=== PATIENT | male | born 1965 | race Caucasian/White ===

== ENCOUNTER 2017-09-11 10:15 | Outpatient (RCR) | payer OTHER, SELFPAY ==
--- NOTE | 2017-09-11 15:11 | PT.OTN ---
Addendum entered and electronically signed by Grisel Milian, PT 09/11/17 15:28: Transition note: On September 11, 2017 our therapy services consisting of Speech, Occupational, and Physical Therapy transitioned from the [employer] electronic documentation system to a new [employer] electronic documentation system.?? All documentation prior to September 11 can be found under [employer] saved data. From September 11 forward all medical record documentation will be in [email or web address]. Original Note: Physical Therapy Treatment Note PT-OP-C Subjective Start: 09/11/17 14:32 Freq: Status: Active Protocol: Activity Type Activity Date Activity User E-Sign Co-Sign Detail Recorded Client Recorded Date Recorded By Document 09/11/17 11:15 EA [id number] 09/11/17 15:06 EA 09/11/17 11:15 OP-PT Subjective [Patient Comments] -Patient Comments Patient reports neck pain is not bothering as much as before but still veered to right side; however able to correct with increased awareness. Overall patient reports that he is improving but still requires a lot of energy as his energ level is low at times per patient. Patient reports that he cancelled the remaining scheduled and okay to have last treatment next session and would like to cont. HEP. -Patient Reported Progress Improving PT-OP-Q Treatments Start: 09/11/17 14:32 Freq: Status: Active Protocol: Activity Type Activity Date Activity User E-Sign Co-Sign Detail Recorded Client Recorded Date Recorded By Document 09/11/17 11:15 EA [id number] 09/11/17 15:06 EA 09/11/17 11:15 Cardio Equipment [Recumbent Stepper (Sci-Fit)] -Duration (Minutes) 7 -Resistance 2 Therapeutic Exercises [Prone Exercises] 5 -Prone Exercise Name Thoracic extnsion x 12 reps x 2 w/ cervical retraction -Side bilateral -Reps/Minutes 5 SH x 5 reps x 2 sets 4 -Prone Exercise Name Opposite Unilat UE/LE's lift -Side bilateral -Reps/Minutes 15 reps x 2 sets 3 -Prone Exercise Name Unilat-bilat UE 's Lift -Side bilateral -Reps/Minutes 15 reps x 2 2 -Prone Exercise Name Unilat-bilat LE 's lift -Side bilateral -Reps/Minutes 15 reps x 2 1 -Prone Exercise Name Table prone scap retraction / T-raises -Side bilateral -Resistance 2-3 lbs DB -Reps/Minutes 12 x 2 sets [Standing Exercises] 1 -Standing Exercise Name Wall posture steady 05/17 squat: DB shld F, side raises, Press, elbow curl -Side bilateral -Resistance 2-3 for shoulder; 4-7 lbs for elbow -Equipment Used DB -Reps/Minutes 12 x 2 sets -Comments Patient maintain upright posture Manual Therapy Treatment [Soft Tissue Mobilization] 2 -Body Location Sub occipitals -Mobilization Type Myofascial Release -Intensity/Depth Moderate -Body Position Prone 1 -Body Location Bilateral Paralumbars/ parthoracis -Mobilization Type Sustained Pressure -Intensity/Depth Superficial -Body Position Prone PT-OP-R Modalities Start: 09/11/17 14:32 Freq: Status: Active Protocol: Activity Type Activity Date Activity User E-Sign Co-Sign Detail Recorded Client Recorded Date Recorded By Document 09/11/17 11:15 EA [id number] 09/11/17 15:06 EA 09/11/17 11:15 Electric Stimulation [Electric Stimulation] Interferential Current (IFC) -Body Location bilat parathoracis/ paralumbars -Duration (Minutes) 15 -Contraction Type Normal -Target/Sweep Sweep -Combined With Heat/Cold Hot Pack Hot Pack/Cold Pack [Treatment] Hot Pack -Patient Position Prone -Patient Tolerance Good PT-OP-T Assessment and Plan Start: 09/11/17 14:32 Freq: Status: Active Protocol: Activity Type Activity Date Activity User E-Sign Co-Sign Detail Recorded Client Recorded Date Recorded By Document 09/11/17 11:15 EA [id number] 09/11/17 15:06 EA 09/11/17 11:15 Physical Therapy Assessment [Assessment Summary] -Assessment Patient tolerated treatment well w/ no signs of acute ditress during treatment; patient have improved postural awareness but still requires costant reinforment. Ovearall patient is safe to discharge to fitness and HEP next visit. Physical Therapy Plan [Next Visit Focus/Plan] -Next Visit Plan Education, HEP/ Fitness program . To discharge patient next visit Current Diagnoses Cervicalgia (09/11/17)
--- NOTE | 2017-10-09 14:07 | PT.OTN ---
Physical Therapy Treatment Note PT-OP-A Visit Information Start: 10/09/17 07:27 Freq: Status: Active Protocol: Document 10/04/17 12:23 EA (Rec: 10/09/17 13:56 EA [id number]) Out-Patient Physical Therapy Visit Information Visit Information Visit Type Treatment Note Visit Note Late documentation: 10/02/17 Total Visit Minutes 30 PT-OP-C Subjective Start: 10/09/17 07:27 Freq: Status: Active Protocol: Document 10/04/17 12:23 EA (Rec: 10/09/17 13:56 EA [id number]) OP-PT Subjective Patient Comments Patient Comments Patient reports wants to be discharge at this time and would like to cont. HEP. Patient Reported Progress Patient Questionnaires Neck Disability Index Neck Disability Index Impairment 1 to 19% Impaired (Score 1-9) Oswestry Low Back Index Oswestry Impairment 1 to 19% Impaired (Score 1-19) PT-OP-Q Treatments Start: 10/09/17 07:27 Freq: Status: Active Protocol: Document 10/04/17 14:03 EA (Rec: 10/09/17 14:07 EA [id number]) Self-Care/Home Management Treatment Education Patient Education Body Mechanics Fall Risk Home Exercise Program Joint Protection Pain Management Posture Safety PT-OP-T Assessment and Plan Start: 10/09/17 07:27 Freq: Status: Active Protocol: Document 10/04/17 14:03 EA (Rec: 10/09/17 14:07 EA [id number]) Physical Therapy Assessment Assessment Summary Assessment Patient is discharged today per patient's request. Home exercises program were given and educated with safety and body mechanics. Patient exhibited good understanding during education and motivated to comply. Physical Therapy Plan Discharge Physical Therapy Discharge Reasons Patient Request Please Sign and Return: I have reviewed this Plan of Care and certify that the skilled therapy services above are required to meet the patient???s needs. Physician Signature Date Printed Name and Credentials Clinical Instructor Signature Printed Name and Credentials
--- NOTE | 2017-10-09 14:16 | PT.OPDS ---
Provider Visit Care Team Role Provider Type Tiffanie Shelley DO Attending Provider Physician Family Provider Primary Care Provider Specialty: Family Practice Address: [address] [place] [address], [id number] Email: [email or web address] Discharge Summary PT-OP-C Subjective Start: 10/09/17 07:27 Freq: Status: Active Protocol: Document 10/04/17 12:23 EA (Rec: 10/09/17 13:56 EA [id number]) OP-PT Subjective Patient Comments Patient Comments Patient reports wants to be discharge at this time and would like to perf Patient Reported Progress Improving Patient Questionnaires Neck Disability Index Neck Disability Index Impairment 1 to 19% Impaired (Score 1-9) Oswestry Low Back Index Oswestry Impairment 1 to 19% Impaired (Score 1-19) PT-OP-T Assessment and Plan Start: 10/09/17 07:27 Freq: Status: Active Protocol: Document 10/04/17 14:03 EA (Rec: 10/09/17 14:07 EA [id number]) Physical Therapy Assessment Assessment Summary Assessment Patient is discharged today per patient's request. Home exercises program were given and educated with safety and body mechanics. Patient exhibited good understanding during education and motivated to comply. Physical Therapy Plan Discharge Physical Therapy Discharge Reasons Patient Request Please Sign and Return: I have reviewed this Plan of Care and certify that the skilled therapy services above are required to meet the patient???s needs. Physician Signature Date Printed Name and Credentials Clinical Instructor Signature Printed Name and Credentials
== END 2017-11-01 11:05 ==
LOC: PHYS 10:15
PROVIDERS: Family Provider Family Medicine; PCP Family Medicine; Visit Provider Family Medicine
DX: M54.2 Cervicalgia (principal)
CPT/HCPCS: 97010; 97014; 97110; 97535; G0283

== ENCOUNTER → 2017-10-09 08:32 | Outpatient (CLI) | payer OTHER, SELFPAY ==
[2017-10-09 09:58] LABS: Add Manual Diff / Slide Review NO; Basophils Percent Auto 0.3 % (0-2); Eosinophils Percent Auto 0.6 % (2-4); Hematocrit 41.7 % (41-53); Hemoglobin 14.4 g/dL (13.5-17.5); Lymphocytes Percent Auto 8.1 % (25-40); Mean Corpuscular HGB Conc 34.6 % (30-36); Mean Corpuscular Hemoglobin 32.5 PG (26-34); Mean Corpuscular Volume 93.8 fL (80-100); Monocytes Percent Auto 4.6 % (3-14); Neutrophils Absolute Auto 13900 /uL (3000-5900); Neutrophils Percent Auto 86.4 % (50-75); Platelet Count 300 X10^3/uL (150-400); Red Blood Cell Count 4.45 X10^6/uL (4.5-5.9); Red Cell Distribution Width 13.2 % (11.6-14.8); White Blood Cell Count 16.1 X10^3/uL (4.5-11.0)
== END ==
PROVIDERS: Family Provider Family Medicine; PCP Family Medicine; Visit Provider Nurse Practitioner Psychiatric/Mental Health
DX: F20.9 Schizophrenia, unspecified (principal)
CPT/HCPCS: 36415; 85025

== ENCOUNTER → 2017-10-22 07:29 | Outpatient (CLI) | payer OTHER, SELFPAY ==
[2017-10-22 09:06] LABS: Add Manual Diff / Slide Review NO; Eosinophils Percent Auto 2.9 % (2-4); Hemoglobin 14.6 g/dL (13.5-17.5); Lymphocytes Percent Auto 27.2 % (25-40); Mean Corpuscular Hemoglobin 32.2 PG (26-34); Mean Corpuscular Volume 94.7 fL (80-100); Monocytes Percent Auto 6.2 % (3-14); Neutrophils Absolute Auto 5800 /uL (3000-5900); Neutrophils Percent Auto 62.7 % (50-75); Platelet Count 351 X10^3/uL (150-400); Red Blood Cell Count 4.54 X10^6/uL (4.5-5.9); Red Cell Distribution Width 13.1 % (11.6-14.8); White Blood Cell Count 9.3 X10^3/uL (4.5-11.0)
== END ==
PROVIDERS: Family Provider Family Medicine; PCP Family Medicine; Visit Provider Nurse Practitioner Psychiatric/Mental Health
DX: F20.9 Schizophrenia, unspecified (principal)
CPT/HCPCS: 36415; 85025

== ENCOUNTER → 2017-10-29 07:45 | Outpatient (CLI) | payer OTHER, SELFPAY ==
[2017-10-29 09:30] LABS: Add Manual Diff / Slide Review NO; Basophils Percent Auto 0.5 % (0-2); Eosinophils Percent Auto 1.2 % (2-4); Hematocrit 42.5 % (41-53); Hemoglobin 14.5 g/dL (13.5-17.5); Lymphocytes Percent Auto 12.7 % (25-40); Mean Corpuscular HGB Conc 34.2 % (30-36); Mean Corpuscular Hemoglobin 32.3 PG (26-34); Mean Corpuscular Volume 94.6 fL (80-100); Monocytes Percent Auto 5.8 % (3-14); Neutrophils Absolute Auto 10200 /uL (3000-5900); Neutrophils Percent Auto 79.8 % (50-75); Platelet Count 346 X10^3/uL (150-400); Red Blood Cell Count 4.49 X10^6/uL (4.5-5.9); Red Cell Distribution Width 13.4 % (11.6-14.8); White Blood Cell Count 12.7 X10^3/uL (4.5-11.0)
== END ==
PROVIDERS: Family Provider Family Medicine; PCP Family Medicine; Visit Provider Nurse Practitioner Psychiatric/Mental Health
DX: F20.9 Schizophrenia, unspecified (principal)
CPT/HCPCS: 36415; 85025

== ENCOUNTER 2017-10-29 23:53 | Emergency (ER) | payer OTHER, SELFPAY ==
[2017-10-30 00:04] VITALS: BP 130/92; PULSE 91; RESP 18; TEMP 36.4; O2SAT 97; BMI 17.9
--- NOTE | 2017-10-30 00:07 | DI.CT.S_ITS ---
PROCEDURE: CT ABDOMEN PELVIS WO/W CON INDICATIONS: Abdominal pain with hematuria TECHNIQUE: 5 mm thick sections acquired from the diaphragms to the iliac crests. After the administration of intravenous contrast, 5 mm thick sections acquired from the diaphragms to the symphysis. 5 mm thick coronal and sagittal reformats were acquired. For radiation dose reduction, the following was used: automated exposure control, adjustment of mA and/or kV according to patient size. COMPARISON: [facility], CR, THORACIC SPINE 3 VIEWS, 06/22/2017, 11:12. [facility], CT, PE STUDY (CTA CHEST), 02/02/2017, 5:40. [facility], CT, THORAX WITHOUT CONTRAST, 04/26/2016, 11:16. [facility], CR, L-SPINE 2-3 VIEWS, 06/22/2017, 11:12. FINDINGS: Image quality: Excellent. ABDOMEN: Lung bases: Lung bases are clear. Heart size is normal. Solid organs: Liver is normal in size and enhancement but appears mildly fatty infiltrated with focal sparing from otherwise diffuse fatty infiltration along the right lateral gallbladder fossa margin. Gallbladder appears free of calcified gallstones. Biliary system is slightly prominent within the central portion of the liver but the common duct measures only 7 mm in diameter. Pancreas enhances normally. Spleen is normal in size and enhancement. No adrenal nodules. Both kidneys are normal in size. No hydronephrosis or left-sided nephrolithiasis, and there is a nonobstructive 1 mm calculus at the lower third anterior collecting system of the right kidney. Bowel and peritoneum: Stomach, small and large bowel loops are normal in caliber and wall thickness. No free fluid or air. Colonic obstipation is prominent within the abdomen and pelvis, bilaterally Nodes and vessels: No retroperitoneal or mesenteric adenopathy by size criteria. Aorta and inferior vena are normal in caliber. Miscellaneous: No ventral hernias. Note is made on the sagittal reformatt imaging of what appears to be multiple chronic compression fractures mild in overall severity and 1 quite severe compression fracture at T12. The chronic compression fractures involve the upper endplate of of T11 with a small Schmorl's node, and the upper endplate of L4 including a moderate size Schmorl's node. The lower endplate of L5 also appears mildly bowed cephalad. The moderately severe compression fracture likely occurred on or near 06/22/17 by plain film reference. It is better seen and appears to mildly progressed from plain film imaging at that time. It currently documents a 60% maximal height reduction when compared to the level immediately below at the junction of the [id number] thirds of the vertebral body and there is posterior bowing of the posterior aspect of the T12 vertebral body by 11 mm into the spinal canal producing significant spinal stenosis. PELVIS: Genitourinary: Bladder wall thickness is normal. Miscellaneous: No inguinal hernias or adenopathy. Bones: No suspicious bony lesions within the pelvis. Please refer to the discussion related to compression fractures along the thoracic and lumbosacral spine most pronounced at T12.. No vertebral body compression fractures. IMPRESSION: 1. A definite source of hematuria is not found. There is a 1-1.5 mm nonobstructive calculus at the lower third collecting system of the right kidney. A renal cortical or urothelial mass is not identified. Cystoscopy may be warranted. 2. Quite severe T12 compression fracture with 60% maximal height reduction and a burst fracture morphology with secondary mild kyphosis centered at this segment and also retropulsion of the posterior T12 vertebral body into the spinal canal producing significant spinal stenosis due to approximately a 11 mm displacement of the vertebral body posteriorly. This trauma likely occurred on or shortly before 06/22/17 by plain film imaging and history. Given the severity of injury orthopedic consultation likely is warranted. MR scanning for more accurate assessment may be warranted. Additional less prominent compression fractures elsewhere as discussed above likely are osteoporotic in origin. 3. Fatty infiltration throughout the liver, focal sparing from this fatty infiltration is present along the right lateral gallbladder fossa border of the liver parenchyma. Incidental mode is made of mild prominence of the intrahepatic bile ducts, without identified underlying etiology. Also, generalized colonic obstipation is quite prominent in this patient. Dictated by: Sathya Garcia M.D. on 10/30/2017 at 8:32 Approved by: Sathya Garcia M.D. on 10/30/2017 at 8:49
[2017-10-30] MEDS: SODIUM CHLORIDE 0.9% 1,000 ML 150 ML IV (00:40)
[2017-10-30 00:43] LABS: Add Manual Diff / Slide Review NO; Basophils Percent Auto 0.6 % (0-2); Eosinophils Percent Auto 1.5 % (2-4); Hematocrit 42.8 % (41-53); Hemoglobin 14.6 g/dL (13.5-17.5); Lymphocytes Percent Auto 15.1 % (25-40); Mean Corpuscular Hemoglobin 32.3 PG (26-34); Mean Corpuscular Volume 94.8 fL (80-100); Neutrophils Absolute Auto 10300 /uL (3000-5900); Neutrophils Percent Auto 76.8 % (50-75); Platelet Count 333 X10^3/uL (150-400); Red Blood Cell Count 4.52 X10^6/uL (4.5-5.9); Red Cell Distribution Width 13.1 % (11.6-14.8); White Blood Cell Count 13.4 X10^3/uL (4.5-11.0)
[2017-10-30 00:54] LABS: Alanine Aminotransferase 28 IU/L (21-72); Albumin Globulin Ratio 1.4 (1.0-2.8); Alkaline Phosphatase 81 U/L (38-126); Aspartate Aminotransferase 22 IU/L (17-59); BUN Creatinine Ratio 26.3 (6-22); Bilirubin Total 0.6 mg/dL (0.2-1.3); Blood Urea Nitrogen 21 mg/dL (9-20); Calcium 9.1 mg/dL (8.4-10.2); Carbon Dioxide 26 mmol/L (22-32); Chloride 104 mmol/L (98-107); Estimated Glomerular Filt Rate > 60.0 mL/min (>60); Globulin 2.8 g/dL (1.7-4.1); Glucose 87 mg/dL (70-100); HEMOLYSIS 27 (0-50); Lipase 47 U/L (23-300); Potassium 3.9 mmol/L (3.4-5.1); Sodium 142 mmol/L (137-145); Total Protein 6.8 g/dL (6.3-8.2)
--- NOTE | 2017-10-30 01:08 | PC.NURSE ---
Pt states dark red urine today. Unable to urinate at time of arrival.
[2017-10-30 03:54] LABS: Bacteria Urine None Seen; WBC Urine None Seen (0-5/HPF)
[2017-10-30 03:55] LABS: Appearance Urine UA CLEAR; Bilirubin Urine UA NEGATIVE (NEGATIVE); Color Urine UA YELLOW; Glucose Urine UA NEGATIVE (Normal); Ketones Urine UA NEGATIVE (NEGATIVE); Leukocyte Esterase Urine UA NEGATIVE (NEGATIVE); Nitrite Urine UA Negative (Negative); Occult Blood Urine UA 1+ (Negative); Protein Urine UA NEGATIVE (Negative); Specific Gravity Urine UA <=1.005 (1.000-1.035); Urobilinogen Urine UA 0.2 E.U./dL (0.2)
[2017-10-30 04:03] LABS: RBC Urine 1-5/HPF (0-5/HPF)
[2017-10-30 04:04] LABS: Culture Indicated Urine Cult Not Indicated
--- NOTE | 2017-10-30 04:13 | ED_ITS ---
HPI - Abdominal Pain General Chief Complaint: Abdominal Pain Stated Complaint: Abd Pain History of Present Illness HPI narrative: HPI 52-year-old male with schizoaffective disorder and a prior T12 compression fracture presents for evaluation of intermittent red/orange tinged urine over the last month, notes poorly characterized mild abdominal discomfort. Denies fevers, chills, dysuria, urinary frequency, penile discharge. Continues pass flatus and stool at baseline - Q2-4 day stooling. Denies new back pain. Notes normal sensation lays, normal strength, normal perineal sensation, no difficulty urinating. chart dated 08/10/17 reviewed, notable for imaging with T12 compression fracture , previously identified, has not worsen. No retropulsion of bone fragments into the spinal canal is seen. Focal kyphosis is present as a result of that compression fracture, the severity of which is not changed. No new compression fracture found. M/S/F/SocHx notable for: schizoaffective, chronic back pain, PTSD; remainder reviewed with patient and in chart. ROS: Negative constitutional, eye, cardiovascular, pulmonary, GI, , MSK, skin , neurologic, psychiatric, endocrine unless noted in the HPI. Exam Gen: [Pleasant, non-toxic appearing, resting comfortably.] HEENT: [NC, AT, PEERL, EOMI.] Resp: [Clear to auscultation bilaterally, normal work of breathing, no accessory muscle usage.] Card: [Regular rate and rhythm with no murmurs, rubs, or gallops, extremities warm and well perfused.] GI: [Non-tender to palpation throughout all quadrants, no focal tenderness at McBurney's point, negative Hussein's sign, non-distended, no rebound or guarding. ] : [No suprapubic tenderness to palpation.] MSK: [No visible deformities, strength and tone without visually appreciable deficit.] Thoracic and lumbar spine without palpable tenderness. Skin: [Normal color with no visible lesions.] Neuro: [AO x 3, no facial asymmetry, vision and hearing WNL.] Psych: and affect Labs / Imaging: WBC 13.4, HB 14.6, sodium 142, potassium 3.9 UA - 1+ occult blood, negative nitrate, negative leukocyte esterase, no WBCs, no bacteria. CT abdomen/pelvis: fracture of the T12 vertebral body with approximately 7 mm of bony retropulsion causing effacement of the thecal sac. Distended colon filled with stool. There is also distended loops of small bowel filled with fluid. Hypomotility secondary to medication, electrolyte imbalance, or other neurologic etiology should be considered. 3 mm near right renal stone. No hydronephrosis. MDM Previous chart, nursing note, labs, imaging, and vitals reviewed. A: 52-year-old male with schizoaffective disorder and a prior T12 compression fracture presents for evaluation of intermittent red/orange tinged urine over the last month, notes poorly characterized mild abdominal discomfort. DDx & Evaluation: UA without evidence of UTI, trace hematuria, imaging without evidence of ureterolithiasis or radial apparent malignancy. Note was made of the T12 vertebral body with retropulsion as well as imaging findings regarding distended loops of small bowel filled with fluid. The patient's history and exam are without evidence of obstruction, patient can is to stool normally, has no identifiable neuro deficits, no back pain. Patient is appropriate for outpatient follow-up. Patient instructed to follow up with their PCP regarding the trace hematuria and for further care/referral with respect to his T12 imaging abnormalities. Return to care precautions provided. Impression: trace hematuria (please reference below for remainder of encounter information) Related Data Home Medications Medication Instructions Recorded Confirmed aspirin 81 mg PO QDAY #30 tab 01/05/16 escitalopram oxalate 20 mg PO QDAY #30 tab 03/10/16 quetiapine [Seroquel] 300 mg PO BID #0 03/10/16 temazepam 15 mg PO HS #0 03/10/16 lorazepam [Ativan] 1 mg PO TIDP PRN #0 09/18/16 benztropine 0.5 mg PO BID #0 09/22/16 albuterol sulfate [Ventolin HFA] 1 puff INH #0 01/30/17 quetiapine [Seroquel] 100 mg PO HS #0 01/30/17 Previous Rx's Medication Instructions Recorded metoclopramide HCl 10 mg PO TIDAC #90 tab 12/14/16 Spacer: Inhaler Spacer Device ea #1 02/14/17 lactulose 20 gm PO BIDP PRN #1800 ml 06/30/17 lidocaine 1 amilcar TOPICAL Q6HP PRN #1 tube 07/06/17 calcitonin (salmon) 1 puff NS QDAY #3.7 ml 08/17/17 oxycodone-acetaminophen 10 mg PO BID #60 tab 08/17/17 ranitidine HCl 150 mg PO BIDCC #180 tab 08/20/17 methocarbamol [Robaxin-750] 750 mg PO QIDP PRN #40 tab 09/03/17 atorvastatin [Lipitor] 20 mg PO HS #90 tab 09/12/17 pantoprazole 40 mg PO QDAY #90 tab 09/12/17 oxycodone-acetaminophen 5 mg-325 2 tab PO BID #60 tab 10/15/17 mg tablet Allergies Allergy/AdvReac Type Severity Reaction Status Date / Time iloperidone Allergy Intermediate SEIZURES Unverified 08/22/17 12:16 atomoxetine Allergy Mild RASH Unverified 08/22/17 12:16 bupropion Allergy Mild SOB Unverified 08/22/17 12:16 cyclobenzaprine Allergy Mild RASH Unverified 08/22/17 12:16 lamotrigine Allergy Mild RASH Unverified 08/22/17 12:16 sertraline Allergy Mild RASH Unverified 08/22/17 12:16 haloperidol AdvReac Severe TARDIVE Unverified 08/22/17 12:16 DYSKENSIA PFSH Medical History Bipolar disorder (Chronic) PTSD (post-traumatic stress disorder) (Chronic) Schizoaffective disorder (Chronic) Testicular mass (Resolved) Surgical History Status post laparotomy (Resolved 01/2017) Family History Father Tobacco use Alcoholism Mother Age: 77 Vertigo Exam Initial Vital Signs Initial Vital Signs: Vital Signs Temperature 97.6 F 10/30/17 00:04 Pulse Rate 91 H 10/30/17 00:04 Respiratory Rate 18 10/30/17 00:04 Blood Pressure 130/92 H 10/30/17 00:04 Pulse Oximetry 97 10/30/17 00:04 Course Orders Ordered: ED Orders 10/30/17 00:07 CT abdomen pelvis wo/w con Stat 10/30/17 00:35 Complete Blood Count AUTO DIFF Stat Comprehensive Metabolic Panel Stat Lipase Stat 10/30/17 03:45 Urinalysis and Microscopic Stat Urine Chlamydia Gonorrhea PCR Stat Sodium Chloride (Normal Saline 0.9%) 1,000 mls @ 150 mls/hr IV CONT DANIEL Vital Signs - 8 hr 10/30/17 00:04 Temperature 97.6 F Pulse Rate 91 H Respiratory Rate 18 Blood Pressure 130/92 H Pulse Oximetry 97 MDM - Abdominal Pain Lab Data Result diagrams: 10/30/17 00:35 10/30/17 00:35 Lab Results 10/30/17 10/30/17 10/30/17 Range/Units 00:35 00:35 03:45 WBC 13.4 H (4.5-11.0) X10^3/uL RBC 4.52 (4.5-5.9) X10^6/uL Hgb 14.6 (13.5-17.5) g/dL Hct 42.8 (41-53) % MCV 94.8 (80-100) fL MCH 32.3 (26-34) PG MCHC 34.0 (30-36) % RDW 13.1 (11.6-14.8) % Plt Count 333 (150-400) X10^3/uL Neut % (Auto) 76.8 H (50-75) % Lymph % (Auto) 15.1 L (25-40) % [facility] % (Auto) 6.0 (3-14) % Eos % (Auto) 1.5 L (2-4) % Baso % (Auto) 0.6 (0-2) % Neut # (Auto) 13851 H (1562-9166) /uL Sodium 142 (137-145) mmol/L Potassium 3.9 (3.4-5.1) mmol/L Chloride 104 (98-107) mmol/L Carbon Dioxide 26 (22-32) mmol/L BUN 21 H (9-20) mg/dL Creatinine 0.80 (0.66-1.25) mg/dL Estimated GFR > 60.0 (>60) mL/min BUN/Creatinine Ratio 26.3 H (6-22) Glucose 87 (70-100) mg/dL Calcium 9.1 (8.4-10.2) mg/dL Total Bilirubin 0.6 (0.2-1.3) mg/dL AST 22 (17-59) IU/L ALT 28 (21-72) IU/L Alkaline Phosphatase 81 (38-126) U/L Total Protein 6.8 (6.3-8.2) g/dL Albumin 4.0 (3.5-5.0) g/dL Globulin 2.8 (1.7-4.1) g/dL Albumin/Globulin Ratio 1.4 (1.0-2.8) Lipase 47 (23-300) U/L Urine Color Yellow Urine Appearance Clear Urine pH 7.0 (4.5-8.0) Ur Specific [place] <=1.005 (1.000-1.035) Urine Protein Negative (Negative) Urine Glucose (UA) Negative (Normal) g/dL Urine Ketones Negative (NEGATIVE) Urine Occult Blood 1+ H (Negative) Urine Nitrate Negative (Negative) Urine Bilirubin Negative (NEGATIVE) Urine Urobilinogen 0.2 (0.2) E.U./dL Ur Leukocyte Esterase Negative (NEGATIVE) Urine RBC 1-5/hpf (0-5/HPF) Urine WBC None seen (0-5/HPF) Urine Bacteria None seen (None) Ur Culture Indicated? Cult not indicated Micro UA Comment Not Reportable Discharge Plan Departure Prescriptions: No Action aspirin 81 MG tablet,delayed release (DR/EC) 81 mg PO QDAY Qty: 30 RF: 0 quetiapine [Seroquel] 300 MG tablet 300 mg PO BID Qty: 0 RF: 0 escitalopram oxalate 20 MG tablet 20 mg PO QDAY Qty: 30 RF: 0 temazepam 15 MG capsule 15 mg PO HS Qty: 0 RF: 0 lorazepam [Ativan] 0.5 MG tablet 1 mg PO TIDP PRNQty: 0 RF: 0 benztropine 0.5 MG tablet 0.5 mg PO BID Qty: 0 RF: 0 metoclopramide HCl 10 MG tablet 10 mg PO TIDAC Qty: 90 RF: 5 quetiapine [Seroquel] 100 MG tablet 100 mg PO HS Qty: 0 RF: 0 albuterol sulfate [Ventolin HFA] 90 MCG/PUFF HFA aerosol inhaler 1 puff INH Qty: 0 RF: 0 Spacer: Inhaler Spacer Device Qty: 1 RF: 0 lactulose 10 GM/15 ML solution 20 gm PO BIDP PRNQty: 1800 RF: 0 lidocaine LIDOCAINE 5% ointment 1 amilcar Topical Q6HP PRNQty: 1 RF: 1 oxycodone-acetaminophen 5 MG/325 MG tablet 10 mg PO BID Qty: 60 RF: 0 calcitonin (salmon) 200 IU/PUFF spray,non-aerosol 1 puff NS QDAY Qty: 3.7 RF: 0 ranitidine HCl 150 MG tablet 150 mg PO BIDCC Qty: 180 RF: 0 methocarbamol [Robaxin-750] 750 MG tablet 750 mg PO QIDP PRNQty: 40 RF: 0 atorvastatin [Lipitor] 20 mg tablet 20 mg PO HS Qty: 90 RF: 0 pantoprazole 40 mg tablet,delayed release (DR/EC) 40 mg PO QDAY Qty: 90 RF: 1 oxycodone-acetaminophen 5-325 mg tablet 2 tab PO BID Qty: 60 RF: 0
[2017-10-30 05:09] VITALS: BP 128/80; PULSE 88; RESP 16; O2SAT 98
[2017-10-30 05:42] LABS: Urine Chlamydia NOT DETECTED; Urine N gonorrhoeae NOT DETECTED
[2017-10-30 06:21] VITALS: BP 132/82; PULSE 88; RESP 16; O2SAT 99
== END 2017-10-30 06:22 | disposition home or self-care (01) ==
PROVIDERS: Emergency Provider Emergency Medicine; Family Provider Family Medicine; PCP Family Medicine
DX: R31.9 Hematuria, unspecified (principal)
CPT/HCPCS: 36591; 74178; 80053; 81001; 83690; 85025; 87491; 87591; 96360; 96361; 99283; 99284; Q9967

== ENCOUNTER → 2017-11-05 08:13 | Outpatient (CLI) | payer OTHER, SELFPAY ==
[2017-11-05 09:00] LABS: Add Manual Diff / Slide Review NO; Basophils Percent Auto 0.9 % (0-2); Eosinophils Percent Auto 2.3 % (2-4); Hematocrit 43.7 % (41-53); Lymphocytes Percent Auto 21.1 % (25-40); Mean Corpuscular HGB Conc 34.3 % (30-36); Mean Corpuscular Hemoglobin 32.6 PG (26-34); Mean Corpuscular Volume 95.3 fL (80-100); Monocytes Percent Auto 7.2 % (3-14); Neutrophils Absolute Auto 6800 /uL (3000-5900); Neutrophils Percent Auto 68.5 % (50-75); Platelet Count 337 X10^3/uL (150-400); Red Blood Cell Count 4.59 X10^6/uL (4.5-5.9); Red Cell Distribution Width 13.1 % (11.6-14.8); White Blood Cell Count 9.9 X10^3/uL (4.5-11.0)
== END ==
PROVIDERS: Family Provider Family Medicine; PCP Family Medicine; Visit Provider Nurse Practitioner Psychiatric/Mental Health
DX: F20.9 Schizophrenia, unspecified (principal)
CPT/HCPCS: 36415; 85025

== ENCOUNTER → 2017-11-19 07:18 | Outpatient (CLI) | payer SELFPAY | PROVIDERS: Family Provider Family Medicine; PCP Family Medicine; Visit Provider Nurse Practitioner Psychiatric/Mental Health | DX: F20.9 Schizophrenia, unspecified (principal) ==

== ENCOUNTER → 2017-11-20 07:36 | Outpatient (CLI) | payer OTHER, SELFPAY ==
[2017-11-20 09:35] LABS: Add Manual Diff / Slide Review NO; Basophils Percent Auto 0.5 % (0-2); Hemoglobin 14.1 g/dL (13.5-17.5); Lymphocytes Percent Auto 7.3 % (25-40); Mean Corpuscular HGB Conc 33.6 % (30-36); Mean Corpuscular Hemoglobin 32.1 PG (26-34); Mean Corpuscular Volume 95.6 fL (80-100); Monocytes Percent Auto 3.9 % (3-14); Neutrophils Absolute Auto 12400 /uL (3000-5900); Neutrophils Percent Auto 87.3 % (50-75); Platelet Count 301 X10^3/uL (150-400); Red Cell Distribution Width 13.3 % (11.6-14.8); White Blood Cell Count 14.2 X10^3/uL (4.5-11.0)
== END ==
PROVIDERS: Family Provider Family Medicine; PCP Family Medicine; Visit Provider Nurse Practitioner Psychiatric/Mental Health
DX: F20.9 Schizophrenia, unspecified (principal)
CPT/HCPCS: 36415; 85025

== ENCOUNTER 2017-11-26 14:05 | Emergency (ER) | payer OTHER, SELFPAY ==
[2017-11-26 14:07] VITALS: TEMP 36.8
[2017-11-26 14:11] VITALS: BP 129/86; PULSE 118; RESP 22; O2SAT 98
--- NOTE | 2017-11-26 14:33 | ED.HA ---
HPI - Headache <Cristin Seguar PA-C - Last Filed: 11/26/17 17:26> General Chief Complaint: Headache Stated Complaint: states scary experience in my mind Time Seen by Provider: 11/26/17 14:33 Source: patient Mode of arrival: ambulatory Limitations: no limitations History of Present Illness HPI Narrative: This 52-year-old male comes in due to what he describes as electrical shock sensation and headache on the left side of his head that lasted he thinks all day yesterday and last night. He states that he was in bed when it started. He describes the sensation as his head being ?lit up with electricity?. He states that he does have a history of migraines, but this is not typical at all of what he has experienced in the past which was accompanied by light and sound sensitivity and bilateral headache. He states that headache is better now, he feels like it could come back. States he has not had any difficulty with speech or swallowing or coordination, though he stated bed yesterday. He has not had any vision change, nausea, vomiting or any other new symptoms with this. He states that he is paranoid schizophrenic and his medications were adjusted last week (increased Seroquel and benztropine). Denies any new changes aside from that or drug use. He denies feeling suicidal, but states he does feel like the headache has had after affects on his memory, that does not seem normal to him. He states he has some ongoing cough/bronchitis and sinus congestion but denies any new recent symptoms, fever, or other new symptoms on systems review Related Data Home Medications Medication Instructions Recorded Confirmed aspirin 81 mg PO QDAY #30 tab 01/05/16 11/26/17 escitalopram oxalate 20 mg PO QDAY #30 tab 03/10/16 11/26/17 quetiapine [Seroquel] 300 mg PO BID #0 03/10/16 11/26/17 temazepam 15 mg PO HS #0 03/10/16 11/26/17 benztropine 1.5 mg PO BEDTIME #0 09/22/16 11/26/17 albuterol sulfate [Ventolin HFA] 1 puff INH PRN PRN #0 01/30/17 11/26/17 quetiapine [Seroquel] 100 mg PO BID #0 01/30/17 11/26/17 Spacer: Inhaler Spacer Device 1 ea MISCELLANEOUS DIRECTED 11/26/17 11/26/17 calcium carbonate 650 mg PO DAILY 11/26/17 11/26/17 clozapine 200 mg PO BID 11/26/17 11/26/17 lorazepam 2 mg PO BEDTIME 11/26/17 11/26/17 zgxkocqq-czw-swyef-vit K-lycop 1 tab PO DAILY 11/26/17 11/26/17 [Men's 50 Plus Daily Formula] aa-ul-gboo-FA-herbal cmplx#190 1 cap PO DAILY 11/26/17 11/26/17 [Vitamin D3 Complete] naproxen sodium [Aleve] 2 tab PO BID PRN 11/26/17 11/26/17 saw palmetto 1 tab PO DAILY 11/26/17 11/26/17 tiotropium bromide [Spiriva with 1 cap INHALATION DAILY 11/26/17 11/26/17 HandiHaler] Previous Rx's Medication Instructions Recorded atorvastatin [Lipitor] 20 mg PO HS #90 tab 09/12/17 pantoprazole 40 mg PO QDAY #90 tab 09/12/17 ranitidine 150 mg tablet 150 mg PO BIDCC #180 tab 11/26/17 Allergies Allergy/AdvReac Type Severity Reaction Status Date / Time iloperidone Allergy Intermediate SEIZURES Unverified 08/22/17 12:16 atomoxetine Allergy Mild RASH Unverified 08/22/17 12:16 bupropion Allergy Mild SOB Unverified 08/22/17 12:16 cyclobenzaprine Allergy Mild RASH Unverified 08/22/17 12:16 lamotrigine Allergy Mild RASH Unverified 08/22/17 12:16 sertraline Allergy Mild RASH Unverified 08/22/17 12:16 haloperidol AdvReac Severe TARDIVE Unverified 08/22/17 12:16 DYSKENSIA Review of Systems <Cristin Segura PA-C - Last Filed: 11/26/17 17:26> Review of Systems All systems reviewed & are unremarkable except as noted in HPI and below Exam <Cristin Segura PA-C - Last Filed: 11/26/17 17:26> Narrative Exam Narrative: GENERAL APPEARANCE: Patient sitting comfortably, in no distress. HEENT: PERRL, EOMI, normal TMs and oropharynx, no sinus TTP NECK: Supple LUNGS: Clear to auscultation bilaterally, no cough on exam. HEART: Rate and rhythm regular without murmur, normal S1 and S2, no S3 or S4. ABDOMEN: Soft, NT, ND, + BS x 4 quadrants NEUROLOGIC: Alert, tangential historian but speech is intelligible. Coordination is normal. Gait is normal. MUSCULOSKELETAL: Full Csp AROM without tenderness over the cervical or paraspinal musculature. Normal range of motion of the extremities Initial Vital Signs Initial Vital Signs: Vital Signs Temperature 98.2 F 11/26/17 14:07 <Faizan Connolly DO - Last Filed: 11/26/17 17:44> Initial Vital Signs Initial Vital Signs: Vital Signs Temperature 98.2 F 11/26/17 14:07 Course <Cristin Segura PA-C - Last Filed: 11/26/17 17:26> Orders Ordered: ED Orders 11/26/17 15:12 CT head/brain wo con Stat 11/26/17 15:33 Complete Blood Count AUTO DIFF Stat Comprehensive Metabolic Panel Stat Vital Signs - 8 hr 11/26/17 14:07 11/26/17 14:11 11/26/17 16:52 Temperature 98.2 F Pulse Rate 118 H 93 H Respiratory Rate 22 16 Blood Pressure 132/91 H Blood Pressure [Left Arm] 129/86 H Pulse Oximetry 98 99 <DO Lilia Murcia Last Filed: 11/26/17 17:44> Orders Ordered: ED Orders 11/26/17 15:12 CT head/brain wo con Stat 11/26/17 15:33 Complete Blood Count AUTO DIFF Stat Comprehensive Metabolic Panel Stat Vital Signs - 8 hr 11/26/17 14:07 11/26/17 14:11 11/26/17 16:52 Temperature 98.2 F Pulse Rate 118 H 93 H Respiratory Rate 22 16 Blood Pressure 132/91 H Blood Pressure [Left Arm] 129/86 H Pulse Oximetry 98 99 MDM - Headache <EMILY Jackson Last Filed: 11/26/17 17:26> Lab Data Attestation: I reviewed the patient's lab results. Result diagrams: 11/26/17 15:33 11/26/17 15:33 Lab Results 11/26/17 11/26/17 Range/Units 15:33 15:33 WBC 9.3 (4.5-11.0) X10^3/uL RBC 4.44 L (4.5-5.9) X10^6/uL Hgb 14.5 (13.5-17.5) g/dL Hct 41.9 (41-53) % MCV 94.3 (80-100) fL MCH 32.6 (26-34) PG MCHC 34.6 (30-36) % RDW 13.4 (11.6-14.8) % Plt Count 313 (150-400) X10^3/uL Neut % (Auto) 72.1 (50-75) % Lymph % (Auto) 18.6 L (25-40) % [place] % (Auto) 6.4 (3-14) % Eos % (Auto) 2.0 (2-4) % Baso % (Auto) 0.9 (0-2) % Neut # (Auto) 6700 H (1903-1803) /uL Sodium 140 (137-145) mmol/L Potassium 4.4 (3.4-5.1) mmol/L Chloride 102 (98-107) mmol/L Carbon Dioxide 26 (22-32) mmol/L BUN 24 H (9-20) mg/dL Creatinine 0.80 (0.66-1.25) mg/dL Estimated GFR > 60.0 (>60) mL/min BUN/Creatinine Ratio 30.0 H (6-22) Glucose 88 (70-100) mg/dL Calcium 9.3 (8.4-10.2) mg/dL Total Bilirubin 0.4 (0.2-1.3) mg/dL AST 23 (17-59) IU/L ALT 23 (21-72) IU/L Alkaline Phosphatase 73 (38-126) U/L Total Protein 6.8 (6.3-8.2) g/dL Albumin 4.2 (3.5-5.0) g/dL Globulin 2.6 (1.7-4.1) g/dL Albumin/Globulin Ratio 1.6 (1.0-2.8) Imaging Data CT scan - head: Radiologist's impression: [address] [address] [address] Scan Report Signed Patient: Chris Rey MR#: [id number] : 1965 Acct:[id number] Age/Sex: 52 / M Date of Service: 11/26/17 Loc: ED Accession Number: [id number] Procedure: CT head/brain wo con Ordering Provider: Cristin Segura P.A-C PROCEDURE: CT HEAD/BRAIN WO CON INDICATIONS: worst headache ever yesterday, memory loss TECHNIQUE: Noncontrast 4.5 mm thick angled axial sections acquired from the foramen magnum to the vertex, with coronal and sagittal reformats. For radiation dose reduction, the following was used: automated exposure control, adjustment of mA and/or kV according to patient size. COMPARISON: [facility], CT, CT BRAIN WO CON, 08/27/2015, 16:32. FINDINGS: Image quality: Excellent. CSF spaces: Basal cisterns are patent. No extra-axial fluid collections. Ventricles are normal in size and shape. Brain: No midline shift. No intracranial masses or hemorrhage. Mcdonald-white matter interface is normal. Skull and face: Calvarium and visualized facial bones are intact, without suspicious lesions. Sinuses: Visualized sinuses and mastoids are clear. IMPRESSION: Stable head CT. No acute intracranial hemorrhage. Dictated by: Abhijeet John M.D. on 11/26/2017 at 14:49 Approved by: Abhijeet John M.D. on 11/26/2017 at 14:50 <Faizan Connolly DO - Last Filed: 11/26/17 17:44> Lab Data Lab Results 11/26/17 11/26/17 Range/Units 15:33 15:33 WBC 9.3 (4.5-11.0) X10^3/uL RBC 4.44 L (4.5-5.9) X10^6/uL Hgb 14.5 (13.5-17.5) g/dL Hct 41.9 (41-53) % MCV 94.3 (80-100) fL MCH 32.6 (26-34) PG MCHC 34.6 (30-36) % RDW 13.4 (11.6-14.8) % Plt Count 313 (150-400) X10^3/uL Neut % (Auto) 72.1 (50-75) % Lymph % (Auto) 18.6 L (25-40) % [place] % (Auto) 6.4 (3-14) % Eos % (Auto) 2.0 (2-4) % Baso % (Auto) 0.9 (0-2) % Neut # (Auto) 6700 H (9615-3135) /uL Sodium 140 (137-145) mmol/L Potassium 4.4 (3.4-5.1) mmol/L Chloride 102 (98-107) mmol/L Carbon Dioxide 26 (22-32) mmol/L BUN 24 H (9-20) mg/dL Creatinine 0.80 (0.66-1.25) mg/dL Estimated GFR > 60.0 (>60) mL/min BUN/Creatinine Ratio 30.0 H (6-22) Glucose 88 (70-100) mg/dL Calcium 9.3 (8.4-10.2) mg/dL Total Bilirubin 0.4 (0.2-1.3) mg/dL AST 23 (17-59) IU/L ALT 23 (21-72) IU/L Alkaline Phosphatase 73 (38-126) U/L Total Protein 6.8 (6.3-8.2) g/dL Albumin 4.2 (3.5-5.0) g/dL Globulin 2.6 (1.7-4.1) g/dL Albumin/Globulin Ratio 1.6 (1.0-2.8) Discharge Plan Departure Patient Disposition: Home, Self-Care Clinical Impression: Headache Discharge Date/Time: 11/26/17 16:53 Interventions: ED Discharge Assessment Last Done: 11/26/17 16:52 Instructions: DI for Headache Activity Restrictions/Additional Instructions: Your CT scan and lab work today does not show any acute findings such as bleeding in your head. From what you described I suspect that your headache may have been caused from nerve irritation. Since you are feeling better now, it is reasonable to monitor this, continue your usual medications and follow up with your PCP as you have already planned. Prescriptions: No Action aspirin 81 MG tablet,delayed release (DR/EC) 81 mg PO QDAY Qty: 30 RF: 0 quetiapine [Seroquel] 300 MG tablet 300 mg PO BID Qty: 0 RF: 0 escitalopram oxalate 20 MG tablet 20 mg PO QDAY Qty: 30 RF: 0 temazepam 15 MG capsule 15 mg PO HS Qty: 0 RF: 0 benztropine 0.5 MG tablet 1.5 mg PO BEDTIME Qty: 0 RF: 0 quetiapine [Seroquel] 100 MG tablet 100 mg PO BID Qty: 0 RF: 0 albuterol sulfate [Ventolin HFA] 90 MCG/PUFF HFA aerosol inhaler 1 puff INH PRN PRN (Reason: Shortness Of Breath) Qty: 0 RF: 0 atorvastatin [Lipitor] 20 mg tablet 20 mg PO HS Qty: 90 RF: 0 pantoprazole 40 mg tablet,delayed release (DR/EC) 40 mg PO QDAY Qty: 90 RF: 1 ranitidine HCl 150 mg tablet 150 mg PO BIDCC Qty: 180 RF: 0 calcium carbonate 650 mg calcium (1,625 mg) Tablet 650 mg PO DAILY RF: 0 lorazepam 2 mg Tablet 2 mg PO BEDTIME RF: 0 naproxen sodium [Aleve] 220 mg Tablet 2 tab PO BID PRN (Reason: Pain, Moderate) RF: 0 tiotropium bromide [Spiriva with HandiHaler] 18 mcg Capsule, W/Inhalation Device 1 cap Inhalation DAILY RF: 0 clozapine 200 mg Tablet 200 mg PO BID RF: 0 dt-cb-vhjq-FA-herbal cmplx#190 [Vitamin D3 Complete] 18 mg iron-800 mcg-150 mg Tablet 1 cap PO DAILY RF: 0 scamkrvt-dws-zfnlg-vit K-lycop [Men's 50 Plus Daily Formula] 400-20-370 mcg Tablet 1 tab PO DAILY RF: 0 saw palmetto 250 mg tablet 1 tab PO DAILY RF: 0 Spacer: Inhaler Spacer Device 1 ea miscellaneous DIRECTED RF: 0 Referrals: Tiffanie Shelley DO [Primary Care Provider] - <Faizan Connolly DO - Last Filed: 11/26/17 17:44> Cosign ED Attending Cosignature Attestation: I was available for consultation during this patient's emergency department encounter
--- NOTE | 2017-11-26 15:12 | DI.CT.S_ITS ---
PROCEDURE: CT HEAD/BRAIN WO CON INDICATIONS: worst headache ever yesterday, memory loss TECHNIQUE: Noncontrast 4.5 mm thick angled axial sections acquired from the foramen magnum to the vertex, with coronal and sagittal reformats. For radiation dose reduction, the following was used: automated exposure control, adjustment of mA and/or kV according to patient size. COMPARISON: [facility], CT, CT BRAIN WO CON, 08/27/2015, 16:32. FINDINGS: Image quality: Excellent. CSF spaces: Basal cisterns are patent. No extra-axial fluid collections. Ventricles are normal in size and shape. Brain: No midline shift. No intracranial masses or hemorrhage. Mcdonald-white matter interface is normal. Skull and face: Calvarium and visualized facial bones are intact, without suspicious lesions. Sinuses: Visualized sinuses and mastoids are clear. IMPRESSION: Stable head CT. No acute intracranial hemorrhage. Dictated by: Abhijeet John M.D. on 11/26/2017 at 14:49 Approved by: Abhijeet John M.D. on 11/26/2017 at 14:50
--- NOTE | 2017-11-26 15:30 | ED_ITS ---
HPI - Headache <Cristin Segura PA-C - Last Filed: 11/26/17 17:26> General Chief Complaint: Headache Stated Complaint: states scary experience in my mind Time Seen by Provider: 11/26/17 14:33 Source: patient Mode of arrival: ambulatory Limitations: no limitations History of Present Illness HPI Narrative: This 52-year-old male comes in due to what he describes as electrical shock sensation and headache on the left side of his head that lasted he thinks all day yesterday and last night. He states that he was in bed when it started. He describes the sensation as his head being ?lit up with electricity?. He states that he does have a history of migraines, but this is not typical at all of what he has experienced in the past which was accompanied by light and sound sensitivity and bilateral headache. He states that headache is better now, he feels like it could come back. States he has not had any difficulty with speech or swallowing or coordination, though he stated bed yesterday. He has not had any vision change, nausea, vomiting or any other new symptoms with this. He states that he is paranoid schizophrenic and his medications were adjusted last week (increased Seroquel and benztropine). Denies any new changes aside from that or drug use. He denies feeling suicidal , but states he does feel like the headache has had after affects on his memory , that does not seem normal to him. He states he has some ongoing cough/ bronchitis and sinus congestion but denies any new recent symptoms, fever, or other new symptoms on systems review Related Data Home Medications Medication Instructions Recorded Confirmed aspirin 81 mg PO QDAY #30 tab 01/05/16 11/26/17 escitalopram oxalate 20 mg PO QDAY #30 tab 03/10/16 11/26/17 quetiapine [Seroquel] 300 mg PO BID #0 03/10/16 11/26/17 temazepam 15 mg PO HS #0 03/10/16 11/26/17 benztropine 1.5 mg PO BEDTIME #0 09/22/16 11/26/17 albuterol sulfate [Ventolin HFA] 1 puff INH PRN PRN #0 01/30/17 11/26/17 quetiapine [Seroquel] 100 mg PO BID #0 01/30/17 11/26/17 Spacer: Inhaler Spacer Device 1 ea MISCELLANEOUS DIRECTED 11/26/17 11/26/17 calcium carbonate 650 mg PO DAILY 11/26/17 11/26/17 clozapine 200 mg PO BID 11/26/17 11/26/17 lorazepam 2 mg PO BEDTIME 11/26/17 11/26/17 dmhwltwv-bwr-mvell-vit K-lycop 1 tab PO DAILY 11/26/17 11/26/17 [Men's 50 Plus Daily Formula] kh-nd-isck-FA-herbal cmplx#190 1 cap PO DAILY 11/26/17 11/26/17 [Vitamin D3 Complete] naproxen sodium [Aleve] 2 tab PO BID PRN 11/26/17 11/26/17 saw palmetto 1 tab PO DAILY 11/26/17 11/26/17 tiotropium bromide [Spiriva with 1 cap INHALATION DAILY 11/26/17 11/26/17 HandiHaler] Previous Rx's Medication Instructions Recorded atorvastatin [Lipitor] 20 mg PO HS #90 tab 09/12/17 pantoprazole 40 mg PO QDAY #90 tab 09/12/17 ranitidine 150 mg tablet 150 mg PO BIDCC #180 tab 11/26/17 Allergies Allergy/AdvReac Type Severity Reaction Status Date / Time iloperidone Allergy Intermediate SEIZURES Unverified 08/22/17 12:16 atomoxetine Allergy Mild RASH Unverified 08/22/17 12:16 bupropion Allergy Mild SOB Unverified 08/22/17 12:16 cyclobenzaprine Allergy Mild RASH Unverified 08/22/17 12:16 lamotrigine Allergy Mild RASH Unverified 08/22/17 12:16 sertraline Allergy Mild RASH Unverified 08/22/17 12:16 haloperidol AdvReac Severe TARDIVE Unverified 08/22/17 12:16 DYSKENSIA Review of Systems <Cristin Segura PA-C - Last Filed: 11/26/17 17:26> Review of Systems All systems reviewed & are unremarkable except as noted in HPI and below Exam <Cristin Segura PA-C - Last Filed: 11/26/17 17:26> Narrative Exam Narrative: GENERAL APPEARANCE: Patient sitting comfortably, in no distress. HEENT: PERRL, EOMI, normal TMs and oropharynx, no sinus TTP NECK: Supple LUNGS: Clear to auscultation bilaterally, no cough on exam. HEART: Rate and rhythm regular without murmur, normal S1 and S2, no S3 or S4. ABDOMEN: Soft, NT, ND, + BS x 4 quadrants NEUROLOGIC: Alert, tangential historian but speech is intelligible. Coordination is normal. Gait is normal. MUSCULOSKELETAL: Full Csp AROM without tenderness over the cervical or paraspinal musculature. Normal range of motion of the extremities Initial Vital Signs Initial Vital Signs: Vital Signs Temperature 98.2 F 11/26/17 14:07 <Faizan Connolly DO - Last Filed: 11/26/17 17:44> Initial Vital Signs Initial Vital Signs: Vital Signs Temperature 98.2 F 11/26/17 14:07 Course <Cristin Segura PA-C - Last Filed: 11/26/17 17:26> Orders Ordered: ED Orders 11/26/17 15:12 CT head/brain wo con Stat 11/26/17 15:33 Complete Blood Count AUTO DIFF Stat Comprehensive Metabolic Panel Stat Vital Signs - 8 hr 11/26/17 14:07 11/26/17 14:11 11/26/17 16:52 Temperature 98.2 F Pulse Rate 118 H 93 H Respiratory Rate 22 16 Blood Pressure 132/91 H Blood Pressure [Left Arm] 129/86 H Pulse Oximetry 98 99 <DO Lilia Murcia Last Filed: 11/26/17 17:44> Orders Ordered: ED Orders 11/26/17 15:12 CT head/brain wo con Stat 11/26/17 15:33 Complete Blood Count AUTO DIFF Stat Comprehensive Metabolic Panel Stat Vital Signs - 8 hr 11/26/17 14:07 11/26/17 14:11 11/26/17 16:52 Temperature 98.2 F Pulse Rate 118 H 93 H Respiratory Rate 22 16 Blood Pressure 132/91 H Blood Pressure [Left Arm] 129/86 H Pulse Oximetry 98 99 MDM - Headache <EMILY Jackson Last Filed: 11/26/17 17:26> Lab Data Attestation: I reviewed the patient's lab results. Result diagrams: 11/26/17 15:33 11/26/17 15:33 Lab Results 11/26/17 11/26/17 Range/Units 15:33 15:33 WBC 9.3 (4.5-11.0) X10^3/uL RBC 4.44 L (4.5-5.9) X10^6/uL Hgb 14.5 (13.5-17.5) g/dL Hct 41.9 (41-53) % MCV 94.3 (80-100) fL MCH 32.6 (26-34) PG MCHC 34.6 (30-36) % RDW 13.4 (11.6-14.8) % Plt Count 313 (150-400) X10^3/uL Neut % (Auto) 72.1 (50-75) % Lymph % (Auto) 18.6 L (25-40) % [place] % (Auto) 6.4 (3-14) % Eos % (Auto) 2.0 (2-4) % Baso % (Auto) 0.9 (0-2) % Neut # (Auto) 6700 H (2771-1148) /uL Sodium 140 (137-145) mmol/L Potassium 4.4 (3.4-5.1) mmol/L Chloride 102 (98-107) mmol/L Carbon Dioxide 26 (22-32) mmol/L BUN 24 H (9-20) mg/dL Creatinine 0.80 (0.66-1.25) mg/dL Estimated GFR > 60.0 (>60) mL/min BUN/Creatinine Ratio 30.0 H (6-22) Glucose 88 (70-100) mg/dL Calcium 9.3 (8.4-10.2) mg/dL Total Bilirubin 0.4 (0.2-1.3) mg/dL AST 23 (17-59) IU/L ALT 23 (21-72) IU/L Alkaline Phosphatase 73 (38-126) U/L Total Protein 6.8 (6.3-8.2) g/dL Albumin 4.2 (3.5-5.0) g/dL Globulin 2.6 (1.7-4.1) g/dL Albumin/Globulin Ratio 1.6 (1.0-2.8) Imaging Data CT scan - head: Radiologist's impression: [address] [address] [address] Scan Report Signed Patient: Chris Rey MR#: [id number] : 1965 Acct:[id number] Age/Sex: 52 / M Date of Service: 11/26/17 Loc: ED Accession Number: [id number] Procedure: CT head/brain wo con Ordering Provider: Cristin Segura P.A-C PROCEDURE: CT HEAD/BRAIN WO CON INDICATIONS: worst headache ever yesterday, memory loss TECHNIQUE: Noncontrast 4.5 mm thick angled axial sections acquired from the foramen magnum to the vertex, with coronal and sagittal reformats. For radiation dose reduction, the following was used: automated exposure control, adjustment of mA and/or kV according to patient size. COMPARISON: [facility], CT, CT BRAIN WO CON, 08/27/2015, 16:32. FINDINGS: Image quality: Excellent. CSF spaces: Basal cisterns are patent. No extra-axial fluid collections. Ventricles are normal in size and shape. Brain: No midline shift. No intracranial masses or hemorrhage. Mcdonald-white matter interface is normal. Skull and face: Calvarium and visualized facial bones are intact, without suspicious lesions. Sinuses: Visualized sinuses and mastoids are clear. IMPRESSION: Stable head CT. No acute intracranial hemorrhage. Dictated by: Abhijeet John M.D. on 11/26/2017 at 14:49 Approved by: Abhijeet John M.D. on 11/26/2017 at 14:50 <Faizan Connolly DO - Last Filed: 11/26/17 17:44> Lab Data Lab Results 11/26/17 11/26/17 Range/Units 15:33 15:33 WBC 9.3 (4.5-11.0) X10^3/uL RBC 4.44 L (4.5-5.9) X10^6/uL Hgb 14.5 (13.5-17.5) g/dL Hct 41.9 (41-53) % MCV 94.3 (80-100) fL MCH 32.6 (26-34) PG MCHC 34.6 (30-36) % RDW 13.4 (11.6-14.8) % Plt Count 313 (150-400) X10^3/uL Neut % (Auto) 72.1 (50-75) % Lymph % (Auto) 18.6 L (25-40) % [place] % (Auto) 6.4 (3-14) % Eos % (Auto) 2.0 (2-4) % Baso % (Auto) 0.9 (0-2) % Neut # (Auto) 6700 H (0627-4407) /uL Sodium 140 (137-145) mmol/L Potassium 4.4 (3.4-5.1) mmol/L Chloride 102 (98-107) mmol/L Carbon Dioxide 26 (22-32) mmol/L BUN 24 H (9-20) mg/dL Creatinine 0.80 (0.66-1.25) mg/dL Estimated GFR > 60.0 (>60) mL/min BUN/Creatinine Ratio 30.0 H (6-22) Glucose 88 (70-100) mg/dL Calcium 9.3 (8.4-10.2) mg/dL Total Bilirubin 0.4 (0.2-1.3) mg/dL AST 23 (17-59) IU/L ALT 23 (21-72) IU/L Alkaline Phosphatase 73 (38-126) U/L Total Protein 6.8 (6.3-8.2) g/dL Albumin 4.2 (3.5-5.0) g/dL Globulin 2.6 (1.7-4.1) g/dL Albumin/Globulin Ratio 1.6 (1.0-2.8) Discharge Plan Departure Patient Disposition: Home, Self-Care Clinical Impression: Headache Discharge Date/Time: 11/26/17 16:53 Interventions: ED Discharge Assessment Last Done: 11/26/17 16:52 Instructions: DI for Headache Activity Restrictions/Additional Instructions: Your CT scan and lab work today does not show any acute findings such as bleeding in your head. From what you described I suspect that your headache may have been caused from nerve irritation. Since you are feeling better now, it is reasonable to monitor this, continue your usual medications and follow up with your PCP as you have already planned. Prescriptions: No Action aspirin 81 MG tablet,delayed release (DR/EC) 81 mg PO QDAY Qty: 30 RF: 0 quetiapine [Seroquel] 300 MG tablet 300 mg PO BID Qty: 0 RF: 0 escitalopram oxalate 20 MG tablet 20 mg PO QDAY Qty: 30 RF: 0 temazepam 15 MG capsule 15 mg PO HS Qty: 0 RF: 0 benztropine 0.5 MG tablet 1.5 mg PO BEDTIME Qty: 0 RF: 0 quetiapine [Seroquel] 100 MG tablet 100 mg PO BID Qty: 0 RF: 0 albuterol sulfate [Ventolin HFA] 90 MCG/PUFF HFA aerosol inhaler 1 puff INH PRN PRN (Reason: Shortness Of Breath) Qty: 0 RF: 0 atorvastatin [Lipitor] 20 mg tablet 20 mg PO HS Qty: 90 RF: 0 pantoprazole 40 mg tablet,delayed release (DR/EC) 40 mg PO QDAY Qty: 90 RF: 1 ranitidine HCl 150 mg tablet 150 mg PO BIDCC Qty: 180 RF: 0 calcium carbonate 650 mg calcium (1,625 mg) Tablet 650 mg PO DAILY RF: 0 lorazepam 2 mg Tablet 2 mg PO BEDTIME RF: 0 naproxen sodium [Aleve] 220 mg Tablet 2 tab PO BID PRN (Reason: Pain, Moderate) RF: 0 tiotropium bromide [Spiriva with HandiHaler] 18 mcg Capsule, W/Inhalation Device 1 cap Inhalation DAILY RF: 0 clozapine 200 mg Tablet 200 mg PO BID RF: 0 rj-eo-ehbu-FA-herbal cmplx#190 [Vitamin D3 Complete] 18 mg iron-800 mcg-150 mg Tablet 1 cap PO DAILY RF: 0 wbpregoh-qjo-mtikd-vit K-lycop [Men's 50 Plus Daily Formula] 400-20-370 mcg Tablet 1 tab PO DAILY RF: 0 saw palmetto 250 mg tablet 1 tab PO DAILY RF: 0 Spacer: Inhaler Spacer Device 1 ea miscellaneous DIRECTED RF: 0 Referrals: Tiffanie Shelley DO [Primary Care Provider] - <Faizan Connolly DO - Last Filed: 11/26/17 17:44> Cosign ED Attending Cosignature Attestation: I was available for consultation during this patient's emergency department encounter
[2017-11-26 15:44] LABS: Add Manual Diff / Slide Review NO; Basophils Percent Auto 0.9 % (0-2); Hematocrit 41.9 % (41-53); Hemoglobin 14.5 g/dL (13.5-17.5); Lymphocytes Percent Auto 18.6 % (25-40); Mean Corpuscular HGB Conc 34.6 % (30-36); Mean Corpuscular Hemoglobin 32.6 PG (26-34); Mean Corpuscular Volume 94.3 fL (80-100); Monocytes Percent Auto 6.4 % (3-14); Neutrophils Absolute Auto 6700 /uL (3000-5900); Neutrophils Percent Auto 72.1 % (50-75); Platelet Count 313 X10^3/uL (150-400); Red Blood Cell Count 4.44 X10^6/uL (4.5-5.9); Red Cell Distribution Width 13.4 % (11.6-14.8); White Blood Cell Count 9.3 X10^3/uL (4.5-11.0)
[2017-11-26 15:53] LABS: Alanine Aminotransferase 23 IU/L (21-72); Albumin 4.2 g/dL (3.5-5.0); Albumin Globulin Ratio 1.6 (1.0-2.8); Alkaline Phosphatase 73 U/L (38-126); Aspartate Aminotransferase 23 IU/L (17-59); Bilirubin Total 0.4 mg/dL (0.2-1.3); Blood Urea Nitrogen 24 mg/dL (9-20); Calcium 9.3 mg/dL (8.4-10.2); Carbon Dioxide 26 mmol/L (22-32); Chloride 102 mmol/L (98-107); Estimated Glomerular Filt Rate > 60.0 mL/min (>60); Globulin 2.6 g/dL (1.7-4.1); Glucose 88 mg/dL (70-100); HEMOLYSIS 34 (0-50); Potassium 4.4 mmol/L (3.4-5.1); Sodium 140 mmol/L (137-145); Total Protein 6.8 g/dL (6.3-8.2)
[2017-11-26 16:52] VITALS: BP 132/91; PULSE 93; RESP 16; O2SAT 99
== END 2017-11-26 16:53 | disposition home or self-care (01) ==
PROVIDERS: Emergency Provider Internal Medicine; Family Provider Family Medicine; PCP Family Medicine
DX: R51 Headache (principal)
CPT/HCPCS: 36415; 70450; 80053; 85025; 99282; 99284

== ENCOUNTER → 2017-12-03 06:41 | Outpatient (CLI) | payer OTHER, SELFPAY | PROVIDERS: PCP Family Medicine; Visit Provider Nurse Practitioner Psychiatric/Mental Health | DX: F20.9 Schizophrenia, unspecified (principal) ==

== ENCOUNTER → 2017-12-05 07:18 | Outpatient (CLI) | payer OTHER, SELFPAY ==
[2017-12-05 09:21] LABS: Add Manual Diff / Slide Review NO; Basophils Percent Auto 1.1 % (0-2); Eosinophils Percent Auto 2.1 % (2-4); Hematocrit 41.6 % (41-53); Hemoglobin 14.2 g/dL (13.5-17.5); Lymphocytes Percent Auto 15.6 % (25-40); Mean Corpuscular HGB Conc 34.2 % (30-36); Mean Corpuscular Hemoglobin 32.3 PG (26-34); Mean Corpuscular Volume 94.4 fL (80-100); Monocytes Percent Auto 5.4 % (3-14); Neutrophils Absolute Auto 11300 /uL (3000-5900); Neutrophils Percent Auto 75.8 % (50-75); Platelet Count 345 X10^3/uL (150-400); Red Cell Distribution Width 13.3 % (11.6-14.8); White Blood Cell Count 14.8 X10^3/uL (4.5-11.0)
== END ==
PROVIDERS: PCP Family Medicine; Visit Provider Nurse Practitioner Psychiatric/Mental Health
DX: F20.9 Schizophrenia, unspecified (principal)
CPT/HCPCS: 85025

== ENCOUNTER → 2017-12-17 07:43 | Outpatient (CLI) | payer OTHER, SELFPAY ==
[2017-12-17 08:27] LABS: Add Manual Diff / Slide Review NO; Basophils Percent Auto 0.8 % (0-2); Eosinophils Percent Auto 2.8 % (2-4); Hematocrit 41.8 % (41-53); Hemoglobin 14.4 g/dL (13.5-17.5); Lymphocytes Percent Auto 15.3 % (25-40); Mean Corpuscular HGB Conc 34.3 % (30-36); Mean Corpuscular Hemoglobin 32.9 PG (26-34); Mean Corpuscular Volume 95.9 fL (80-100); Monocytes Percent Auto 7.9 % (3-14); Neutrophils Absolute Auto 7000 /uL (3000-5900); Neutrophils Percent Auto 73.2 % (50-75); Platelet Count 291 X10^3/uL (150-400); Red Blood Cell Count 4.36 X10^6/uL (4.5-5.9); Red Cell Distribution Width 13.6 % (11.6-14.8); White Blood Cell Count 9.5 X10^3/uL (4.5-11.0)
== END ==
PROVIDERS: Family Provider Family Medicine; PCP Family Medicine; Visit Provider Nurse Practitioner Psychiatric/Mental Health
DX: F20.9 Schizophrenia, unspecified (principal)
CPT/HCPCS: 36415; 85025

== ENCOUNTER → 2017-12-31 07:48 | Outpatient (CLI) | payer OTHER, SELFPAY ==
[2017-12-31 09:58] LABS: Add Manual Diff / Slide Review NO; Basophils Percent Auto 0.9 % (0-2); Eosinophils Percent Auto 2.5 % (2-4); Hematocrit 41.9 % (41-53); Hemoglobin 14.4 g/dL (13.5-17.5); Lymphocytes Percent Auto 17.7 % (25-40); Mean Corpuscular HGB Conc 34.2 % (30-36); Mean Corpuscular Hemoglobin 32.7 PG (26-34); Mean Corpuscular Volume 95.6 fL (80-100); Neutrophils Absolute Auto 7500 /uL (3000-5900); Neutrophils Percent Auto 72.9 % (50-75); Platelet Count 301 X10^3/uL (150-400); Red Blood Cell Count 4.38 X10^6/uL (4.5-5.9); Red Cell Distribution Width 13.3 % (11.6-14.8); White Blood Cell Count 10.3 X10^3/uL (4.5-11.0)
== END ==
PROVIDERS: Family Provider Family Medicine; PCP Family Medicine; Visit Provider Nurse Practitioner Psychiatric/Mental Health
DX: F20.9 Schizophrenia, unspecified (principal)
CPT/HCPCS: 36415; 85025

== ENCOUNTER → 2018-01-15 12:31 | Outpatient (CLI) | payer OTHER, SELFPAY ==
[2018-01-15 14:04] LABS: Add Manual Diff / Slide Review NO; Basophils Percent Auto 1.2 % (0-2); Eosinophils Percent Auto 1.6 % (2-4); Hematocrit 44.4 % (41-53); Hemoglobin 15.4 g/dL (13.5-17.5); Mean Corpuscular HGB Conc 34.7 % (30-36); Mean Corpuscular Hemoglobin 33.1 PG (26-34); Mean Corpuscular Volume 95.4 fL (80-100); Monocytes Percent Auto 6.3 % (3-14); Neutrophils Absolute Auto 7200 /uL (3000-5900); Neutrophils Percent Auto 71.9 % (50-75); Platelet Count 310 X10^3/uL (150-400); Red Blood Cell Count 4.66 X10^6/uL (4.5-5.9); Red Cell Distribution Width 13.5 % (11.6-14.8)
== END ==
PROVIDERS: Family Provider Family Medicine; PCP Family Medicine; Visit Provider Nurse Practitioner Psychiatric/Mental Health
DX: F20.9 Schizophrenia, unspecified (principal)
CPT/HCPCS: 36415; 85025

== ENCOUNTER 2018-01-24 09:12 | Emergency (ER) | payer OTHER, SELFPAY ==
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
[2018-01-24 10:17] VITALS: BP 135/90; PULSE 82; RESP 17; O2SAT 100
== END 2018-01-24 10:28 | disposition home or self-care (01) ==
PROVIDERS: Emergency Provider Emergency Medicine; Family Provider Family Medicine; PCP Family Medicine
DX: L02.214 Cutaneous abscess of groin (principal)
CPT/HCPCS: 10060; 87070; 87077; 87147; 87186; 87205; 99282

== ENCOUNTER → 2018-01-28 13:42 | Outpatient (CLI) | payer OTHER, SELFPAY ==
[2018-01-28 14:28] LABS: Add Manual Diff / Slide Review NO; Basophils Percent Auto 0.9 % (0-2); Eosinophils Percent Auto 1.3 % (2-4); Hematocrit 42.8 % (41-53); Lymphocytes Percent Auto 15.3 % (25-40); Mean Corpuscular HGB Conc 34.9 % (30-36); Mean Corpuscular Hemoglobin 33.2 PG (26-34); Monocytes Percent Auto 6.6 % (3-14); Neutrophils Absolute Auto 7000 /uL (3000-5900); Neutrophils Percent Auto 75.9 % (50-75); Platelet Count 290 X10^3/uL (150-400); Red Blood Cell Count 4.51 X10^6/uL (4.5-5.9); Red Cell Distribution Width 13.6 % (11.6-14.8); White Blood Cell Count 9.2 X10^3/uL (4.5-11.0)
== END ==
PROVIDERS: PCP Family Medicine; Visit Provider Nurse Practitioner Psychiatric/Mental Health
DX: F20.9 Schizophrenia, unspecified (principal)
CPT/HCPCS: 36415; 85025

== ENCOUNTER → 2018-02-11 07:56 | Outpatient (CLI) | payer OTHER, MEDICAID, SELFPAY ==
[2018-02-11 08:39] LABS: Add Manual Diff / Slide Review NO; Basophils Percent Auto 0.9 % (0-2); Eosinophils Percent Auto 2.2 % (2-4); Hemoglobin 14.8 g/dL (13.5-17.5); Lymphocytes Percent Auto 20.7 % (25-40); Mean Corpuscular HGB Conc 35.3 % (30-36); Mean Corpuscular Volume 93.4 fL (80-100); Monocytes Percent Auto 9.1 % (3-14); Neutrophils Absolute Auto 5900 /uL (3000-5900); Neutrophils Percent Auto 67.1 % (50-75); Platelet Count 287 X10^3/uL (150-400); Red Cell Distribution Width 13.3 % (11.6-14.8); White Blood Cell Count 8.8 X10^3/uL (4.5-11.0)
== END ==
PROVIDERS: Family Provider Family Medicine; PCP Family Medicine; Visit Provider Nurse Practitioner Psychiatric/Mental Health
DX: F20.9 Schizophrenia, unspecified (principal)
CPT/HCPCS: 36415; 85025

== ENCOUNTER → 2018-03-04 10:42 | Outpatient (CLI) | payer OTHER, MEDICAID, SELFPAY ==
[2018-03-04 12:42] LABS: Add Manual Diff / Slide Review NO; Basophils Percent Auto 0.9 % (0-2); Hematocrit 44.5 % (41-53); Hemoglobin 15.3 g/dL (13.5-17.5); Lymphocytes Percent Auto 19.5 % (25-40); Mean Corpuscular HGB Conc 34.5 % (30-36); Mean Corpuscular Hemoglobin 32.5 PG (26-34); Mean Corpuscular Volume 94.3 fL (80-100); Monocytes Percent Auto 5.8 % (3-14); Neutrophils Absolute Auto 5800 /uL (3000-5900); Neutrophils Percent Auto 71.8 % (50-75); Platelet Count 319 X10^3/uL (150-400); Red Blood Cell Count 4.71 X10^6/uL (4.5-5.9); Red Cell Distribution Width 13.3 % (11.6-14.8)
== END ==
PROVIDERS: Family Provider Family Medicine; PCP Family Medicine; Visit Provider Nurse Practitioner Psychiatric/Mental Health
DX: F20.9 Schizophrenia, unspecified (principal)
CPT/HCPCS: 36415; 85025

== ENCOUNTER → 2018-03-18 08:15 | Outpatient (CLI) | payer OTHER, MEDICAID, SELFPAY ==
[2018-03-18 09:11] LABS: Add Manual Diff / Slide Review NO; Basophils Percent Auto 0.6 % (0-2); Eosinophils Percent Auto 2.1 % (2-4); Hematocrit 41.3 % (41-53); Hemoglobin 14.3 g/dL (13.5-17.5); Mean Corpuscular HGB Conc 34.8 % (30-36); Mean Corpuscular Hemoglobin 33.3 PG (26-34); Mean Corpuscular Volume 95.9 fL (80-100); Monocytes Percent Auto 6.2 % (3-14); Neutrophils Absolute Auto 6800 /uL (3000-5900); Neutrophils Percent Auto 73.1 % (50-75); Platelet Count 263 X10^3/uL (150-400); Red Cell Distribution Width 13.3 % (11.6-14.8); White Blood Cell Count 9.2 X10^3/uL (4.5-11.0)
== END ==
PROVIDERS: Family Provider Family Medicine; PCP Family Medicine; Visit Provider Nurse Practitioner Psychiatric/Mental Health
DX: F20.9 Schizophrenia, unspecified (principal)
CPT/HCPCS: 36415; 85025

== ENCOUNTER → 2018-04-01 14:21 | Outpatient (CLI) | payer OTHER, MEDICAID, SELFPAY ==
[2018-04-01 14:35] LABS: Add Manual Diff / Slide Review NO; Basophils Percent Auto 0.8 % (0-2); Eosinophils Percent Auto 1.7 % (2-4); Hematocrit 44.1 % (41-53); Lymphocytes Percent Auto 26.2 % (25-40); Mean Corpuscular Hemoglobin 32.4 PG (26-34); Mean Corpuscular Volume 95.5 fL (80-100); Monocytes Percent Auto 6.2 % (3-14); Neutrophils Absolute Auto 5800 /uL (3000-5900); Neutrophils Percent Auto 65.1 % (50-75); Platelet Count 281 X10^3/uL (150-400); Red Blood Cell Count 4.62 X10^6/uL (4.5-5.9); Red Cell Distribution Width 12.7 % (11.6-14.8); White Blood Cell Count 8.9 X10^3/uL (4.5-11.0)
== END ==
PROVIDERS: PCP Family Medicine; Visit Provider Nurse Practitioner Psychiatric/Mental Health
DX: F20.9 Schizophrenia, unspecified (principal)
CPT/HCPCS: 36415; 85025

== ENCOUNTER → 2018-04-15 10:19 | Outpatient (CLI) | payer OTHER, MEDICAID, SELFPAY ==
[2018-04-15 11:28] LABS: Add Manual Diff / Slide Review NO; Basophils Percent Auto 0.9 % (0-2); Eosinophils Percent Auto 1.8 % (2-4); Hematocrit 47.1 % (41-53); Hemoglobin 16.1 g/dL (13.5-17.5); Lymphocytes Percent Auto 20.4 % (25-40); Mean Corpuscular HGB Conc 34.1 % (30-36); Mean Corpuscular Hemoglobin 32.6 PG (26-34); Mean Corpuscular Volume 95.4 fL (80-100); Monocytes Percent Auto 6.3 % (3-14); Neutrophils Absolute Auto 5800 /uL (3000-5900); Neutrophils Percent Auto 70.6 % (50-75); Platelet Count 319 X10^3/uL (150-400); Red Blood Cell Count 4.93 X10^6/uL (4.5-5.9); Red Cell Distribution Width 12.8 % (11.6-14.8); White Blood Cell Count 8.2 X10^3/uL (4.5-11.0)
== END ==
PROVIDERS: Family Provider Family Medicine; PCP Family Medicine; Visit Provider Nurse Practitioner Psychiatric/Mental Health
DX: F20.9 Schizophrenia, unspecified (principal)
CPT/HCPCS: 36415; 85025

== ENCOUNTER → 2018-04-29 07:19 | Outpatient (CLI) | payer OTHER, MEDICAID, SELFPAY ==
[2018-04-29 08:01] LABS: Add Manual Diff / Slide Review NO; Basophils Percent Auto 0.8 % (0-2); Eosinophils Percent Auto 2.7 % (2-4); Hematocrit 44.8 % (41-53); Hemoglobin 15.7 g/dL (13.5-17.5); Lymphocytes Percent Auto 23.7 % (25-40); Mean Corpuscular HGB Conc 35.1 % (30-36); Monocytes Percent Auto 7.7 % (3-14); Neutrophils Absolute Auto 4900 /uL (1500-7000); Neutrophils Percent Auto 65.1 % (50-75); Platelet Count 290 X10^3/uL (150-400); Red Blood Cell Count 4.77 X10^6/uL (4.5-5.9); White Blood Cell Count 7.6 X10^3/uL (4.5-11.0)
== END ==
PROVIDERS: Family Provider Family Medicine; PCP Family Medicine; Visit Provider Nurse Practitioner Psychiatric/Mental Health
DX: F20.9 Schizophrenia, unspecified (principal)
CPT/HCPCS: 36415; 85025

== ENCOUNTER → 2018-05-13 07:46 | Outpatient (CLI) | payer OTHER, MEDICAID, SELFPAY ==
[2018-05-13 08:48] LABS: Add Manual Diff / Slide Review NO; Basophils Percent Auto 0.7 % (0-2); Eosinophils Percent Auto 1.5 % (2-4); Hematocrit 45.5 % (41-53); Hemoglobin 15.6 g/dL (13.5-17.5); Lymphocytes Percent Auto 21.9 % (25-40); Mean Corpuscular HGB Conc 34.2 % (30-36); Mean Corpuscular Hemoglobin 32.7 PG (26-34); Mean Corpuscular Volume 95.7 fL (80-100); Monocytes Percent Auto 6.9 % (3-14); Neutrophils Absolute Auto 5800 /uL (1500-7000); Platelet Count 297 X10^3/uL (150-400); Red Blood Cell Count 4.75 X10^6/uL (4.5-5.9); Red Cell Distribution Width 13.1 % (11.6-14.8); White Blood Cell Count 8.4 X10^3/uL (4.5-11.0)
== END ==
PROVIDERS: Family Provider Family Medicine; PCP Family Medicine; Visit Provider Nurse Practitioner Psychiatric/Mental Health
DX: F20.9 Schizophrenia, unspecified (principal)
CPT/HCPCS: 36415; 85025

== ENCOUNTER → 2018-05-16 16:30 | Outpatient (CLI) | payer OTHER, SELFPAY ==
[2018-05-16 19:02] LABS: Appearance Urine UA CLEAR; Bilirubin Urine UA NEGATIVE (NEGATIVE); Color Urine UA YELLOW; Glucose Urine UA NEGATIVE (Negative); Ketones Urine UA NEGATIVE (NEGATIVE); Leukocyte Esterase Urine UA NEGATIVE (NEGATIVE); Nitrite Urine UA NEGATIVE (Negative); Occult Blood Urine UA TRACE-LYSED (Negative); Protein Urine UA NEGATIVE (Negative); Specific Gravity Urine UA 1.025 (1.000-1.035); Urobilinogen Urine UA 0.2 E.U./dL (0.2); pH Urine UA 6.5 (4.5-8.0)
[2018-05-16 19:05] LABS: Amorphous Sediment Urine 1+; Bacteria Urine Occasional (0-1); Mucus Urine 1+ (Negative); RBC Urine 0-1/HPF (0-5/HPF); Squamous Epithelial Cell Urine 0-1 /HPF; WBC Urine 0-1/HPF (0-5/HPF)
[2018-05-16 19:06] LABS: Culture Indicated Urine Cult Not Indicated
[2018-05-16 20:25] LABS: Urine N gonorrhoeae NOT DETECTED
[2018-05-16 20:30] LABS: Urine Chlamydia NOT DETECTED
[2018-05-20 17:48] LABS: RPR Screen Nonreactive (Nonreactive)
== END ==
PROVIDERS: Family Provider Family Medicine; PCP Family Medicine; Visit Provider Family Medicine
DX: Z20.2 Contact with and (suspected) exposure to infections with a predominantly sexual mode of transmission (principal)
CPT/HCPCS: 36415; 81001; 86592; 86702; 86703; 86803; 87491; 87591

== ENCOUNTER → 2018-05-27 10:20 | Outpatient (CLI) | payer OTHER, MEDICAID, SELFPAY ==
[2018-05-27 11:20] LABS: Add Manual Diff / Slide Review NO; Basophils Absolute Auto 100 /uL (0-100); Basophils Percent Auto 1.1 % (0-2); Eosinophils Absolute Auto 100 /uL (0-450); Eosinophils Percent Auto 1.5 % (2-4); Hematocrit 45.1 % (41-53); Hemoglobin 15.3 g/dL (13.5-17.5); Lymphocytes Absolute Auto 1500 /uL (1100-4500); Lymphocytes Percent Auto 21.1 % (25-40); Mean Corpuscular HGB Conc 33.9 % (30-36); Mean Corpuscular Hemoglobin 32.6 PG (26-34); Mean Corpuscular Volume 96.1 fL (80-100); Monocytes Absolute Auto 500 /uL (0-900); Monocytes Percent Auto 7.1 % (3-14); Neutrophils Absolute Auto 5000 /uL (1500-7000); Neutrophils Percent Auto 69.2 % (50-75); Platelet Count 266 X10^3/uL (150-400); White Blood Cell Count 7.3 X10^3/uL (4.5-11.0)
== END ==
PROVIDERS: Family Provider Family Medicine; PCP Family Medicine; Visit Provider Nurse Practitioner Psychiatric/Mental Health
DX: F20.9 Schizophrenia, unspecified (principal)
CPT/HCPCS: 36415; 85025

== ENCOUNTER → 2018-06-10 07:56 | Outpatient (CLI) | payer OTHER, MEDICAID, SELFPAY ==
[2018-06-10 09:29] LABS: Add Manual Diff / Slide Review NO; Basophils Absolute Auto 100 /uL (0-100); Basophils Percent Auto 0.8 % (0-2); Eosinophils Absolute Auto 200 /uL (0-450); Eosinophils Percent Auto 1.8 % (2-4); Lymphocytes Absolute Auto 1300 /uL (1100-4500); Lymphocytes Percent Auto 14.8 % (25-40); Mean Corpuscular Hemoglobin 32.8 PG (26-34); Mean Corpuscular Volume 96.4 fL (80-100); Monocytes Absolute Auto 400 /uL (0-900); Monocytes Percent Auto 4.3 % (3-14); Neutrophils Absolute Auto 6700 /uL (1500-7000); Neutrophils Percent Auto 78.3 % (50-75); Platelet Count 284 X10^3/uL (150-400); Red Blood Cell Count 4.56 X10^6/uL (4.5-5.9); Red Cell Distribution Width 13.2 % (11.6-14.8); White Blood Cell Count 8.6 X10^3/uL (4.5-11.0)
== END ==
PROVIDERS: Family Provider Family Medicine; PCP Family Medicine; Visit Provider Nurse Practitioner Psychiatric/Mental Health
DX: F20.9 Schizophrenia, unspecified (principal)
CPT/HCPCS: 36415; 85025

== ENCOUNTER 2018-06-17 08:15 | Outpatient (RCR) | payer OTHER, MEDICAID, SELFPAY ==
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
--- NOTE | 2018-03-19 16:52 | PT.OPPOC ---
Current Diagnoses Other cervical disc degeneration, unspecified cervical region (03/19/18) Abnormal posture (03/19/18) Strain of muscle, fascia and tendon at neck level, initial encounter (03/19/18) Provider Visit Care Team Role Provider Type Tiffanie Shelley DO Family Provider Physician Primary Care Provider Specialty: Family Practice Address: [address] [place] [address], [id number] Email: [email or web address] Reed MD Attending Provider Physician Specialty: Orthopedics Address: [address] [place] [address], [id number] Email: [email or web address] PT-OP-T Assessment and Plan Start: 03/18/18 14:48 Freq: Status: Active Protocol: Document 03/19/18 08:15 LRN (Rec: 03/19/18 16:39 LRN [id number]) Physical Therapy Assessment Rehab Potential Rehabilitation Potential Good Evaluation Complexity Number of Personal Factors/Comorbidities 3 or More Number of Body Systems Impaired 4 or More Clinical Presentation at Evaluation Evolving Impairments Impairments Activity Tolerance Pain Posture ROM Sensation Soft Tissue Mobility Other Concerns Fall Risk Yes due to symptoms of orthostatic hypotension Age Related Concerns Impact of disability on self and home. Barriers to Rehabilitation PMH: Psychological Disorders ( Depression, Obsessive Compulsive Disorder, Bipolar I ), pt report of schizophrenia, hx of seizure, TBI, Cervical disc degeneration, tobacco use , old R clavicle fracture, financial limitations. Goals Four Impairment Pain limiting recreational activities. Rental Car Deliverer Goal (LTG) Pt will be able to resume quilting activities. LTG Duration 05/06/18 Three Impairment Pain limiting neck mobility and sometimes function. Snf Goal (LTG) Improve neck mobility such that the pt is not limited in functional activities. LTG Duration 05/06/18 Two Impairment Pt lacks appropriate HEP for weight lifting ex's at home Rental Car Deliverer Goal (LTG) Pt educated in proper neck/ shoulder strengthening ex's on a HEP to manage his pain. LTG Duration 04/19/18 One Impairment Lacks appropriate HEP Short Term Goal (STG) Pt will be independent on a HEP to address current restrictions of movement and educated in proper self care. STG Duration 04/05/18 Rental Car Deliverer Goal (LTG) Pt will be able to manage his pain and prevent recurrence. LTG Duration 04/19/18 Assessment Summary Assessment Pt presents with mechanical and soft tissue dysfunction of the head, neck, shoulders and upper back. He has significant physical barriers to his rehabilitation and also psychological and financial barriers as well. With the pt 's financial concerns he is considering changing his therapy to 1-2 times per week in order to extend his therapy up to 8 weeks and lessen the impact on his monthly financial resources. Further discussion is needed to determine the course of action the pt would like to take regarding his rehabilitation. The pt will benefit from skilled physical therapy to improve posture, mobility, stability and to improve pt knowledge for appropriate self care. Physical Therapy Plan Frequency and Duration Frequency of Treatment 2x/Week Duration of Treatment 8 weeks. Plan of Care Start Date 03/19/18 Plan of Care End Date 05/06/18 Therapeutic Interventions Therapeutic Interventions Home Exercise Program Joint Mobilizations Manual Therapy Neuromuscular Re-education Patient/Caregiver Education Self-Care/Home Management Soft Tissue Mobilization Taping Therapeutic Exercises Modalities Cold Pack/Ice Massage Electric Stimulation Hot Packs Next Visit Focus/Plan Next Note Type Treatment Note Next Visit Plan Review issued HEP, initiate STM, JMT of C/S, progress HEP of neck/shoulder stretches, postural training, discuss timeframe for achieving goals of therapy and plan of care for attendance to therapy. End with cryotherapy and/or E- stim. Progress towards HEP. Plan of Care Dates Plan of Care Start Date 03/19/18 Plan of Care End Date 05/06/18 Please Sign and Return: I have reviewed this Plan of Care and certify that the skilled therapy services above are required to meet the patient?s needs. Physician Signature Date Printed Name and Credentials Clinical Instructor Signature Printed Name and Credentials
--- NOTE | 2018-03-22 09:45 | PT.OTN ---
Current Diagnoses Other cervical disc degeneration, unspecified cervical region (03/22/18) Strain of muscle, fascia and tendon at neck level, initial encounter (03/22/18) Physical Therapy Treatment Note PT-OP-A Visit Information Start: 03/18/18 14:48 Freq: Status: Active Protocol: Document 03/22/18 09:45 RCC (Rec: 03/22/18 09:59 RCC [email or web address]) Out-Patient Physical Therapy Visit Information Visit Information Visit Type Treatment Note Visit Start Time 09:00 Visit Stop Time 09:55 Total Visit Minutes 55 Visit Number 2/15 Number of BALLISTIC TECHNICIAN Visits 0 Evaluation Information Evaluation Date 03/19/18 PT-OP-B Current Condition Start: 03/18/18 14:48 Freq: Status: Active Protocol: Document 03/19/18 08:15 LRN (Rec: 03/19/18 16:39 LRN [id number]) Current Condition History of Current Condition Onset Date 5 yrs ago with exacerbation 2 yrs ago. Current Complaints Achy, sometimes sharp pain & stiffness in the posterior neck History of Current Condition Pt reports insidious onset of increasing neck pain/stiffness . His neck pain is achy and sometimes sharp. He complains of pins & needles feeling in his hands and sometimes numbness, often occurring after sleeping. He denies use of pain medications since the first of 2017. He states his pain is normally rated 3-5 /10, and at worst 9-10/10. Prior Treatments and Tests X-rays at [facility], per chart review indicates loss of disc height and osteophytes at C5-C6, good lordosis on extension, slight curvature to the left side, and cervical arthritis. States he has mild degeneration at S1, L5, L4 and at C3 -C5. He reports an old T12 compression fracture. Future Testing and Treatments Planned None Treatment Goals Patient/Caregiver Goals Pt goal is to get guidance with weight lifting exercise & to get a program to help relax his neck muscles. He is not sure if he can financially afford therapy 2x/ week for 4 weeks and might perfer 1x/week for 8 weeks. Prior Functional Status Baseline Function- ADL's Modified Independent Baseline Function- Mobility Independent Baseline Function- Gait Independent Baseline Function- Work/School Disabled Baseline Function- Recreation/Hobbies Independent Quilting Baseline Function- Other Modified Independent: Required Home Health assist daily for safety with bathing and self care. Pt is Independent with mobility but becomes dizzy with changes in positioning with an increased risk of falling due to dizziness. Current Functional Impairments (Reported) Functional Limitations- ADL's Limited in changing head positions and sleeping due to pain. Sometimes limited in ability to move due to pain. Functional Limitations- Recreation/ Limited in ability to exercise Hobbies and finish a quilt. Personal Factors Other Personal Factors That May Effect Chronic neck/back pain. Therapy/Recovery Requires Home Health assist daily. C5-C6 degeneration and cervical arthritis. Limited mobility due to dizziness/falls. Hx of psychological disorders and seizures. TBI Hx of T12 Compression fracture . PT-OP-C Subjective Start: 03/18/18 14:48 Freq: Status: Active Protocol: Document 03/22/18 09:45 RCC (Rec: 03/22/18 09:59 RCC [email or web address]) OP-PT Subjective Patient Comments Patient Comments Pt reports compliance with HEP . He denies having a mirror in the home. PT-OP-E Functional Tests Start: 03/18/18 14:48 Freq: Status: Active Protocol: Document 03/19/18 08:15 LRN (Rec: 03/19/18 16:39 LRN [id number]) Functional Tests Apley's Scratch Test Action 1: The subject is instructed to touch the opposite shoulder with his/her hand. This motion checks Glenohumeral adduction, internal rotation , horizontal adduction and scapular protraction Action 2: The subject is instructed to place his/her arm overhead and reach behind the neck to touch his/her upper back. This motion checks Glenohumeral abduction, external rotation and scapular upward rotation and elevation. Action 3: The subject puts his/her hand on the lower back and reaches upward as far as possible. This motion checks glenohumeral adduction, internal rotation and scapular retraction with downward rotation Action 2- Left T5 Action 2- Right T5 Action 3- Left T2 Action 3- Right T2 PT-OP-F Manual Assessment Start: 03/18/18 14:48 Freq: Status: Active Protocol: Document 03/19/18 08:15 LRN (Rec: 03/19/18 16:39 LRN [id number]) Manual Assessments Soft Tissue Assessment Soft Tissue Mobility Assessment Decreased L Occiput & Levator Scapula, Decreased R Cervical Paraspinals. Joint Mobility Assessment Joint Mobility Assessment Decreased Cervical R rotation and Other Manual Assessments Other Manual Assessments Increased tension in R Upper Trapezius. PT-OP-H Neuro Start: 03/18/18 14:48 Freq: Status: Active Protocol: Document 03/19/18 08:15 LRN (Rec: 03/19/18 16:39 LRN [id number]) Sensation Evaluation Gross Sensation Gross Sensation WNL Comments Summary Comments Pt reported numbness in R hand digits 2 & 3 and variable reported decreased sensation of L thumb (initially reported numb, later reported normal but feeling different). Deep Tendon Reflex & Clonus Assessment Deep Tendon Reflex Right Tricep Deep Tendon Reflex 1+ Diminished Left Tricep Deep Tendon Reflex 0 Absent Bilateral Brachioradialis Deep Tendon Reflex 1+ Diminished Bilateral Bicep Deep Tendon Reflex 1+ Diminished PT-OP-J Posture/Palpation/Skin Start: 03/18/18 14:48 Freq: Status: Active Protocol: Document 03/19/18 08:15 LRN (Rec: 03/19/18 16:39 LRN [id number]) Posture Evaluation Position Standing Evaluation View All positions Head/C-Spine Posture Side Bent Right Forward Head T-Spine Posture Increased Kyphosis Thorax Posture (R) Elevated L-Spine Posture Decreased Lordosis Shoulder Posture (L) Rounded (R) Rounded (R) Elevated Scapula Posture (L) Rotated Down (L) Winged (R) Winged Pelvis Posture Neutral Weight Distribution Weight Shifted Left Knee Posture (R) Excess Flexion Comments Posture Comments R Clavicle deformation due to old fracture Palpation Assessment Location Two Palpation Location Cervical spine Palpation Findings Soft Tissue Tightness Tenderness Palpation Details Tender at Transverse Processes of the Cervical spine on the left. Neck is in R rotation, Occiput is in L rotation. Tightness at left Occiput and Levator Scapula Tightness at R cervical paraspinals. One Palpation Location Upper Trapezius Palpation Findings Muscle Guarding Palpation Details Right PT-OP-K Range of Motion Start: 03/18/18 14:48 Freq: Status: Active Protocol: Document 03/19/18 08:15 LRN (Rec: 03/19/18 16:39 LRN [id number]) Cervical Spine Range of Motion Cervical Spine Active Degrees Testing Position Sitting Flexion 70 Extension 40 Rotation Left 70 Rotation Right 52 Lateral Flexion Left 25 Lateral Flexion Right 30 ROM Limitations Pain Comments Pain with rotation right and sidebend left. Shoulder Goniometric Range of Motion Shoulder Measured in Degrees Right Active Shoulder ROM WFL Yes Left Active Shoulder ROM WFL Yes PT-OP-M Strength Start: 03/18/18 14:48 Freq: Status: Active Protocol: Document 03/19/18 08:15 LRN (Rec: 03/19/18 16:39 LRN [id number]) Cervical Spine Strength Cervical Spine Manual Muscle Testing Reason Not Measured WFL Shoulder Strength Shoulder Manual Muscle Testing Right Reason Not Measured WFL Left Reason Not Measured WFL PT-OP-Q Treatments Start: 03/18/18 14:48 Freq: Status: Active Protocol: Document 03/22/18 09:45 RCC (Rec: 03/22/18 09:59 RCC [id number]) Therapeutic Exercises Sitting Exercises Cervical sidebend Sitting Exercise Name Stretch Side left Cervical rotation Sitting Exercise Name Stretch Side right Standing Exercises 1 Standing Exercise Name mirror achieving neutral head on neck posture Equipment Used mirror for visual feedback Comments visual and tactile cuing Manual Therapy Treatment Soft Tissue Mobilization scalenes Body Location bilateral scalenes Mobilization Type Rolling Strumming Intensity/Depth Moderate Body Position Hooklying SCM Body Location R SCM Mobilization Type Rolling Strumming Intensity/Depth Moderate Body Position Hooklying upper trap Body Location R upper trapezius Mobilization Type Rolling Sustained Pressure Intensity/Depth Moderate Body Position Hooklying levator Body Location R levator Mobilization Type Rolling Strumming Intensity/Depth Moderate Body Position Hooklying Joint Mobilizations 1 Joint C3-5 Direction sideglide R Grade III Body Position Hooklying Reps/Duration 4 min. PT-OP-R Modalities Start: 03/18/18 14:48 Freq: Status: Active Protocol: Document 03/22/18 09:45 RCC (Rec: 03/22/18 09:59 RCC [email or web address]) Electric Stimulation Electric Stimulation Interferential Current (IFC) Body Location cervical spine Duration (Minutes) 15 Intensity 18 Combined With Heat/Cold Hot Pack Comments hooklying PT-OP-T Assessment and Plan Start: 03/18/18 14:48 Freq: Status: Active Protocol: Document 03/22/18 09:45 RCC (Rec: 03/22/18 09:59 RCC [email or web address]) Physical Therapy Assessment Assessment Summary Assessment Pt able to achieve neutral head on neck positioning temporarily in standing with visual feedback from mirror and tactile cuing. Tactile cuing required to inhibit R shoulder elevation/activation of upper trap. Pt tolerated e- stim and manual therapy well, and reviewed and reinforced the importance of HEP. Physical Therapy Plan Frequency and Duration Frequency of Treatment 2x/Week Duration of Treatment 8 weeks. Plan of Care Start Date 03/19/18 Plan of Care End Date 05/06/18 Next Visit Focus/Plan Next Note Type Treatment Note Next Visit Plan assess pt's tolerance to prev. treatment. Progress his postural training, UT inhibition with UE movements.
--- NOTE | 2018-03-25 12:45 | PT.OTN ---
Current Diagnoses Other cervical disc degeneration, unspecified cervical region (03/25/18) Strain of muscle, fascia and tendon at neck level, initial encounter (03/25/18) Physical Therapy Treatment Note PT-OP-A Visit Information Start: 03/18/18 14:48 Freq: Status: Active Protocol: Document 03/25/18 12:00 DCW (Rec: 03/25/18 12:45 DCW [id number]) Out-Patient Physical Therapy Visit Information Visit Information Visit Type Treatment Note Visit Start Time 12:00 Visit Stop Time 12:45 Total Visit Minutes 55 Visit Number 3/15 Number of [employer] HAND Visits 0 Evaluation Information Evaluation Date 03/19/18 PT-OP-B Current Condition Start: 03/18/18 14:48 Freq: Status: Active Protocol: Document 03/19/18 08:15 LRN (Rec: 03/19/18 16:39 LRN [id number]) Current Condition History of Current Condition Onset Date 5 yrs ago with exacerbation 2 yrs ago. Current Complaints Achy, sometimes sharp pain & stiffness in the posterior neck History of Current Condition Pt reports insidious onset of increasing neck pain/stiffness . His neck pain is achy and sometimes sharp. He complains of pins & needles feeling in his hands and sometimes numbness, often occurring after sleeping. He denies use of pain medications since the first of 2017. He states his pain is normally rated 3-5 /10, and at worst 9-10/10. Prior Treatments and Tests X-rays at [facility], per chart review indicates loss of disc height and osteophytes at C5-C6, good lordosis on extension, slight curvature to the left side, and cervical arthritis. States he has mild degeneration at S1, L5, L4 and at C3 -C5. He reports an old T12 compression fracture. Future Testing and Treatments Planned None Treatment Goals Patient/Caregiver Goals Pt goal is to get guidance with weight lifting exercise & to get a program to help relax his neck muscles. He is not sure if he can financially afford therapy 2x/ week for 4 weeks and might perfer 1x/week for 8 weeks. Prior Functional Status Baseline Function- ADL's Modified Independent Baseline Function- Mobility Independent Baseline Function- Gait Independent Baseline Function- Work/School Disabled Baseline Function- Recreation/Hobbies Independent Quilting Baseline Function- Other Modified Independent: Required Home Health assist daily for safety with bathing and self care. Pt is Independent with mobility but becomes dizzy with changes in positioning with an increased risk of falling due to dizziness. Current Functional Impairments (Reported) Functional Limitations- ADL's Limited in changing head positions and sleeping due to pain. Sometimes limited in ability to move due to pain. Functional Limitations- Recreation/ Limited in ability to exercise Hobbies and finish a quilt. Personal Factors Other Personal Factors That May Effect Chronic neck/back pain. Therapy/Recovery Requires Home Health assist daily. C5-C6 degeneration and cervical arthritis. Limited mobility due to dizziness/falls. Hx of psychological disorders and seizures. TBI Hx of T12 Compression fracture . PT-OP-C Subjective Start: 03/18/18 14:48 Freq: Status: Active Protocol: Document 03/25/18 12:00 DCW (Rec: 03/25/18 12:45 DCW [id number]) OP-PT Subjective Patient Comments Patient Comments Pt noting pain with left side- bending, and mild pain with extension, but feels the other directions are improving. PT-OP-E Functional Tests Start: 03/18/18 14:48 Freq: Status: Active Protocol: Document 03/19/18 08:15 LRN (Rec: 03/19/18 16:39 LRN [id number]) Functional Tests Apley's Scratch Test Action 1: The subject is instructed to touch the opposite shoulder with his/her hand. This motion checks Glenohumeral adduction, internal rotation , horizontal adduction and scapular protraction Action 2: The subject is instructed to place his/her arm overhead and reach behind the neck to touch his/her upper back. This motion checks Glenohumeral abduction, external rotation and scapular upward rotation and elevation. Action 3: The subject puts his/her hand on the lower back and reaches upward as far as possible. This motion checks glenohumeral adduction, internal rotation and scapular retraction with downward rotation Action 2- Left T5 Action 2- Right T5 Action 3- Left T2 Action 3- Right T2 PT-OP-F Manual Assessment Start: 03/18/18 14:48 Freq: Status: Active Protocol: Document 03/19/18 08:15 LRN (Rec: 03/19/18 16:39 LRN [id number]) Manual Assessments Soft Tissue Assessment Soft Tissue Mobility Assessment Decreased L Occiput & Levator Scapula, Decreased R Cervical Paraspinals. Joint Mobility Assessment Joint Mobility Assessment Decreased Cervical R rotation and Other Manual Assessments Other Manual Assessments Increased tension in R Upper Trapezius. PT-OP-H Neuro Start: 03/18/18 14:48 Freq: Status: Active Protocol: Document 03/19/18 08:15 LRN (Rec: 03/19/18 16:39 LRN [id number]) Sensation Evaluation Gross Sensation Gross Sensation WNL Comments Summary Comments Pt reported numbness in R hand digits 2 & 3 and variable reported decreased sensation of L thumb (initially reported numb, later reported normal but feeling different). Deep Tendon Reflex & Clonus Assessment Deep Tendon Reflex Right Tricep Deep Tendon Reflex 1+ Diminished Left Tricep Deep Tendon Reflex 0 Absent Bilateral Brachioradialis Deep Tendon Reflex 1+ Diminished Bilateral Bicep Deep Tendon Reflex 1+ Diminished PT-OP-J Posture/Palpation/Skin Start: 03/18/18 14:48 Freq: Status: Active Protocol: Document 03/19/18 08:15 LRN (Rec: 03/19/18 16:39 LRN [id number]) Posture Evaluation Position Standing Evaluation View All positions Head/C-Spine Posture Side Bent Right Forward Head T-Spine Posture Increased Kyphosis Thorax Posture (R) Elevated L-Spine Posture Decreased Lordosis Shoulder Posture (L) Rounded (R) Rounded (R) Elevated Scapula Posture (L) Rotated Down (L) Winged (R) Winged Pelvis Posture Neutral Weight Distribution Weight Shifted Left Knee Posture (R) Excess Flexion Comments Posture Comments R Clavicle deformation due to old fracture Palpation Assessment Location Two Palpation Location Cervical spine Palpation Findings Soft Tissue Tightness Tenderness Palpation Details Tender at Transverse Processes of the Cervical spine on the left. Neck is in R rotation, Occiput is in L rotation. Tightness at left Occiput and Levator Scapula Tightness at R cervical paraspinals. One Palpation Location Upper Trapezius Palpation Findings Muscle Guarding Palpation Details Right PT-OP-K Range of Motion Start: 03/18/18 14:48 Freq: Status: Active Protocol: Document 03/19/18 08:15 LRN (Rec: 03/19/18 16:39 LRN [id number]) Cervical Spine Range of Motion Cervical Spine Active Degrees Testing Position Sitting Flexion 70 Extension 40 Rotation Left 70 Rotation Right 52 Lateral Flexion Left 25 Lateral Flexion Right 30 ROM Limitations Pain Comments Pain with rotation right and sidebend left. Shoulder Goniometric Range of Motion Shoulder Measured in Degrees Right Active Shoulder ROM WFL Yes Left Active Shoulder ROM WFL Yes PT-OP-M Strength Start: 03/18/18 14:48 Freq: Status: Active Protocol: Document 03/19/18 08:15 LRN (Rec: 03/19/18 16:39 LRN [id number]) Cervical Spine Strength Cervical Spine Manual Muscle Testing Reason Not Measured WFL Shoulder Strength Shoulder Manual Muscle Testing Right Reason Not Measured WFL Left Reason Not Measured WFL PT-OP-Q Treatments Start: 03/18/18 14:48 Freq: Status: Active Protocol: Document 03/25/18 12:00 DCW (Rec: 03/25/18 12:45 DCW [id number]) Therapeutic Exercises Supine Exercises Chin tuck/head lift Supine Exercise Name Chin tuck/head lift Reps/Minutes hold 5 seconds Sitting Exercises Active ROM Sitting Exercise Name Active cervical ROM Comments pain-free Cervical sidebend Sitting Exercise Name Stretch Side left Cervical rotation Sitting Exercise Name Stretch Side right Manual Therapy Treatment Soft Tissue Mobilization scalenes Body Location bilateral scalenes Mobilization Type Rolling Strumming Intensity/Depth Moderate Body Position Hooklying SCM Body Location R SCM Mobilization Type Rolling Strumming Intensity/Depth Moderate Body Position Hooklying upper trap Body Location R upper trapezius Mobilization Type Rolling Sustained Pressure Intensity/Depth Moderate Body Position Hooklying levator Body Location R levator Mobilization Type Rolling Strumming Intensity/Depth Moderate Body Position Hooklying Joint Mobilizations 1 Joint C3-5 Direction sideglide R Grade III Body Position Hooklying Reps/Duration 4 min. Manual Traction Cervical Body Position Hooklying PT-OP-R Modalities Start: 03/18/18 14:48 Freq: Status: Active Protocol: Document 03/25/18 12:00 DCW (Rec: 03/25/18 12:45 DCW [id number]) Electric Stimulation Electric Stimulation Interferential Current (IFC) Body Location cervical spine Duration (Minutes) 15 Intensity 21 Combined With Heat/Cold Hot Pack Comments hooklying PT-OP-T Assessment and Plan Start: 03/18/18 14:48 Freq: Status: Active Protocol: Document 03/25/18 12:00 DCW (Rec: 03/25/18 12:45 DCW [id number]) Physical Therapy Assessment Impairments Impairments Activity Tolerance Pain Posture ROM Sensation Soft Tissue Mobility Goals Four Impairment Pain limiting recreational activities. Long-Term Goal (LTG) Pt will be able to resume quilting activities. LTG Duration 05/06/18 Three Impairment Pain limiting neck mobility and sometimes function. Long-Term Goal (LTG) Improve neck mobility such that the pt is not limited in functional activities. LTG Duration 05/06/18 Two Impairment Pt lacks appropriate HEP for weight lifting ex's at home Long-Term Goal (LTG) Pt educated in proper neck/ shoulder strengthening ex's on a HEP to manage his pain. LTG Duration 04/19/18 One Impairment Lacks appropriate HEP Short Term Goal (STG) Pt will be independent on a HEP to address current restrictions of movement and educated in proper self care. STG Duration 04/05/18 Long-Term Goal (LTG) Pt will be able to manage his pain and prevent recurrence. LTG Duration 04/19/18 Assessment Summary Assessment Following soft tissue work, pt was much closer to neutral cervical alignment in supine. Pt noted feeling much less stiff. Physical Therapy Plan Frequency and Duration Frequency of Treatment 2x/Week Duration of Treatment 8 weeks. Plan of Care Start Date 03/19/18 Plan of Care End Date 05/06/18 Next Visit Focus/Plan Next Note Type Treatment Note Next Visit Plan Progress his postural training , UT inhibition with UE movements.
--- NOTE | 2018-03-29 10:09 | PT.OTN ---
Current Diagnoses Other cervical disc degeneration, unspecified cervical region (03/29/18) Strain of muscle, fascia and tendon at neck level, initial encounter (03/29/18) Physical Therapy Treatment Note PT-OP-A Visit Information Start: 03/18/18 14:48 Freq: Status: Active Protocol: Document 03/29/18 09:03 LRN (Rec: 03/29/18 10:07 LRN [id number]) Out-Patient Physical Therapy Visit Information Visit Information Visit Type Treatment Note Visit Start Time 09:03 Visit Stop Time 09:55 Total Visit Minutes 52 Visit Number 4/15 Number of [employer] Visits 0 Evaluation Information Evaluation Date 03/19/18 PT-OP-B Current Condition Start: 03/18/18 14:48 Freq: Status: Active Protocol: Document 03/19/18 08:15 LRN (Rec: 03/19/18 16:39 LRN [id number]) Current Condition History of Current Condition Onset Date 5 yrs ago with exacerbation 2 yrs ago. Current Complaints Achy, sometimes sharp pain & stiffness in the posterior neck History of Current Condition Pt reports insidious onset of increasing neck pain/stiffness . His neck pain is achy and sometimes sharp. He complains of pins & needles feeling in his hands and sometimes numbness, often occurring after sleeping. He denies use of pain medications since the first of 2017. He states his pain is normally rated 3-5 /10, and at worst 9-10/10. Prior Treatments and Tests X-rays at [facility], per chart review indicates loss of disc height and osteophytes at C5-C6, good lordosis on extension, slight curvature to the left side, and cervical arthritis. States he has mild degeneration at S1, L5, L4 and at C3 -C5. He reports an old T12 compression fracture. Future Testing and Treatments Planned None Treatment Goals Patient/Caregiver Goals Pt goal is to get guidance with weight lifting exercise & to get a program to help relax his neck muscles. He is not sure if he can financially afford therapy 2x/ week for 4 weeks and might perfer 1x/week for 8 weeks. Prior Functional Status Baseline Function- ADL's Modified Independent Baseline Function- Mobility Independent Baseline Function- Gait Independent Baseline Function- Work/School Disabled Baseline Function- Recreation/Hobbies Independent Quilting Baseline Function- Other Modified Independent: Required Home Health assist daily for safety with bathing and self care. Pt is Independent with mobility but becomes dizzy with changes in positioning with an increased risk of falling due to dizziness. Current Functional Impairments (Reported) Functional Limitations- ADL's Limited in changing head positions and sleeping due to pain. Sometimes limited in ability to move due to pain. Functional Limitations- Recreation/ Limited in ability to exercise Hobbies and finish a quilt. Personal Factors Other Personal Factors That May Effect Chronic neck/back pain. Therapy/Recovery Requires Home Health assist daily. C5-C6 degeneration and cervical arthritis. Limited mobility due to dizziness/falls. Hx of psychological disorders and seizures. TBI Hx of T12 Compression fracture . PT-OP-C Subjective Start: 03/18/18 14:48 Freq: Status: Active Protocol: Document 03/29/18 09:03 LRN (Rec: 03/29/18 10:07 LRN [id number]) OP-PT Subjective Patient Comments Patient Comments Pt states he has stretched his anterior neck muscles and is doing his home ex's. He has been working more on correcting his head/neck positioning. C/O pain with extension. PT-OP-E Functional Tests Start: 03/18/18 14:48 Freq: Status: Active Protocol: Document 03/19/18 08:15 LRN (Rec: 03/19/18 16:39 LRN [id number]) Functional Tests Apley's Scratch Test Action 1: The subject is instructed to touch the opposite shoulder with his/her hand. This motion checks Glenohumeral adduction, internal rotation , horizontal adduction and scapular protraction Action 2: The subject is instructed to place his/her arm overhead and reach behind the neck to touch his/her upper back. This motion checks Glenohumeral abduction, external rotation and scapular upward rotation and elevation. Action 3: The subject puts his/her hand on the lower back and reaches upward as far as possible. This motion checks glenohumeral adduction, internal rotation and scapular retraction with downward rotation Action 2- Left T5 Action 2- Right T5 Action 3- Left T2 Action 3- Right T2 PT-OP-F Manual Assessment Start: 03/18/18 14:48 Freq: Status: Active Protocol: Document 03/19/18 08:15 LRN (Rec: 03/19/18 16:39 LRN [id number]) Manual Assessments Soft Tissue Assessment Soft Tissue Mobility Assessment Decreased L Occiput & Levator Scapula, Decreased R Cervical Paraspinals. Joint Mobility Assessment Joint Mobility Assessment Decreased Cervical R rotation and Other Manual Assessments Other Manual Assessments Increased tension in R Upper Trapezius. PT-OP-H Neuro Start: 03/18/18 14:48 Freq: Status: Active Protocol: Document 03/19/18 08:15 LRN (Rec: 03/19/18 16:39 LRN [id number]) Sensation Evaluation Gross Sensation Gross Sensation WNL Comments Summary Comments Pt reported numbness in R hand digits 2 & 3 and variable reported decreased sensation of L thumb (initially reported numb, later reported normal but feeling different). Deep Tendon Reflex & Clonus Assessment Deep Tendon Reflex Right Tricep Deep Tendon Reflex 1+ Diminished Left Tricep Deep Tendon Reflex 0 Absent Bilateral Brachioradialis Deep Tendon Reflex 1+ Diminished Bilateral Bicep Deep Tendon Reflex 1+ Diminished PT-OP-J Posture/Palpation/Skin Start: 03/18/18 14:48 Freq: Status: Active Protocol: Document 03/19/18 08:15 LRN (Rec: 03/19/18 16:39 LRN [id number]) Posture Evaluation Position Standing Evaluation View All positions Head/C-Spine Posture Side Bent Right Forward Head T-Spine Posture Increased Kyphosis Thorax Posture (R) Elevated L-Spine Posture Decreased Lordosis Shoulder Posture (L) Rounded (R) Rounded (R) Elevated Scapula Posture (L) Rotated Down (L) Winged (R) Winged Pelvis Posture Neutral Weight Distribution Weight Shifted Left Knee Posture (R) Excess Flexion Comments Posture Comments R Clavicle deformation due to old fracture Palpation Assessment Location Two Palpation Location Cervical spine Palpation Findings Soft Tissue Tightness Tenderness Palpation Details Tender at Transverse Processes of the Cervical spine on the left. Neck is in R rotation, Occiput is in L rotation. Tightness at left Occiput and Levator Scapula Tightness at R cervical paraspinals. One Palpation Location Upper Trapezius Palpation Findings Muscle Guarding Palpation Details Right PT-OP-K Range of Motion Start: 03/18/18 14:48 Freq: Status: Active Protocol: Document 03/19/18 08:15 LRN (Rec: 03/19/18 16:39 LRN [id number]) Cervical Spine Range of Motion Cervical Spine Active Degrees Testing Position Sitting Flexion 70 Extension 40 Rotation Left 70 Rotation Right 52 Lateral Flexion Left 25 Lateral Flexion Right 30 ROM Limitations Pain Comments Pain with rotation right and sidebend left. Shoulder Goniometric Range of Motion Shoulder Measured in Degrees Right Active Shoulder ROM WFL Yes Left Active Shoulder ROM WFL Yes PT-OP-M Strength Start: 03/18/18 14:48 Freq: Status: Active Protocol: Document 03/19/18 08:15 LRN (Rec: 03/19/18 16:39 LRN [id number]) Cervical Spine Strength Cervical Spine Manual Muscle Testing Reason Not Measured WFL Shoulder Strength Shoulder Manual Muscle Testing Right Reason Not Measured WFL Left Reason Not Measured WFL PT-OP-Q Treatments Start: 03/18/18 14:48 Freq: Status: Active Protocol: Document 03/29/18 09:03 LRN (Rec: 03/29/18 10:07 LR [id number]) Therapeutic Exercises Supine Exercises Chin tuck/head lift Supine Exercise Name Chin tuck/head lift Reps/Minutes hold 5 seconds Sitting Exercises Cervical sidebend Sitting Exercise Name Stretch Side left Cervical rotation Sitting Exercise Name Stretch Side right Manual Therapy Treatment Soft Tissue Mobilization Paraspinals Body Location Cervical Mobilization Type Strumming Sustained Pressure Intensity/Depth Moderate Body Position Prone upper trap Body Location R upper trapezius Mobilization Type Myofascial Release Intensity/Depth Moderate Body Position Hooklying levator Body Location R levator Mobilization Type Rolling Strumming Intensity/Depth Moderate Body Position Hooklying Joint Mobilizations 1 Joint C3-5 Direction sideglide R, and gapping of R facets Grade III Body Position Hooklying Reps/Duration 8 min. Manual Traction Cervical Body Position Hooklying PT-OP-R Modalities Start: 03/18/18 14:48 Freq: Status: Active Protocol: Document 03/29/18 09:03 LRN (Rec: 03/29/18 10:07 LRN [id number]) Electric Stimulation Electric Stimulation Pre-Modulated Body Location Daryl UT>LB Duration (Minutes) 15 Intensity L 19, R 18 Patient Position Hooklying Combined With Heat/Cold Hot Pack Comments Neck & Back Hot pack Hot Pack/Cold Pack Treatment Hot Pack Location Neck/Back Patient Position Hooklying Treatment Duration (minutes) 15 Comments In combination with Pre-Mod PT-OP-T Assessment and Plan Start: 03/18/18 14:48 Freq: Status: Active Protocol: Document 03/29/18 09:03 JEVON (Rec: 03/29/18 10:07 LRN [id number]) Physical Therapy Assessment Progress Towards Goals Progress Towards Goals Progressing Toward Goals Progress Comments Cervical ROM improving. Assessment Summary Assessment Much improved postural awareness by the pt. His clavicle fx on the left might hinder his ability to im. Iprove neck/shoulder posture. He show improved cervical mobility/flexibility post therapy. Pt is not sure how therapy will effect him financially, but he plans on checking his therapy appointments and removing visits he won't attend. Physical Therapy Plan Frequency and Duration Frequency of Treatment 2x/Week Duration of Treatment 8 weeks. Plan of Care Start Date 03/19/18 Plan of Care End Date 05/06/18 Next Visit Focus/Plan Next Note Type Treatment Note Next Visit Plan Progress his postural training , UT inhibition with UE movements, C/S JMT, add scapular stab ex (lat dorsi) to HEP.
--- NOTE | 2018-04-01 12:40 | PT.OTN ---
Current Diagnoses Other cervical disc degeneration, unspecified cervical region (04/01/18) Strain of muscle, fascia and tendon at neck level, initial encounter (04/01/18) Physical Therapy Treatment Note PT-OP-A Visit Information Start: 03/18/18 14:48 Freq: Status: Active Protocol: Document 04/01/18 12:00 DCW (Rec: 04/01/18 12:40 DCW [id number]) Out-Patient Physical Therapy Visit Information Visit Information Visit Type Treatment Note Visit Start Time 12:00 Visit Stop Time 12:40 Total Visit Minutes 40 Visit Number 5/15 Number of PHYSICAL SCIENCE AIDE Visits 0 Evaluation Information Evaluation Date 03/19/18 PT-OP-B Current Condition Start: 03/18/18 14:48 Freq: Status: Active Protocol: Document 03/19/18 08:15 LRN (Rec: 03/19/18 16:39 LRN [id number]) Current Condition History of Current Condition Onset Date 5 yrs ago with exacerbation 2 yrs ago. Current Complaints Achy, sometimes sharp pain & stiffness in the posterior neck History of Current Condition Pt reports insidious onset of increasing neck pain/stiffness . His neck pain is achy and sometimes sharp. He complains of pins & needles feeling in his hands and sometimes numbness, often occurring after sleeping. He denies use of pain medications since the first of 2017. He states his pain is normally rated 3-5 /10, and at worst 9-10/10. Prior Treatments and Tests X-rays at [facility], per chart review indicates loss of disc height and osteophytes at C5-C6, good lordosis on extension, slight curvature to the left side, and cervical arthritis. States he has mild degeneration at S1, L5, L4 and at C3 -C5. He reports an old T12 compression fracture. Future Testing and Treatments Planned None Treatment Goals Patient/Caregiver Goals Pt goal is to get guidance with weight lifting exercise & to get a program to help relax his neck muscles. He is not sure if he can financially afford therapy 2x/ week for 4 weeks and might perfer 1x/week for 8 weeks. Prior Functional Status Baseline Function- ADL's Modified Independent Baseline Function- Mobility Independent Baseline Function- Gait Independent Baseline Function- Work/School Disabled Baseline Function- Recreation/Hobbies Independent Quilting Baseline Function- Other Modified Independent: Required Home Health assist daily for safety with bathing and self care. Pt is Independent with mobility but becomes dizzy with changes in positioning with an increased risk of falling due to dizziness. Current Functional Impairments (Reported) Functional Limitations- ADL's Limited in changing head positions and sleeping due to pain. Sometimes limited in ability to move due to pain. Functional Limitations- Recreation/ Limited in ability to exercise Hobbies and finish a quilt. Personal Factors Other Personal Factors That May Effect Chronic neck/back pain. Therapy/Recovery Requires Home Health assist daily. C5-C6 degeneration and cervical arthritis. Limited mobility due to dizziness/falls. Hx of psychological disorders and seizures. TBI Hx of T12 Compression fracture . PT-OP-C Subjective Start: 03/18/18 14:48 Freq: Status: Active Protocol: Document 04/01/18 12:00 DCW (Rec: 04/01/18 12:40 DCW [id number]) OP-PT Subjective Patient Comments Patient Comments Pt notes neck soreness, thinks he might have slept on it wrong. Pt does report improvement with his cervical rotation. PT-OP-E Functional Tests Start: 03/18/18 14:48 Freq: Status: Active Protocol: Document 03/19/18 08:15 LRN (Rec: 03/19/18 16:39 LRN [id number]) Functional Tests Apley's Scratch Test Action 1: The subject is instructed to touch the opposite shoulder with his/her hand. This motion checks Glenohumeral adduction, internal rotation , horizontal adduction and scapular protraction Action 2: The subject is instructed to place his/her arm overhead and reach behind the neck to touch his/her upper back. This motion checks Glenohumeral abduction, external rotation and scapular upward rotation and elevation. Action 3: The subject puts his/her hand on the lower back and reaches upward as far as possible. This motion checks glenohumeral adduction, internal rotation and scapular retraction with downward rotation Action 2- Left T5 Action 2- Right T5 Action 3- Left T2 Action 3- Right T2 PT-OP-F Manual Assessment Start: 03/18/18 14:48 Freq: Status: Active Protocol: Document 03/19/18 08:15 LRN (Rec: 03/19/18 16:39 LRN [id number]) Manual Assessments Soft Tissue Assessment Soft Tissue Mobility Assessment Decreased L Occiput & Levator Scapula, Decreased R Cervical Paraspinals. Joint Mobility Assessment Joint Mobility Assessment Decreased Cervical R rotation and Other Manual Assessments Other Manual Assessments Increased tension in R Upper Trapezius. PT-OP-H Neuro Start: 03/18/18 14:48 Freq: Status: Active Protocol: Document 03/19/18 08:15 LRN (Rec: 03/19/18 16:39 LRN [id number]) Sensation Evaluation Gross Sensation Gross Sensation WNL Comments Summary Comments Pt reported numbness in R hand digits 2 & 3 and variable reported decreased sensation of L thumb (initially reported numb, later reported normal but feeling different). Deep Tendon Reflex & Clonus Assessment Deep Tendon Reflex Right Tricep Deep Tendon Reflex 1+ Diminished Left Tricep Deep Tendon Reflex 0 Absent Bilateral Brachioradialis Deep Tendon Reflex 1+ Diminished Bilateral Bicep Deep Tendon Reflex 1+ Diminished PT-OP-J Posture/Palpation/Skin Start: 03/18/18 14:48 Freq: Status: Active Protocol: Document 03/19/18 08:15 LRN (Rec: 03/19/18 16:39 LRN [id number]) Posture Evaluation Position Standing Evaluation View All positions Head/C-Spine Posture Side Bent Right Forward Head T-Spine Posture Increased Kyphosis Thorax Posture (R) Elevated L-Spine Posture Decreased Lordosis Shoulder Posture (L) Rounded (R) Rounded (R) Elevated Scapula Posture (L) Rotated Down (L) Winged (R) Winged Pelvis Posture Neutral Weight Distribution Weight Shifted Left Knee Posture (R) Excess Flexion Comments Posture Comments R Clavicle deformation due to old fracture Palpation Assessment Location Two Palpation Location Cervical spine Palpation Findings Soft Tissue Tightness Tenderness Palpation Details Tender at Transverse Processes of the Cervical spine on the left. Neck is in R rotation, Occiput is in L rotation. Tightness at left Occiput and Levator Scapula Tightness at R cervical paraspinals. One Palpation Location Upper Trapezius Palpation Findings Muscle Guarding Palpation Details Right PT-OP-K Range of Motion Start: 03/18/18 14:48 Freq: Status: Active Protocol: Document 03/19/18 08:15 LRN (Rec: 03/19/18 16:39 LRN [id number]) Cervical Spine Range of Motion Cervical Spine Active Degrees Testing Position Sitting Flexion 70 Extension 40 Rotation Left 70 Rotation Right 52 Lateral Flexion Left 25 Lateral Flexion Right 30 ROM Limitations Pain Comments Pain with rotation right and sidebend left. Shoulder Goniometric Range of Motion Shoulder Measured in Degrees Right Active Shoulder ROM WFL Yes Left Active Shoulder ROM WFL Yes PT-OP-M Strength Start: 03/18/18 14:48 Freq: Status: Active Protocol: Document 03/19/18 08:15 LRN (Rec: 03/19/18 16:39 LRN [id number]) Cervical Spine Strength Cervical Spine Manual Muscle Testing Reason Not Measured WFL Shoulder Strength Shoulder Manual Muscle Testing Right Reason Not Measured WFL Left Reason Not Measured WFL PT-OP-Q Treatments Start: 03/18/18 14:48 Freq: Status: Active Protocol: Document 04/01/18 12:00 DCW (Rec: 04/01/18 12:40 DCW [id number]) Manual Therapy Treatment Soft Tissue Mobilization Paraspinals Body Location Cervical Mobilization Type Strumming Sustained Pressure Intensity/Depth Moderate Body Position Prone scalenes Body Location bilateral scalenes Mobilization Type Rolling Strumming Intensity/Depth Moderate Body Position Hooklying SCM Body Location R SCM Mobilization Type Rolling Strumming Intensity/Depth Moderate Body Position Hooklying upper trap Body Location R upper trapezius Mobilization Type Rolling Sustained Pressure Intensity/Depth Moderate Body Position Hooklying levator Body Location R levator Mobilization Type Rolling Strumming Intensity/Depth Moderate Body Position Hooklying Joint Mobilizations 1 Joint C3-5 Direction sideglide R, and gapping of R facets Grade III Body Position Hooklying Reps/Duration 5 min. Manual Traction Cervical Body Position Hooklying PT-OP-T Assessment and Plan Start: 03/18/18 14:48 Freq: Status: Active Protocol: Document 04/01/18 12:00 DCW (Rec: 04/01/18 12:40 DCW [id number]) Physical Therapy Assessment Impairments Impairments Activity Tolerance Pain Posture ROM Sensation Soft Tissue Mobility Goals Four Impairment Pain limiting recreational activities. Prison Goal (LTG) Pt will be able to resume quilting activities. LTG Duration 05/06/18 Three Impairment Pain limiting neck mobility and sometimes function. Prison Goal (LTG) Improve neck mobility such that the pt is not limited in functional activities. LTG Duration 05/06/18 Two Impairment Pt lacks appropriate HEP for weight lifting ex's at home Prison Goal (LTG) Pt educated in proper neck/ shoulder strengthening ex's on a HEP to manage his pain. LTG Duration 04/19/18 One Impairment Lacks appropriate HEP Short Term Goal (STG) Pt will be independent on a HEP to address current restrictions of movement and educated in proper self care. STG Duration 04/05/18 Prison Goal (LTG) Pt will be able to manage his pain and prevent recurrence. LTG Duration 04/19/18 Assessment Summary Assessment Focused mainly on manual therapy today, pt had obvious improvement in cervical posture and ROM following treatment session today. Physical Therapy Plan Frequency and Duration Frequency of Treatment 2x/Week Duration of Treatment 8 weeks. Plan of Care Start Date 03/19/18 Plan of Care End Date 05/06/18 Next Visit Focus/Plan Next Note Type Treatment Note Next Visit Plan Progress his postural training , UT inhibition with UE movements, C/S JMT, add scapular stab ex (lat dorsi) to HEP.
--- NOTE | 2018-04-09 14:33 | PT.OTN ---
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 Current Complaints Achy, sometimes sharp pain & stiffness in the posterior neck History of Current Condition Pt reports insidious onset of increasing neck pain/stiffness . His neck pain is achy and sometimes sharp. He complains of pins & needles feeling in his hands and sometimes numbness, often occurring after sleeping. He denies use of pain medications since the first of 2017. He states his pain is normally rated 3-5 /10, and at worst 9-10/10. Prior Treatments and Tests X-rays at [facility], per chart review indicates loss of disc height and osteophytes at C5-C6, good lordosis on extension, slight curvature to the left side, and cervical arthritis. States he has mild degeneration at S1, L5, L4 and at C3 -C5. He reports an old T12 compression fracture. Future Testing and Treatments Planned None Treatment Goals Patient/Caregiver Goals Pt goal is to get guidance with weight lifting exercise & to get a program to help relax his neck muscles. He is not sure if he can financially afford therapy 2x/ week for 4 weeks and might perfer 1x/week for 8 weeks. Prior Functional Status Baseline Function- ADL's Modified Independent Baseline Function- Mobility Independent Baseline Function- Gait Independent Baseline Function- Work/School Disabled Baseline Function- Recreation/Hobbies Independent Quilting Baseline Function- Other Modified Independent: Required Home Health assist daily for safety with bathing and self care. Pt is Independent with mobility but becomes dizzy with changes in positioning with an increased risk of falling due to dizziness. Current Functional Impairments (Reported) Functional Limitations- ADL's Limited in changing head positions and sleeping due to pain. Sometimes limited in ability to move due to pain. Functional Limitations- Recreation/ Limited in ability to exercise Hobbies and finish a quilt. Personal Factors Other Personal Factors That May Effect Chronic neck/back pain. Therapy/Recovery Requires Home Health assist daily. C5-C6 degeneration and cervical arthritis. Limited mobility due to dizziness/falls. Hx of psychological disorders and seizures. TBI Hx of T12 Compression fracture . PT-OP-C Subjective Start: 03/18/18 14:48 Freq: Status: Active Protocol: Document 04/09/18 08:16 LRN (Rec: 04/09/18 09:03 LRN [id number]) OP-PT Subjective Patient Comments Patient Comments Pain has eased with L SB & can now rotate to both sides. Has trouble focusing and has been sleeping 14 hours per day . Is trying to exercise, but not as much as he'd like to be able to. Feels 65-70% better . Tightness is reduced to almost nothing. PT-OP-E Functional Tests Start: 03/18/18 14:48 Freq: Status: Active Protocol: Document 03/19/18 08:15 LRN (Rec: 03/19/18 16:39 LRN [id number]) Functional Tests Apley's Scratch Test Action 1: The subject is instructed to touch the opposite shoulder with his/her hand. This motion checks Glenohumeral adduction, internal rotation , horizontal adduction and scapular protraction Action 2: The subject is instructed to place his/her arm overhead and reach behind the neck to touch his/her upper back. This motion checks Glenohumeral abduction, external rotation and scapular upward rotation and elevation. Action 3: The subject puts his/her hand on the lower back and reaches upward as far as possible. This motion checks glenohumeral adduction, internal rotation and scapular retraction with downward rotation Action 2- Left T5 Action 2- Right T5 Action 3- Left T2 Action 3- Right T2 PT-OP-F Manual Assessment Start: 03/18/18 14:48 Freq: Status: Active Protocol: Document 03/19/18 08:15 LRN (Rec: 03/19/18 16:39 LRN [id number]) Manual Assessments Soft Tissue Assessment Soft Tissue Mobility Assessment Decreased L Occiput & Levator Scapula, Decreased R Cervical Paraspinals. Joint Mobility Assessment Joint Mobility Assessment Decreased Cervical R rotation and Other Manual Assessments Other Manual Assessments Increased tension in R Upper Trapezius. PT-OP-H Neuro Start: 03/18/18 14:48 Freq: Status: Active Protocol: Document 03/19/18 08:15 LRN (Rec: 03/19/18 16:39 LRN [id number]) Sensation Evaluation Gross Sensation Gross Sensation WNL Comments Summary Comments Pt reported numbness in R hand digits 2 & 3 and variable reported decreased sensation of L thumb (initially reported numb, later reported normal but feeling different). Deep Tendon Reflex & Clonus Assessment Deep Tendon Reflex Right Tricep Deep Tendon Reflex 1+ Diminished Left Tricep Deep Tendon Reflex 0 Absent Bilateral Brachioradialis Deep Tendon Reflex 1+ Diminished Bilateral Bicep Deep Tendon Reflex 1+ Diminished PT-OP-J Posture/Palpation/Skin Start: 03/18/18 14:48 Freq: Status: Active Protocol: Document 03/19/18 08:15 LRN (Rec: 03/19/18 16:39 LRN [id number]) Posture Evaluation Position Standing Evaluation View All positions Head/C-Spine Posture Side Bent Right Forward Head T-Spine Posture Increased Kyphosis Thorax Posture (R) Elevated L-Spine Posture Decreased Lordosis Shoulder Posture (L) Rounded (R) Rounded (R) Elevated Scapula Posture (L) Rotated Down (L) Winged (R) Winged Pelvis Posture Neutral Weight Distribution Weight Shifted Left Knee Posture (R) Excess Flexion Comments Posture Comments R Clavicle deformation due to old fracture Palpation Assessment Location Two Palpation Location Cervical spine Palpation Findings Soft Tissue Tightness Tenderness Palpation Details Tender at Transverse Processes of the Cervical spine on the left. Neck is in R rotation, Occiput is in L rotation. Tightness at left Occiput and Levator Scapula Tightness at R cervical paraspinals. One Palpation Location Upper Trapezius Palpation Findings Muscle Guarding Palpation Details Right PT-OP-K Range of Motion Start: 03/18/18 14:48 Freq: Status: Active Protocol: Document 04/09/18 08:16 LRN (Rec: 04/09/18 14:33 LRN [id number]) Cervical Spine Range of Motion Cervical Spine Active Degrees Testing Position Sitting Extension 58 Rotation Left 60 Rotation Right 53 Lateral Flexion Left 30 Lateral Flexion Right 30 ROM Limitations Soft Tissue Tightness PT-OP-M Strength Start: 03/18/18 14:48 Freq: Status: Active Protocol: Document 03/19/18 08:15 LRN (Rec: 03/19/18 16:39 LRN [id number]) Cervical Spine Strength Cervical Spine Manual Muscle Testing Reason Not Measured WFL Shoulder Strength Shoulder Manual Muscle Testing Right Reason Not Measured WFL Left Reason Not Measured WFL PT-OP-Q Treatments Start: 03/18/18 14:48 Freq: Status: Active Protocol: Document 04/09/18 08:16 LRN (Rec: 04/09/18 09:03 LRN [id number]) Therapeutic Exercises Sitting Exercises Active ROM Sitting Exercise Name Active cervical ROM Comments ROM measurements taken Cervical sidebend Sitting Exercise Name Stretch Side left Cervical rotation Sitting Exercise Name Stretch Side right Manual Therapy Treatment Soft Tissue Mobilization Paraspinals Body Location Cervical Mobilization Type Strumming Sustained Pressure Intensity/Depth Moderate Body Position Prone scalenes Body Location bilateral scalenes Mobilization Type Rolling Strumming Intensity/Depth Moderate Body Position Hooklying SCM Body Location R SCM Mobilization Type Rolling Strumming Intensity/Depth Moderate Body Position Hooklying upper trap Body Location R upper trapezius Mobilization Type Rolling Sustained Pressure Intensity/Depth Moderate Body Position Hooklying levator Body Location R levator Mobilization Type Rolling Strumming Intensity/Depth Moderate Body Position Hooklying Joint Mobilizations 1 Joint C3-7 Direction sideglide R, and gapping of R facets Grade III Body Position Hooklying Reps/Duration 10' PT-OP-R Modalities Start: 03/18/18 14:48 Freq: Status: Active Protocol: Document 03/29/18 09:03 LRN (Rec: 03/29/18 10:07 LRN [id number]) Electric Stimulation Electric Stimulation Pre-Modulated Body Location Daryl UT>LB Duration (Minutes) 15 Intensity L 19, R 18 Patient Position Hooklying Combined With Heat/Cold Hot Pack Comments Neck & Back Hot pack Hot Pack/Cold Pack Treatment Hot Pack Location Neck/Back Patient Position Hooklying Treatment Duration (minutes) 15 Comments In combination with Pre-Mod PT-OP-T Assessment and Plan Start: 03/18/18 14:48 Freq: Status: Active Protocol: Document 04/09/18 08:16 LRN (Rec: 04/09/18 09:03 LRN [id number]) Physical Therapy Assessment Goals Three Impairment Pain limiting neck mobility and sometimes function. 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 : Improved neck mobility. Goal Partially Met. LTG Duration 05/06/18 Assessment Summary Assessment Focused on manual therapy & JMT, pt had obvious improvement in cervical posture and ROM following treatment session with symmetrical SB and 7deg's dec with R SB compared to L SB. Tightness with rotation is at lower C/S and upper T/S. Physical Therapy Plan Frequency and Duration Frequency of Treatment 1x/Week Plan of Care Start Date 03/19/18 Plan of Care End Date 05/06/18 Next Visit Focus/Plan Next Note Type Treatment Note Next Visit Plan Start education of weight lifting home program, & progress scapular stab, address lack of rotation at C7 , T1-T3, educate UT inhibition with UE movements, scapular stab ex (lat dorsi) to HEP. Possible DC onto a home strengthening program 2-3 weeks.
--- NOTE | 2018-04-16 12:10 | PT.OTN ---
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 Current Complaints Achy, sometimes sharp pain & stiffness in the posterior neck History of Current Condition Pt reports insidious onset of increasing neck pain/stiffness . His neck pain is achy and sometimes sharp. He complains of pins & needles feeling in his hands and sometimes numbness, often occurring after sleeping. He denies use of pain medications since the first of 2017. He states his pain is normally rated 3-5 /10, and at worst 9-10/10. Prior Treatments and Tests X-rays at [facility], per chart review indicates loss of disc height and osteophytes at C5-C6, good lordosis on extension, slight curvature to the left side, and cervical arthritis. States he has mild degeneration at S1, L5, L4 and at C3 -C5. He reports an old T12 compression fracture. Future Testing and Treatments Planned None Treatment Goals Patient/Caregiver Goals Pt goal is to get guidance with weight lifting exercise & to get a program to help relax his neck muscles. He is not sure if he can financially afford therapy 2x/ week for 4 weeks and might perfer 1x/week for 8 weeks. Prior Functional Status Baseline Function- ADL's Modified Independent Baseline Function- Mobility Independent Baseline Function- Gait Independent Baseline Function- Work/School Disabled Baseline Function- Recreation/Hobbies Independent Quilting Baseline Function- Other Modified Independent: Required Home Health assist daily for safety with bathing and self care. Pt is Independent with mobility but becomes dizzy with changes in positioning with an increased risk of falling due to dizziness. Current Functional Impairments (Reported) Functional Limitations- ADL's Limited in changing head positions and sleeping due to pain. Sometimes limited in ability to move due to pain. Functional Limitations- Recreation/ Limited in ability to exercise Hobbies and finish a quilt. Personal Factors Other Personal Factors That May Effect Chronic neck/back pain. Therapy/Recovery Requires Home Health assist daily. C5-C6 degeneration and cervical arthritis. Limited mobility due to dizziness/falls. Hx of psychological disorders and seizures. TBI Hx of T12 Compression fracture . PT-OP-C Subjective Start: 03/18/18 14:48 Freq: Status: Active Protocol: Document 04/16/18 09:15 LRN (Rec: 04/16/18 12:08 LRN [id number]) OP-PT Subjective Patient Comments Patient Comments States he has been extra painful the past couple days of weekend. Thinks improved cervical rotation, sidebend is difficult. Patient Reported Progress Improving PT-OP-E Functional Tests Start: 03/18/18 14:48 Freq: Status: Active Protocol: Document 03/19/18 08:15 LRN (Rec: 03/19/18 16:39 LRN [id number]) Functional Tests Apley's Scratch Test Action 1: The subject is instructed to touch the opposite shoulder with his/her hand. This motion checks Glenohumeral adduction, internal rotation , horizontal adduction and scapular protraction Action 2: The subject is instructed to place his/her arm overhead and reach behind the neck to touch his/her upper back. This motion checks Glenohumeral abduction, external rotation and scapular upward rotation and elevation. Action 3: The subject puts his/her hand on the lower back and reaches upward as far as possible. This motion checks glenohumeral adduction, internal rotation and scapular retraction with downward rotation Action 2- Left T5 Action 2- Right T5 Action 3- Left T2 Action 3- Right T2 PT-OP-F Manual Assessment Start: 03/18/18 14:48 Freq: Status: Active Protocol: Document 03/19/18 08:15 LRN (Rec: 03/19/18 16:39 LRN [id number]) Manual Assessments Soft Tissue Assessment Soft Tissue Mobility Assessment Decreased L Occiput & Levator Scapula, Decreased R Cervical Paraspinals. Joint Mobility Assessment Joint Mobility Assessment Decreased Cervical R rotation and Other Manual Assessments Other Manual Assessments Increased tension in R Upper Trapezius. PT-OP-H Neuro Start: 03/18/18 14:48 Freq: Status: Active Protocol: Document 03/19/18 08:15 LRN (Rec: 03/19/18 16:39 LRN [id number]) Sensation Evaluation Gross Sensation Gross Sensation WNL Comments Summary Comments Pt reported numbness in R hand digits 2 & 3 and variable reported decreased sensation of L thumb (initially reported numb, later reported normal but feeling different). Deep Tendon Reflex & Clonus Assessment Deep Tendon Reflex Right Tricep Deep Tendon Reflex 1+ Diminished Left Tricep Deep Tendon Reflex 0 Absent Bilateral Brachioradialis Deep Tendon Reflex 1+ Diminished Bilateral Bicep Deep Tendon Reflex 1+ Diminished PT-OP-J Posture/Palpation/Skin Start: 03/18/18 14:48 Freq: Status: Active Protocol: Document 03/19/18 08:15 LRN (Rec: 03/19/18 16:39 LRN [id number]) Posture Evaluation Position Standing Evaluation View All positions Head/C-Spine Posture Side Bent Right Forward Head T-Spine Posture Increased Kyphosis Thorax Posture (R) Elevated L-Spine Posture Decreased Lordosis Shoulder Posture (L) Rounded (R) Rounded (R) Elevated Scapula Posture (L) Rotated Down (L) Winged (R) Winged Pelvis Posture Neutral Weight Distribution Weight Shifted Left Knee Posture (R) Excess Flexion Comments Posture Comments R Clavicle deformation due to old fracture Palpation Assessment Location Two Palpation Location Cervical spine Palpation Findings Soft Tissue Tightness Tenderness Palpation Details Tender at Transverse Processes of the Cervical spine on the left. Neck is in R rotation, Occiput is in L rotation. Tightness at left Occiput and Levator Scapula Tightness at R cervical paraspinals. One Palpation Location Upper Trapezius Palpation Findings Muscle Guarding Palpation Details Right PT-OP-K Range of Motion Start: 03/18/18 14:48 Freq: Status: Active Protocol: Document 04/09/18 08:16 LRN (Rec: 04/09/18 14:33 LRN [id number]) Cervical Spine Range of Motion Cervical Spine Active Degrees Testing Position Sitting Extension 58 Rotation Left 60 Rotation Right 53 Lateral Flexion Left 30 Lateral Flexion Right 30 ROM Limitations Soft Tissue Tightness PT-OP-M Strength Start: 03/18/18 14:48 Freq: Status: Active Protocol: Document 03/19/18 08:15 LRN (Rec: 03/19/18 16:39 LRN [id number]) Cervical Spine Strength Cervical Spine Manual Muscle Testing Reason Not Measured WFL Shoulder Strength Shoulder Manual Muscle Testing Right Reason Not Measured WFL Left Reason Not Measured WFL PT-OP-Q Treatments Start: 03/18/18 14:48 Freq: Status: Active Protocol: Document 04/16/18 09:15 LRN (Rec: 04/16/18 12:08 LRN [id number]) Therapeutic Exercises Sitting Exercises L Scalene stretch Sitting Exercise Name Towel stretch Side left Equipment Used towel Reps/Minutes 5' Comments Extra time taken for training. Cervical sidebend Sitting Exercise Name Stretch Side left Cervical rotation Sitting Exercise Name Stretch Side right Manual Therapy Treatment Soft Tissue Mobilization Paraspinals Body Location Cervical Mobilization Type Strumming Sustained Pressure Intensity/Depth Moderate Body Position Prone scalenes Body Location Left scalenes Mobilization Type Sustained Pressure Intensity/Depth Moderate Body Position Hooklying upper trap Body Location R upper trapezius Mobilization Type Rolling Sustained Pressure Intensity/Depth Moderate Body Position Hooklying levator Body Location R levator Mobilization Type Rolling Strumming Intensity/Depth Moderate Body Position Hooklying Joint Mobilizations C7-T2 Joint C7-T1, T1-T2 Direction R rotation C7 & T1 Body Position Prone Reps/Duration 8' C7-T1, T1-T2 Joint Facets Direction Gapping of L side Grade II Body Position Sitting Reps/Duration 10 1 Joint C3-C7 Direction Gapping of R facets Grade III Body Position Hooklying Reps/Duration 10' Manual Techniques MWM Type Rotation of C7, and T1 with C/ S Rotation Body Location Cervical spine Body Position Sitting Reps/Duration 5' Self-Care/Home Management Treatment Education Patient Education Home Exercise Program Activities Self-Care/Home Management Activities I/S pt in Scalene stretch with towel. PT-OP-R Modalities Start: 03/18/18 14:48 Freq: Status: Active Protocol: Document 04/16/18 09:15 LRN (Rec: 04/16/18 11:48 LRN [id number]) Electric Stimulation Electric Stimulation Interferential Current (IFC) Body Location Cervical spine>Low back Duration (Minutes) 15 Intensity 13>17 Target/Sweep Sweep Combined With Heat/Cold Hot Pack Comments hooklying, Hot pack to neck and back. Hot Pack/Cold Pack Treatment Hot Pack Location Neck/Back Patient Position Hooklying Treatment Duration (minutes) 15 Comments In combination with E-Stim PT-OP-T Assessment and Plan Start: 03/18/18 14:48 Freq: Status: Active Protocol: Document 04/16/18 09:15 LRN (Rec: 04/16/18 12:08 LRN [id number]) Physical Therapy Assessment Assessment Summary Assessment Focused again on manual therapy & cervical ROM. Pt appears much improved with ease of movement of the head/ neck. Stiffness of R scalenes due to clavicle fracture may be what is limiting the pt's rotation ability. Physical Therapy Plan Frequency and Duration Frequency of Treatment 1x/Week Plan of Care Start Date 03/19/18 Plan of Care End Date 05/06/18 Next Visit Focus/Plan Next Note Type Treatment Note Next Visit Plan Start education of weight lifting home program, & progress scapular stab, address lack of rotation at C7 , T1-T3, educate UT inhibition with UE movements, scapular stab ex (lat dorsi) to HEP. Possible DC onto a home strengthening program 1-2 weeks; therefore teach HEP strengthening.
--- NOTE | 2018-04-23 09:46 | PT.OTN ---
Current Diagnoses Other cervical disc degeneration, unspecified cervical region (04/23/18) Strain of muscle, fascia and tendon at neck level, initial encounter (04/23/18) Physical Therapy Treatment Note PT-OP-A Visit Information Start: 03/18/18 14:48 Freq: Status: Active Protocol: Document 04/23/18 08:38 LRN (Rec: 04/23/18 09:34 LRN [id number]) Out-Patient Physical Therapy Visit Information Visit Information Visit Type Treatment Note Visit Start Time 08:39 Visit Stop Time 09:38 Total Visit Minutes 60 Visit Number 12/26 Number of CAR TRACER Visits 0 Evaluation Information Evaluation Date 03/19/18 PT-OP-B Current Condition Start: 03/18/18 14:48 Freq: Status: Active Protocol: Document 03/19/18 08:15 LRN (Rec: 03/19/18 16:39 LRN [id number]) Current Condition History of Current Condition Onset Date 5 yrs ago with exacerbation 2 yrs ago. Current Complaints Achy, sometimes sharp pain & stiffness in the posterior neck History of Current Condition Pt reports insidious onset of increasing neck pain/stiffness . His neck pain is achy and sometimes sharp. He complains of pins & needles feeling in his hands and sometimes numbness, often occurring after sleeping. He denies use of pain medications since the first of 2017. He states his pain is normally rated 3-5 /10, and at worst 9-10/10. Prior Treatments and Tests X-rays at [facility], per chart review indicates loss of disc height and osteophytes at C5-C6, good lordosis on extension, slight curvature to the left side, and cervical arthritis. States he has mild degeneration at S1, L5, L4 and at C3 -C5. He reports an old T12 compression fracture. Future Testing and Treatments Planned None Treatment Goals Patient/Caregiver Goals Pt goal is to get guidance with weight lifting exercise & to get a program to help relax his neck muscles. He is not sure if he can financially afford therapy 2x/ week for 4 weeks and might perfer 1x/week for 8 weeks. Prior Functional Status Baseline Function- ADL's Modified Independent Baseline Function- Mobility Independent Baseline Function- Gait Independent Baseline Function- Work/School Disabled Baseline Function- Recreation/Hobbies Independent Quilting Baseline Function- Other Modified Independent: Required Home Health assist daily for safety with bathing and self care. Pt is Independent with mobility but becomes dizzy with changes in positioning with an increased risk of falling due to dizziness. Current Functional Impairments (Reported) Functional Limitations- ADL's Limited in changing head positions and sleeping due to pain. Sometimes limited in ability to move due to pain. Functional Limitations- Recreation/ Limited in ability to exercise Hobbies and finish a quilt. Personal Factors Other Personal Factors That May Effect Chronic neck/back pain. Therapy/Recovery Requires Home Health assist daily. C5-C6 degeneration and cervical arthritis. Limited mobility due to dizziness/falls. Hx of psychological disorders and seizures. TBI Hx of T12 Compression fracture . PT-OP-C Subjective Start: 03/18/18 14:48 Freq: Status: Active Protocol: Document 04/23/18 08:38 LRN (Rec: 04/23/18 09:34 LRN [id number]) OP-PT Subjective Patient Comments Patient Comments Having pain in R lower neck. Pain on waking, can onlysleep on L side or back. PT-OP-E Functional Tests Start: 03/18/18 14:48 Freq: Status: Active Protocol: Document 03/19/18 08:15 LRN (Rec: 03/19/18 16:39 LRN [id number]) Functional Tests Apley's Scratch Test Action 1: The subject is instructed to touch the opposite shoulder with his/her hand. This motion checks Glenohumeral adduction, internal rotation , horizontal adduction and scapular protraction Action 2: The subject is instructed to place his/her arm overhead and reach behind the neck to touch his/her upper back. This motion checks Glenohumeral abduction, external rotation and scapular upward rotation and elevation. Action 3: The subject puts his/her hand on the lower back and reaches upward as far as possible. This motion checks glenohumeral adduction, internal rotation and scapular retraction with downward rotation Action 2- Left T5 Action 2- Right T5 Action 3- Left T2 Action 3- Right T2 PT-OP-F Manual Assessment Start: 03/18/18 14:48 Freq: Status: Active Protocol: Document 03/19/18 08:15 LRN (Rec: 03/19/18 16:39 LRN [id number]) Manual Assessments Soft Tissue Assessment Soft Tissue Mobility Assessment Decreased L Occiput & Levator Scapula, Decreased R Cervical Paraspinals. Joint Mobility Assessment Joint Mobility Assessment Decreased Cervical R rotation and Other Manual Assessments Other Manual Assessments Increased tension in R Upper Trapezius. PT-OP-H Neuro Start: 03/18/18 14:48 Freq: Status: Active Protocol: Document 03/19/18 08:15 LRN (Rec: 03/19/18 16:39 LRN [id number]) Sensation Evaluation Gross Sensation Gross Sensation WNL Comments Summary Comments Pt reported numbness in R hand digits 2 & 3 and variable reported decreased sensation of L thumb (initially reported numb, later reported normal but feeling different). Deep Tendon Reflex & Clonus Assessment Deep Tendon Reflex Right Tricep Deep Tendon Reflex 1+ Diminished Left Tricep Deep Tendon Reflex 0 Absent Bilateral Brachioradialis Deep Tendon Reflex 1+ Diminished Bilateral Bicep Deep Tendon Reflex 1+ Diminished PT-OP-J Posture/Palpation/Skin Start: 03/18/18 14:48 Freq: Status: Active Protocol: Document 03/19/18 08:15 LRN (Rec: 03/19/18 16:39 LRN [id number]) Posture Evaluation Position Standing Evaluation View All positions Head/C-Spine Posture Side Bent Right Forward Head T-Spine Posture Increased Kyphosis Thorax Posture (R) Elevated L-Spine Posture Decreased Lordosis Shoulder Posture (L) Rounded (R) Rounded (R) Elevated Scapula Posture (L) Rotated Down (L) Winged (R) Winged Pelvis Posture Neutral Weight Distribution Weight Shifted Left Knee Posture (R) Excess Flexion Comments Posture Comments R Clavicle deformation due to old fracture Palpation Assessment Location Two Palpation Location Cervical spine Palpation Findings Soft Tissue Tightness Tenderness Palpation Details Tender at Transverse Processes of the Cervical spine on the left. Neck is in R rotation, Occiput is in L rotation. Tightness at left Occiput and Levator Scapula Tightness at R cervical paraspinals. One Palpation Location Upper Trapezius Palpation Findings Muscle Guarding Palpation Details Right PT-OP-K Range of Motion Start: 03/18/18 14:48 Freq: Status: Active Protocol: Document 04/09/18 08:16 LRN (Rec: 04/09/18 14:33 LRN [id number]) Cervical Spine Range of Motion Cervical Spine Active Degrees Testing Position Sitting Extension 58 Rotation Left 60 Rotation Right 53 Lateral Flexion Left 30 Lateral Flexion Right 30 ROM Limitations Soft Tissue Tightness PT-OP-M Strength Start: 03/18/18 14:48 Freq: Status: Active Protocol: Document 03/19/18 08:15 LRN (Rec: 03/19/18 16:39 LRN [id number]) Cervical Spine Strength Cervical Spine Manual Muscle Testing Reason Not Measured WFL Shoulder Strength Shoulder Manual Muscle Testing Right Reason Not Measured WFL Left Reason Not Measured WFL PT-OP-Q Treatments Start: 03/18/18 14:48 Freq: Status: Active Protocol: Document 04/23/18 08:38 LRN (Rec: 04/23/18 09:34 LRN [id number]) Therapeutic Exercises Supine Exercises Lat Pull down Side bilateral Resistance Lev 2 T-Band Reps/Minutes 10x Arms Horiz AB/AD Side bilateral Equipment Used 2# Reps/Minutes 10x Alternate arm lifts Side bilateral Equipment Used 2# Reps/Minutes 8 rep, 10 x 2 rep Sitting Exercises L Scalene stretch Sitting Exercise Name Towel stretch Side left Equipment Used towel Reps/Minutes 5' Comments Extra time taken for training. Cervical rotation Sitting Exercise Name Stretch Side right Standing Exercises Shoulder press up Side bilateral Resistance 4#. 2# Reps/Minutes 6 reps Comments Extra time taken for: Education and training on appropriate weights Manual Therapy Treatment Soft Tissue Mobilization Paraspinals Body Location Cervical Mobilization Type Strumming Sustained Pressure Intensity/Depth Moderate Body Position Prone scalenes Body Location Left scalenes Mobilization Type Sustained Pressure Intensity/Depth Moderate Body Position Hooklying upper trap Body Location R upper trapezius Mobilization Type Rolling Sustained Pressure Intensity/Depth Moderate Body Position Hooklying Joint Mobilizations C7-T2 Joint C7-T1, T1-T2 Direction R rotation C7 & T1 Body Position Prone Reps/Duration 8' C7-T1, T1-T2 Joint Facets Direction Gapping of L side Grade II Body Position Sitting Reps/Duration 10 1 Joint C3-C7 Direction Gapping of R facets Grade III Body Position Hooklying Reps/Duration 10' Manual Techniques MWM Type Facet gapping C5-6, C4-5 Body Location Cervical spine Body Position Sitting Reps/Duration 10x Self-Care/Home Management Treatment Education Patient Education Home Exercise Program Activities Self-Care/Home Management Activities Issued and reviewed HEP for Scalene stretch (R side - lateral neck, L side - anterior neck). PT-OP-R Modalities Start: 03/18/18 14:48 Freq: Status: Active Protocol: Document 04/23/18 08:38 LRN (Rec: 04/23/18 09:34 LRN [id number]) Hot Pack/Cold Pack Treatment Cold Pack Location Upper back and R neck Patient Position Hooklying Treatment Duration (minutes) 10 Patient Tolerance Poor Comments Extra towel layer needed for comfort with use of ice. PT-OP-T Assessment and Plan Start: 03/18/18 14:48 Freq: Status: Active Protocol: Document 04/23/18 08:38 LRN (Rec: 04/23/18 09:34 LRN [id number]) Physical Therapy Assessment Goals Four Impairment Pain limiting recreational activities. Radiation Officer Goal (LTG) Pt will be able to resume quilting activities. LTG Duration 05/06/18 Three Impairment Pain limiting neck mobility and sometimes function. [facility] Goal (LTG) Improve neck mobility such that the pt is not limited in functional activities. : Improved neck mobility. Goal Partially Met. LTG Duration 05/06/18 Two Impairment Pt lacks appropriate HEP for weight lifting ex's at home [facility] Goal (LTG) Pt educated in proper neck/ shoulder strengthening ex's on a HEP to manage his pain. LTG Duration 04/19/18 One Impairment Lacks appropriate HEP Short Term Goal (STG) Pt will be independent on a HEP to address current restrictions of movement and educated in proper self care. STG Duration 04/05/18 Radiation Officer Goal (LTG) Pt will be able to manage his pain and prevent recurrence. LTG Duration 04/19/18 Assessment Summary Assessment Good tolerance to exercise. Focus on progressing the pt onto a home strengthening program. Cont manual therapy & cervical ROM to improve neck mobility. Improved ease of movement of the head/neck after manual therapy. Stiffness of R scalenes due to clavicle fracture may be what is limiting the pt's rotation ability. Physical Therapy Plan Frequency and Duration Frequency of Treatment 1x/Week Plan of Care Start Date 03/19/18 Plan of Care End Date 05/06/18 Next Visit Focus/Plan Next Note Type Treatment Note Next Visit Plan Progress weight lifting HEP & scapular stab ex's. Address lack of rotation at C7, T1-T3, educate UT inhibition with UE movements. Progress towards DC onto a home strengthening program, discuss with pt timeframe goal.h HEP
--- NOTE | 2018-04-30 16:13 | PT.OTN ---
Current Diagnoses Other cervical disc degeneration, unspecified cervical region (04/30/18) Strain of muscle, fascia and tendon at neck level, initial encounter (04/30/18) Physical Therapy Treatment Note PT-OP-A Visit Information Start: 03/18/18 14:48 Freq: Status: Active Protocol: Document 04/30/18 09:03 LRN (Rec: 04/30/18 09:51 LRN [id number]) Out-Patient Physical Therapy Visit Information Visit Information Visit Type Treatment Note Visit Start Time 09:03 Visit Stop Time 10:00 Total Visit Minutes 57 Visit Number 01/26 Number of WEBSPHERE CONSULTANT Visits 0 Evaluation Information Evaluation Date 03/19/18 PT-OP-B Current Condition Start: 03/18/18 14:48 Freq: Status: Active Protocol: Document 03/19/18 08:15 LRN (Rec: 03/19/18 16:39 LRN [id number]) Current Condition History of Current Condition Onset Date 5 yrs ago with exacerbation 2 yrs ago. Current Complaints Achy, sometimes sharp pain & stiffness in the posterior neck History of Current Condition Pt reports insidious onset of increasing neck pain/stiffness . His neck pain is achy and sometimes sharp. He complains of pins & needles feeling in his hands and sometimes numbness, often occurring after sleeping. He denies use of pain medications since the first of 2017. He states his pain is normally rated 3-5 /10, and at worst 9-10/10. Prior Treatments and Tests X-rays at [facility], per chart review indicates loss of disc height and osteophytes at C5-C6, good lordosis on extension, slight curvature to the left side, and cervical arthritis. States he has mild degeneration at S1, L5, L4 and at C3 -C5. He reports an old T12 compression fracture. Future Testing and Treatments Planned None Treatment Goals Patient/Caregiver Goals Pt goal is to get guidance with weight lifting exercise & to get a program to help relax his neck muscles. He is not sure if he can financially afford therapy 2x/ week for 4 weeks and might perfer 1x/week for 8 weeks. Prior Functional Status Baseline Function- ADL's Modified Independent Baseline Function- Mobility Independent Baseline Function- Gait Independent Baseline Function- Work/School Disabled Baseline Function- Recreation/Hobbies Independent Quilting Baseline Function- Other Modified Independent: Required Home Health assist daily for safety with bathing and self care. Pt is Independent with mobility but becomes dizzy with changes in positioning with an increased risk of falling due to dizziness. Current Functional Impairments (Reported) Functional Limitations- ADL's Limited in changing head positions and sleeping due to pain. Sometimes limited in ability to move due to pain. Functional Limitations- Recreation/ Limited in ability to exercise Hobbies and finish a quilt. Personal Factors Other Personal Factors That May Effect Chronic neck/back pain. Therapy/Recovery Requires Home Health assist daily. C5-C6 degeneration and cervical arthritis. Limited mobility due to dizziness/falls. Hx of psychological disorders and seizures. TBI Hx of T12 Compression fracture . PT-OP-C Subjective Start: 03/18/18 14:48 Freq: Status: Active Protocol: Document 04/30/18 09:03 LRN (Rec: 04/30/18 09:51 LRN [id number]) OP-PT Subjective Patient Comments Patient Comments Hasn't exercised because fighting the flu and ate something bad so has been sick . Wants to get into a strengthening program. Patient Questionnaires Neck Disability Index NDI Score 14 Neck Disability Index Impairment 20 to 39% Impaired (Score 10- 19) Quick Dash- Upper Extremity Quick Dash UE Score 40.9 Quick Dash UE Impairment 40 to 59% Impaired (Score 40- 59) OP-PT Pain Assessment Location Posterior Neck Pain Location Details Posterior neck, R lateral neck , R medial scapular border Intensity 7 Scale Used Numeric (1 - 10) Description Aching Tightness PT-OP-E Functional Tests Start: 03/18/18 14:48 Freq: Status: Active Protocol: Document 03/19/18 08:15 LRN (Rec: 03/19/18 16:39 LRN [id number]) Functional Tests Waldoey's Scratch Test Action 1: The subject is instructed to touch the opposite shoulder with his/her hand. This motion checks Glenohumeral adduction, internal rotation , horizontal adduction and scapular protraction Action 2: The subject is instructed to place his/her arm overhead and reach behind the neck to touch his/her upper back. This motion checks Glenohumeral abduction, external rotation and scapular upward rotation and elevation. Action 3: The subject puts his/her hand on the lower back and reaches upward as far as possible. This motion checks glenohumeral adduction, internal rotation and scapular retraction with downward rotation Action 2- Left T5 Action 2- Right T5 Action 3- Left T2 Action 3- Right T2 PT-OP-F Manual Assessment Start: 03/18/18 14:48 Freq: Status: Active Protocol: Document 03/19/18 08:15 LRN (Rec: 03/19/18 16:39 LRN [id number]) Manual Assessments Soft Tissue Assessment Soft Tissue Mobility Assessment Decreased L Occiput & Levator Scapula, Decreased R Cervical Paraspinals. Joint Mobility Assessment Joint Mobility Assessment Decreased Cervical R rotation and Other Manual Assessments Other Manual Assessments Increased tension in R Upper Trapezius. PT-OP-H Neuro Start: 03/18/18 14:48 Freq: Status: Active Protocol: Document 03/19/18 08:15 LRN (Rec: 03/19/18 16:39 LRN [id number]) Sensation Evaluation Gross Sensation Gross Sensation WNL Comments Summary Comments Pt reported numbness in R hand digits 2 & 3 and variable reported decreased sensation of L thumb (initially reported numb, later reported normal but feeling different). Deep Tendon Reflex & Clonus Assessment Deep Tendon Reflex Right Tricep Deep Tendon Reflex 1+ Diminished Left Tricep Deep Tendon Reflex 0 Absent Bilateral Brachioradialis Deep Tendon Reflex 1+ Diminished Bilateral Bicep Deep Tendon Reflex 1+ Diminished PT-OP-J Posture/Palpation/Skin Start: 03/18/18 14:48 Freq: Status: Active Protocol: Document 03/19/18 08:15 LRN (Rec: 03/19/18 16:39 LRN [id number]) Posture Evaluation Position Standing Evaluation View All positions Head/C-Spine Posture Side Bent Right Forward Head T-Spine Posture Increased Kyphosis Thorax Posture (R) Elevated L-Spine Posture Decreased Lordosis Shoulder Posture (L) Rounded (R) Rounded (R) Elevated Scapula Posture (L) Rotated Down (L) Winged (R) Winged Pelvis Posture Neutral Weight Distribution Weight Shifted Left Knee Posture (R) Excess Flexion Comments Posture Comments R Clavicle deformation due to old fracture Palpation Assessment Location Two Palpation Location Cervical spine Palpation Findings Soft Tissue Tightness Tenderness Palpation Details Tender at Transverse Processes of the Cervical spine on the left. Neck is in R rotation, Occiput is in L rotation. Tightness at left Occiput and Levator Scapula Tightness at R cervical paraspinals. One Palpation Location Upper Trapezius Palpation Findings Muscle Guarding Palpation Details Right PT-OP-K Range of Motion Start: 03/18/18 14:48 Freq: Status: Active Protocol: Document 04/09/18 08:16 LRN (Rec: 04/09/18 14:33 LRN [id number]) Cervical Spine Range of Motion Cervical Spine Active Degrees Testing Position Sitting Extension 58 Rotation Left 60 Rotation Right 53 Lateral Flexion Left 30 Lateral Flexion Right 30 ROM Limitations Soft Tissue Tightness PT-OP-M Strength Start: 03/18/18 14:48 Freq: Status: Active Protocol: Document 03/19/18 08:15 LRN (Rec: 03/19/18 16:39 LRN [id number]) Cervical Spine Strength Cervical Spine Manual Muscle Testing Reason Not Measured WFL Shoulder Strength Shoulder Manual Muscle Testing Right Reason Not Measured WFL Left Reason Not Measured WFL PT-OP-Q Treatments Start: 03/18/18 14:48 Freq: Status: Active Protocol: Document 04/30/18 09:03 LRN (Rec: 04/30/18 09:51 LRN [id number]) Gym Equipment Cable Column (Body Solid) Biceps Curl Details Sitting Resistance 20# Reps/Time 10 x Leg Curl Details Seat: 1 hole showing Resistance 30# Reps/Time 10 x Leg Extension Details Seat: 1 hole showing Resistance 10# Reps/Time 10 x Therapeutic Exercises Supine Exercises Lat Pull down Side bilateral Resistance Lev 2 T-Band Reps/Minutes 15 x 2 Comments Stretching neck between sets Arms Horiz AB/AD Side bilateral Equipment Used 2# Reps/Minutes 15 x Alternate arm lifts Side bilateral Equipment Used 2# Reps/Minutes 10 x 2 Manual Therapy Treatment Soft Tissue Mobilization scalenes Body Location Left scalenes Mobilization Type Sustained Pressure Intensity/Depth Moderate Body Position Hooklying SCM Body Location R SCM Mobilization Type Rolling Strumming Intensity/Depth Moderate Body Position Hooklying upper trap Body Location R upper trapezius Mobilization Type Rolling Sustained Pressure Intensity/Depth Moderate Body Position Hooklying Joint Mobilizations 1 Joint C3-C7 Direction Gapping of R facets Grade III Body Position Hooklying Reps/Duration 3' PT-OP-R Modalities Start: 03/18/18 14:48 Freq: Status: Active Protocol: Document 04/30/18 09:03 LRN (Rec: 04/30/18 15:34 LRN [id number]) Electric Stimulation Electric Stimulation Pre-Modulated Body Location Daryl UT>LB Duration (Minutes) 15 Intensity L 19, R 18 Patient Position Hooklying Combined With Heat/Cold Hot Pack Comments Neck & Back Hot pack Hot Pack/Cold Pack Treatment Hot Pack Location Neck/Back Patient Position Hooklying Treatment Duration (minutes) 15 Comments In combination with E-Stim PT-OP-T Assessment and Plan Start: 03/18/18 14:48 Freq: Status: Active Protocol: Document 04/30/18 09:03 LRN (Rec: 04/30/18 09:51 LRN [id number]) Physical Therapy Assessment Rehab Potential Rehabilitation Potential Good Impairments Impairments Activity Tolerance Pain Posture ROM Sensation Soft Tissue Mobility Other Concerns Fall Risk Yes due to symptoms of orthostatic hypotension Age Related Concerns Impact of disability on self and home. Barriers to Rehabilitation PMH: Psychological Disorders ( Depression, Obsessive Compulsive Disorder, Bipolar I ), pt report of schizophrenia, hx of seizure, TBI, Cervical disc degeneration, tobacco use , old R clavicle fracture, financial limitations. Goals Four Impairment Pain limiting recreational activities. Mcfp Goal (LTG) Pt will be able to resume quilting activities. LTG Duration 05/06/18 (04/30/18: Pt has not been able to resume lately due to illness) Three Impairment Pain limiting neck mobility and sometimes function. Newspaper Photographer Goal (LTG) Improve neck mobility such that the pt is not limited in functional activities. : Improved neck mobility. Goal Partially Met. LTG Duration 05/06/18 Two Impairment Pt lacks appropriate HEP for weight lifting ex's at home Newspaper Photographer Goal (LTG) Pt educated in proper neck/ shoulder strengthening ex's on a HEP to manage his pain. LTG Duration 04/19/18 (04/30/18: Progressing program) One Impairment Lacks appropriate HEP Short Term Goal (STG) Pt will be independent on a HEP to address current restrictions of movement and educated in proper self care. STG Duration 04/05/18 Newspaper Photographer Goal (LTG) Pt will be able to manage his pain and prevent recurrence. LTG Duration 04/19/18 Assessment Summary Assessment The pt has been making steady progress towards improving cervical mobility, decreasing neck pain, and being independence on a self care weight lifting program, but recently his progress has been hindered by illness. Overall his pain is less with his worst pain rated 7/10. He has not recently complained of pins and needles in his UE's but his pain is focused in his neck, upper shoulders and R intrascapular region. He would benefit from further skilled physical therapy to progress him safely onto a weight strengthening program for his UE's & for scapular stabilization. Today the pt tolerated UE/LE strengthening with weights without complaints of pain. R cervical rotation demonstrated greater ease of movement; therefore mobility is improving. Pt head/neck posturing is improved with increased awareness of proper neck posturing. He could benefit from further physical therapy for lack of rotation at C7, T1-T3. He needs education in [place] inhibition with UE movements. Physical Therapy Plan Frequency and Duration Frequency of Treatment 1x/Week Plan of Care Start Date 04/30/18 Plan of Care End Date 06/17/18 Therapeutic Interventions Therapeutic Interventions Home Exercise Program Joint Mobilizations Manual Therapy Neuromuscular Re-education Patient/Caregiver Education Self-Care/Home Management Soft Tissue Mobilization Taping Therapeutic Exercises Modalities Cold Pack/Ice Massage Electric Stimulation Hot Packs Next Visit Focus/Plan Next Note Type Treatment Note Next Visit Plan Manual cervical and soft tissue mobilization and scapular stabilization strengthening. Progress towards DC onto a home strengthening program, discuss with pt timeframe of 2-4 weeks after the holidays as a goal for DC to HEP.
--- NOTE | 2018-04-30 16:14 | PT.OPPOC ---
Current Diagnoses Other cervical disc degeneration, unspecified cervical region (04/30/18) Strain of muscle, fascia and tendon at neck level, initial encounter (04/30/18) Provider Visit Care Team Role Provider Type Tiffanie Shelley DO Family Provider Physician Primary Care Provider Specialty: Family Practice Address: [address] [place] [address], [id number] Email: [email or web address] Guevara Reed MD Attending Provider Physician Specialty: Orthopedics Address: [address] [place] [address], [id number] Email: [email or web address] Plan Of Care PT-OP-T Assessment and Plan Start: 03/18/18 14:48 Freq: Status: Active Protocol: Document 04/30/18 09:03 LRN (Rec: 04/30/18 09:51 LRN [id number]) Physical Therapy Assessment Rehab Potential Rehabilitation Potential Good Impairments Impairments Activity Tolerance Pain Posture ROM Sensation Soft Tissue Mobility Other Concerns Fall Risk Yes due to symptoms of orthostatic hypotension Age Related Concerns Impact of disability on self and home. Barriers to Rehabilitation PMH: Psychological Disorders ( Depression, Obsessive Compulsive Disorder, Bipolar I ), pt report of schizophrenia, hx of seizure, TBI, Cervical disc degeneration, tobacco use , old R clavicle fracture, financial limitations. Goals Four Impairment Pain limiting recreational activities. Half-Way Goal (LTG) Pt will be able to resume quilting activities. LTG Duration 05/06/18 (04/30/18: Pt has not been able to resume lately due to illness) Three Impairment Pain limiting neck mobility and sometimes function. Sanitation Truck Driver Goal (LTG) Improve neck mobility such that the pt is not limited in functional activities. : Improved neck mobility. Goal Partially Met. LTG Duration 05/06/18 Two Impairment Pt lacks appropriate HEP for weight lifting ex's at home Sanitation Truck Driver Goal (LTG) Pt educated in proper neck/ shoulder strengthening ex's on a HEP to manage his pain. LTG Duration 04/19/18 (04/30/18: Progressing program) One Impairment Lacks appropriate HEP Short Term Goal (STG) Pt will be independent on a HEP to address current restrictions of movement and educated in proper self care. STG Duration 04/05/18 Half-Way Goal (LTG) Pt will be able to manage his pain and prevent recurrence. LTG Duration 04/19/18 Assessment Summary Assessment The pt has been making steady progress towards improving cervical mobility, decreasing neck pain, and being independence on a self care weight lifting program, but recently his progress has been hindered by illness. Overall his pain is less with his worst pain rated 7/10. He has not recently complained of pins and needles in his UE's but his pain is focused in his neck, upper shoulders and R intrascapular region. He would benefit from further skilled physical therapy to progress him safely onto a weight strengthening program for his UE's & for scapular stabilization. Today the pt tolerated UE/LE strengthening with weights without complaints of pain. R cervical rotation demonstrated greater ease of movement; therefore mobility is improving. Pt head/neck posturing is improved with increased awareness of proper neck posturing. He could benefit from further physical therapy for lack of rotation at C7, T1-T3. He needs education in [place] inhibition with UE movements. Physical Therapy Plan Frequency and Duration Frequency of Treatment 1x/Week Plan of Care Start Date 04/30/18 Plan of Care End Date 06/17/18 Therapeutic Interventions Therapeutic Interventions Home Exercise Program Joint Mobilizations Manual Therapy Neuromuscular Re-education Patient/Caregiver Education Self-Care/Home Management Soft Tissue Mobilization Taping Therapeutic Exercises Modalities Cold Pack/Ice Massage Electric Stimulation Hot Packs Next Visit Focus/Plan Next Note Type Treatment Note Next Visit Plan Manual cervical and soft tissue mobilization and scapular stabilization strengthening. Progress towards DC onto a home strengthening program, discuss with pt timeframe of 2-4 weeks after the holidays as a goal for DC to HEP. Plan of Care Dates Plan of Care Start Date 04/30/18 Plan of Care End Date 06/17/18 Please Sign and Return: I have reviewed this Plan of Care and certify that the skilled therapy services above are required to meet the patient?s needs. Physician Signature Date Printed Name and Credentials Clinical Instructor Signature Printed Name and Credentials
--- NOTE | 2018-04-30 16:25 | PT.OTN ---
Current Diagnoses Other cervical disc degeneration, unspecified cervical region (04/30/18) Strain of muscle, fascia and tendon at neck level, initial encounter (04/30/18) Physical Therapy Treatment Note PT-OP-A Visit Information Start: 03/18/18 14:48 Freq: Status: Active Protocol: Document 04/30/18 09:03 LRN (Rec: 04/30/18 09:51 LRN [id number]) Out-Patient Physical Therapy Visit Information Visit Information Visit Type Treatment Note Visit Start Time 09:03 Visit Stop Time 10:00 Total Visit Minutes 57 Visit Number 01/26 Number of MEDICAL SECRETARY TEACHER Visits 0 Evaluation Information Evaluation Date 03/19/18 PT-OP-B Current Condition Start: 03/18/18 14:48 Freq: Status: Active Protocol: Document 03/19/18 08:15 LRN (Rec: 03/19/18 16:39 LRN [id number]) Current Condition History of Current Condition Onset Date 5 yrs ago with exacerbation 2 yrs ago. Current Complaints Achy, sometimes sharp pain & stiffness in the posterior neck History of Current Condition Pt reports insidious onset of increasing neck pain/stiffness . His neck pain is achy and sometimes sharp. He complains of pins & needles feeling in his hands and sometimes numbness, often occurring after sleeping. He denies use of pain medications since the first of 2017. He states his pain is normally rated 3-5 /10, and at worst 9-10/10. Prior Treatments and Tests X-rays at [facility], per chart review indicates loss of disc height and osteophytes at C5-C6, good lordosis on extension, slight curvature to the left side, and cervical arthritis. States he has mild degeneration at S1, L5, L4 and at C3 -C5. He reports an old T12 compression fracture. Future Testing and Treatments Planned None Treatment Goals Patient/Caregiver Goals Pt goal is to get guidance with weight lifting exercise & to get a program to help relax his neck muscles. He is not sure if he can financially afford therapy 2x/ week for 4 weeks and might perfer 1x/week for 8 weeks. Prior Functional Status Baseline Function- ADL's Modified Independent Baseline Function- Mobility Independent Baseline Function- Gait Independent Baseline Function- Work/School Disabled Baseline Function- Recreation/Hobbies Independent Quilting Baseline Function- Other Modified Independent: Required Home Health assist daily for safety with bathing and self care. Pt is Independent with mobility but becomes dizzy with changes in positioning with an increased risk of falling due to dizziness. Current Functional Impairments (Reported) Functional Limitations- ADL's Limited in changing head positions and sleeping due to pain. Sometimes limited in ability to move due to pain. Functional Limitations- Recreation/ Limited in ability to exercise Hobbies and finish a quilt. Personal Factors Other Personal Factors That May Effect Chronic neck/back pain. Therapy/Recovery Requires Home Health assist daily. C5-C6 degeneration and cervical arthritis. Limited mobility due to dizziness/falls. Hx of psychological disorders and seizures. TBI Hx of T12 Compression fracture . PT-OP-C Subjective Start: 03/18/18 14:48 Freq: Status: Active Protocol: Document 04/30/18 09:03 LRN (Rec: 04/30/18 09:51 LRN [id number]) OP-PT Subjective Patient Comments Patient Comments Hasn't exercised because fighting the flu and ate something bad so has been sick . Wants to get into a strengthening program. Patient Questionnaires Neck Disability Index NDI Score 14 Neck Disability Index Impairment 20 to 39% Impaired (Score 10- 19) Quick Dash- Upper Extremity Quick Dash UE Score 40.9 Quick Dash UE Impairment 40 to 59% Impaired (Score 40- 59) OP-PT Pain Assessment Location Posterior Neck Pain Location Details Posterior neck, R lateral neck , R medial scapular border Intensity 7 Scale Used Numeric (1 - 10) Description Aching Tightness PT-OP-E Functional Tests Start: 03/18/18 14:48 Freq: Status: Active Protocol: Document 03/19/18 08:15 LRN (Rec: 03/19/18 16:39 LRN [id number]) Functional Tests Waldoey's Scratch Test Action 1: The subject is instructed to touch the opposite shoulder with his/her hand. This motion checks Glenohumeral adduction, internal rotation , horizontal adduction and scapular protraction Action 2: The subject is instructed to place his/her arm overhead and reach behind the neck to touch his/her upper back. This motion checks Glenohumeral abduction, external rotation and scapular upward rotation and elevation. Action 3: The subject puts his/her hand on the lower back and reaches upward as far as possible. This motion checks glenohumeral adduction, internal rotation and scapular retraction with downward rotation Action 2- Left T5 Action 2- Right T5 Action 3- Left T2 Action 3- Right T2 PT-OP-F Manual Assessment Start: 03/18/18 14:48 Freq: Status: Active Protocol: Document 03/19/18 08:15 LRN (Rec: 03/19/18 16:39 LRN [id number]) Manual Assessments Soft Tissue Assessment Soft Tissue Mobility Assessment Decreased L Occiput & Levator Scapula, Decreased R Cervical Paraspinals. Joint Mobility Assessment Joint Mobility Assessment Decreased Cervical R rotation and Other Manual Assessments Other Manual Assessments Increased tension in R Upper Trapezius. PT-OP-H Neuro Start: 03/18/18 14:48 Freq: Status: Active Protocol: Document 03/19/18 08:15 LRN (Rec: 03/19/18 16:39 LRN [id number]) Sensation Evaluation Gross Sensation Gross Sensation WNL Comments Summary Comments Pt reported numbness in R hand digits 2 & 3 and variable reported decreased sensation of L thumb (initially reported numb, later reported normal but feeling different). Deep Tendon Reflex & Clonus Assessment Deep Tendon Reflex Right Tricep Deep Tendon Reflex 1+ Diminished Left Tricep Deep Tendon Reflex 0 Absent Bilateral Brachioradialis Deep Tendon Reflex 1+ Diminished Bilateral Bicep Deep Tendon Reflex 1+ Diminished PT-OP-J Posture/Palpation/Skin Start: 03/18/18 14:48 Freq: Status: Active Protocol: Document 03/19/18 08:15 LRN (Rec: 03/19/18 16:39 LRN [id number]) Posture Evaluation Position Standing Evaluation View All positions Head/C-Spine Posture Side Bent Right Forward Head T-Spine Posture Increased Kyphosis Thorax Posture (R) Elevated L-Spine Posture Decreased Lordosis Shoulder Posture (L) Rounded (R) Rounded (R) Elevated Scapula Posture (L) Rotated Down (L) Winged (R) Winged Pelvis Posture Neutral Weight Distribution Weight Shifted Left Knee Posture (R) Excess Flexion Comments Posture Comments R Clavicle deformation due to old fracture Palpation Assessment Location Two Palpation Location Cervical spine Palpation Findings Soft Tissue Tightness Tenderness Palpation Details Tender at Transverse Processes of the Cervical spine on the left. Neck is in R rotation, Occiput is in L rotation. Tightness at left Occiput and Levator Scapula Tightness at R cervical paraspinals. One Palpation Location Upper Trapezius Palpation Findings Muscle Guarding Palpation Details Right PT-OP-K Range of Motion Start: 03/18/18 14:48 Freq: Status: Active Protocol: Document 04/09/18 08:16 LRN (Rec: 04/09/18 14:33 LRN [id number]) Cervical Spine Range of Motion Cervical Spine Active Degrees Testing Position Sitting Extension 58 Rotation Left 60 Rotation Right 53 Lateral Flexion Left 30 Lateral Flexion Right 30 ROM Limitations Soft Tissue Tightness PT-OP-M Strength Start: 03/18/18 14:48 Freq: Status: Active Protocol: Document 03/19/18 08:15 LRN (Rec: 03/19/18 16:39 LRN [id number]) Cervical Spine Strength Cervical Spine Manual Muscle Testing Reason Not Measured WFL Shoulder Strength Shoulder Manual Muscle Testing Right Reason Not Measured WFL Left Reason Not Measured WFL PT-OP-Q Treatments Start: 03/18/18 14:48 Freq: Status: Active Protocol: Document 04/30/18 09:03 LRN (Rec: 04/30/18 09:51 LRN [id number]) Gym Equipment Cable Column (Body Solid) Biceps Curl Details Sitting Resistance 20# Reps/Time 10 x Leg Curl Details Seat: 1 hole showing Resistance 30# Reps/Time 10 x Leg Extension Details Seat: 1 hole showing Resistance 10# Reps/Time 10 x Therapeutic Exercises Supine Exercises Lat Pull down Side bilateral Resistance Lev 2 T-Band Reps/Minutes 15 x 2 Comments Stretching neck between sets Arms Horiz AB/AD Side bilateral Equipment Used 2# Reps/Minutes 15 x Alternate arm lifts Side bilateral Equipment Used 2# Reps/Minutes 10 x 2 Manual Therapy Treatment Soft Tissue Mobilization scalenes Body Location Left scalenes Mobilization Type Sustained Pressure Intensity/Depth Moderate Body Position Hooklying SCM Body Location R SCM Mobilization Type Rolling Strumming Intensity/Depth Moderate Body Position Hooklying upper trap Body Location R upper trapezius Mobilization Type Rolling Sustained Pressure Intensity/Depth Moderate Body Position Hooklying Joint Mobilizations 1 Joint C3-C7 Direction Gapping of R facets Grade III Body Position Hooklying Reps/Duration 3' PT-OP-R Modalities Start: 03/18/18 14:48 Freq: Status: Active Protocol: Document 04/30/18 09:03 LRN (Rec: 04/30/18 15:34 LRN [id number]) Electric Stimulation Electric Stimulation Pre-Modulated Body Location Daryl UT>LB Duration (Minutes) 15 Intensity L 19, R 18 Patient Position Hooklying Combined With Heat/Cold Hot Pack Comments Neck & Back Hot pack Hot Pack/Cold Pack Treatment Hot Pack Location Neck/Back Patient Position Hooklying Treatment Duration (minutes) 15 Comments In combination with E-Stim PT-OP-T Assessment and Plan Start: 03/18/18 14:48 Freq: Status: Active Protocol: Document 04/30/18 09:03 LRN (Rec: 04/30/18 09:51 LRN [id number]) Physical Therapy Assessment Rehab Potential Rehabilitation Potential Good Impairments Impairments Activity Tolerance Pain Posture ROM Sensation Soft Tissue Mobility Other Concerns Fall Risk Yes due to symptoms of orthostatic hypotension Age Related Concerns Impact of disability on self and home. Barriers to Rehabilitation PMH: Psychological Disorders ( Depression, Obsessive Compulsive Disorder, Bipolar I ), pt report of schizophrenia, hx of seizure, TBI, Cervical disc degeneration, tobacco use , old R clavicle fracture, financial limitations. Goals Four Impairment Pain limiting recreational activities. Group Home Goal (LTG) Pt will be able to resume quilting activities. LTG Duration 05/06/18 (04/30/18: Pt has not been able to resume lately due to illness) Three Impairment Pain limiting neck mobility and sometimes function. Pediatrician/Medical Doctor Goal (LTG) Improve neck mobility such that the pt is not limited in functional activities. : Improved neck mobility. Goal Partially Met. LTG Duration 05/06/18 Two Impairment Pt lacks appropriate HEP for weight lifting ex's at home Pediatrician/Medical Doctor Goal (LTG) Pt educated in proper neck/ shoulder strengthening ex's on a HEP to manage his pain. LTG Duration 04/19/18 (04/30/18: Progressing program) One Impairment Lacks appropriate HEP Short Term Goal (STG) Pt will be independent on a HEP to address current restrictions of movement and educated in proper self care. STG Duration 04/05/18 Pediatrician/Medical Doctor Goal (LTG) Pt will be able to manage his pain and prevent recurrence. LTG Duration 04/19/18 Assessment Summary Assessment The pt has been making steady progress towards improving cervical mobility, decreasing neck pain, and being independence on a self care weight lifting program, but recently his progress has been hindered by illness. Overall his pain is less with his worst pain rated 7/10. He has not recently complained of pins and needles in his UE's but his pain is focused in his neck, upper shoulders and R intrascapular region. He would benefit from further skilled physical therapy to progress him safely onto a weight strengthening program for his UE's & for scapular stabilization. Today the pt tolerated UE/LE strengthening with weights without complaints of pain. R cervical rotation demonstrated greater ease of movement; therefore mobility is improving. Pt head/neck posturing is improved with increased awareness of proper neck posturing. He could benefit from further physical therapy for lack of rotation at C7, T1-T3. He needs education in [place] inhibition with UE movements. Physical Therapy Plan Frequency and Duration Frequency of Treatment 1x/Week Plan of Care Start Date 04/30/18 Plan of Care End Date 06/17/18 Therapeutic Interventions Therapeutic Interventions Home Exercise Program Joint Mobilizations Manual Therapy Neuromuscular Re-education Patient/Caregiver Education Self-Care/Home Management Soft Tissue Mobilization Taping Therapeutic Exercises Modalities Cold Pack/Ice Massage Electric Stimulation Hot Packs Next Visit Focus/Plan Next Note Type Treatment Note Next Visit Plan Manual cervical and soft tissue mobilization and scapular stabilization strengthening. Progress towards DC onto a home strengthening program, discuss with pt timeframe of 2-4 weeks after the holidays as a goal for DC to HEP.
--- NOTE | 2018-04-30 16:25 | PT.OPPOC ---
Current Diagnoses Other cervical disc degeneration, unspecified cervical region (04/30/18) Strain of muscle, fascia and tendon at neck level, initial encounter (04/30/18) Provider Visit Care Team Role Provider Type Tiffanie Shelley DO Family Provider Physician Primary Care Provider Specialty: Family Practice Address: [address] [place] [address], [id number] Email: [email or web address] Guevara Reed MD Attending Provider Physician Specialty: Orthopedics Address: [address] [place] [address], [id number] Email: [email or web address] Plan Of Care PT-OP-T Assessment and Plan Start: 03/18/18 14:48 Freq: Status: Active Protocol: Document 04/30/18 09:03 LRN (Rec: 04/30/18 09:51 LRN [id number]) Physical Therapy Assessment Rehab Potential Rehabilitation Potential Good Impairments Impairments Activity Tolerance Pain Posture ROM Sensation Soft Tissue Mobility Other Concerns Fall Risk Yes due to symptoms of orthostatic hypotension Age Related Concerns Impact of disability on self and home. Barriers to Rehabilitation PMH: Psychological Disorders ( Depression, Obsessive Compulsive Disorder, Bipolar I ), pt report of schizophrenia, hx of seizure, TBI, Cervical disc degeneration, tobacco use , old R clavicle fracture, financial limitations. Goals Four Impairment Pain limiting recreational activities. [facility] Goal (LTG) Pt will be able to resume quilting activities. LTG Duration 05/06/18 (04/30/18: Pt has not been able to resume lately due to illness) Three Impairment Pain limiting neck mobility and sometimes function. Grey Percher Goal (LTG) Improve neck mobility such that the pt is not limited in functional activities. : Improved neck mobility. Goal Partially Met. LTG Duration 05/06/18 Two Impairment Pt lacks appropriate HEP for weight lifting ex's at home Grey Percher Goal (LTG) Pt educated in proper neck/ shoulder strengthening ex's on a HEP to manage his pain. LTG Duration 04/19/18 (04/30/18: Progressing program) One Impairment Lacks appropriate HEP Short Term Goal (STG) Pt will be independent on a HEP to address current restrictions of movement and educated in proper self care. STG Duration 04/05/18 [facility] Goal (LTG) Pt will be able to manage his pain and prevent recurrence. LTG Duration 04/19/18 Assessment Summary Assessment The pt has been making steady progress towards improving cervical mobility, decreasing neck pain, and being independence on a self care weight lifting program, but recently his progress has been hindered by illness. Overall his pain is less with his worst pain rated 7/10. He has not recently complained of pins and needles in his UE's but his pain is focused in his neck, upper shoulders and R intrascapular region. He would benefit from further skilled physical therapy to progress him safely onto a weight strengthening program for his UE's & for scapular stabilization. Today the pt tolerated UE/LE strengthening with weights without complaints of pain. R cervical rotation demonstrated greater ease of movement; therefore mobility is improving. Pt head/neck posturing is improved with increased awareness of proper neck posturing. He could benefit from further physical therapy for lack of rotation at C7, T1-T3. He needs education in [place] inhibition with UE movements. Physical Therapy Plan Frequency and Duration Frequency of Treatment 1x/Week Plan of Care Start Date 04/30/18 Plan of Care End Date 06/17/18 Therapeutic Interventions Therapeutic Interventions Home Exercise Program Joint Mobilizations Manual Therapy Neuromuscular Re-education Patient/Caregiver Education Self-Care/Home Management Soft Tissue Mobilization Taping Therapeutic Exercises Modalities Cold Pack/Ice Massage Electric Stimulation Hot Packs Next Visit Focus/Plan Next Note Type Treatment Note Next Visit Plan Manual cervical and soft tissue mobilization and scapular stabilization strengthening. Progress towards DC onto a home strengthening program, discuss with pt timeframe of 2-4 weeks after the holidays as a goal for DC to HEP. Plan of Care Dates Plan of Care Start Date 04/30/18 Plan of Care End Date 06/17/18 Please Sign and Return: I have reviewed this Plan of Care and certify that the skilled therapy services above are required to meet the patient?s needs. Physician Signature Date Printed Name and Credentials Clinical Instructor Signature Printed Name and Credentials
--- NOTE | 2018-05-21 15:27 | PT.OTN ---
Current Diagnoses Other cervical disc degeneration, unspecified cervical region (05/21/18) Strain of muscle, fascia and tendon at neck level, initial encounter (05/21/18) Physical Therapy Treatment Note PT-OP-A Visit Information Start: 03/18/18 14:48 Freq: Status: Active Protocol: Document 05/21/18 09:00 LRN (Rec: 05/21/18 09:47 LRN [id number]) Out-Patient Physical Therapy Visit Information Visit Information Visit Type Treatment Note Visit Start Time 09:00 Visit Stop Time 10:00 Total Visit Minutes 60 Visit Number 02/25 Number of GRAIN CLEANER Visits 0 Evaluation Information Evaluation Date 03/19/18 PT-OP-B Current Condition Start: 03/18/18 14:48 Freq: Status: Active Protocol: Document 03/19/18 08:15 LRN (Rec: 03/19/18 16:39 LRN [id number]) Current Condition History of Current Condition Onset Date 5 yrs ago with exacerbation 2 yrs ago. Current Complaints Achy, sometimes sharp pain & stiffness in the posterior neck History of Current Condition Pt reports insidious onset of increasing neck pain/stiffness . His neck pain is achy and sometimes sharp. He complains of pins & needles feeling in his hands and sometimes numbness, often occurring after sleeping. He denies use of pain medications since the first 2017. He states his pain is normally rated 3-5 /10, and at worst 9-10/10. Prior Treatments and Tests X-rays at [facility], per chart review indicates loss of disc height and osteophytes at C5-C6, good lordosis on extension, slight curvature to the left side, and cervical arthritis. States he has mild degeneration at S1, L5, L4 and at C3 -C5. He reports an old T12 compression fracture. Future Testing and Treatments Planned None Treatment Goals Patient/Caregiver Goals Pt goal is to get guidance with weight lifting exercise & to get a program to help relax his neck muscles. He is not sure if he can financially afford therapy 2x/ week for 4 weeks and might perfer 1x/week for 8 weeks. Prior Functional Status Baseline Function- ADL's Modified Independent Baseline Function- Mobility Independent Baseline Function- Gait Independent Baseline Function- Work/School Disabled Baseline Function- Recreation/Hobbies Independent Quilting Baseline Function- Other Modified Independent: Required Home Health assist daily for safety with bathing and self care. Pt is Independent with mobility but becomes dizzy with changes in positioning with an increased risk of falling due to dizziness. Current Functional Impairments (Reported) Functional Limitations- ADL's Limited in changing head positions and sleeping due to pain. Sometimes limited in ability to move due to pain. Functional Limitations- Recreation/ Limited in ability to exercise Hobbies and finish a quilt. Personal Factors Other Personal Factors That May Effect Chronic neck/back pain. Therapy/Recovery Requires Home Health assist daily. C5-C6 degeneration and cervical arthritis. Limited mobility due to dizziness/falls. Hx of psychological disorders and seizures. TBI Hx of T12 Compression fracture . PT-OP-C Subjective Start: 03/18/18 14:48 Freq: Status: Active Protocol: Document 05/21/18 09:00 LRN (Rec: 05/21/18 09:47 LRN [id number]) OP-PT Subjective Patient Comments Patient Comments Needs a stronger T-Band. See can see farther rotating head to R, almost the same. Using 2# for alternate arm lifts. PT-OP-E Functional Tests Start: 03/18/18 14:48 Freq: Status: Active Protocol: Document 03/19/18 08:15 LRN (Rec: 03/19/18 16:39 LRN [id number]) Functional Tests Apley's Scratch Test Action 1: The subject is instructed to touch the opposite shoulder with his/her hand. This motion checks Glenohumeral adduction, internal rotation , horizontal adduction and scapular protraction Action 2: The subject is instructed to place his/her arm overhead and reach behind the neck to touch his/her upper back. This motion checks Glenohumeral abduction, external rotation and scapular upward rotation and elevation. Action 3: The subject puts his/her hand on the lower back and reaches upward as far as possible. This motion checks glenohumeral adduction, internal rotation and scapular retraction with downward rotation Action 2- Left T5 Action 2- Right T5 Action 3- Left T2 Action 3- Right T2 PT-OP-F Manual Assessment Start: 03/18/18 14:48 Freq: Status: Active Protocol: Document 03/19/18 08:15 LRN (Rec: 03/19/18 16:39 LRN [id number]) Manual Assessments Soft Tissue Assessment Soft Tissue Mobility Assessment Decreased L Occiput & Levator Scapula, Decreased R Cervical Paraspinals. Joint Mobility Assessment Joint Mobility Assessment Decreased Cervical R rotation and Other Manual Assessments Other Manual Assessments Increased tension in R Upper Trapezius. PT-OP-H Neuro Start: 03/18/18 14:48 Freq: Status: Active Protocol: Document 03/19/18 08:15 LRN (Rec: 03/19/18 16:39 LRN [id number]) Sensation Evaluation Gross Sensation Gross Sensation WNL Comments Summary Comments Pt reported numbness in R hand digits 2 & 3 and variable reported decreased sensation of L thumb (initially reported numb, later reported normal but feeling different). Deep Tendon Reflex & Clonus Assessment Deep Tendon Reflex Right Tricep Deep Tendon Reflex 1+ Diminished Left Tricep Deep Tendon Reflex 0 Absent Bilateral Brachioradialis Deep Tendon Reflex 1+ Diminished Bilateral Bicep Deep Tendon Reflex 1+ Diminished PT-OP-J Posture/Palpation/Skin Start: 03/18/18 14:48 Freq: Status: Active Protocol: Document 03/19/18 08:15 LRN (Rec: 03/19/18 16:39 LRN [id number]) Posture Evaluation Position Standing Evaluation View All positions Head/C-Spine Posture Side Bent Right Forward Head T-Spine Posture Increased Kyphosis Thorax Posture (R) Elevated L-Spine Posture Decreased Lordosis Shoulder Posture (L) Rounded (R) Rounded (R) Elevated Scapula Posture (L) Rotated Down (L) Winged (R) Winged Pelvis Posture Neutral Weight Distribution Weight Shifted Left Knee Posture (R) Excess Flexion Comments Posture Comments R Clavicle deformation due to old fracture Palpation Assessment Location Two Palpation Location Cervical spine Palpation Findings Soft Tissue Tightness Tenderness Palpation Details Tender at Transverse Processes of the Cervical spine on the left. Neck is in R rotation, Occiput is in L rotation. Tightness at left Occiput and Levator Scapula Tightness at R cervical paraspinals. One Palpation Location Upper Trapezius Palpation Findings Muscle Guarding Palpation Details Right PT-OP-K Range of Motion Start: 03/18/18 14:48 Freq: Status: Active Protocol: Document 04/09/18 08:16 LRN (Rec: 04/09/18 14:33 LRN [id number]) Cervical Spine Range of Motion Cervical Spine Active Degrees Testing Position Sitting Extension 58 Rotation Left 60 Rotation Right 53 Lateral Flexion Left 30 Lateral Flexion Right 30 ROM Limitations Soft Tissue Tightness PT-OP-M Strength Start: 03/18/18 14:48 Freq: Status: Active Protocol: Document 03/19/18 08:15 LRN (Rec: 03/19/18 16:39 LRN [id number]) Cervical Spine Strength Cervical Spine Manual Muscle Testing Reason Not Measured WFL Shoulder Strength Shoulder Manual Muscle Testing Right Reason Not Measured WFL Left Reason Not Measured WFL PT-OP-Q Treatments Start: 03/18/18 14:48 Freq: Status: Active Protocol: Document 05/21/18 09:00 LRN (Rec: 05/21/18 09:47 LRN [id number]) Gym Equipment Cable Column (Body Solid) Biceps Curl Details Sitting Resistance 20# Reps/Time 10 x 3 Leg Curl Details Seat: 1 hole showing Resistance 30# Reps/Time 10 x 3 Leg Extension Details Seat: 1 hole showing Resistance 20# Reps/Time 10 x 3 Therapeutic Exercises Supine Exercises Neck stretches Supine Exercise Name Cervical L SB & R rotation Reps/Minutes 5' Lat Pull down Side bilateral Resistance Lev 5 T-Band Reps/Minutes 10 x 3 Comments Stretching neck between sets Manual Therapy Treatment Soft Tissue Mobilization Paraspinals Body Location Cervical Mobilization Type Sustained Pressure Intensity/Depth Moderate Body Position Prone upper trap Body Location R upper trapezius Mobilization Type Rolling Sustained Pressure Intensity/Depth Moderate Body Position Hooklying Joint Mobilizations C7-T2 Joint C7-T1, T1-T2 Direction R rotation C7 & T1 Body Position Prone Reps/Duration 8' C7-T1, T1-T2 Joint Facets Direction Gapping of L side Grade II Body Position Sitting Reps/Duration 10 1 Joint C3-C7 Direction Gapping of R facets Grade III Body Position Hooklying Reps/Duration 3' Self-Care/Home Management Treatment Activities Self-Care/Home Management Activities Issued Level 5 T-Band for home lat pull down exercise as requested by patient. PT-OP-R Modalities Start: 03/18/18 14:48 Freq: Status: Active Protocol: Document 05/21/18 09:00 LRN (Rec: 05/21/18 09:47 LRN [id number]) Electric Stimulation Electric Stimulation Pre-Modulated Body Location Daryl UT>LB Duration (Minutes) 15 Intensity L 21, R 18 Patient Position Hooklying Combined With Heat/Cold Hot Pack Comments Neck & Back Hot pack Hot Pack/Cold Pack Treatment Hot Pack Location Neck/Back Patient Position Hooklying Treatment Duration (minutes) 15 Comments In combination with E-Stim PT-OP-T Assessment and Plan Start: 03/18/18 14:48 Freq: Status: Active Protocol: Document 05/21/18 09:00 LRN (Rec: 05/21/18 09:47 LRN [id number]) Physical Therapy Assessment Goals Four Impairment Pain limiting recreational activities. Operational Risk Manager Goal (LTG) Pt will be able to resume quilting activities. LTG Duration 05/06/18 (04/30/18: Pt has not been able to resume lately due to illness) Three Impairment Pain limiting neck mobility and sometimes function. Nursing Home Goal (LTG) Improve neck mobility such that the pt is not limited in functional activities. : Improved neck mobility. Goal Partially Met. LTG Duration 05/06/18 Two Impairment Pt lacks appropriate HEP for weight lifting ex's at home Nursing Home Goal (LTG) Pt educated in proper neck/ shoulder strengthening ex's on a HEP to manage his pain. LTG Duration 04/19/18 (04/30/18: Progressing program) One Impairment Lacks appropriate HEP Short Term Goal (STG) Pt will be independent on a HEP to address current restrictions of movement and educated in proper self care. STG Duration 04/05/18 Operational Risk Manager Goal (LTG) Pt will be able to manage his pain and prevent recurrence. LTG Duration 04/19/18 Assessment Summary Assessment Further physical therapy for lack of rotation at C7, T1-T3. He needs education in UT inhibition with UE movements. Good improvement in exercise tolerance. Cervical right rotation is almost normal, L SB limited. Physical Therapy Plan Frequency and Duration Frequency of Treatment 1x/Week Plan of Care Start Date 04/30/18 Plan of Care End Date 06/17/18 Next Visit Focus/Plan Next Note Type Treatment Note Next Visit Plan Assess pt's ability to resume quilting. Progress towards indep on HEP for weight lifting & scapular stab ex's. Address decreased L SB ( lesser extent R Rot) C7-T3 and educate UT inhibition with UE movements.
--- NOTE | 2018-05-30 16:33 | PT.OTN ---
Current Diagnoses Other cervical disc degeneration, unspecified cervical region (05/30/18) Strain of muscle, fascia and tendon at neck level, initial encounter (05/30/18) Physical Therapy Treatment Note PT-OP-A Visit Information Start: 03/18/18 14:48 Freq: Status: Active Protocol: Document 05/30/18 10:43 LRN (Rec: 05/30/18 11:30 LRN [id number]) Out-Patient Physical Therapy Visit Information Visit Information Visit Type Treatment Note Visit Start Time 10:43 Visit Stop Time 11:30 Total Visit Minutes 47 Visit Number 03/28 Number of PRESS HAND SUPERVISOR Visits 0 Evaluation Information Evaluation Date 03/19/18 PT-OP-B Current Condition Start: 03/18/18 14:48 Freq: Status: Active Protocol: Document 03/19/18 08:15 LRN (Rec: 03/19/18 16:39 LRN [id number]) Current Condition History of Current Condition Onset Date 5 yrs ago with exacerbation 2 yrs ago. Current Complaints Achy, sometimes sharp pain & stiffness in the posterior neck History of Current Condition Pt reports insidious onset of increasing neck pain/stiffness . His neck pain is achy and sometimes sharp. He complains of pins & needles feeling in his hands and sometimes numbness, often occurring after sleeping. He denies use of pain medications since the first 2017. He states his pain is normally rated 3-5 /10, and at worst 9-10/10. Prior Treatments and Tests X-rays at [facility], per chart review indicates loss of disc height and osteophytes at C5-C6, good lordosis on extension, slight curvature to the left side, and cervical arthritis. States he has mild degeneration at S1, L5, L4 and at C3 -C5. He reports an old T12 compression fracture. Future Testing and Treatments Planned None Treatment Goals Patient/Caregiver Goals Pt goal is to get guidance with weight lifting exercise & to get a program to help relax his neck muscles. He is not sure if he can financially afford therapy 2x/ week for 4 weeks and might perfer 1x/week for 8 weeks. Prior Functional Status Baseline Function- ADL's Modified Independent Baseline Function- Mobility Independent Baseline Function- Gait Independent Baseline Function- Work/School Disabled Baseline Function- Recreation/Hobbies Independent Quilting Baseline Function- Other Modified Independent: Required Home Health assist daily for safety with bathing and self care. Pt is Independent with mobility but becomes dizzy with changes in positioning with an increased risk of falling due to dizziness. Current Functional Impairments (Reported) Functional Limitations- ADL's Limited in changing head positions and sleeping due to pain. Sometimes limited in ability to move due to pain. Functional Limitations- Recreation/ Limited in ability to exercise Hobbies and finish a quilt. Personal Factors Other Personal Factors That May Effect Chronic neck/back pain. Therapy/Recovery Requires Home Health assist daily. C5-C6 degeneration and cervical arthritis. Limited mobility due to dizziness/falls. Hx of psychological disorders and seizures. TBI Hx of T12 Compression fracture . PT-OP-C Subjective Start: 03/18/18 14:48 Freq: Status: Active Protocol: Document 05/30/18 10:43 LRN (Rec: 05/30/18 16:17 LRN [id number]) OP-PT Subjective Patient Comments Patient Comments States he has restarted quilting and was able to sew some squares. He has not been consistent with home weight training I'm trying, he reports he has been stretching and his neck has been feeling good, his primary area of discomfort today is his mid back. PT-OP-E Functional Tests Start: 03/18/18 14:48 Freq: Status: Active Protocol: Document 03/19/18 08:15 LRN (Rec: 03/19/18 16:39 LRN [id number]) Functional Tests Apley's Scratch Test Action 1: The subject is instructed to touch the opposite shoulder with his/her hand. This motion checks Glenohumeral adduction, internal rotation , horizontal adduction and scapular protraction Action 2: The subject is instructed to place his/her arm overhead and reach behind the neck to touch his/her upper back. This motion checks Glenohumeral abduction, external rotation and scapular upward rotation and elevation. Action 3: The subject puts his/her hand on the lower back and reaches upward as far as possible. This motion checks glenohumeral adduction, internal rotation and scapular retraction with downward rotation Action 2- Left T5 Action 2- Right T5 Action 3- Left T2 Action 3- Right T2 PT-OP-F Manual Assessment Start: 03/18/18 14:48 Freq: Status: Active Protocol: Document 03/19/18 08:15 LRN (Rec: 03/19/18 16:39 LRN [id number]) Manual Assessments Soft Tissue Assessment Soft Tissue Mobility Assessment Decreased L Occiput & Levator Scapula, Decreased R Cervical Paraspinals. Joint Mobility Assessment Joint Mobility Assessment Decreased Cervical R rotation and Other Manual Assessments Other Manual Assessments Increased tension in R Upper Trapezius. PT-OP-H Neuro Start: 03/18/18 14:48 Freq: Status: Active Protocol: Document 03/19/18 08:15 LRN (Rec: 03/19/18 16:39 LRN [id number]) Sensation Evaluation Gross Sensation Gross Sensation WNL Comments Summary Comments Pt reported numbness in R hand digits 2 & 3 and variable reported decreased sensation of L thumb (initially reported numb, later reported normal but feeling different). Deep Tendon Reflex & Clonus Assessment Deep Tendon Reflex Right Tricep Deep Tendon Reflex 1+ Diminished Left Tricep Deep Tendon Reflex 0 Absent Bilateral Brachioradialis Deep Tendon Reflex 1+ Diminished Bilateral Bicep Deep Tendon Reflex 1+ Diminished PT-OP-J Posture/Palpation/Skin Start: 03/18/18 14:48 Freq: Status: Active Protocol: Document 03/19/18 08:15 LRN (Rec: 03/19/18 16:39 LRN [id number]) Posture Evaluation Position Standing Evaluation View All positions Head/C-Spine Posture Side Bent Right Forward Head T-Spine Posture Increased Kyphosis Thorax Posture (R) Elevated L-Spine Posture Decreased Lordosis Shoulder Posture (L) Rounded (R) Rounded (R) Elevated Scapula Posture (L) Rotated Down (L) Winged (R) Winged Pelvis Posture Neutral Weight Distribution Weight Shifted Left Knee Posture (R) Excess Flexion Comments Posture Comments R Clavicle deformation due to old fracture Palpation Assessment Location Two Palpation Location Cervical spine Palpation Findings Soft Tissue Tightness Tenderness Palpation Details Tender at Transverse Processes of the Cervical spine on the left. Neck is in R rotation, Occiput is in L rotation. Tightness at left Occiput and Levator Scapula Tightness at R cervical paraspinals. One Palpation Location Upper Trapezius Palpation Findings Muscle Guarding Palpation Details Right PT-OP-K Range of Motion Start: 03/18/18 14:48 Freq: Status: Active Protocol: Document 04/09/18 08:16 LRN (Rec: 04/09/18 14:33 LRN [id number]) Cervical Spine Range of Motion Cervical Spine Active Degrees Testing Position Sitting Extension 58 Rotation Left 60 Rotation Right 53 Lateral Flexion Left 30 Lateral Flexion Right 30 ROM Limitations Soft Tissue Tightness PT-OP-M Strength Start: 03/18/18 14:48 Freq: Status: Active Protocol: Document 03/19/18 08:15 LRN (Rec: 03/19/18 16:39 LRN [id number]) Cervical Spine Strength Cervical Spine Manual Muscle Testing Reason Not Measured WFL Shoulder Strength Shoulder Manual Muscle Testing Right Reason Not Measured WFL Left Reason Not Measured WFL PT-OP-Q Treatments Start: 03/18/18 14:48 Freq: Status: Active Protocol: Document 05/30/18 10:43 LRN (Rec: 05/30/18 16:17 LRN [id number]) Gym Equipment Cable Column (Body Solid) Biceps Curl Details Sitting Resistance 20# Reps/Time 10 x 3 Leg Curl Details Seat: 1 hole showing Resistance 20# Reps/Time 10 x 3 Leg Extension Details Seat: 1 hole showing Resistance 20# Reps/Time 10 x 3 Therapeutic Exercises Supine Exercises Neck stretches Supine Exercise Name Cervical L SB & R rotation Reps/Minutes 5' Lat Pull down Side bilateral Resistance Lev 5 T-Band Reps/Minutes 10 x 3 Comments Stretching neck between sets Standing Exercises Row Side bilateral Resistance Lev 4 Equipment Used T-Band Shoulder press up Side bilateral Resistance 0# Reps/Minutes 10 x 2 Comments Pt able to maintain good neutral position of the head without weights. Manual Therapy Treatment Soft Tissue Mobilization Paraspinals Body Location Thoracic Mobilization Type Strumming Sustained Pressure Intensity/Depth Moderate Body Position Prone Comments T3-T6, R side primarily. Joint Mobilizations C7-T1, T1-T2 Joint Facets Direction Gapping of L side Grade II Reps/Duration 6 Comments Supine: C7 Prone: T1-T2 PT-OP-R Modalities Start: 03/18/18 14:48 Freq: Status: Active Protocol: Document 05/30/18 10:43 LRN (Rec: 05/30/18 16:17 LRN [id number]) Electric Stimulation Electric Stimulation Interferential Current (IFC) Body Location UT> high Low back Duration (Minutes) 15 Intensity 28 Target/Sweep Sweep Combined With Heat/Cold Hot Pack Comments hooklying, Hot pack to neck and back. Hot Pack/Cold Pack Treatment Hot Pack Location Neck/Back Patient Position Hooklying Treatment Duration (minutes) 15 Comments In combination with E-Stim PT-OP-T Assessment and Plan Start: 03/18/18 14:48 Freq: Status: Active Protocol: Document 05/30/18 10:43 LRN (Rec: 05/30/18 11:30 LRN [id number]) Physical Therapy Assessment Goals Four Impairment Pain limiting recreational activities. Assisted Goal (LTG) Pt will be able to resume quilting activities. (05/30/18 : Pt started quilting today). LTG Duration 05/06/18 Three Impairment Pain limiting neck mobility and sometimes function. Steward/Stewardess Third Class Goal (LTG) Improve neck mobility such that the pt is not limited in functional activities. : Improved neck mobility. Goal Partially Met. LTG Duration 05/06/18 Two Impairment Pt lacks appropriate HEP for weight lifting ex's at home Assisted Goal (LTG) Pt educated in proper neck/ shoulder strengthening ex's on a HEP to manage his pain. (: Further progression of HEP). LTG Duration 04/19/18 One Impairment Lacks appropriate HEP Short Term Goal (STG) Pt will be independent on a HEP to address current restrictions of movement and educated in proper self care. (05/30/18: Further progression of strengthening HEP). STG Duration 04/05/18 Assisted Goal (LTG) Pt will be able to manage his pain and prevent recurrence. LTG Duration 04/19/18 Progress Towards Goals Progress Towards Goals Progressing Toward Goals Progress Comments Pt has resumed quilting. Cervical ROM improving. Pt is not consistent with HEP. Assessment Summary Assessment Pt is mildly restricted with cervical rotation R. He needed v. cuing for positioning his neck in a more neutral position (neck positioned in R tilt). He needs education in UT inhibition with UE movements. Pt demonstrated good exercise tolerance. Cervical right rotation is almost normal, L SB limited. Physical Therapy Plan Frequency and Duration Frequency of Treatment 1x/Week Plan of Care Start Date 04/30/18 Plan of Care End Date 06/17/18 Next Visit Focus/Plan Next Note Type Treatment Note Next Visit Plan Recheck in 3-4 visits. Progress towards placement on indep HEP for weight lifting & scapular stab ex's. Address decreased L SB (lesser extent R Rot) C7-T3 and educate UT inhibition with UE movements.
--- NOTE | 2018-06-06 15:50 | PT.OTN ---
Current Diagnoses Other cervical disc degeneration, unspecified cervical region (06/06/18) Strain of muscle, fascia and tendon at neck level, initial encounter (06/06/18) Physical Therapy Treatment Note PT-OP-A Visit Information Start: 03/18/18 14:48 Freq: Status: Active Protocol: Document 06/06/18 11:17 LRN (Rec: 06/06/18 12:24 LRN [id number]) Out-Patient Physical Therapy Visit Information Visit Information Visit Type Treatment Note Visit Start Time 11:17 Visit Stop Time 12:09 Total Visit Minutes 52 Visit Number 04/27 Number of PROOFREADER Visits 0 Evaluation Information Evaluation Date 03/19/18 PT-OP-B Current Condition Start: 03/18/18 14:48 Freq: Status: Active Protocol: Document 03/19/18 08:15 LRN (Rec: 03/19/18 16:39 LRN [id number]) Current Condition History of Current Condition Onset Date 5 yrs ago with exacerbation 2 yrs ago. Current Complaints Achy, sometimes sharp pain & stiffness in the posterior neck History of Current Condition Pt reports insidious onset of increasing neck pain/stiffness . His neck pain is achy and sometimes sharp. He complains of pins & needles feeling in his hands and sometimes numbness, often occurring after sleeping. He denies use of pain medications since the first of 2017. He states his pain is normally rated 3-5 /10, and at worst 9-10/10. Prior Treatments and Tests X-rays at [facility], per chart review indicates loss of disc height and osteophytes at C5-C6, good lordosis on extension, slight curvature to the left side, and cervical arthritis. States he has mild degeneration at S1, L5, L4 and at C3 -C5. He reports an old T12 compression fracture. Future Testing and Treatments Planned None Treatment Goals Patient/Caregiver Goals Pt goal is to get guidance with weight lifting exercise & to get a program to help relax his neck muscles. He is not sure if he can financially afford therapy 2x/ week for 4 weeks and might perfer 1x/week for 8 weeks. Prior Functional Status Baseline Function- ADL's Modified Independent Baseline Function- Mobility Independent Baseline Function- Gait Independent Baseline Function- Work/School Disabled Baseline Function- Recreation/Hobbies Independent Quilting Baseline Function- Other Modified Independent: Required Home Health assist daily for safety with bathing and self care. Pt is Independent with mobility but becomes dizzy with changes in positioning with an increased risk of falling due to dizziness. Current Functional Impairments (Reported) Functional Limitations- ADL's Limited in changing head positions and sleeping due to pain. Sometimes limited in ability to move due to pain. Functional Limitations- Recreation/ Limited in ability to exercise Hobbies and finish a quilt. Personal Factors Other Personal Factors That May Effect Chronic neck/back pain. Therapy/Recovery Requires Home Health assist daily. C5-C6 degeneration and cervical arthritis. Limited mobility due to dizziness/falls. Hx of psychological disorders and seizures. TBI Hx of T12 Compression fracture . PT-OP-C Subjective Start: 03/18/18 14:48 Freq: Status: Active Protocol: Document 06/06/18 11:17 LRN (Rec: 06/06/18 15:32 LRN [id number]) OP-PT Subjective Patient Comments Patient Comments States he has been working on a quilt and gets neck soreness . PT-OP-E Functional Tests Start: 03/18/18 14:48 Freq: Status: Active Protocol: Document 03/19/18 08:15 LRN (Rec: 03/19/18 16:39 LRN [id number]) Functional Tests Apley's Scratch Test Action 1: The subject is instructed to touch the opposite shoulder with his/her hand. This motion checks Glenohumeral adduction, internal rotation , horizontal adduction and scapular protraction Action 2: The subject is instructed to place his/her arm overhead and reach behind the neck to touch his/her upper back. This motion checks Glenohumeral abduction, external rotation and scapular upward rotation and elevation. Action 3: The subject puts his/her hand on the lower back and reaches upward as far as possible. This motion checks glenohumeral adduction, internal rotation and scapular retraction with downward rotation Action 2- Left T5 Action 2- Right T5 Action 3- Left T2 Action 3- Right T2 PT-OP-F Manual Assessment Start: 03/18/18 14:48 Freq: Status: Active Protocol: Document 03/19/18 08:15 LRN (Rec: 03/19/18 16:39 LRN [id number]) Manual Assessments Soft Tissue Assessment Soft Tissue Mobility Assessment Decreased L Occiput & Levator Scapula, Decreased R Cervical Paraspinals. Joint Mobility Assessment Joint Mobility Assessment Decreased Cervical R rotation and Other Manual Assessments Other Manual Assessments Increased tension in R Upper Trapezius. PT-OP-H Neuro Start: 03/18/18 14:48 Freq: Status: Active Protocol: Document 03/19/18 08:15 LRN (Rec: 03/19/18 16:39 LRN [id number]) Sensation Evaluation Gross Sensation Gross Sensation WNL Comments Summary Comments Pt reported numbness in R hand digits 2 & 3 and variable reported decreased sensation of L thumb (initially reported numb, later reported normal but feeling different). Deep Tendon Reflex & Clonus Assessment Deep Tendon Reflex Right Tricep Deep Tendon Reflex 1+ Diminished Left Tricep Deep Tendon Reflex 0 Absent Bilateral Brachioradialis Deep Tendon Reflex 1+ Diminished Bilateral Bicep Deep Tendon Reflex 1+ Diminished PT-OP-J Posture/Palpation/Skin Start: 03/18/18 14:48 Freq: Status: Active Protocol: Document 03/19/18 08:15 LRN (Rec: 03/19/18 16:39 LRN [id number]) Posture Evaluation Position Standing Evaluation View All positions Head/C-Spine Posture Side Bent Right Forward Head T-Spine Posture Increased Kyphosis Thorax Posture (R) Elevated L-Spine Posture Decreased Lordosis Shoulder Posture (L) Rounded (R) Rounded (R) Elevated Scapula Posture (L) Rotated Down (L) Winged (R) Winged Pelvis Posture Neutral Weight Distribution Weight Shifted Left Knee Posture (R) Excess Flexion Comments Posture Comments R Clavicle deformation due to old fracture Palpation Assessment Location Two Palpation Location Cervical spine Palpation Findings Soft Tissue Tightness Tenderness Palpation Details Tender at Transverse Processes of the Cervical spine on the left. Neck is in R rotation, Occiput is in L rotation. Tightness at left Occiput and Levator Scapula Tightness at R cervical paraspinals. One Palpation Location Upper Trapezius Palpation Findings Muscle Guarding Palpation Details Right PT-OP-K Range of Motion Start: 03/18/18 14:48 Freq: Status: Active Protocol: Document 04/09/18 08:16 LRN (Rec: 04/09/18 14:33 LRN [id number]) Cervical Spine Range of Motion Cervical Spine Active Degrees Testing Position Sitting Extension 58 Rotation Left 60 Rotation Right 53 Lateral Flexion Left 30 Lateral Flexion Right 30 ROM Limitations Soft Tissue Tightness PT-OP-M Strength Start: 03/18/18 14:48 Freq: Status: Active Protocol: Document 03/19/18 08:15 LRN (Rec: 03/19/18 16:39 LRN [id number]) Cervical Spine Strength Cervical Spine Manual Muscle Testing Reason Not Measured WFL Shoulder Strength Shoulder Manual Muscle Testing Right Reason Not Measured WFL Left Reason Not Measured WFL PT-OP-Q Treatments Start: 03/18/18 14:48 Freq: Status: Active Protocol: Document 06/06/18 11:17 LRN (Rec: 06/06/18 12:24 LRN [id number]) Gym Equipment Cable Column (Body Solid) Biceps Curl Details Sitting Resistance 20# Reps/Time 10 x 3 Leg Curl Details Seat: 1 hole showing Resistance 20# Reps/Time 15 x 2 Leg Extension Details Seat: 1 hole showing Resistance 20# Reps/Time 15 x 3 Therapeutic Exercises Prone Exercises 1 Prone Exercise Name Reverse Fly Resistance 0# Comments Arms at various AB positions Sitting Exercises Shoulder press Side bilateral Resistance 10# Reps/Minutes 10x Comments V. cuing for proper head posturing Tricep ext Sitting Exercise Name Bar behind head with shoulders in max flexion Resistance 10# Reps/Minutes 7x Comments V. cuing for proper head posturing Standing Exercises Row Side bilateral Resistance Lev 4 Equipment Used T-Band Self-Care/Home Management Treatment Activities Self-Care/Home Management Activities Issued longer Lev 4 T-Band for HEP. PT-OP-R Modalities Start: 03/18/18 14:48 Freq: Status: Active Protocol: Document 05/30/18 10:43 LRN (Rec: 05/30/18 16:17 LRN [id number]) Electric Stimulation Electric Stimulation Interferential Current (IFC) Body Location UT> high Low back Duration (Minutes) 15 Intensity 28 Target/Sweep Sweep Combined With Heat/Cold Hot Pack Comments hooklying, Hot pack to neck and back. Hot Pack/Cold Pack Treatment Hot Pack Location Neck/Back Patient Position Hooklying Treatment Duration (minutes) 15 Comments In combination with E-Stim PT-OP-T Assessment and Plan Start: 03/18/18 14:48 Freq: Status: Active Protocol: Document 06/06/18 11:17 LRN (Rec: 06/06/18 12:24 LRN [id number]) Physical Therapy Assessment Goals Four Impairment Pain limiting recreational activities. Associate Research Scientist Goal (LTG) Pt will be able to resume quilting activities. (05/30/18 : Pt started quilting). LTG Duration 05/06/18 (06/06/18: Goal Met, neck sore after activity, but not limiting) Three Impairment Pain limiting neck mobility and sometimes function. Half-Way Goal (LTG) Improve neck mobility such that the pt is not limited in functional activities. : Improved neck mobility. Goal Partially Met. LTG Duration 05/06/18 Two Impairment Pt lacks appropriate HEP for weight lifting ex's at home Associate Research Scientist Goal (LTG) Pt educated in proper neck/ shoulder strengthening ex's on a HEP to manage his pain. (: Further progression of HEP). LTG Duration 04/19/18 One Impairment Lacks appropriate HEP Short Term Goal (STG) Pt will be independent on a HEP to address current restrictions of movement and educated in proper self care. (05/30/18: Further progression of strengthening HEP). STG Duration 04/05/18 Associate Research Scientist Goal (LTG) Pt will be able to manage his pain and prevent recurrence. LTG Duration 04/19/18 Progress Towards Goals Progress Towards Goals Progressing Toward Goals Progress Comments Goal #4 Met. Pt has returned to quilting. Soreness after activity. Goal #3 Partially Met. Mobility looking over R shoulder mildly limited, L SB limited. Goal #1,2 Progressing with HEP. Assessment Summary Assessment Mild restriction with Cervical R rot and L SB. Soreness in the neck afterward quilting ( not pain). Pt L scapular stab strengthening needed. Today there is equal movement of scapula upwards with arm movements; therefore inhibition training deferred at this time. Physical Therapy Plan Frequency and Duration Frequency of Treatment 1x/Week Plan of Care Start Date 04/30/18 Plan of Care End Date 06/17/18 Next Visit Focus/Plan Next Note Type Treatment Note Next Visit Plan Recheck neck mobility for functional use. Progress towards placement on indep HEP for weight lifting & scapular stab ex's in 2 visits[address] decreased L SB (lesser extent R Rot) C7-T3.
--- NOTE | 2018-06-17 10:13 | PT.OTN ---
Current Diagnoses Other cervical disc degeneration, unspecified cervical region (06/17/18) Strain of muscle, fascia and tendon at neck level, initial encounter (06/17/18) Physical Therapy Treatment Note PT-OP-A Visit Information Start: 03/18/18 14:48 Freq: Status: Active Protocol: Document 06/17/18 08:15 LRN (Rec: 06/17/18 09:01 LRN [id number]) Out-Patient Physical Therapy Visit Information Visit Information Visit Type Treatment Note Visit Start Time 08:15 Visit Stop Time 09:10 Total Visit Minutes 55 Visit Number 15 Number of REFRIGERATING TECHNICIAN Visits 0 Evaluation Information Evaluation Date 03/19/18 PT-OP-B Current Condition Start: 03/18/18 14:48 Freq: Status: Active Protocol: Document 03/19/18 08:15 LRN (Rec: 03/19/18 16:39 LRN [id number]) Current Condition History of Current Condition Onset Date 5 yrs ago with exacerbation 2 yrs ago. Current Complaints Achy, sometimes sharp pain & stiffness in the posterior neck History of Current Condition Pt reports insidious onset of increasing neck pain/stiffness . His neck pain is achy and sometimes sharp. He complains of pins & needles feeling in his hands and sometimes numbness, often occurring after sleeping. He denies use of pain medications since the first 2017. He states his pain is normally rated 3-5 /10, and at worst 9-10/10. Prior Treatments and Tests X-rays at [facility], per chart review indicates loss of disc height and osteophytes at C5-C6, good lordosis on extension, slight curvature to the left side, and cervical arthritis. States he has mild degeneration at S1, L5, L4 and at C3 -C5. He reports an old T12 compression fracture. Future Testing and Treatments Planned None Treatment Goals Patient/Caregiver Goals Pt goal is to get guidance with weight lifting exercise & to get a program to help relax his neck muscles. He is not sure if he can financially afford therapy 2x/ week for 4 weeks and might perfer 1x/week for 8 weeks. Prior Functional Status Baseline Function- ADL's Modified Independent Baseline Function- Mobility Independent Baseline Function- Gait Independent Baseline Function- Work/School Disabled Baseline Function- Recreation/Hobbies Independent Quilting Baseline Function- Other Modified Independent: Required Home Health assist daily for safety with bathing and self care. Pt is Independent with mobility but becomes dizzy with changes in positioning with an increased risk of falling due to dizziness. Current Functional Impairments (Reported) Functional Limitations- ADL's Limited in changing head positions and sleeping due to pain. Sometimes limited in ability to move due to pain. Functional Limitations- Recreation/ Limited in ability to exercise Hobbies and finish a quilt. Personal Factors Other Personal Factors That May Effect Chronic neck/back pain. Therapy/Recovery Requires Home Health assist daily. C5-C6 degeneration and cervical arthritis. Limited mobility due to dizziness/falls. Hx of psychological disorders and seizures. TBI Hx of T12 Compression fracture . PT-OP-C Subjective Start: 03/18/18 14:48 Freq: Status: Active Protocol: Document 06/17/18 08:15 LRN (Rec: 06/17/18 09:01 LRN [id number]) OP-PT Subjective Patient Comments Patient Comments Able to quilt, but difficult because of looking down so much. Hasn't exercised much because of his sleeping during the day. 2-3x/week. Feels he is 65% better, no pain complaints. Patient Questionnaires Neck Disability Index NDI Score 8 Neck Disability Index Impairment 1 to 19% Impaired (Score 1-9) Quick Dash- Upper Extremity Quick Dash UE Score 21 Quick Dash UE Impairment 20 to 39% Impaired (Score 20- 39) PT-OP-E Functional Tests Start: 03/18/18 14:48 Freq: Status: Active Protocol: Document 03/19/18 08:15 LRN (Rec: 03/19/18 16:39 LRN [id number]) Functional Tests Apley's Scratch Test Action 1: The subject is instructed to touch the opposite shoulder with his/her hand. This motion checks Glenohumeral adduction, internal rotation , horizontal adduction and scapular protraction Action 2: The subject is instructed to place his/her arm overhead and reach behind the neck to touch his/her upper back. This motion checks Glenohumeral abduction, external rotation and scapular upward rotation and elevation. Action 3: The subject puts his/her hand on the lower back and reaches upward as far as possible. This motion checks glenohumeral adduction, internal rotation and scapular retraction with downward rotation Action 2- Left T5 Action 2- Right T5 Action 3- Left T2 Action 3- Right T2 PT-OP-F Manual Assessment Start: 03/18/18 14:48 Freq: Status: Active Protocol: Document 03/19/18 08:15 LRN (Rec: 03/19/18 16:39 LRN [id number]) Manual Assessments Soft Tissue Assessment Soft Tissue Mobility Assessment Decreased L Occiput & Levator Scapula, Decreased R Cervical Paraspinals. Joint Mobility Assessment Joint Mobility Assessment Decreased Cervical R rotation and Other Manual Assessments Other Manual Assessments Increased tension in R Upper Trapezius. PT-OP-H Neuro Start: 03/18/18 14:48 Freq: Status: Active Protocol: Document 03/19/18 08:15 LRN (Rec: 03/19/18 16:39 LRN [id number]) Sensation Evaluation Gross Sensation Gross Sensation WNL Comments Summary Comments Pt reported numbness in R hand digits 2 & 3 and variable reported decreased sensation of L thumb (initially reported numb, later reported normal but feeling different). Deep Tendon Reflex & Clonus Assessment Deep Tendon Reflex Right Tricep Deep Tendon Reflex 1+ Diminished Left Tricep Deep Tendon Reflex 0 Absent Bilateral Brachioradialis Deep Tendon Reflex 1+ Diminished Bilateral Bicep Deep Tendon Reflex 1+ Diminished PT-OP-J Posture/Palpation/Skin Start: 03/18/18 14:48 Freq: Status: Active Protocol: Document 03/19/18 08:15 LRN (Rec: 03/19/18 16:39 LRN [id number]) Posture Evaluation Position Standing Evaluation View All positions Head/C-Spine Posture Side Bent Right Forward Head T-Spine Posture Increased Kyphosis Thorax Posture (R) Elevated L-Spine Posture Decreased Lordosis Shoulder Posture (L) Rounded (R) Rounded (R) Elevated Scapula Posture (L) Rotated Down (L) Winged (R) Winged Pelvis Posture Neutral Weight Distribution Weight Shifted Left Knee Posture (R) Excess Flexion Comments Posture Comments R Clavicle deformation due to old fracture Palpation Assessment Location Two Palpation Location Cervical spine Palpation Findings Soft Tissue Tightness Tenderness Palpation Details Tender at Transverse Processes of the Cervical spine on the left. Neck is in R rotation, Occiput is in L rotation. Tightness at left Occiput and Levator Scapula Tightness at R cervical paraspinals. One Palpation Location Upper Trapezius Palpation Findings Muscle Guarding Palpation Details Right PT-OP-K Range of Motion Start: 03/18/18 14:48 Freq: Status: Active Protocol: Document 06/17/18 08:15 LRN (Rec: 06/17/18 09:01 LRN [id number]) Cervical Spine Range of Motion Cervical Spine Active Degrees Testing Position Sitting Flexion 65 Extension 50 Rotation Left 65 Rotation Right 55 Lateral Flexion Left 26 Lateral Flexion Right 30 ROM Limitations Soft Tissue Tightness PT-OP-M Strength Start: 03/18/18 14:48 Freq: Status: Active Protocol: Document 03/19/18 08:15 LRN (Rec: 03/19/18 16:39 LRN [id number]) Cervical Spine Strength Cervical Spine Manual Muscle Testing Reason Not Measured WFL Shoulder Strength Shoulder Manual Muscle Testing Right Reason Not Measured WFL Left Reason Not Measured WFL PT-OP-Q Treatments Start: 03/18/18 14:48 Freq: Status: Active Protocol: Document 06/17/18 08:15 LRN (Rec: 06/17/18 09:01 LRN [id number]) Gym Equipment Cable Column (Body Solid) Biceps Curl Details Sitting Resistance 20# Reps/Time 10 x 3 Therapeutic Exercises Supine Exercises Lat Pull down Side bilateral Resistance Lev 5 T-Band Reps/Minutes 15 x 2 Comments Stretching neck between sets Sitting Exercises Shoulder press Side bilateral Resistance 10# Reps/Minutes 10x 2 Comments Good head posturing Tricep ext Sitting Exercise Name Bar behind head with shoulders in max flexion Resistance 10# Reps/Minutes 10 x 2 Comments V. cuing for proper head posturing L Scal[place] stretch Sitting Exercise Name Towel stretch Side left Equipment Used towel Reps/Minutes 5' Comments Extra time taken for training. Cervical sidebend Sitting Exercise Name Stretch Side left Reps/Minutes 2' Cervical rotation Sitting Exercise Name Stretch Side right Reps/Minutes 2' Self-Care/Home Management Treatment Education Patient Education Home Exercise Program Other Education Reviewed HEP PT-OP-R Modalities Start: 03/18/18 14:48 Freq: Status: Active Protocol: Document 05/30/18 10:43 LRN (Rec: 05/30/18 16:17 LRN [id number]) Electric Stimulation Electric Stimulation Interferential Current (IFC) Body Location UT> high Low back Duration (Minutes) 15 Intensity 28 Target/Sweep Sweep Combined With Heat/Cold Hot Pack Comments hooklying, Hot pack to neck and back. Hot Pack/Cold Pack Treatment Hot Pack Location Neck/Back Patient Position Hooklying Treatment Duration (minutes) 15 Comments In combination with E-Stim PT-OP-T Assessment and Plan Start: 03/18/18 14:48 Freq: Status: Active Protocol: Document 06/17/18 08:15 LRN (Rec: 06/17/18 09:01 LRN [id number]) Physical Therapy Assessment Goals Four Impairment Pain limiting recreational activities. Cancer Registry Manager Goal (LTG) Pt will be able to resume quilting activities. (05/30/18 : Pt started quilting). LTG Duration 05/06/18 (06/06/18: Goal Met, neck sore after activity, but not limiting) Three Impairment Pain limiting neck mobility and sometimes function. Cancer Registry Manager Goal (LTG) Improve neck mobility such that the pt is not limited in functional activities. LTG Duration 05/06/18 (06/17/18: Goal Met) Two Impairment Pt lacks appropriate HEP for weight lifting ex's at home Nursing Home Goal (LTG) Pt educated in proper neck/ shoulder strengthening ex's on a HEP to manage his pain. LTG Duration 04/19/18 (06/17/18: Goal Met) One Impairment Lacks appropriate HEP Short Term Goal (STG) Pt will be independent on a HEP to address current restrictions of movement and educated in proper self care. (05/30/18: Further progression of strengthening HEP). STG Duration 04/05/18 (06/17/18: Goal Met) Nursing Home Goal (LTG) Pt will be able to manage his pain and prevent recurrence. LTG Duration 04/19/18 (06/17/18: Goal Met) Progress Towards Goals Progress Towards Goals Goals Met Assessment Summary Assessment Pt had a good response to therapy with improved symmetry of neck mobility and decrease in pain with functional activities. He has an independent HEP and appears to have a good understanding of self care techniques to manage neck pain when present. He shows mild restriction with Cervical R rot and L SB. Soreness in the neck afterward quilting (not pain). Goals met; therefore the pt is ready to be discharged and placed on an independent HEP. Thank you for your referral. Physical Therapy Plan Discharge Physical Therapy Discharge Comments Pt has independent HEP for management of his neck pain.
== END 2018-06-17 09:47 ==
LOC: PHYS 08:15
PROVIDERS: Family Provider Family Medicine; PCP Family Medicine; Visit Provider Orthopaedic Surgery
DX: S16.1XXA Strain of muscle, fascia and tendon at neck level, initial encounter (principal); M50.30 Other cervical disc degeneration, unspecified cervical region
CPT/HCPCS: 97010; 97014; 97032; 97110; 97140; 97162; G0283

== ENCOUNTER → 2018-06-24 09:56 | Outpatient (CLI) | payer OTHER, MEDICAID, SELFPAY ==
[2018-06-24 11:06] LABS: Add Manual Diff / Slide Review NO; Basophils Absolute Auto 300 /uL (0-100); Basophils Percent Auto 3.9 % (0-2); Eosinophils Absolute Auto 100 /uL (0-450); Eosinophils Percent Auto 1.8 % (2-4); Hematocrit 44.6 % (41-53); Hemoglobin 15.9 g/dL (13.5-17.5); Lymphocytes Absolute Auto 1500 /uL (1100-4500); Lymphocytes Percent Auto 19.8 % (25-40); Mean Corpuscular HGB Conc 35.7 % (30-36); Mean Corpuscular Hemoglobin 32.8 PG (26-34); Mean Corpuscular Volume 91.9 fL (80-100); Monocytes Absolute Auto 600 /uL (0-900); Monocytes Percent Auto 7.7 % (3-14); Neutrophils Absolute Auto 5200 /uL (1500-7000); Neutrophils Percent Auto 66.8 % (50-75); Platelet Count 298 X10^3/uL (150-400); Red Blood Cell Count 4.85 X10^6/uL (4.5-5.9); Red Cell Distribution Width 13.3 % (11.6-14.8); White Blood Cell Count 7.8 X10^3/uL (4.5-11.0)
== END ==
PROVIDERS: Family Provider Family Medicine; PCP Family Medicine; Visit Provider Nurse Practitioner Psychiatric/Mental Health
DX: F20.9 Schizophrenia, unspecified (principal)
CPT/HCPCS: 36415; 85025

== ENCOUNTER → 2018-07-08 07:09 | Outpatient (CLI) | payer OTHER, MEDICAID, SELFPAY ==
[2018-07-08 10:09] LABS: Add Manual Diff / Slide Review NO; Basophils Absolute Auto 100 /uL (0-100); Basophils Percent Auto 0.8 % (0-2); Eosinophils Absolute Auto 100 /uL (0-450); Eosinophils Percent Auto 1.8 % (2-4); Hematocrit 45.8 % (41-53); Hemoglobin 15.8 g/dL (13.5-17.5); Lymphocytes Absolute Auto 2100 /uL (1100-4500); Lymphocytes Percent Auto 28.2 % (25-40); Mean Corpuscular HGB Conc 34.5 % (30-36); Mean Corpuscular Volume 95.6 fL (80-100); Monocytes Absolute Auto 500 /uL (0-900); Monocytes Percent Auto 6.7 % (3-14); Neutrophils Absolute Auto 4600 /uL (1500-7000); Neutrophils Percent Auto 62.5 % (50-75); Platelet Count 302 X10^3/uL (150-400); Red Blood Cell Count 4.79 X10^6/uL (4.5-5.9); Red Cell Distribution Width 13.3 % (11.6-14.8); White Blood Cell Count 7.4 X10^3/uL (4.5-11.0)
== END ==
PROVIDERS: Family Provider Family Medicine; PCP Family Medicine; Visit Provider Nurse Practitioner Psychiatric/Mental Health
DX: F20.9 Schizophrenia, unspecified (principal)
CPT/HCPCS: 36415; 85025

== ENCOUNTER → 2018-07-22 07:06 | Outpatient (CLI) | payer OTHER, MEDICAID, SELFPAY ==
[2018-07-22 09:10] LABS: Add Manual Diff / Slide Review NO; Basophils Absolute Auto 100 /uL (0-100); Basophils Percent Auto 0.8 % (0-2); Eosinophils Absolute Auto 200 /uL (0-450); Hematocrit 44.5 % (41-53); Hemoglobin 15.1 g/dL (13.5-17.5); Lymphocytes Absolute Auto 2000 /uL (1100-4500); Lymphocytes Percent Auto 23.1 % (25-40); Mean Corpuscular HGB Conc 33.8 % (30-36); Mean Corpuscular Hemoglobin 32.5 PG (26-34); Mean Corpuscular Volume 96.2 fL (80-100); Monocytes Absolute Auto 600 /uL (0-900); Monocytes Percent Auto 7.2 % (3-14); Neutrophils Absolute Auto 5900 /uL (1500-7000); Neutrophils Percent Auto 66.9 % (50-75); Platelet Count 260 X10^3/uL (150-400); Red Blood Cell Count 4.63 X10^6/uL (4.5-5.9); Red Cell Distribution Width 13.3 % (11.6-14.8); White Blood Cell Count 8.8 X10^3/uL (4.5-11.0)
== END ==
PROVIDERS: Family Provider Family Medicine; PCP Family Medicine; Visit Provider Nurse Practitioner Psychiatric/Mental Health
DX: F20.9 Schizophrenia, unspecified (principal)
CPT/HCPCS: 36415; 85025

== ENCOUNTER → 2018-08-05 08:21 | Outpatient (CLI) | payer OTHER, MEDICAID, SELFPAY ==
[2018-08-05 09:19] LABS: Add Manual Diff / Slide Review NO; Basophils Absolute Auto 100 /uL (0-100); Basophils Percent Auto 0.7 % (0-2); Eosinophils Absolute Auto 200 /uL (0-450); Eosinophils Percent Auto 1.9 % (2-4); Hemoglobin 15.3 g/dL (13.5-17.5); Lymphocytes Absolute Auto 1700 /uL (1100-4500); Lymphocytes Percent Auto 17.5 % (25-40); Mean Corpuscular HGB Conc 33.9 % (30-36); Mean Corpuscular Hemoglobin 32.6 PG (26-34); Mean Corpuscular Volume 96.2 fL (80-100); Monocytes Absolute Auto 600 /uL (0-900); Monocytes Percent Auto 6.5 % (3-14); Neutrophils Absolute Auto 7200 /uL (1500-7000); Neutrophils Percent Auto 73.4 % (50-75); Platelet Count 298 X10^3/uL (150-400); Red Blood Cell Count 4.68 X10^6/uL (4.5-5.9); Red Cell Distribution Width 13.2 % (11.6-14.8); White Blood Cell Count 9.8 X10^3/uL (4.5-11.0)
== END ==
PROVIDERS: Family Provider Family Medicine; PCP Family Medicine; Visit Provider Nurse Practitioner Psychiatric/Mental Health
DX: F20.9 Schizophrenia, unspecified (principal)
CPT/HCPCS: 36415; 85025

== ENCOUNTER → 2018-08-20 07:09 | Outpatient (CLI) | payer OTHER, MEDICAID, SELFPAY ==
[2018-08-20 09:08] LABS: Add Manual Diff / Slide Review NO; Basophils Absolute Auto 100 /uL (0-100); Basophils Percent Auto 0.8 % (0-2); Eosinophils Absolute Auto 300 /uL (0-450); Eosinophils Percent Auto 2.8 % (2-4); Hematocrit 43.5 % (41-53); Lymphocytes Absolute Auto 1700 /uL (1100-4500); Lymphocytes Percent Auto 15.9 % (25-40); Mean Corpuscular HGB Conc 34.4 % (30-36); Mean Corpuscular Hemoglobin 32.8 PG (26-34); Mean Corpuscular Volume 95.2 fL (80-100); Monocytes Absolute Auto 600 /uL (0-900); Monocytes Percent Auto 5.4 % (3-14); Neutrophils Absolute Auto 7800 /uL (1500-7000); Neutrophils Percent Auto 75.1 % (50-75); Platelet Count 322 X10^3/uL (150-400); Red Blood Cell Count 4.57 X10^6/uL (4.5-5.9); Red Cell Distribution Width 13.3 % (11.6-14.8); White Blood Cell Count 10.4 X10^3/uL (4.5-11.0)
== END ==
PROVIDERS: Family Provider Family Medicine; PCP Family Medicine; Visit Provider Nurse Practitioner Psychiatric/Mental Health
DX: F20.9 Schizophrenia, unspecified (principal)
CPT/HCPCS: 36415; 85025

== ENCOUNTER → 2018-09-03 08:10 | Outpatient (CLI) | payer OTHER, MEDICAID, SELFPAY ==
[2018-09-03 09:18] LABS: Add Manual Diff / Slide Review NO; Basophils Absolute Auto 100 /uL (0-100); Basophils Percent Auto 0.5 % (0-2); Eosinophils Absolute Auto 400 /uL (0-450); Eosinophils Percent Auto 3.1 % (2-4); Hematocrit 43.3 % (41-53); Lymphocytes Absolute Auto 1600 /uL (1100-4500); Lymphocytes Percent Auto 12.9 % (25-40); Mean Corpuscular HGB Conc 34.7 % (30-36); Mean Corpuscular Hemoglobin 32.9 PG (26-34); Monocytes Absolute Auto 700 /uL (0-900); Monocytes Percent Auto 5.7 % (3-14); Neutrophils Absolute Auto 9700 /uL (1500-7000); Neutrophils Percent Auto 77.8 % (50-75); Platelet Count 293 X10^3/uL (150-400); Red Blood Cell Count 4.56 X10^6/uL (4.5-5.9); Red Cell Distribution Width 13.1 % (11.6-14.8); White Blood Cell Count 12.5 X10^3/uL (4.5-11.0)
== END ==
PROVIDERS: Family Provider Family Medicine; PCP Family Medicine; Visit Provider Nurse Practitioner Psychiatric/Mental Health
DX: Z51.81 Encounter for therapeutic drug level monitoring (principal)
CPT/HCPCS: 36415; 85025

== ENCOUNTER → 2018-09-05 07:31 | Outpatient (CLI) | payer OTHER, MEDICAID, SELFPAY ==
--- NOTE | 2018-09-05 07:32 | DI.NM.S_ITS ---
PROCEDURE: NM GASTRIC EMPTYING STUDY RADIOPHARMACEUTICAL: 1 mCi Tc-99m sulfur colloid in an egg sandwich. INDICATIONS: Esophagitis TECHNIQUE: A Tc-99m labeled sulfur colloid labeled egg sandwich or oatmeal was served to the patient. Anterior and posterior planar images of the abdomen were obtained at 0 minutes and 30 minutes, then at hourly intervals up to 4 hours. The patient was upright and ambulating during the interval. COMPARISON: None. FINDINGS: The stomach has normal size, morphology, and position. There is normal emptying of solid gastric contents from the stomach by visual inspection. No gastroesophageal reflux is visualized. The percentage of tracer retained at specific time points are as follows: Time point Percent gastric retention Normal range 30 minutes 70% 70% or more 1 hour 34% 30% to 90% 2 hours 18% 60% or less 3 hours 13% 30% or less 4 hours 2% 10% or less IMPRESSION: Normal gastric emptying time. Dictated by: Clovis Shin M.D. on 09/05/2018 at 13:27 Approved by: Clovis Shin M.D. on 09/05/2018 at 13:31
== END ==
PROVIDERS: Family Provider Family Medicine; PCP Family Medicine; Visit Provider Family Medicine
DX: K20.9 Esophagitis, unspecified (principal)
CPT/HCPCS: 78264; A9541

== ENCOUNTER → 2018-09-16 07:47 | Outpatient (CLI) | payer OTHER, MEDICAID, SELFPAY ==
[2018-09-16 08:34] LABS: Add Manual Diff / Slide Review NO; Basophils Absolute Auto 100 /uL (0-100); Basophils Percent Auto 0.8 % (0-2); Eosinophils Absolute Auto 300 /uL (0-450); Eosinophils Percent Auto 4.2 % (2-4); Hematocrit 43.8 % (41-53); Hemoglobin 14.7 g/dL (13.5-17.5); Lymphocytes Absolute Auto 1900 /uL (1100-4500); Lymphocytes Percent Auto 23.9 % (25-40); Mean Corpuscular HGB Conc 33.6 % (30-36); Mean Corpuscular Hemoglobin 32.2 PG (26-34); Mean Corpuscular Volume 95.8 fL (80-100); Monocytes Absolute Auto 600 /uL (0-900); Monocytes Percent Auto 7.9 % (3-14); Neutrophils Absolute Auto 5000 /uL (1500-7000); Neutrophils Percent Auto 63.2 % (50-75); Platelet Count 277 X10^3/uL (150-400); Red Blood Cell Count 4.57 X10^6/uL (4.5-5.9); Red Cell Distribution Width 12.8 % (11.6-14.8)
== END ==
PROVIDERS: Family Provider Family Medicine; PCP Family Medicine; Visit Provider Nurse Practitioner Psychiatric/Mental Health
DX: Z51.81 Encounter for therapeutic drug level monitoring (principal)
CPT/HCPCS: 36415; 85025

== ENCOUNTER → 2018-09-30 09:47 | Outpatient (CLI) | payer OTHER, MEDICAID, SELFPAY ==
[2018-09-30 10:35] LABS: Add Manual Diff / Slide Review NO; Basophils Absolute Auto 100 /uL (0-100); Basophils Percent Auto 0.8 % (0-2); Eosinophils Absolute Auto 200 /uL (0-450); Eosinophils Percent Auto 1.9 % (2-4); Hematocrit 45.3 % (41-53); Hemoglobin 15.4 g/dL (13.5-17.5); Lymphocytes Absolute Auto 1900 /uL (1100-4500); Lymphocytes Percent Auto 20.4 % (25-40); Mean Corpuscular HGB Conc 33.9 % (30-36); Mean Corpuscular Hemoglobin 32.6 PG (26-34); Mean Corpuscular Volume 96.1 fL (80-100); Monocytes Absolute Auto 600 /uL (0-900); Monocytes Percent Auto 6.1 % (3-14); Neutrophils Absolute Auto 6700 /uL (1500-7000); Neutrophils Percent Auto 70.8 % (50-75); Platelet Count 302 X10^3/uL (150-400); Red Blood Cell Count 4.72 X10^6/uL (4.5-5.9); Red Cell Distribution Width 13.3 % (11.6-14.8); White Blood Cell Count 9.4 X10^3/uL (4.5-11.0)
== END ==
PROVIDERS: Family Provider Family Medicine; PCP Family Medicine; Visit Provider Nurse Practitioner Psychiatric/Mental Health
DX: Z51.81 Encounter for therapeutic drug level monitoring (principal)
CPT/HCPCS: 36415; 85025

== ENCOUNTER → 2018-10-25 10:25 | Outpatient (CLI) | payer OTHER, MEDICAID, SELFPAY | PROVIDERS: Family Provider Family Medicine; PCP Family Medicine; Visit Provider Family Medicine ==

== ENCOUNTER → 2018-11-04 07:38 | Outpatient (CLI) | payer OTHER, MEDICAID, SELFPAY ==
[2018-11-04 09:51] LABS: Add Manual Diff / Slide Review NO; Basophils Absolute Auto 100 /uL (0-100); Basophils Percent Auto 0.9 % (0-2); Eosinophils Absolute Auto 100 /uL (0-450); Eosinophils Percent Auto 1.3 % (2-4); Hematocrit 42.9 % (41-53); Lymphocytes Absolute Auto 1600 /uL (1100-4500); Lymphocytes Percent Auto 16.9 % (25-40); Mean Corpuscular HGB Conc 34.9 % (30-36); Mean Corpuscular Volume 94.6 fL (80-100); Monocytes Absolute Auto 600 /uL (0-900); Monocytes Percent Auto 5.8 % (3-14); Neutrophils Absolute Auto 7200 /uL (1500-7000); Neutrophils Percent Auto 75.1 % (50-75); Platelet Count 290 X10^3/uL (150-400); Red Blood Cell Count 4.54 X10^6/uL (4.5-5.9); Red Cell Distribution Width 13.2 % (11.6-14.8); White Blood Cell Count 9.6 X10^3/uL (4.5-11.0)
== END ==
PROVIDERS: Family Provider Family Medicine; PCP Family Medicine; Visit Provider Nurse Practitioner Psychiatric/Mental Health
DX: Z51.81 Encounter for therapeutic drug level monitoring (principal)
CPT/HCPCS: 36415; 85025

== ENCOUNTER → 2018-11-05 09:39 | Outpatient (CLI) | payer OTHER, MEDICAID, SELFPAY | PROVIDERS: Family Provider Family Medicine; PCP Family Medicine; Visit Provider Family Medicine | DX: Z12.11 Encounter for screening for malignant neoplasm of colon (principal) | CPT/HCPCS: 82270 ==

== ENCOUNTER → 2018-11-06 08:11 | Outpatient (CLI) | payer OTHER, MEDICAID, SELFPAY | PROVIDERS: Family Provider Family Medicine; PCP Family Medicine; Visit Provider Family Medicine | DX: B82.0 Intestinal helminthiasis, unspecified (principal) | CPT/HCPCS: 87177 ==

== ENCOUNTER → 2018-11-27 14:47 | Outpatient (CLI) | payer OTHER, MEDICAID, SELFPAY ==
--- NOTE | 2018-11-27 14:49 | DI.RAD.S_ITS ---
PROCEDURE: XR ABDOMEN 1V INDICATIONS: abdominal pain/distension TECHNIQUE: One view of the abdomen acquired. COMPARISON: None. FINDINGS: Surgical changes and devices: None. Bowel: Air distended bowel loops are noted throughout upper to mid abdomen with paucity of bowel gas in distal colon. Finding is concerning for ileus versus distal small bowel obstruction. Soft tissues: No suspicious abdominal calcifications. Visualized solid organ contours appear normal in size. Bones: No suspicious bony lesions. IMPRESSION: Air distended bowel loops throughout abdomen concerning for ileus versus distal small bowel obstruction. No gross free air. Dictated by: Thomas Hoyos M.D. on 11/27/2018 at 15:56 Approved by: Thomas Hoyos M.D. on 11/27/2018 at 15:57
== END ==
PROVIDERS: PCP Family Medicine; Visit Provider Hospitalist
DX: K56.609 Unspecified intestinal obstruction, unspecified as to partial versus complete obstruction (principal); R10.9 Unspecified abdominal pain; R14.0 Abdominal distension (gaseous)
CPT/HCPCS: 74018

== ENCOUNTER → 2018-11-28 10:52 | Outpatient (CLI) | payer OTHER, MEDICAID, SELFPAY ==
[2018-11-28 11:25] LABS: Add Manual Diff / Slide Review NO; Basophils Absolute Auto 100 /uL (0-100); Basophils Percent Auto 0.6 % (0-2); Eosinophils Absolute Auto 100 /uL (0-450); Eosinophils Percent Auto 1.3 % (2-4); Hematocrit 47.8 % (41-53); Hemoglobin 16.1 g/dL (13.5-17.5); Lymphocytes Absolute Auto 1700 /uL (1100-4500); Lymphocytes Percent Auto 14.6 % (25-40); Mean Corpuscular HGB Conc 33.6 % (30-36); Mean Corpuscular Hemoglobin 32.5 PG (26-34); Mean Corpuscular Volume 96.5 fL (80-100); Monocytes Absolute Auto 600 /uL (0-900); Monocytes Percent Auto 4.7 % (3-14); Neutrophils Absolute Auto 9400 /uL (1500-7000); Neutrophils Percent Auto 78.8 % (50-75); Platelet Count 330 X10^3/uL (150-400); Red Blood Cell Count 4.95 X10^6/uL (4.5-5.9); Red Cell Distribution Width 13.4 % (11.6-14.8); White Blood Cell Count 11.9 X10^3/uL (4.5-11.0)
[2018-11-28 12:08] LABS: Alanine Aminotransferase 10 IU/L (21-72); Albumin 4.2 g/dL (3.5-5.0); Albumin Globulin Ratio 1.6 (1.0-2.8); Alkaline Phosphatase 99 U/L (38-126); Aspartate Aminotransferase 20 IU/L (17-59); BUN Creatinine Ratio 17.8 (6-22); Bilirubin Total 0.7 mg/dL (0.2-1.3); Blood Urea Nitrogen 16 mg/dL (9-20); Calcium 9.8 mg/dL (8.4-10.2); Carbon Dioxide 26 mmol/L (22-32); Chloride 103 mmol/L (98-107); Estimated Glomerular Filt Rate > 60.0 mL/min (>60); Globulin 2.6 g/dL (1.7-4.1); Glucose 77 mg/dL (70-100); HEMOLYSIS < 15 (0-50); Sodium 138 mmol/L (137-145); Total Protein 6.8 g/dL (6.3-8.2)
== END ==
PROVIDERS: PCP Family Medicine; Visit Provider Hospitalist
DX: R10.9 Unspecified abdominal pain (principal)
CPT/HCPCS: 36415; 80053; 85025

== ENCOUNTER 2018-11-29 14:09 | Inpatient (IN) | payer OTHER, MEDICAID, SELFPAY ==
[2018-11-29] VITALS (10 sets, daily range): BP systolic 122–154; BP diastolic 79–99; PULSE 73–102; RESP 10–18; TEMP 35.9–36.9; O2SAT 92–99; BMI 20.9
--- NOTE | 2018-11-29 15:40 | DI.CT.S_ITS ---
PROCEDURE: CT ABDOMEN PELVIS W CON INDICATIONS: concern bowel obstruction TECHNIQUE: After the administration of oral and intravenous contrast, 5 mm thick sections acquired from the diaphragms to the symphysis. 5 mm thick coronal and sagittal reformats were performed. For radiation dose reduction, the following was used: automated exposure control, adjustment of mA and/or kV according to patient size. COMPARISON: [facility], CT, CT ABDOMEN PELVIS WO/W CON, 10/30/2017, 1:05. [facility], CT, ABDOMEN/PELVIS WITH CONTRAST, 05/02/2016, 16:48. FINDINGS: Image quality: Diagnostic. ABDOMEN: Lung bases: Minimal scar versus atelectasis within the lung bases is present. Heart size is normal. Solid organs: The density of the liver appears to be decreased when compared to the spleen. Mild intrahepatic biliary dilatation appears to be present. This is similar to previous exams. The common bile duct is borderline prominent in size, but unchanged since the prior study. The gallbladder does not appear to be distended, but is unchanged. The spleen, adrenals, and pancreas appear to be within normal limits. The kidneys are unremarkable. There is no hydronephrosis. There may be small renal cysts but are not adequately characterized. Peritoneum and bowel: The stomach is prominently distended. There are unusual be positioned pockets of air along the rugal folds of the fundal portion of the stomach (image 18, series 2). The small bowel is diffusely dilated. However, on there is a collection of small bowel loops within the right lower quadrant, which are decompressed (image 51, series 2) that is located near the expected location of the ileocecal valve. The bowel loops appear to be somewhat twisted within this region, but are not well characterized. A large amount of stool is identified throughout the colon. There is a large amount of free air seen within the upper abdomen. Mild abdominal ascites is present. There is mild to moderate pelvic ascites. No loculated fluid collections are evident. Nodes and vessels: No retroperitoneal or mesenteric adenopathy. Aorta and inferior vena cava are normal in caliber. Bones: No acute fracture or suspicious osseous lesion is evident. The previously noted burst fracture involving the T12 vertebral body is unchanged and continues to demonstrate dominant retropulsion. No new fractures are evident. The degree of degenerative changes of the spine are unchanged. PELVIS: Genitourinary: There may be mild wall thickening of the urinary bladder. Coarse calcifications of the prostate are present. Miscellaneous: No inguinal hernias or adenopathy. Mild to moderate pelvic ascites is present. There is no abscess or drainable fluid collection evident. Bones: No suspicious bony lesions. No vertebral body compression fractures. IMPRESSION: 1. High-grade small bowel obstruction with a transition point within the right lower quadrant, with findings suspicious for possible focal volvulus. However, adhesions may also result in this appearance. 2. Moderate pneumoperitoneum and mild to moderate ascites is compatible with perforated bowel. The exact site of perforation is unclear. However, this degree of pneumoperitoneum/ascites is most often seen in the setting of gastric perforation. Please correlate clinically. 3. Probable constipation. 4. Mild intrahepatic and extrahepatic biliary dilatation is similar to prior studies and of doubtful significance. There may be hepatic steatosis. Note: Findings were discussed with Dr. Sarkar at 1727 hours (PST) on 11/29/18. Dictated by: Abhijeet John M.D. on 11/29/2018 at 16:44 Approved by: Abhijeet John M.D. on 11/29/2018 at 16:55
[2018-11-29] MEDS: SODIUM CHLORIDE 0.9% 1,000 ML 1000 ML IV (16:10)
[2018-11-29 16:16] LABS: Add Manual Diff / Slide Review NO; Basophils Absolute Auto 100 /uL (0-100); Basophils Percent Auto 0.7 % (0-2); Eosinophils Absolute Auto 100 /uL (0-450); Eosinophils Percent Auto 1.2 % (2-4); Hematocrit 45.3 % (41-53); Hemoglobin 15.5 g/dL (13.5-17.5); Lymphocytes Absolute Auto 1700 /uL (1100-4500); Lymphocytes Percent Auto 13.1 % (25-40); Mean Corpuscular HGB Conc 34.3 % (30-36); Mean Corpuscular Hemoglobin 32.8 PG (26-34); Mean Corpuscular Volume 95.6 fL (80-100); Monocytes Absolute Auto 700 /uL (0-900); Monocytes Percent Auto 5.3 % (3-14); Neutrophils Absolute Auto 10100 /uL (1500-7000); Neutrophils Percent Auto 79.7 % (50-75); Platelet Count 298 X10^3/uL (150-400); Red Blood Cell Count 4.74 X10^6/uL (4.5-5.9); Red Cell Distribution Width 13.1 % (11.6-14.8); White Blood Cell Count 12.6 X10^3/uL (4.5-11.0)
[2018-11-29 16:30] LABS: Alanine Aminotransferase 13 IU/L (21-72); Albumin 4.1 g/dL (3.5-5.0); Albumin Globulin Ratio 1.5 (1.0-2.8); Alkaline Phosphatase 87 U/L (38-126); Aspartate Aminotransferase 20 IU/L (17-59); BUN Creatinine Ratio 17.5 (6-22); Bilirubin Total 0.4 mg/dL (0.2-1.3); Blood Urea Nitrogen 14 mg/dL (9-20); Calcium 9.3 mg/dL (8.4-10.2); Carbon Dioxide 22 mmol/L (22-32); Chloride 107 mmol/L (98-107); Estimated Glomerular Filt Rate > 60.0 mL/min (>60); Globulin 2.7 g/dL (1.7-4.1); Glucose 124 mg/dL (70-100); HEMOLYSIS < 15 (0-50); Lipase 39 U/L (23-300); Potassium 4.2 mmol/L (3.4-5.1); Sodium 140 mmol/L (137-145); Total Protein 6.8 g/dL (6.3-8.2)
[2018-11-29 17:27] LABS: Bacteria Urine None Seen
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
[2018-11-29 17:38] LABS: Culture Indicated Urine Cult Not Indicated; RBC Urine 0-1/HPF (0-5/HPF); WBC Urine 0-1/HPF (0-5/HPF)
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
[2018-11-29] MEDS: HYDROMORPHONE 1 MG INJ IV (17:54)
[2018-11-29] MEDS: PIPERACILLIN-TAZO 4.5 GM/100 ML FROZ.PIGGY IV (18:01)
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
[2018-11-29] MEDS: LACTATED RINGERS 1,000 ML 100 ML IV ×2 (18:49→21:50)
--- NOTE | 2018-11-29 18:50 | PC.NURSE ---
refused ngt , dr. singh and Dr. Carvajal aware. pt spoke with Dr. Carvajal.
--- NOTE | 2018-11-29 18:52 | PC.NURSE ---
pt refused NGT. Dr. Carvajal and Dr. Sarkar aware.
--- NOTE | 2018-11-29 19:33 | PC.NURSE ---
Pt AA&Ox 3. Spouse at bedside. Admitted for SBO and bowel perf. C/O pain 06/23. Urine sample collected. Pt refused NG tube insertion. MD aware. VS stable at this time. Ambulating without difficulty. Will continue to monitor.
--- NOTE | 2018-11-29 19:38 | PC.NURSE ---
Report received from Jazmin ROBLES. Pt AA&Ox3. Awaiting for surgical procedure at around 2100. NPO since 0900. Will continue to monitor.
[2018-11-29] MEDS: HYDROMORPHONE 1 MG INJ 0.5 MG IV (19:49)
--- NOTE | 2018-11-29 20:39 | SUR.OPER ---
Supine on padded OR bed, head on pillow, arms secured on padded arm boards at <90 degrees abduction, legs uncrossed, safety belt at thigh, tape over blanket over lower legs.
[2018-11-29] MEDS: BACITRACIN 50,000 UNIT VIAL 50000 UNIT IRR ×2 (20:49→21:01)
[2018-11-29] MEDS: NEOMYCIN/POLYMYXIN/BACITRA UD OINT 1 EACH TOP (21:10)
[2018-11-29] MEDS: HYDROMORPHONE 2 MG INJ 0.5 MG IV ×8 (21:25→21:55)
--- NOTE | 2018-11-29 21:30 | PM.OP.1 ---
Operative Date/Time/Diagnoses Date of procedure: 11/29/18 Time of procedure: 21:30 Pre-op diagnosis: Perforated viscus with bowel obstruction Post-op diagnosis: other (No sign of bowel obstruction in either small or large bowel no finding of perforation either. Patient has pneumatosis intestinalis and ascites) Procedure & Clinicians Procedure: Exploratory laparotomy culture of ascitic fluid Same procedure as scheduled: Yes Surgeon: Todd Cardenas Yes if Unassisted: Yes Anesthesia Type: General Operative Notes Findings: There are no findings of small or large bowel obstruction. no findings of inflammatory exudate fibrin or any infectious coding on any visceral surfaces. No finding of bowel perforation. Patient has ascites. Closure Type: primary Specimen(s): other (Peritoneal cultures) Estimated Blood Loss (mL): 50 Blood products transfused: none Procedure in detail: The patient was properly identified during surgical pause. He was prepped and draped in sterile fashion exposure of the mid abdomen. he was given general endotracheal anesthesia. midline abdominal incision was made the abdomen explored. There was no foul odor to the peritoneal fluid. He does have copious ascites which again was non purulence it was straw-colored and it was cultured. I eviscerated the small bowel examined it 3 times from the ligament of Treitz to the ileocecal valve. The only abnormality that I encountered was pneumatosis intestinalis a on the side wall of the jejunum. Whether this contributed to the development of free intraperitoneal air I am not certain. I could not find any perforated loop of bowel. I examined the stomach and duodenal sweep. It appears normal. I opened the lesser sac looking at the posterior gastric wall and it was normal. there is no sign of inflammation in the lesser space. no sign of perforated duodenal ulcer. I inspected the entire colon several times. The colon is dilated as was the small bowel. there is no fibrin or any purulence noted on any surface of the colon and there is no sign of perforation. I irrigated the peritoneal cavity with several L of bacitracin saline aspirated dry there was no bleeding and again no sign of perforation anywhere. Nor was there any sign of bowel obstruction. there were really no adhesions in the peritoneal cavity. so the viscera were returned to their anatomic position and the fascia closed with running 1. Monocryl. skin was stapled sterile dressings applied he tolerated the procedure very well. Complications: none Condition: stable Disposition: PACU
--- NOTE | 2018-11-29 22:34 | PC.ADMIT ---
Pt to ICU from OR. Transferred via bed. Very drowsy, awakens to voice/light touch to arm. Intermittently falls asleep during admission. Reports sister, Nahed is emergency contact. Would like watch/wallet placed in safe. IV infusing to left forearm w/o complications. Bed alarm on. [email or web address] Admission Note: The patient,Chris Parker,53 y/o, was given written information regarding hospital policies, unit procedures and contact persons. Patient's smoking status: Current every day smoker. Vital Signs - 8 hr 11/29/18 18:13 11/29/18 19:00 11/29/18 20:19 Temperature 98.5 F Pulse Rate 87 79 74 Respiratory Rate 18 17 16 Blood Pressure 128/79 Blood Pressure [Left Arm] 123/92 H 127/88 Pulse Oximetry 98 99 98 11/29/18 21:25 11/29/18 21:30 11/29/18 21:35 Temperature 97.2 F L 97.2 F L 97.5 F L Pulse Rate 87 85 85 Respiratory Rate 16 16 18 Blood Pressure 144/99 H 150/98 H 152/98 H Blood Pressure [Left Arm] Pulse Oximetry 92 96 96 11/29/18 21:45 11/29/18 21:59 11/29/18 22:10 Temperature 97.5 F L 97.2 F L 96.6 F L Pulse Rate 73 83 89 Respiratory Rate 12 10 L 10 L Blood Pressure 152/97 H 134/97 H 154/94 H Blood Pressure [Left Arm] Pulse Oximetry 95 93 95
[2018-11-30] VITALS (11 sets, daily range): BP systolic 132–146; BP diastolic 74–98; PULSE 68–98; RESP 10–21; TEMP 36.1–37.2; O2SAT 93–96
[2018-11-30] MEDS: HYDROMORPHONE 1 MG INJ 0.5 MG IV ×6 (00:03→10:04)
[2018-11-30] MEDS: LACTATED RINGERS 1,000 ML 100 ML IV (05:49)
--- NOTE | 2018-11-30 06:39 | PC.NURSE ---
Patient drowsy, follows directions and answers questions appropriately. NGT patent to LIS, total 350ml thick bile output for shift. Large midline abdominal drsg CDI, bowel sounds hypo and faint. SR 80s-90s, on 2-3L NC SpO2 >92% Afebrile. Medicated with IV Dilaudid per prn order in [place].
[2018-11-30 07:44] LABS: Add Manual Diff / Slide Review NO; Basophils Absolute Auto 100 /uL (0-100); Basophils Percent Auto 0.3 % (0-2); Eosinophils Absolute Auto 0 /uL (0-450); Eosinophils Percent Auto 0.1 % (2-4); Hematocrit 47.2 % (41-53); Hemoglobin 15.6 g/dL (13.5-17.5); Lymphocytes Absolute Auto 600 /uL (1100-4500); Mean Corpuscular HGB Conc 33.1 % (30-36); Mean Corpuscular Hemoglobin 32.2 PG (26-34); Mean Corpuscular Volume 97.3 fL (80-100); Monocytes Absolute Auto 400 /uL (0-900); Monocytes Percent Auto 2.1 % (3-14); Neutrophils Absolute Auto 19800 /uL (1500-7000); Neutrophils Percent Auto 94.5 % (50-75); Platelet Count 302 X10^3/uL (150-400); Red Blood Cell Count 4.85 X10^6/uL (4.5-5.9); Red Cell Distribution Width 13.3 % (11.6-14.8)
[2018-11-30 08:07] LABS: BUN Creatinine Ratio 21.7 (6-22); Blood Urea Nitrogen 13 mg/dL (9-20); Calcium 8.9 mg/dL (8.4-10.2); Carbon Dioxide 26 mmol/L (22-32); Chloride 104 mmol/L (98-107); Estimated Glomerular Filt Rate > 60.0 mL/min (>60); Glucose 144 mg/dL (70-100); HEMOLYSIS < 15 (0-50); Potassium 4.6 mmol/L (3.4-5.1); Sodium 135 mmol/L (137-145)
[2018-11-30] MEDS: TIOTROPIUM BROMIDE 18 MCG INHALER INH (08:52)
[2018-11-30] MEDS: MINERAL OIL 473 ML OIL 60 ML PO (08:55)
[2018-11-30] MEDS: CLOZAPINE 200 MG 200 EACH PO ×2 (08:57→21:13)
[2018-11-30] MEDS: PANTOPRAZOLE 40 MG TABLET PO (08:57)
[2018-11-30] MEDS: levETIRAcetam 250 MG TABLET 500 MG PO ×2 (08:58→21:13)
[2018-11-30] MEDS: ACETAMINOPHEN 325 MG TABLET 975 MG PO (08:58)
[2018-11-30] MEDS: MULTIVITAMIN 1 TABLET 1 TAB PO (08:58)
--- NOTE | 2018-11-30 08:58 | CM.DANOTE ---
DCP: Case received, EMR reviewed and met with patient. Introduced self and role. Patient was able to provide some baseline information regarding health and living situation. Patient is a 53 year old male who admitted yesterday afternoon to the care of the hospitalist team. PCP: Dr. Shelley. Payer: confirmed; [facility]. Patient came to the hospital via family vehicle secondary to symptoms of abdominal pain. Patient holds diagnosis of small bowel obstruction, and perforation. Patient was noted to have an elevated white blood count. He has a history of tobacco use, as well as bipolar and schitzoaffective disorder. Nurse, Judith, had stated that patient removed his NG tube because he didn't want it. Met briefly with patient in his room. Was resting in bed. Clarified with him that he does live alone, and does not drive because he has no license. He has friends that take him appointments, and is noted that he has some family on [place]. P: DCP to continue to follow closely, and will be available for any resources that patient may need upon discharge. Ange Christian RN/Straightedge Worker
--- NOTE | 2018-11-30 09:57 | P.PN_ITS ---
Subjective Date Patient Seen: 11/30/18 Time Patient Seen: 09:55 Interval history: PATIENT'S 12 HOURS POST EXPLORATORY LAPAROTOMY WITH ESSENTIALLY NEGATIVE FINDINGS. PATIENT HAD NO EVIDENCE OF A BOWEL PERFORATION AND NO OBSTRUCTION. SUBJECTIVELY INCISIONAL PAIN BUT ACTUALLY FEELS BETTER THAN PREOP. Exam Vital Signs (past 8 hours): - 11/30/18 02:11 11/30/18 03:00 11/30/18 04:30 Temperature 98.6 F Pulse Rate 84 82 83 Respiratory Rate 12 12 12 Blood Pressure 136/78 145/85 H 138/83 Pulse Oximetry 94 96 95 11/30/18 05:03 11/30/18 06:11 11/30/18 08:08 Temperature 97 F L Pulse Rate 80 78 82 Respiratory Rate 10 L 12 16 Blood Pressure 135/74 146/91 H 135/92 H Pulse Oximetry 94 95 95 11/30/18 08:55 Temperature Pulse Rate 81 Respiratory Rate 18 Blood Pressure Pulse Oximetry 96 Oxygen Delivery Method Nasal Cannula Oxygen Flow Rate 2 Narrative Exam Narrative: PATIENT IS ALERT AND ORIENTED. HE IS AFEBRILE. LUNGS ARE CLEAR. HEART REGULAR RHYTHM. ABDOMEN IS LESS DISTENDED THAN PREOP AND FAIRLY SOFT WITH NO SIGNS OF PERITONITIS. OF COURSE HE HAS INCISIONAL DISCOMFORT. Objective Labs Result Diagrams: 11/30/18 07:00 11/30/18 07:00 Labs: Laboratory Results - last 24 hr 11/29/18 11/29/18 11/29/18 16:06 16:06 17:25 WBC 12.6 H RBC 4.74 Hgb 15.5 Hct 45.3 MCV 95.6 MCH 32.8 MCHC 34.3 RDW 13.1 Plt Count 298 Neut % (Auto) 79.7 H Lymph % (Auto) 13.1 L [place] % (Auto) 5.3 Eos % (Auto) 1.2 L Baso % (Auto) 0.7 Neut # (Auto) 42353 H Lymph # (Auto) 1700 [place] # (Auto) 700 Eos # (Auto) 100 Baso # (Auto) 100 Sodium 140 Potassium 4.2 Chloride 107 Carbon Dioxide 22 BUN 14 Creatinine 0.80 Estimated GFR > 60.0 BUN/Creatinine Ratio 17.5 Glucose 124 H Calcium 9.3 Total Bilirubin 0.4 AST 20 ALT 13 L Alkaline Phosphatase 87 Total Protein 6.8 Albumin 4.1 Globulin 2.7 Albumin/Globulin Ratio 1.5 Lipase 39 Urine RBC 0-1/hpf Urine WBC 0-1/hpf Urine Bacteria None seen Ur Culture Indicated? Cult not indicated Nasal Screen MRSA (PCR) 11/29/18 11/30/18 11/30/18 22:10 07:00 07:00 WBC 21.0 H D RBC 4.85 Hgb 15.6 Hct 47.2 MCV 97.3 MCH 32.2 MCHC 33.1 RDW 13.3 Plt Count 302 Neut % (Auto) 94.5 H Lymph % (Auto) 3.0 L [place] % (Auto) 2.1 L Eos % (Auto) 0.1 L Baso % (Auto) 0.3 Neut # (Auto) 22482 H Lymph # (Auto) 600 L [place] # (Auto) 400 Eos # (Auto) 0 Baso # (Auto) 100 Sodium 135 L Potassium 4.6 Chloride 104 Carbon Dioxide 26 BUN 13 Creatinine 0.60 L Estimated GFR > 60.0 BUN/Creatinine Ratio 21.7 Glucose 144 H Calcium 8.9 Total Bilirubin AST ALT Alkaline Phosphatase Total Protein Albumin Globulin Albumin/Globulin Ratio Lipase Urine RBC Urine WBC Urine Bacteria Ur Culture Indicated? Nasal Screen MRSA (PCR) Negative for mrsa Assessment & Plan Assessment & Plan narrative: OPERATIVE FINDINGS ARE CONSISTENT WITH SEVERE CONSTIPATION WITH IMPACTED STOOL THROUGHOUT THE COLON. THERE WAS NO SIGN OF A BOWEL OBSTRUCTION. THE ENTIRE ABDOMINAL CAVITY WAS CAREFULLY INSPECTED REPEATEDLY WITH NO SIGN OF A PERFORATION OF ANY VISCUS. THERE WAS NO SIGN OF PERITONITIS. PATIENT DID HAVE ASCITES. PERITONEAL CULTURES WERE DONE. INTERESTINGLY THE PATIENT DID HAVE PNEUMATOSIS INTESTINALIS. HIS WHITE COUNT TODAY IS ELEVATED TO 21,000. HE IS AFEBRILE AND CLINICALLY DOES NOT APPEAR SEPTIC. I WILL CONTINUE HIS IV ZOSYN START HIM ON CLEAR LIQUID DIET. WE WILL GIVE DIFFERENT MODALITIES TO TRY TO CLEAR THE STOOL FROM HIS COLON. TRY TO GET THE PATIENT UP OUT OF BED AMBULATING WELL.
[2018-11-30] MEDS: PIPERACILLIN-TAZO 3.375 GM/50 ML FROZ.PIGGY IV ×2 (11:02→18:15)
[2018-11-30] MEDS: BISACODYL 10 MG SUPP PR (11:02)
[2018-11-30] MEDS: ESCITALOPRAM 10 MG TABLET 20 MG PO (11:02)
[2018-11-30] MEDS: DEXTROSE 5%-0.45% NS 1,000 ML 84 ML IV (11:02)
[2018-11-30] MEDS: POLYETHYLENE GLYCOL 3350 17 GM POWD.PACK PO ×2 (11:03→21:13)
[2018-11-30] MEDS: QUETIAPINE 200 MG TABLET 400 MG PO ×2 (11:03→21:13)
[2018-11-30] MEDS: HYDROMORPHONE 0.5 MG INJ IV ×4 (11:58→21:20)
--- NOTE | 2018-11-30 13:55 | PC.NURSE ---
Day Shift Note Pt anxious and hesitant to mobilize this AM stating abdominal pain 10/10 after Dilaudid IV administration. Ice pack provided and offered repositioning. When reassessed, pt resting with eyes closed and FLACC of 0. Pt discontinued own NG tube this morning at 0800 - Dr. Wood notified and pt advanced to clears. Tolerating clear liquids without issue, denies nausea. Up this afternoon 2 person assist, encouraged to logroll and did well. SBA back to bed. Oxygen sats 93% on RA, instructed on use of IS and to cough and deep breathe - doing both independently in room. Henry catheter discontinued at 1245 and suppository administered at 1345. Dressing to abdomen is C/D/I, abd tender/mildly distended, BTs hypoactive. Denies flatus. Call light within reach, using appropriately to make needs known. Bed alarm on.
--- NOTE | 2018-11-30 19:20 | PC.NURSE ---
steffany note pt sleeping until 18:15. Bed alarm going off, pt found standing at bedside using urinal with steady stance. Pt voided 500 ml. Pt then sat at edge of bed to eat clear liquids. Discussed having a short walk in the ICU with staff after dinner. Pt was hesitant about walking, saying today was the first time out of bed. A short while later, saw pt get OOB and go to bathroom alone, gait steady.
[2018-11-30] MEDS: ATORVASTATIN 20 MG TABLET PO (21:13)
[2018-12-01] MEDS: DEXTROSE 5%-0.45% NS 1,000 ML 84 ML IV (00:03)
[2018-12-01] MEDS: HYDROMORPHONE 0.5 MG INJ IV ×4 (00:15→12:47)
[2018-12-01] MEDS: PIPERACILLIN-TAZO 3.375 GM/50 ML FROZ.PIGGY IV ×3 (01:53→17:58)
[2018-12-01 03:23] VITALS: BP 135/83; PULSE 88; RESP 20; TEMP 36.8; O2SAT 92
[2018-12-01] MEDS: PANTOPRAZOLE 40 MG TABLET PO (06:46)
[2018-12-01] MEDS: BISACODYL 10 MG SUPP PR (07:30)
[2018-12-01] MEDS: ESCITALOPRAM 10 MG TABLET 20 MG PO (07:30)
[2018-12-01] MEDS: CLOZAPINE 200 MG 200 EACH PO ×2 (07:30→22:10)
[2018-12-01] MEDS: levETIRAcetam 250 MG TABLET 500 MG PO ×2 (07:31→22:12)
[2018-12-01] MEDS: LACTULOSE 20 GM/30 ML SOLUTION PO (07:31)
[2018-12-01] MEDS: POLYETHYLENE GLYCOL 3350 17 GM POWD.PACK PO ×2 (07:31→22:12)
[2018-12-01] MEDS: MULTIVITAMIN 1 TABLET 1 TAB PO (07:31)
[2018-12-01] MEDS: QUETIAPINE 200 MG TABLET 400 MG PO ×2 (07:31→22:11)
[2018-12-01 07:39] LABS: Add Manual Diff / Slide Review NO; Basophils Absolute Auto 0 /uL (0-100); Basophils Percent Auto 0.3 % (0-2); Eosinophils Absolute Auto 200 /uL (0-450); Eosinophils Percent Auto 1.1 % (2-4); Hematocrit 40.9 % (41-53); Hemoglobin 13.6 g/dL (13.5-17.5); Lymphocytes Absolute Auto 1600 /uL (1100-4500); Lymphocytes Percent Auto 10.8 % (25-40); Mean Corpuscular HGB Conc 33.2 % (30-36); Mean Corpuscular Hemoglobin 32.1 PG (26-34); Mean Corpuscular Volume 96.7 fL (80-100); Monocytes Absolute Auto 700 /uL (0-900); Neutrophils Absolute Auto 12300 /uL (1500-7000); Neutrophils Percent Auto 82.8 % (50-75); Platelet Count 279 X10^3/uL (150-400); Red Blood Cell Count 4.23 X10^6/uL (4.5-5.9); Red Cell Distribution Width 13.4 % (11.6-14.8); White Blood Cell Count 14.9 X10^3/uL (4.5-11.0)
[2018-12-01 07:58] VITALS: BP 140/90; PULSE 88; RESP 18; TEMP 36.7; O2SAT 96
[2018-12-01] MEDS: TIOTROPIUM BROMIDE 18 MCG INHALER INH (09:05)
[2018-12-01 09:08] VITALS: PULSE 70; RESP 14; O2SAT 95
--- NOTE | 2018-12-01 09:19 | PM.PN.1 ---
Subjective Date Patient Seen: 12/01/18 Time Patient Seen: 09:19 Interval history: PATIENT IS 2 DAYS POSTOP EXPLORATORY LAPAROTOMY FOR MINIMAL FINDINGS. HE DID NOT HAVE A MECHANICAL SMALL BOWEL OBSTRUCTION AND THERE WAS NO SIGN OF ANY BOWEL PERFORATION WITH A VERY THOROUGH EXPLORATION OF HIS ABDOMEN. SUBJECTIVELY HE IS FEELING BETTER HAD A SMALL BOWEL MOVEMENT LAST NIGHT PASSED SOME FLATUS. HE HAS NO NAUSEA VOMITING TOLERATING CLEAR LIQUID DIET WELL. Exam Vital Signs (past 8 hours): - 12/01/18 03:23 12/01/18 07:58 12/01/18 09:08 Temperature 98.3 F 98.1 F Pulse Rate 88 88 70 Respiratory Rate 20 18 14 Blood Pressure 135/83 140/90 Pulse Oximetry 92 96 95 Oxygen Delivery Method Room Air Oxygen Flow Rate 0 Narrative Exam Narrative: PATIENT REMAINS AFEBRILE ABDOMEN IS LESS DISTENDED THAN PREOP INCISION IS HEALING WELL WITH NO SIGN OF INFECTION PATIENT HAS NORMAL INCISIONAL TENDERNESS OTHERWISE HIS ABDOMEN SHOWS NO SIGN OF PERITONITIS Objective Labs Result Diagrams: 12/01/18 07:15 11/30/18 07:00 Labs: Laboratory Results - last 24 hr 12/01/18 07:15 WBC 14.9 H RBC 4.23 L Hgb 13.6 Hct 40.9 L MCV 96.7 MCH 32.1 MCHC 33.2 RDW 13.4 Plt Count 279 Neut % (Auto) 82.8 H Lymph % (Auto) 10.8 L [place] % (Auto) 5.0 Eos % (Auto) 1.1 L Baso % (Auto) 0.3 Neut # (Auto) 38484 H Lymph # (Auto) 1600 [place] # (Auto) 700 Eos # (Auto) 200 Baso # (Auto) 0 Assessment & Plan Assessment & Plan narrative: PATIENT IS RECOVERING FROM EXPLORATORY LAPAROTOMY. TOLERATING A CLEAR LIQUID DIET. HAD A SMALL BOWEL MOVEMENT LAST EVENING. WHITE COUNT IS DOWN NOW 14,900. IT WAS 21,000. I WILL ADVANCE HIS DIET TO FULL LIQUIDS CONTINUE ALL OF HIS PSYCH MEDICATIONS TRIED TO REDUCE HIS NARCOTIC INTAKE BY SUPPLEMENTING WITH NEURONTIN AND TORADOL.
[2018-12-01] MEDS: GABAPENTIN 300 MG CAPSULE PO ×3 (09:37→22:11)
[2018-12-01] MEDS: KETOROLAC 30 MG/ML VIAL IV ×3 (09:37→22:12)
[2018-12-01 12:49] VITALS: BP 135/85; PULSE 92; RESP 18; TEMP 37.1; O2SAT 93
--- NOTE | 2018-12-01 14:43 | PC.NURSE ---
Day Shift Note Up walking in halls x3 one person assist, gait belt use for safety r/t slight unsteadiness. Pt appears progressively weaker throughout shift, required FWW for most recent walk. Pt states he did not sleep well last night and reports fatigue. Currently sitting up in chair resting. Encouraged to use IS and cough and deep breathe; highest breath on IS was 750 this afternoon. Instructed on use of pillow to splint abdomen when coughing - cough is weak and coarse, denies sputum. Call light within reach, uses intermittently to make needs known. Impulsive - bed alarm is on. Tolerating full liquids without nausea.
[2018-12-01 16:00] VITALS: BP 131/88; PULSE 82; RESP 20; TEMP 36.3; O2SAT 96
[2018-12-01] MEDS: PROCHLORPERAZINE 10 MG/2 ML VIAL IV (18:24)
[2018-12-01] MEDS: DEXTROSE 5%-0.45% NS 1,000 ML 75 ML IV (18:26)
[2018-12-01 20:00] VITALS: BP 139/91; PULSE 80; RESP 20; TEMP 36.8; O2SAT 95
[2018-12-01] MEDS: ATORVASTATIN 20 MG TABLET PO (22:11)
--- NOTE | 2018-12-01 23:01 | PC.NURSE ---
steffany note pt c/o nausea, abd pain. Still has not had BM. Called Dr. Wood. New orders received. Gave a 500 ml warm water enema, but pt unable to hold it in. Later, gave 2 enemas of 250 ml each. Only yellow water returned, but has odor of stool. IVF restarted and diet down graded to NPO except ice and water.
[2018-12-02] VITALS: BP 133/87; PULSE 82; RESP 18; TEMP 36.4; O2SAT 94
[2018-12-02] MEDS: ACETAMINOPHEN 325 MG TABLET 975 MG PO ×4 (00:18→22:40)
[2018-12-02] MEDS: PIPERACILLIN-TAZO 3.375 GM/50 ML FROZ.PIGGY IV ×3 (01:58→17:58)
[2018-12-02 04:59] VITALS: BP 116/66; PULSE 75; RESP 20; TEMP 35.9; O2SAT 98
--- NOTE | 2018-12-02 05:01 | PC.NURSE ---
Instructed at beginning of shift to use urinal, his response is they don't care about that, only bowel movements. Instructed that we do care as long as he has an IV running. Found in bathroom again without calling and asked if he had used the urinal, ah no, I forgot. Unable to determine if he has had a BM as he flushes toilet, unknown I&O as he will not use urinal.
[2018-12-02] MEDS: KETOROLAC 30 MG/ML VIAL IV ×2 (05:59→14:00)
[2018-12-02] MEDS: PANTOPRAZOLE 40 MG TABLET PO (06:00)
[2018-12-02 08:25] VITALS: BP 144/98; PULSE 83; RESP 16; TEMP 36.5; O2SAT 94
[2018-12-02] MEDS: FLEETS ENEMA 1 EACH PR (08:38)
[2018-12-02] MEDS: CLOZAPINE 200 MG 200 EACH PO ×2 (08:39→22:39)
[2018-12-02] MEDS: ESCITALOPRAM 10 MG TABLET 20 MG PO (08:39)
[2018-12-02] MEDS: levETIRAcetam 250 MG TABLET 500 MG PO ×2 (08:39→22:36)
[2018-12-02] MEDS: GABAPENTIN 300 MG CAPSULE PO ×3 (08:39→22:36)
[2018-12-02] MEDS: LACTULOSE 20 GM/30 ML SOLUTION PO (08:39)
[2018-12-02] MEDS: MULTIVITAMIN 1 TABLET 1 TAB PO (08:39)
[2018-12-02] MEDS: BISACODYL 10 MG SUPP PR (08:39)
[2018-12-02] MEDS: SIMETHICONE 80 MG TABLET PO ×4 (08:40→22:42)
[2018-12-02] MEDS: QUETIAPINE 200 MG TABLET 400 MG PO ×2 (08:40→22:41)
[2018-12-02] MEDS: POLYETHYLENE GLYCOL 3350 17 GM POWD.PACK 34 GM PO ×3 (08:40→22:35)
[2018-12-02] MEDS: DEXTROSE 5%-0.45% NS 1,000 ML 75 ML IV (09:08)
[2018-12-02 09:24] VITALS: PULSE 65; RESP 20; O2SAT 96
[2018-12-02] MEDS: TIOTROPIUM BROMIDE 18 MCG INHALER INH (09:24)
[2018-12-02 09:27] LABS: Add Manual Diff / Slide Review NO; Basophils Absolute Auto 100 /uL (0-100); Basophils Percent Auto 0.8 % (0-2); Eosinophils Absolute Auto 200 /uL (0-450); Eosinophils Percent Auto 2.7 % (2-4); Hematocrit 40.5 % (41-53); Hemoglobin 13.7 g/dL (13.5-17.5); Lymphocytes Absolute Auto 1400 /uL (1100-4500); Lymphocytes Percent Auto 17.5 % (25-40); Mean Corpuscular HGB Conc 33.8 % (30-36); Mean Corpuscular Hemoglobin 32.4 PG (26-34); Monocytes Absolute Auto 500 /uL (0-900); Monocytes Percent Auto 6.2 % (3-14); Neutrophils Absolute Auto 5900 /uL (1500-7000); Neutrophils Percent Auto 72.8 % (50-75); Platelet Count 268 X10^3/uL (150-400); Red Blood Cell Count 4.22 X10^6/uL (4.5-5.9); Red Cell Distribution Width 13.3 % (11.6-14.8)
[2018-12-02 09:38] LABS: BUN Creatinine Ratio 11.3 (6-22); Blood Urea Nitrogen 9 mg/dL (9-20); Calcium 8.5 mg/dL (8.4-10.2); Carbon Dioxide 27 mmol/L (22-32); Chloride 109 mmol/L (98-107); Estimated Glomerular Filt Rate > 60.0 mL/min (>60); Glucose 83 mg/dL (70-100); HEMOLYSIS < 15 (0-50); Magnesium 2.1 mg/dL (1.6-2.3); Potassium 3.7 mmol/L (3.4-5.1); Sodium 141 mmol/L (137-145)
[2018-12-02 10:38] VITALS: BMI 20.7
--- NOTE | 2018-12-02 10:52 | DIET.PN ---
Addendum entered by Shabnam Robles 12/02/18 11:06: Pt takes lactulose but still always 3-4d between BMs, last daily BM was 2014 Original Note: Dietary Progress Note Assessment: 53y M referred for RD consult re: MNA score 10 (at risk of malnutrition) HT: 187.9cm WT: 73.4kg BMI: 20.8 (concerning) Med Hx: bipolar, chronic constipation, GERD Pt reports food insecurity and forgetfulness as barriers to maintaining IBW of 170#, usually 150-160#, currently 160. Relies on $60 EBT for food, aware of local resources to stretch this. Usual Intake: B: brennan and eggs c wheat toast L: mac&cheese, top ramen or grilled cheese (if has cheese) D: same as lunch Pt walks or busses. Nutrition Diagnosis: Acute inadequate protein intake r/t increased needs s/p exploratory abd surgery for SBO aeb 2d s/p surgery, MNA 10 at risk for malnutrition, currently NPO re nausea and constipation. Chronic Inadequate protein energy intake r/t diagnosis (forgetfullness c bipolar) and food insecurity aeb BMI 20.8, unsuccessfully trying to reach 170# wt goal, reliance on EBT ($60/mo) and food bank for nourishments. Inadequate fluid and fiber intake r/t chronic constipation causing nausea and poor PO intake aeb daily fluid intake meeting 80% of needs, diet low in whole grains, F/V. Interventions: Recc ONS Ensure tid and yogurt bid when diet advances. Could try ONS Ensure Clear if advancing to clear. Energy: 2200kcal Pro: 80g Encouraged water consumption through the day using refillable water bottle. Discussed food security programs in the area: [employer] produce bucks, [employer] at [employer], food bank, meal programs. Discussed ways to increase F/V intake on a budget. Monitoring/Evaluations: diet advancement and tolerance, I&Os, energy and PRO consumption, associated labs
--- NOTE | 2018-12-02 11:52 | P.PN_ITS ---
Subjective Date Patient Seen: 12/02/18 Time Patient Seen: 11:51 Interval history: Feeling fatigued but well passing flatus, no BM minimal pain Exam Vital Signs (past 8 hours): - 12/02/18 04:59 12/02/18 08:25 12/02/18 09:24 Temperature 96.6 F L 97.7 F Pulse Rate 75 83 65 Respiratory Rate 20 16 20 Blood Pressure 116/66 144/98 H Pulse Oximetry 98 94 96 Oxygen Delivery Method Room Air Oxygen Flow Rate 0 Narrative Exam Narrative: NAD resting comfortably on RA, no resp difficulty RRR abd moderately distended, tympanic to percussion, minimally tender, wounds CDI periphery warm and well perfused Objective Labs Result Diagrams: 12/02/18 09:13 12/02/18 09:13 Labs: Laboratory Results - last 24 hr 12/02/18 12/02/18 09:13 09:13 WBC 8.0 RBC 4.22 L Hgb 13.7 Hct 40.5 L MCV 96.0 MCH 32.4 MCHC 33.8 RDW 13.3 Plt Count 268 Neut % (Auto) 72.8 Lymph % (Auto) 17.5 L [place] % (Auto) 6.2 Eos % (Auto) 2.7 Baso % (Auto) 0.8 Neut # (Auto) 5900 Lymph # (Auto) 1400 [place] # (Auto) 500 Eos # (Auto) 200 Baso # (Auto) 100 Sodium 141 Potassium 3.7 Chloride 109 H Carbon Dioxide 27 BUN 9 Creatinine 0.80 Estimated GFR > 60.0 BUN/Creatinine Ratio 11.3 Glucose 83 Calcium 8.5 Magnesium 2.1 Assessment & Plan Assessment & Plan narrative: 53 yo man POD3 s/p exlap for moderate amount of free air and concern for SBO on CT - intraop exploration did not reveal perforated viscus or bowel obstruction. Some pneumatosis intestinalis. + ascites cultured - no growth on final cultures. Now well WBC to 21 now normal at 8 large amount of colon stool Plan: Multimodal pain control Aggressive bowel regiment with PEG and enemas Continue abx today - will likely stop tomorrow if well, given neg cultures and no seen perforation Replete K heparin for DVT proph
[2018-12-02 15:34] VITALS: BP 121/86; PULSE 82; RESP 22; TEMP 36.2; O2SAT 96
--- NOTE | 2018-12-02 15:40 | CM.DPC ---
DCP: continued: Met with pt after EMR review including Dr. Randolph's progress note of today.Noted also the initial CM DCP assessment into and the art department head's note for today. Introduced self and role. Pt was found sitting in bed, eating cup of ice chips. He was agreeable to talk but with very limited eye contact in often looking at wall while speaking in a very soft voice. Pt confirms he does live alone in his apt in [place]. He has no family in the area he says. The people listed on his face sheet that live on [address] he identifies as friends. He either walks or takes that bus and he expects to get home that way at d/c. Will plan to see about using the [employer] for a taxi ride/[employer] as would be about $6.00 and seems prudent for this frail pt who has just had surgery. Pt confirms that his PCP is Dr. Shelley and he has recently seen Dr. Jarod Turk at [facility] when Dr. Shelley not available. Asked about management of his psychiatric medications and he said he follows with [facility] for his mental health management and medication. Improvement Specialist did give him infomation on how to stretch the $60 a month he is allotted for food under the [facility] Medicaid program. He relies on [employer] to supplement this. Pt does have problems with chronic constipation and will not d/c until all is stable with his bowels. Will check in tomorrow and follow.
[2018-12-02] MEDS: POTASSIUM CHLORIDE 20 MEQ/15 ML UDC 40 MEQ PO (17:51)
[2018-12-02] MEDS: LACTOBACILLUS ACIDOPHILUS TABLET 1 EACH PO (17:52)
[2018-12-02 20:13] VITALS: BP 138/96; PULSE 92; RESP 18; TEMP 36.4
[2018-12-02] MEDS: ATORVASTATIN 20 MG TABLET PO (22:40)
[2018-12-02] MEDS: HEPARIN 5,000 UNIT/ML VIAL 5000 UNIT SUBCUT (22:43)
[2018-12-03 00:10] VITALS: BP 137/87; PULSE 72; RESP 18; TEMP 36.4; O2SAT 96
[2018-12-03] MEDS: DEXTROSE 5%-0.45% NS 1,000 ML 75 ML IV (00:53)
[2018-12-03] MEDS: PIPERACILLIN-TAZO 3.375 GM/50 ML FROZ.PIGGY IV ×2 (02:27→09:35)
[2018-12-03 04:23] VITALS: BP 142/90; PULSE 86; RESP 18; TEMP 36.6; O2SAT 96
[2018-12-03 05:17] LABS: BUN Creatinine Ratio 8.8 (6-22); Blood Urea Nitrogen 7 mg/dL (9-20); Calcium 8.3 mg/dL (8.4-10.2); Carbon Dioxide 27 mmol/L (22-32); Chloride 109 mmol/L (98-107); Estimated Glomerular Filt Rate > 60.0 mL/min (>60); Glucose 87 mg/dL (70-100); HEMOLYSIS < 15 (0-50); Magnesium 2.1 mg/dL (1.6-2.3); Potassium 3.6 mmol/L (3.4-5.1); Sodium 142 mmol/L (137-145)
[2018-12-03] MEDS: HYDROMORPHONE 0.5 MG INJ IV ×2 (05:51→11:28)
[2018-12-03] MEDS: HEPARIN 5,000 UNIT/ML VIAL 5000 UNIT SUBCUT ×2 (05:54→13:09)
[2018-12-03] MEDS: PANTOPRAZOLE 40 MG TABLET PO (05:54)
[2018-12-03 07:31] VITALS: BP 138/90; PULSE 74; RESP 18; TEMP 36.3; O2SAT 99
[2018-12-03] MEDS: TIOTROPIUM BROMIDE 18 MCG INHALER INH (08:07)
[2018-12-03 08:10] VITALS: PULSE 78; RESP 18; O2SAT 99
[2018-12-03] MEDS: CLOZAPINE 200 MG 200 EACH PO (09:29)
[2018-12-03] MEDS: levETIRAcetam 250 MG TABLET 500 MG PO (09:29)
[2018-12-03] MEDS: QUETIAPINE 200 MG TABLET 400 MG PO (09:30)
[2018-12-03] MEDS: LACTOBACILLUS ACIDOPHILUS TABLET 1 EACH PO ×3 (09:33→17:15)
[2018-12-03] MEDS: ACETAMINOPHEN 325 MG TABLET 975 MG PO ×2 (09:33→17:15)
[2018-12-03] MEDS: MULTIVITAMIN 1 TABLET 1 TAB PO (09:34)
[2018-12-03] MEDS: GABAPENTIN 300 MG CAPSULE PO ×2 (09:34→14:30)
[2018-12-03] MEDS: ESCITALOPRAM 10 MG TABLET 20 MG PO (09:34)
[2018-12-03] MEDS: SIMETHICONE 80 MG TABLET PO ×3 (09:34→17:15)
[2018-12-03 11:05] VITALS: BP 138/92; PULSE 77; RESP 18; TEMP 36.1; O2SAT 99
[2018-12-03] MEDS: OXYCODONE IR 5 MG TABLET PO (13:12)
[2018-12-03] MEDS: POLYETHYLENE GLYCOL 3350 17 GM POWD.PACK 34 GM PO (14:30)
--- NOTE | 2018-12-03 15:19 | CM.DPC ---
Addendum entered by Re Alvarez LPN 12/03/18 15:44: Checked in now with steffany Estrada and pt. Surgeon expected here about 1600. Medical Relief Form completed for taxi to home to facilitate a safe d/c. Pt had no other option expect to walk or take bus and team agrees this is neither safe or appropriate. Natalie agrees to call [employer] taxi to set up the time of transport. [facility], given to Natalie to give to [employer]'s experienced truck driver and copy to Nuclear Cardiology Technologist Lilly to process as per protocol. Pt expresses thankfulness for the assistance. Original Note: DCP: continued. Checked in on pt this morning and spoke with MARGARET Chance. Pt is eating, up and mobilizing about the unit. He appears to be more interactive with staff today.Expectation by pt and the care team is that he will likely d/c today but the surgeon has not yet been in. P: home with clinic followup when stable for same.
[2018-12-03 15:35] VITALS: BP 118/88; PULSE 95; RESP 20; TEMP 36.7; O2SAT 98
--- NOTE | 2018-12-03 17:34 | PM.DS.1 ---
History of Present Illness Date Patient Seen: 12/03/18 Time Patient Seen: 17:35 Chief complaint: 'I may have a bowel obstruction' Narrative: 53-year-old white male with 2 week history of abdominal pain which is increased over the last 2 days. He has had some nausea. Has been moving his bowels today and passing flatus today. Comes emergency room with a CT scan showing of free air in the abdomen indicative of a perforated viscus and a small-bowel [place] [id number]. Patient had a previous small-bowel obstruction operated on 2 years ago. Discharge Providers Date of admission: 11/29/18 18:18 Discharge Date: 12/03/18 Primary care physician: Tiffanie Shelley, Consults: 11/29/18 22:32 Consult to Dietitian, Adult Routine Comment: Reason For Exam: assessed at risk Discharge provider: Franky Pineda Summary Discharge Diagnosis: Free abdominal air without gross perforation Small bowel pneumatosis intestinalis Marked colonic stool burden Hospital Course: 56-year-old man with history of schizophrenia presented to the emergency department with abdominal pain CT scan demonstrated moderate amount of free air and question of small-bowel obstruction. He was taken emergently to the operating room were a extensive exploration was performed -this failed to demonstrate a free perforation of the stomach small bowel colon, he had ascites fluid which was drained and cultured, ultimately no organisms grew -it was trough collared and there was no purulent exudate to suggest infection operatively. Patient was found to have an area of jejunum with pneumatosis intestinalis. He was closed. No drains were left. Over subsequent days he regained bowel function was able to ambulate without difficulties white count normalized. Given the question of a micro perforation was kept on Pip/tazo for the duration of his hospitalization but had no features of infection beyond an elevated white blood cell count postoperatively. Ultimately he appeared well was able to ambulate tolerated general diet and pain was controlled on oral antibiotics he was discharged home. Exam Vital Signs (past 8 hours): - 12/03/18 11:05 12/03/18 15:35 Temperature 97.0 F L 98.1 F Pulse Rate 77 95 H Respiratory Rate 18 20 Blood Pressure 138/92 H 118/88 Pulse Oximetry 99 98 Oxygen Delivery Method Room Air Oxygen Flow Rate 0 Narrative Exam Narrative: Well-appearing no acute distress Abdomen and distended but soft dull to percussion Minimally tender Ambulating with ease Objective Labs Result Diagrams: 12/02/18 09:13 12/03/18 04:52 Labs: Laboratory Results - last 24 hr 12/03/18 04:52 Sodium 142 Potassium 3.6 Chloride 109 H Carbon Dioxide 27 BUN 7 L Creatinine 0.80 Estimated GFR > 60.0 BUN/Creatinine Ratio 8.8 Glucose 87 Calcium 8.3 L Magnesium 2.1 Discharge Plan Discharge Plan Patient Disposition: Home Discharge Med Rec/Prescriptions Prescriptions: New polyethylene glycol 3350 17 gram Powder In Packet 17 gm PO TID Qty: 30 RF: 0 gabapentin [Neurontin] 300 mg Capsule 300 mg PO TID Qty: 12 RF: 0 oxycodone 5 mg Tablet 5 mg PO Q6H PRN (Reason: Pain, Moderate (4-6)) Qty: 12 RF: 0 Continued escitalopram oxalate 20 MG tablet 20 mg PO DAILY Qty: 30 RF: 0 shower chair for inside the tub Qty: 1 RF: 0 lansoprazole 30 mg capsule,delayed release(DR/EC) 30 mg PO DAILY Qty: 30 RF: 1 levetiracetam [Keppra] 500 mg tablet 500 mg PO BID RF: 0 acetaminophen [Tylenol Extra Strength] 500 mg tablet 1,000 mg PO QID PRN (Reason: pain) RF: 0 tiotropium bromide [Spiriva with HandiHaler] 18 mcg capsule, w/inhalation device 1 cap Inhalation DAILY Qty: 30 RF: 11 lactulose 10 gram/15 mL solution 20 gram PO DAILY Qty: 946 RF: 2 quetiapine 400 mg tablet 400 mg PO BID RF: 0 atorvastatin [Lipitor] 20 mg tablet 20 mg PO BEDTIME RF: 0 Calcium 600 + Minerals 1 tab PO DAILY RF: 0 clozapine 200 mg Tablet 200 mg PO BID RF: 0 Men's 50 Plus Daily Formula 400-20-370 mcg Tablet 1 tab PO DAILY RF: 0 saw palmetto 250 mg tablet 1 tab PO DAILY RF: 0 Spacer: Inhaler Spacer Device 1 ea miscellaneous DIRECTED RF: 0 Follow up/Referrals: Franky Pineda MD [Physician] - (follow up in 2 weeks at [facility]) Tiffanie Shelley DO [Primary Care Provider] - Provider Discharge Instructions Diet: Diet as Tolerated Activity: activity as tolerated. OK to shower. No bath for 2 weeks. No lifting over 15lbs for 6 weeks Skin/Wound/Dressing Care Report to your healthcare provider any signs of infection, such as:: chills, fever and increased pain Visit Report/Discharge Packet Stand Alone Forms: Surgery Discharge Discharge Data Primary Care Provider: Tiffanie Shelley Attending Provider: Todd Wood Admit Date/Time: 11/29/18 18:18
--- NOTE | 2018-12-03 17:36 | PC.NURSE ---
1545 - Discussed possible discharge with pt. Pt expressing concerns r/t pain control and abd tenderness. Pt states that he is unsure about going home. I may need something more comparable to dilaudid. Pt states that he has a low pain tolerance and a high tolerance to medication. I usually need more medication. 1615 - Discharge orders received. Call placed to Dr. Pineda. Notified of pt concerns. in to see pt. Pt reports concerns resolved. Discussed prescription fill process. Pt states that he uses a mail order pharmacy. Educated to narcotic medications. Pt agreeable to have rx filled by [facility]. Coordinator, Dian delivered hardcopy prescriptions. 1730 - Reviewed discharge instructions. Medications from in-patient pharmacy obtained. Belongings from safety returned to pt. IV d/c'd. Pt able to dress independently. Awaiting RX fill from [facility]. Pt to d/c via taxi. Voucher provided by [facility] management.
--- NOTE | 2018-12-03 17:37 | P.DS_ITS ---
History of Present Illness Date Patient Seen: 12/03/18 Time Patient Seen: 17:35 Chief complaint: 'I may have a bowel obstruction' Narrative: 53-year-old white male with 2 week history of abdominal pain which is increased over the last 2 days. He has had some nausea. Has been moving his jennifer wels today and passing flatus today. Comes emergency room with a CT scan showing of free air in the abdomen indicative of a perforated viscus and a small-bowel obstruction [place] [id number]. Patient had a previous small-bowel obstruction operated on 2 years ago. Discharge Providers Date of admission: 11/29/18 18:18 Discharge Date: 12/03/18 Primary care physician: Tiffanie Shelley, Consults: 11/29/18 22:32 Consult to Dietitian, Adult Routine Comment: Reason For Exam: assessed at risk Discharge provider: Franky Pineda Summary Discharge Diagnosis: Free abdominal air without gross perforation Small bowel pneumatosis intestinalis Marked colonic stool burden Hospital Course: 56-year-old man with history of schizophrenia presented to the emergency department with abdominal pain CT scan demonstrated moderate amount of free air and question of small-bowel obstruction. He was taken emergently to the operating room were a extensive exploration was performed -this failed to demonstrate a free perforation of the stomach small bowel colon, he had ascites fluid which was drained and cultured, ultimately no organisms grew -it was trough collared and there was no purulent exudate to suggest infection operatively. Patient was found to have an area of jejunum with pneumatosis in testinalis. He was closed. No drains were left. Over subsequent days he regained bowel function was able to ambulate without difficulties white count normalized. Given the question of a micro perforation was kept on Pip/tazo for the duration of his hospitalization but had no features of infection beyond an elevated white blood cell count postoperatively. Ultimately he appeared well was able to ambulate tolerated general diet and pain was controlled on oral antibiotics he was discharged home. Exam Vital Signs (past 8 hours): - 12/03/18 11:05 12/03/18 15:35 Temperature 97.0 F L 98.1 F Pulse Rate 77 95 H Respiratory Rate 18 20 Blood Pressure 138/92 H 118/88 Pulse Oximetry 99 98 Oxygen Delivery Method Room Air Oxygen Flow Rate 0 Narrative Exam Narrative: Well-appearing no acute distress Abdomen and distended but soft dull to percussion Minimally tender Ambulating with ease Objective Labs Result Diagrams: 12/02/18 09:13 12/03/18 04:52 Labs: Laboratory Results - last 24 hr 12/03/18 04:52 Sodium 142 Potassium 3.6 Chloride 109 H Carbon Dioxide 27 BUN 7 L Creatinine 0.80 Estimated GFR > 60.0 BUN/Creatinine Ratio 8.8 Glucose 87 Calcium 8.3 L Magnesium 2.1 Discharge Plan Discharge Plan Patient Disposition: Home Discharge Med Rec/Prescriptions Prescriptions: New polyethylene glycol 3350 17 gram Powder In Packet 17 gm PO TID Qty: 30 RF: 0 gabapentin [Neurontin] 300 mg Capsule 300 mg PO TID Qty: 12 RF: 0 oxycodone 5 mg Tablet 5 mg PO Q6H PRN (Reason: Pain, Moderate (4-6)) Qty: 12 RF: 0 Continued escitalopram oxalate 20 MG tablet 20 mg PO DAILY Qty: 30 RF: 0 shower chair for inside the tub Qty: 1 RF: 0 lansoprazole 30 mg capsule,delayed release(DR/EC) 30 mg PO DAILY Qty: 30 RF: 1 levetiracetam [Keppra] 500 mg tablet 500 mg PO BID RF: 0 acetaminophen [Tylenol Extra Strength] 500 mg tablet 1,000 mg PO QID PRN (Reason: pain) RF: 0 tiotropium bromide [Spiriva with HandiHaler] 18 mcg capsule, w/inhalation device 1 cap Inhalation DAILY Qty: 30 RF: 11 lactulose 10 gram/15 mL solution 20 gram PO DAILY Qty: 946 RF: 2 quetiapine 400 mg tablet 400 mg PO BID RF: 0 atorvastatin [Lipitor] 20 mg tablet 20 mg PO BEDTIME RF: 0 Calcium 600 + Minerals 1 tab PO DAILY RF: 0 clozapine 200 mg Tablet 200 mg PO BID RF: 0 Men's 50 Plus Daily Formula 400-20-370 mcg Tablet 1 tab PO DAILY RF: 0 saw palmetto 250 mg tablet 1 tab PO DAILY RF: 0 Spacer: Inhaler Spacer Device 1 ea miscellaneous DIRECTED RF: 0 Follow up/Referrals: Franky Pineda MD [Physician] - (follow up in 2 weeks at [facility]) Tiffanie Shelley DO [Primary Care Provider] - Provider Discharge Instructions Diet: Diet as Tolerated Activity: activity as tolerated. OK to shower. No bath for 2 weeks. No lifting over 15lbs for 6 weeks Skin/Wound/Dressing Care Report to your healthcare provider any signs of infection, such as:: chills, fever and increased pain Visit Report/Discharge Packet Stand Alone Forms: Surgery Discharge Discharge Data Primary Care Provider: Tiffanie Shelley Attending Provider: Todd Wood Admit Date/Time: 11/29/18 18:18
== END 2018-12-03 18:15 | disposition home or self-care (01) | DRG 357 ==
LOC: ED 17:09 → AC 18:20 → ICU 22:12
PROVIDERS: Emergency Medicine; Surgery; Admitting Provider Surgery; Emergency Provider Emergency Medicine; PCP Family Medicine; Visit Provider Surgery
PROC: 0WJP0ZZ Inspection of Gastrointestinal Tract, Open Approach (ICD-10-PCS; CPT 49000; principal; 2018-11-29 18:30)
DX: R10.9 Unspecified abdominal pain (principal); R18.8 Other ascites; K66.8 Other specified disorders of peritoneum; F25.0 Schizoaffective disorder, bipolar type; E78.5 Hyperlipidemia, unspecified; F17.210 Nicotine dependence, cigarettes, uncomplicated; K59.09 Other constipation
CPT/HCPCS: 36415; 36591; 49000; 74018; 74177; 80048; 80053; 81003; 81015; 83690; 83735; 85025; 87070; 87075; 87205; 87797; 94640; 94760; 96361; 96365; 96375; 99222; 99283; 99285; J0330; J0780; J1100; J1170; J1644; J1885; J2405; J2543; J3010; Q9967

== ENCOUNTER → 2018-12-07 09:43 | Outpatient (CLI) | payer OTHER, MEDICAID, SELFPAY ==
[2018-11-29 22:16] VITALS: BMI 20.9
[2018-12-07 11:00] LABS: Add Manual Diff / Slide Review NO; Basophils Absolute Auto 100 /uL (0-100); Basophils Percent Auto 0.6 % (0-2); Eosinophils Absolute Auto 200 /uL (0-450); Eosinophils Percent Auto 2.4 % (2-4); Lymphocytes Absolute Auto 1600 /uL (1100-4500); Lymphocytes Percent Auto 17.6 % (25-40); Mean Corpuscular HGB Conc 34.1 % (30-36); Mean Corpuscular Hemoglobin 32.7 PG (26-34); Mean Corpuscular Volume 95.9 fL (80-100); Monocytes Absolute Auto 700 /uL (0-900); Monocytes Percent Auto 7.3 % (3-14); Neutrophils Absolute Auto 6600 /uL (1500-7000); Neutrophils Percent Auto 72.1 % (50-75); Platelet Count 366 X10^3/uL (150-400); Red Cell Distribution Width 13.3 % (11.6-14.8); White Blood Cell Count 9.2 X10^3/uL (4.5-11.0)
== END ==
PROVIDERS: PCP Family Medicine; Visit Provider Nurse Practitioner Psychiatric/Mental Health
DX: Z51.81 Encounter for therapeutic drug level monitoring (principal)
CPT/HCPCS: 36415; 85025

== ENCOUNTER → 2019-01-01 11:56 | Outpatient (CLI) | payer OTHER, MEDICAID, SELFPAY ==
[2018-11-29 22:16] VITALS: BMI 20.9
[2019-01-01 12:49] LABS: Add Manual Diff / Slide Review NO; Basophils Absolute Auto 100 /uL (0-100); Basophils Percent Auto 0.7 % (0-2); Eosinophils Absolute Auto 100 /uL (0-450); Eosinophils Percent Auto 1.2 % (2-4); Hematocrit 43.8 % (41-53); Hemoglobin 15.4 g/dL (13.5-17.5); Lymphocytes Absolute Auto 1900 /uL (1100-4500); Mean Corpuscular Hemoglobin 33.3 PG (26-34); Monocytes Absolute Auto 500 /uL (0-900); Monocytes Percent Auto 4.8 % (3-14); Neutrophils Absolute Auto 8000 /uL (1500-7000); Neutrophils Percent Auto 75.3 % (50-75); Platelet Count 273 X10^3/uL (150-400); Red Blood Cell Count 4.61 X10^6/uL (4.5-5.9); Red Cell Distribution Width 13.5 % (11.6-14.8); White Blood Cell Count 10.6 X10^3/uL (4.5-11.0)
== END ==
PROVIDERS: PCP Family Medicine; Visit Provider Nurse Practitioner Psychiatric/Mental Health
DX: Z51.81 Encounter for therapeutic drug level monitoring (principal)
CPT/HCPCS: 36415; 85025

== ENCOUNTER → 2019-01-31 11:14 | Outpatient (CLI) | payer OTHER, SELFPAY ==
[2018-11-29 22:16] VITALS: BMI 20.9
[2019-01-31 11:42] LABS: Add Manual Diff / Slide Review NO; Basophils Absolute Auto 100 /uL (0-100); Basophils Percent Auto 0.9 % (0-2); Eosinophils Absolute Auto 100 /uL (0-450); Eosinophils Percent Auto 0.8 % (2-4); Hematocrit 43.6 % (41-53); Hemoglobin 15.1 g/dL (13.5-17.5); Lymphocytes Absolute Auto 1700 /uL (1100-4500); Lymphocytes Percent Auto 14.8 % (25-40); Mean Corpuscular HGB Conc 34.7 % (30-36); Mean Corpuscular Hemoglobin 32.8 PG (26-34); Mean Corpuscular Volume 94.6 fL (80-100); Monocytes Absolute Auto 500 /uL (0-900); Monocytes Percent Auto 4.7 % (3-14); Neutrophils Absolute Auto 9100 /uL (1500-7000); Neutrophils Percent Auto 78.8 % (50-75); Platelet Count 291 X10^3/uL (150-400); Red Blood Cell Count 4.61 X10^6/uL (4.5-5.9); Red Cell Distribution Width 13.4 % (11.6-14.8); White Blood Cell Count 11.6 X10^3/uL (4.5-11.0)
== END ==
PROVIDERS: PCP Family Medicine; Visit Provider Nurse Practitioner Psychiatric/Mental Health
DX: Z51.81 Encounter for therapeutic drug level monitoring (principal)
CPT/HCPCS: 36415; 85025

== ENCOUNTER → 2019-03-03 12:10 | Outpatient (CLI) | payer OTHER, SELFPAY ==
[2018-11-29 22:16] VITALS: BMI 20.9
[2019-03-03 13:05] LABS: Add Manual Diff / Slide Review NO; Basophils Absolute Auto 100 /uL (0-100); Basophils Percent Auto 0.8 % (0-2); Eosinophils Absolute Auto 200 /uL (0-450); Eosinophils Percent Auto 2.7 % (2-4); Hematocrit 42.8 % (41-53); Hemoglobin 14.6 g/dL (13.5-17.5); Lymphocytes Absolute Auto 1700 /uL (1100-4500); Lymphocytes Percent Auto 19.3 % (25-40); Mean Corpuscular HGB Conc 34.3 % (30-36); Mean Corpuscular Hemoglobin 32.7 PG (26-34); Mean Corpuscular Volume 95.3 fL (80-100); Monocytes Absolute Auto 500 /uL (0-900); Monocytes Percent Auto 5.9 % (3-14); Neutrophils Absolute Auto 6200 /uL (1500-7000); Neutrophils Percent Auto 71.3 % (50-75); Platelet Count 285 X10^3/uL (150-400); Red Blood Cell Count 4.49 X10^6/uL (4.5-5.9); Red Cell Distribution Width 13.4 % (11.6-14.8); White Blood Cell Count 8.7 X10^3/uL (4.5-11.0)
== END ==
PROVIDERS: PCP Family Medicine; Visit Provider Nurse Practitioner Psychiatric/Mental Health
DX: Z51.81 Encounter for therapeutic drug level monitoring (principal)
CPT/HCPCS: 36415; 85025

== ENCOUNTER → 2019-04-02 10:43 | Outpatient (CLI) | payer OTHER, SELFPAY ==
[2018-11-29 22:16] VITALS: BMI 20.9
[2019-04-02 11:13] LABS: Add Manual Diff / Slide Review NO; Basophils Absolute Auto 100 /uL (0-100); Basophils Percent Auto 0.9 % (0-2); Eosinophils Absolute Auto 200 /uL (0-450); Eosinophils Percent Auto 1.5 % (2-4); Hematocrit 41.3 % (41-53); Hemoglobin 14.7 g/dL (13.5-17.5); Lymphocytes Absolute Auto 1900 /uL (1100-4500); Lymphocytes Percent Auto 17.9 % (25-40); Mean Corpuscular HGB Conc 35.5 % (30-36); Mean Corpuscular Hemoglobin 33.5 PG (26-34); Mean Corpuscular Volume 94.3 fL (80-100); Monocytes Absolute Auto 500 /uL (0-900); Monocytes Percent Auto 4.7 % (3-14); Neutrophils Absolute Auto 8100 /uL (1500-7000); Platelet Count 305 X10^3/uL (150-400); Red Blood Cell Count 4.38 X10^6/uL (4.5-5.9); Red Cell Distribution Width 13.4 % (11.6-14.8); White Blood Cell Count 10.8 X10^3/uL (4.5-11.0)
== END ==
PROVIDERS: PCP Family Medicine; Visit Provider Nurse Practitioner Psychiatric/Mental Health
DX: Z51.81 Encounter for therapeutic drug level monitoring (principal)
CPT/HCPCS: 36415; 85025

== ENCOUNTER → 2019-04-28 13:27 | Outpatient (CLI) | payer OTHER, MEDICAID, SELFPAY ==
[2018-11-29 22:16] VITALS: BMI 20.9
== END ==
PROVIDERS: PCP Family Medicine; Visit Provider Physician Assistant
DX: L02.91 Cutaneous abscess, unspecified (principal)
CPT/HCPCS: 87070; 87205

== ENCOUNTER → 2019-05-06 09:52 | Outpatient (CLI) | payer OTHER, MEDICAID, SELFPAY ==
[2018-11-29 22:16] VITALS: BMI 20.9
[2019-05-06 10:09] LABS: Add Manual Diff / Slide Review NO; Basophils Absolute Auto 100 /uL (0-100); Basophils Percent Auto 0.8 % (0-2); Eosinophils Absolute Auto 100 /uL (0-450); Hematocrit 43.2 % (41-53); Lymphocytes Absolute Auto 2200 /uL (1100-4500); Lymphocytes Percent Auto 18.8 % (25-40); Mean Corpuscular HGB Conc 34.7 % (30-36); Mean Corpuscular Hemoglobin 33.4 PG (26-34); Mean Corpuscular Volume 96.4 fL (80-100); Monocytes Absolute Auto 900 /uL (0-900); Monocytes Percent Auto 7.4 % (3-14); Neutrophils Absolute Auto 8400 /uL (1500-7000); Platelet Count 300 X10^3/uL (150-400); Red Blood Cell Count 4.47 X10^6/uL (4.5-5.9); Red Cell Distribution Width 13.4 % (11.6-14.8); White Blood Cell Count 11.6 X10^3/uL (4.5-11.0)
== END ==
PROVIDERS: PCP Family Medicine; Visit Provider Nurse Practitioner Psychiatric/Mental Health
DX: Z51.81 Encounter for therapeutic drug level monitoring (principal)
CPT/HCPCS: 36415; 85025

== ENCOUNTER → 2019-05-24 08:05 | Outpatient (CLI) | payer OTHER, SELFPAY ==
[2018-11-29 22:16] VITALS: BMI 20.9
[2019-05-27 13:40] LABS: Levetiracetam Keppra 10.6 mcg/mL (12.0-46.0)
== END ==
PROVIDERS: PCP Family Medicine; Visit Provider Psychiatry & Neurology Neurology
DX: G40.109 Localization-related (focal) (partial) symptomatic epilepsy and epileptic syndromes with simple partial seizures, not intractable, without status epilepticus (principal)
CPT/HCPCS: 36415; 80177

== ENCOUNTER → 2019-06-02 07:07 | Outpatient (CLI) | payer OTHER, SELFPAY ==
[2018-11-29 22:16] VITALS: BMI 20.9
[2019-06-02 08:23] LABS: Add Manual Diff / Slide Review NO; Basophils Absolute Auto 100 /uL (0-100); Basophils Percent Auto 0.7 % (0-2); Eosinophils Absolute Auto 100 /uL (0-450); Eosinophils Percent Auto 0.7 % (2-4); Hemoglobin 14.9 g/dL (13.5-17.5); Lymphocytes Absolute Auto 1600 /uL (1100-4500); Lymphocytes Percent Auto 14.5 % (25-40); Mean Corpuscular HGB Conc 34.6 % (30-36); Mean Corpuscular Hemoglobin 33.5 PG (26-34); Mean Corpuscular Volume 96.7 fL (80-100); Monocytes Absolute Auto 700 /uL (0-900); Monocytes Percent Auto 6.4 % (3-14); Neutrophils Absolute Auto 8400 /uL (1500-7000); Neutrophils Percent Auto 77.7 % (50-75); Platelet Count 280 X10^3/uL (150-400); Red Blood Cell Count 4.45 X10^6/uL (4.5-5.9); Red Cell Distribution Width 13.4 % (11.6-14.8); White Blood Cell Count 10.8 X10^3/uL (4.5-11.0)
== END ==
PROVIDERS: PCP Family Medicine; Visit Provider Nurse Practitioner Psychiatric/Mental Health
DX: Z51.81 Encounter for therapeutic drug level monitoring (principal)
CPT/HCPCS: 36415; 85025

== ENCOUNTER → 2019-07-03 08:56 | Outpatient (CLI) | payer OTHER, SELFPAY ==
[2018-11-29 22:16] VITALS: BMI 20.9
[2019-07-03 09:21] LABS: Add Manual Diff / Slide Review NO; Basophils Absolute Auto 100 /uL (0-100); Basophils Percent Auto 0.8 % (0-2); Eosinophils Absolute Auto 200 /uL (0-450); Eosinophils Percent Auto 2.1 % (2-4); Hemoglobin 15.1 g/dL (13.5-17.5); Lymphocytes Absolute Auto 1600 /uL (1100-4500); Lymphocytes Percent Auto 16.8 % (25-40); Mean Corpuscular HGB Conc 35.2 % (30-36); Mean Corpuscular Hemoglobin 33.8 PG (26-34); Mean Corpuscular Volume 96.1 fL (80-100); Monocytes Absolute Auto 600 /uL (0-900); Monocytes Percent Auto 6.2 % (3-14); Neutrophils Absolute Auto 7200 /uL (1500-7000); Neutrophils Percent Auto 74.1 % (50-75); Platelet Count 282 X10^3/uL (150-400); Red Blood Cell Count 4.47 X10^6/uL (4.5-5.9); Red Cell Distribution Width 13.1 % (11.6-14.8); White Blood Cell Count 9.7 X10^3/uL (4.5-11.0)
== END ==
PROVIDERS: PCP Family Medicine; Referring Provider Nurse Practitioner Psychiatric/Mental Health; Visit Provider Nurse Practitioner Psychiatric/Mental Health
DX: Z51.81 Encounter for therapeutic drug level monitoring (principal)
CPT/HCPCS: 36415; 85025

== ENCOUNTER → 2019-08-01 09:39 | Outpatient (CLI) | payer OTHER, SELFPAY ==
[2018-11-29 22:16] VITALS: BMI 20.9
[2019-08-01 11:18] LABS: Add Manual Diff / Slide Review NO; Basophils Absolute Auto 100 /uL (0-100); Eosinophils Absolute Auto 300 /uL (0-450); Eosinophils Percent Auto 2.3 % (2-4); Hematocrit 43.1 % (41-53); Lymphocytes Absolute Auto 1700 /uL (1100-4500); Mean Corpuscular HGB Conc 34.7 % (30-36); Mean Corpuscular Volume 97.7 fL (80-100); Monocytes Absolute Auto 500 /uL (0-900); Monocytes Percent Auto 4.5 % (3-14); Neutrophils Absolute Auto 8700 /uL (1500-7000); Neutrophils Percent Auto 77.2 % (50-75); Platelet Count 299 X10^3/uL (150-400); Red Blood Cell Count 4.41 X10^6/uL (4.5-5.9); Red Cell Distribution Width 13.2 % (11.6-14.8); White Blood Cell Count 11.2 X10^3/uL (4.5-11.0)
== END ==
PROVIDERS: PCP Family Medicine; Referring Provider Nurse Practitioner Psychiatric/Mental Health; Visit Provider Nurse Practitioner Psychiatric/Mental Health
DX: Z51.81 Encounter for therapeutic drug level monitoring (principal)
CPT/HCPCS: 36415; 85025

== ENCOUNTER → 2019-08-22 12:54 | Outpatient (CLI) | payer OTHER, SELFPAY ==
[2018-11-29 22:16] VITALS: BMI 20.9
[2019-08-22 13:36] LABS: Add Manual Diff / Slide Review NO; Basophils Absolute Auto 100 /uL (0-100); Basophils Percent Auto 0.8 % (0-2); Eosinophils Absolute Auto 100 /uL (0-450); Eosinophils Percent Auto 1.2 % (2-4); Hematocrit 42.9 % (41-53); Hemoglobin 14.4 g/dL (13.5-17.5); Lymphocytes Absolute Auto 2000 /uL (1100-4500); Lymphocytes Percent Auto 16.7 % (25-40); Mean Corpuscular HGB Conc 33.6 % (30-36); Mean Corpuscular Hemoglobin 32.7 PG (26-34); Mean Corpuscular Volume 97.5 fL (80-100); Monocytes Absolute Auto 700 /uL (0-900); Neutrophils Absolute Auto 8900 /uL (1500-7000); Neutrophils Percent Auto 75.3 % (50-75); Platelet Count 286 X10^3/uL (150-400); Red Cell Distribution Width 13.2 % (11.6-14.8); White Blood Cell Count 11.9 X10^3/uL (4.5-11.0)
== END ==
PROVIDERS: PCP Family Medicine; Referring Provider Clinical Nurse Specialist Psychiatric/Mental Health, Adult; Visit Provider Clinical Nurse Specialist Psychiatric/Mental Health, Adult
DX: Z79.899 Other long term (current) drug therapy (principal)
CPT/HCPCS: 36415; 85025

== ENCOUNTER → 2019-09-13 11:39 | Outpatient (CLI) | payer OTHER, SELFPAY ==
[2018-11-29 22:16] VITALS: BMI 20.9
[2019-09-13 12:20] LABS: Add Manual Diff / Slide Review NO; Basophils Absolute Auto 100 /uL (0-100); Basophils Percent Auto 1.2 % (0-2); Eosinophils Absolute Auto 100 /uL (0-450); Eosinophils Percent Auto 1.3 % (2-4); Hematocrit 45.3 % (41-53); Hemoglobin 15.4 g/dL (13.5-17.5); Lymphocytes Absolute Auto 1400 /uL (1100-4500); Lymphocytes Percent Auto 15.3 % (25-40); Mean Corpuscular Hemoglobin 33.1 PG (26-34); Mean Corpuscular Volume 97.4 fL (80-100); Monocytes Absolute Auto 600 /uL (0-900); Monocytes Percent Auto 6.3 % (3-14); Neutrophils Absolute Auto 7000 /uL (1500-7000); Neutrophils Percent Auto 75.9 % (50-75); Platelet Count 277 X10^3/uL (150-400); Red Blood Cell Count 4.65 X10^6/uL (4.5-5.9); Red Cell Distribution Width 13.5 % (11.6-14.8); White Blood Cell Count 9.2 X10^3/uL (4.5-11.0)
== END ==
PROVIDERS: PCP Family Medicine; Referring Provider Family Medicine; Visit Provider Clinical Nurse Specialist Psychiatric/Mental Health, Adult
DX: Z79.899 Other long term (current) drug therapy (principal)
CPT/HCPCS: 36415; 85025

== ENCOUNTER → 2019-09-24 14:21 | Outpatient (CLI) | payer OTHER, SELFPAY ==
[2018-11-29 22:16] VITALS: BMI 20.9
--- NOTE | 2019-09-24 14:42 | DI.US.S_ITS ---
PROCEDURE: US ABDOMEN COMPLETE INDICATIONS: ABD DISTENSION TECHNIQUE: Real-time scanning was performed of the abdominal and retroperitoneal organs, with image documentation. COMPARISON: None. FINDINGS: Quality of visualization is significantly limited by prominent gas within bowel loops throughout the abdomen and pelvis. Liver: Liver is normal in size and homogeneous in echotexture. Portions of the left hepatic lobe could not be seen. Gallbladder: Not fully visualized, 1.3 mm gallbladder wall thickness where well seen. Biliary ducts: Intrahepatic bile ducts are non-dilated. Extrahepatic bile duct caliber measures 7.4 mm. Normal is 6-7 mm or less in diameter, or 10 mm or less post-cholecystectomy. Pancreas: Visualized portions of the pancreas are sonographically normal. Spleen: Spleen is normal in size and homogeneous in echotexture. Kidneys: Kidneys are normal in size and echotexture. Right kidney measures 10.2 cm long; left kidney measures 11.5 cm long. No hydronephrosis or nephrolithiasis. No solid masses. Note is made of a left-sided simple appearing 2 cm cyst. Aorta: Visualized proximal aorta is normal in caliber at less than 3 cm but the middle and distal thirds of the aorta could not be seen due to bowel gas. Iliacs: Not seen due to bowel gas. IVC: Intrahepatic inferior vena cava is patent. Miscellaneous: No free abdominal fluid. IMPRESSION: Significant portions of the abdomen and pelvis are poorly seen due to overlying bowel gas. The examination is considered suboptimal as a result, and depending on the clinical status followup by contrast-enhanced CT scanning may be warranted. The gas prominence may indicate presence of intestinal obstruction, for example. Dictated by: Sathya Garcia M.D. on 09/24/2019 at 15:38 Approved by: Sathya Garcia M.D. on 09/24/2019 at 15:40
[2019-09-24 15:08] LABS: Bacteria Urine None Seen
[2019-09-24 15:19] LABS: Appearance Urine UA CLEAR; Bilirubin Urine UA NEGATIVE (NEGATIVE); Color Urine UA YELLOW; Glucose Urine UA NEGATIVE (Negative); Ketones Urine UA NEGATIVE (NEGATIVE); Leukocyte Esterase Urine UA NEGATIVE (NEGATIVE); Nitrite Urine UA NEGATIVE (Negative); Occult Blood Urine UA TRACE-LYSED (Negative); Protein Urine UA NEGATIVE (Negative); pH Urine UA 6.5 (4.5-8.0)
[2019-09-24 15:28] LABS: RBC Urine 1-5/HPF (0-5/HPF); WBC Urine 0-1/HPF (0-5/HPF)
== END ==
PROVIDERS: PCP Family Medicine; Referring Provider Nurse Practitioner Family; Visit Provider Nurse Practitioner Family
DX: R14.0 Abdominal distension (gaseous) (principal); R82.998 Other abnormal findings in urine; R31.9 Hematuria, unspecified
CPT/HCPCS: 36415; 76700; 80053; 80076; 81001; 85025; 87086

== ENCOUNTER → 2019-09-24 15:19 | Outpatient (CLI) | payer OTHER, SELFPAY ==
[2018-11-29 22:16] VITALS: BMI 20.9
[2019-09-24 16:02] LABS: Add Manual Diff / Slide Review NO; Basophils Absolute Auto 100 /uL (0-100); Basophils Percent Auto 0.7 % (0-2); Eosinophils Absolute Auto 100 /uL (0-450); Eosinophils Percent Auto 1.3 % (2-4); Hemoglobin 15.2 g/dL (13.5-17.5); Lymphocytes Absolute Auto 1600 /uL (1100-4500); Mean Corpuscular HGB Conc 33.7 % (30-36); Mean Corpuscular Hemoglobin 32.9 PG (26-34); Mean Corpuscular Volume 97.5 fL (80-100); Monocytes Absolute Auto 700 /uL (0-900); Monocytes Percent Auto 7.2 % (3-14); Neutrophils Absolute Auto 7000 /uL (1500-7000); Neutrophils Percent Auto 73.8 % (50-75); Platelet Count 296 X10^3/uL (150-400); Red Blood Cell Count 4.62 X10^6/uL (4.5-5.9); Red Cell Distribution Width 13.4 % (11.6-14.8); White Blood Cell Count 9.5 X10^3/uL (4.5-11.0)
[2019-09-24 16:30] LABS: Alanine Aminotransferase 16 IU/L (<50); Albumin 4.4 g/dL (3.5-5.0); Albumin Globulin Ratio 1.5 (1.0-2.8); Alkaline Phosphatase 100 U/L (38-126); Aspartate Aminotransferase 26 IU/L (17-59); BUN Creatinine Ratio 24.1 (6-22); Bilirubin Total 0.4 mg/dL (0.2-1.3); Bilirubin Unconjugated 0.3 mg/dL (0.0-1.1); Blood Urea Nitrogen 20 mg/dL (9-20); Calcium 9.4 mg/dL (8.4-10.2); Carbon Dioxide 28 mmol/L (22-32); Chloride 101 mmol/L (98-107); Estimated Glomerular Filt Rate > 60.0 mL/min (>60); Globulin 2.9 g/dL (1.7-4.1); Glucose 98 mg/dL (70-100); HEMOLYSIS < 15 (0-50); Potassium 4.7 mmol/L (3.4-5.1); Sodium 137 mmol/L (137-145); Total Protein 7.3 g/dL (6.3-8.2)
== END ==
PROVIDERS: PCP Family Medicine; Referring Provider Nurse Practitioner Family; Visit Provider Nurse Practitioner Family
DX: R14.0 Abdominal distension (gaseous) (principal); R82.998 Other abnormal findings in urine
CPT/HCPCS: 36415; 80053; 80076; 85025

== ENCOUNTER → 2019-10-03 10:37 | Outpatient (CLI) | payer OTHER, SELFPAY ==
[2018-11-29 22:16] VITALS: BMI 20.9
[2019-10-03 12:26] LABS: Add Manual Diff / Slide Review NO; Basophils Absolute Auto 100 /uL (0-100); Basophils Percent Auto 0.8 % (0-2); Eosinophils Absolute Auto 100 /uL (0-450); Hematocrit 44.6 % (41-53); Hemoglobin 15.5 g/dL (13.5-17.5); Lymphocytes Absolute Auto 1300 /uL (1100-4500); Lymphocytes Percent Auto 10.6 % (25-40); Mean Corpuscular HGB Conc 34.8 % (30-36); Mean Corpuscular Hemoglobin 33.6 PG (26-34); Mean Corpuscular Volume 96.6 fL (80-100); Monocytes Absolute Auto 400 /uL (0-900); Monocytes Percent Auto 3.4 % (3-14); Neutrophils Absolute Auto 10300 /uL (1500-7000); Neutrophils Percent Auto 84.2 % (50-75); Platelet Count 291 X10^3/uL (150-400); Red Blood Cell Count 4.61 X10^6/uL (4.5-5.9); Red Cell Distribution Width 13.3 % (11.6-14.8); White Blood Cell Count 12.2 X10^3/uL (4.5-11.0)
== END ==
PROVIDERS: PCP Family Medicine; Referring Provider Family Medicine; Visit Provider Clinical Nurse Specialist Psychiatric/Mental Health, Adult
DX: Z79.899 Other long term (current) drug therapy (principal)
CPT/HCPCS: 36415; 85025

== ENCOUNTER 2019-10-22 10:52 | Observation (INO) | payer OTHER, SELFPAY ==
[2018-11-29 22:16] VITALS: BMI 20.9
[2019-10-22] VITALS (7 sets, daily range): BP systolic 114–138; BP diastolic 72–87; PULSE 90–101; RESP 16–24; TEMP 36.7–37.1; O2SAT 93–99; BMI 21.1
--- NOTE | 2019-10-22 10:54 | DI.RAD.S_ITS ---
PROCEDURE: XR CHEST 1V INDICATIONS: chest pain TECHNIQUE: One view of the chest was acquired. COMPARISON: [facility], , CHEST 2 VIEW, 05/03/2017, 11:46. FINDINGS: Surgical changes and devices: None. Lungs and pleura: Lungs are clear. Chronic emphysematous changes are noted. No pleural effusions or pneumothorax. Mediastinum: Tortuous thoracic aorta is seen. Heart size is normal. Bones and chest wall: There is suggestion of free air under the diaphragm concerning for perforated viscus. No suspicious bony lesions. Overlying soft tissues appear unremarkable. IMPRESSION: 1. Free air in the diaphragm concerning for perforated viscus. 2. COPD. No pneumothorax. Findings were reported to Dr. Connolly in the ER at 11:29 AM on 10/22/19. Dictated by: Thomas Hoyos M.D. on 10/22/2019 at 11:22 Approved by: Thomas Hoyos M.D. on 10/22/2019 at 11:29
[2019-10-22 11:15] LABS: Add Manual Diff / Slide Review NO; Basophils Absolute Auto 100 /uL (0-100); Basophils Percent Auto 0.9 % (0-2); Eosinophils Absolute Auto 300 /uL (0-450); Eosinophils Percent Auto 2.3 % (2-4); Hematocrit 43.7 % (41-53); Hemoglobin 14.9 g/dL (13.5-17.5); Lymphocytes Absolute Auto 1400 /uL (1100-4500); Lymphocytes Percent Auto 12.1 % (25-40); Mean Corpuscular HGB Conc 34.2 % (30-36); Mean Corpuscular Hemoglobin 32.9 PG (26-34); Mean Corpuscular Volume 96.3 fL (80-100); Monocytes Absolute Auto 600 /uL (0-900); Monocytes Percent Auto 5.7 % (3-14); Neutrophils Absolute Auto 8900 /uL (1500-7000); Platelet Count 388 X10^3/uL (150-400); Red Blood Cell Count 4.54 X10^6/uL (4.5-5.9); Red Cell Distribution Width 13.1 % (11.6-14.8); White Blood Cell Count 11.2 X10^3/uL (4.5-11.0)
[2019-10-22 11:19] LABS: Prothrombin Time 11.8 SECONDS (10.1-12.7)
[2019-10-22 11:21] LABS: PTT Partial Thromboplastin Tim 55 SECONDS (26.4-36.2)
[2019-10-22 11:24] LABS: Alanine Aminotransferase 12 IU/L (<50); Albumin 3.9 g/dL (3.5-5.0); Albumin Globulin Ratio 1.3 (1.0-2.8); Alkaline Phosphatase 115 U/L (38-126); Aspartate Aminotransferase 23 IU/L (17-59); BUN Creatinine Ratio 17.4 (6-22); Bilirubin Total 0.5 mg/dL (0.2-1.3); Blood Urea Nitrogen 15 mg/dL (9-20); Calcium 9.4 mg/dL (8.4-10.2); Carbon Dioxide 26 mmol/L (22-32); Chloride 102 mmol/L (98-107); Creatine Kinase 52 U/L (55-170); Estimated Glomerular Filt Rate > 60.0 mL/min (>60); Globulin 3.1 g/dL (1.7-4.1); Glucose 107 mg/dL (70-100); HEMOLYSIS 20 (0-50); Lipase 29 U/L (23-300); Potassium 4.2 mmol/L (3.4-5.1); Sodium 137 mmol/L (137-145)
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
--- NOTE | 2019-10-22 11:33 | DI.CT.S_ITS ---
PROCEDURE: CT ABDOMEN PELVIS W CON INDICATIONS: Distended abdomen, free air under diaphragm TECHNIQUE: After the administration of intravenous contrast, 5 mm thick sections acquired from the diaphragm to the symphysis. 5 mm coronal and sagittal reformats were acquired. For radiation dose reduction, the following was used: automated exposure control, adjustment of mA and/or kV according to patient size. COMPARISON: [facility], CT, CT ABDOMEN PELVIS W CON, 11/29/2018, 16:45. [facility], CT, ABDOMEN/PELVIS WITH CONTRAST, 01/30/2017, 13:10. FINDINGS: Image quality: Excellent. ABDOMEN: Lung bases: Lung bases are clear. Heart size is normal. Solid organs: Liver is normal in size and enhancement. Gallbladder is not seen. Biliary system is non dilated. Pancreas enhances normally. Spleen is normal in size and enhancement. No adrenal nodules. Kidneys demonstrate normal size and enhancement, without hydronephrosis. Peritoneum and bowel: Colonic bowel loops demonstrate generally normal wall thickness and caliber with mild colonic obstipation. There is, however, prominent gas distention of the small bowel and portions of the transverse colon, without visualized pneumatosis. There is, however, free fluid is seen deep within the pelvis and also over the epigastrium area, and also free air. Nodes and vessels: No retroperitoneal or mesenteric adenopathy by size criteria. Aorta and inferior vena cava are normal in size. Miscellaneous: No ventral hernias. PELVIS: Genitourinary: Bladder wall thickness is normal. Miscellaneous: No inguinal hernias or adenopathy. The pattern of gas distention predominantly involving small bowel extends into the pelvis as this free fluid. The free air pattern is seen more prominently superiorly. An etiology of bowel obstruction is not definitely located. Note is made, however, a short segment of small bowel in the right lower quadrant centered on series 2 image 74 that may represent a short segmental small bowel stricture measuring only approximately 5 cm in length and Bones: No suspicious bony lesions. No vertebral body compression fractures. IMPRESSION: 1. A mild to moderate degree of free air is seen within the peritoneal space, point of perforation is not identified. Note is also made of gaseous distention of small bowel loops that is prominent through the abdomen and pelvis. 2. As noted, there is a short segment of what appears to be small bowel that is not distended at the right lower quadrant, centered on series 2 image 74, potentially small bowel stricture. 3. Colonic distention involving portions of the transverse colon is relatively mild and likely reactive to the small bowel obstructive process elsewhere. Note: Findings immediately called to the emergency room physician caring for the patient. Dictated by: Sathya Garcia M.D. on 10/22/2019 at 11:57 Approved by: Sathya Garcia M.D. on 10/22/2019 at 12:07
[2019-10-22 11:36] LABS: Troponin I < 0.012 ng/mL (0.01-0.034)
--- NOTE | 2019-10-22 12:08 | PC.NURSE ---
Pt reports sharp pain right side ribs 12/21. Previously provoked by deep inspiration, now constant since I got back from CT.
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
[2019-10-22] MEDS: PIPERACILLIN-TAZO 3.375 GM/50 ML FROZ.PIGGY IV ×2 (13:13→18:58)
[2019-10-22] MEDS: LACTATED RINGERS 1,000 ML 125 ML IV ×2 (13:14→21:52)
[2019-10-22 14:35] LABS: COVID19 -Nasal RAPID Negative (Negative)
--- NOTE | 2019-10-22 15:20 | PC.ADMIT ---
[email or web address] [address] Admission Note: The patient,Chris Parker,54 y/o, was given written information regarding hospital policies, unit procedures and contact persons. Patient's smoking status: Current every day smoker. Vital Signs - 8 hr 10/22/19 11:00 10/22/19 12:00 10/22/19 12:30 Temperature 98.3 F Pulse Rate 101 H 94 H 95 H Respiratory Rate 18 24 24 Blood Pressure 133/86 Blood Pressure [Left Arm] 117/80 124/87 Pulse Oximetry 99 98 98 10/22/19 13:00 10/22/19 13:58 Temperature 98.1 F Pulse Rate 90 91 H Respiratory Rate 21 17 Blood Pressure 138/87 Blood Pressure [Left Arm] 116/83 Pulse Oximetry 97 97 Patient admitted to 203. able to transf self from stretcher, ambulated to bed. Ivf running as ordered, abx completed. Patient has grossly distended abd, firm but not rigid. Denies nausea. States ate 2 bowels of cheerio's and a boost type protein drink for breakfast. States has had abd issues for maybe 15 months, but worse the last 2 months. States he experiences a tearing type pain with activity in his right side of his abd. Patient is NPO. meds sent to pharmacy, valuables locked in safe. Report given to MARGARET Francois.
--- NOTE | 2019-10-22 15:39 | DI.RAD.S_ITS ---
PROCEDURE: [place] SMALL BOWEL FOLLOW THROUGH INDICATIONS: bowel obstruction. COMPARISON: None. FINDINGS: KUB: Preprocedural auger supervisor film demonstrates an abnormal bowel gas pattern with prominent small bowel distension as documented on CT same day. The free air seen on that study is very subtle on this plain film examination. No suspicious abdominal calcifications. Visualized solid organ contours appear normal. No suspicious bony abnormalities. Small bowel: There is delayed transit time of water soluble oral contrast through the small bowel into the right colon. Small bowel loops are of abnormal caliber throughout. Mucosal folds are smooth. No strictures, intraluminal masses, or extrinsic mass effects are noted but overlap of numerous bowel loops reduces quality of visualization. The terminal ileum area is identified, but is not well seen. IMPRESSION: Source of free air and small bowel distension seen on CT earlier same day is not seen. Contrast does extend into the colon, delayed. Dictated by: Sathya Garcia M.D. on 10/23/2019 at 7:12 Approved by: Sathya Garcia M.D. on 10/23/2019 at 7:18
[2019-10-22] MEDS: BENZTROPINE 1 MG TABLET 2 MG PO (20:51)
[2019-10-22] MEDS: QUETIAPINE 200 MG TABLET 400 MG PO (20:52)
[2019-10-22] MEDS: ATORVASTATIN 20 MG TABLET PO (20:53)
[2019-10-22] MEDS: levETIRAcetam 250 MG TABLET 750 MG PO (20:55)
[2019-10-22] MEDS: LUBIPROSTONE 24 EACH PO (20:56)
--- NOTE | 2019-10-22 22:15 | PC.NURSE ---
Abdomen distended, firm, BTs hypoactive; pt denies passing gas, denies nausea, denies pain; O2 RA=99%, ls diminished to BL posterior lower lobes; pt calm and cooperative; voiding in urinal at bedside
[2019-10-23] VITALS (8 sets, daily range): BP systolic 98–122; BP diastolic 60–88; PULSE 70–94; RESP 16–18; TEMP 36.4–37.7; O2SAT 93–98
[2019-10-23] MEDS: PIPERACILLIN-TAZO 3.375 GM/50 ML FROZ.PIGGY IV ×4 (00:26→18:39)
[2019-10-23] MEDS: ACETAMINOPHEN 325 MG TABLET 650 MG PO (00:27)
--- NOTE | 2019-10-23 05:44 | PC.NURSE ---
BTs hypoactive but present in upper left quadrant only, absent in other 3 quadrants. Denies SOB. Reports chronic bronchitis and asthma and that he has sputum when he coughs but it changes color. Wheezing in RUL anterior.
[2019-10-23] MEDS: LACTATED RINGERS 1,000 ML 125 ML IV ×2 (06:13→16:11)
[2019-10-23 06:21] LABS: BUN Creatinine Ratio 17.6 (6-22); Blood Urea Nitrogen 16 mg/dL (9-20); Calcium 8.3 mg/dL (8.4-10.2); Carbon Dioxide 25 mmol/L (22-32); Chloride 108 mmol/L (98-107); Estimated Glomerular Filt Rate > 60.0 mL/min (>60); Glucose 81 mg/dL (70-100); HEMOLYSIS < 15 (0-50); Magnesium 2.1 mg/dL (1.6-2.3); Sodium 136 mmol/L (137-145)
--- NOTE | 2019-10-23 08:22 | P.PN_ITS ---
Subjective Subjective Date Patient Seen: 10/23/19 Time Patient Seen: 08:22 Interval history: No acute events overnight. Pt completed SBFT, with passage of stool to colon. Denies nausea. Passing small amount of gas but no stool. Exam Vital Signs (past 8 hours): - 10/23/19 04:55 Temperature 98.1 F Pulse Rate 84 Respiratory Rate 16 Blood Pressure 113/75 Pulse Oximetry 94 Oxygen Delivery Method Room Air Oxygen Flow Rate 0 Narrative Exam Narrative: GENERAL: Sleeping comfortably. Vital signs noted. HENT: Normocephalic, atraumatic. CARDIOVASCULAR: Regular rate. No pedal edema. RESPIRATORY: Non-tachypneic, breathing comfortably on room air. GASTROINTESTINAL: Abdomen tensely distended, minimally TTP GENITALURINARY: No flank tenderness. MUSCULOSKELETAL: Equal tone and mass bilaterally. SKIN: Warm, dry, soft, appropriate color for ethnicity. No other lesions, rashes, or wounds. NEURO: No gross sensory deficits, or cognitive issues. Objective Imaging Abdominal x-ray: My impression: Dilated bowel throughout, full of gas, contrast passes to colon Radiologist's impression: Contrast passes to colon, no source of free air identified; contrast passes in a delayed fashion Labs Result Diagrams: 10/22/19 11:04 10/23/19 05:50 Labs: Laboratory Results - last 24 hr 10/22/19 10/22/19 10/22/19 11:04 11:04 11:04 WBC 11.2 H RBC 4.54 Hgb 14.9 Hct 43.7 MCV 96.3 MCH 32.9 MCHC 34.2 RDW 13.1 Plt Count 388 Neut % (Auto) 79.0 H Lymph % (Auto) 12.1 L [place] % (Auto) 5.7 Eos % (Auto) 2.3 Baso % (Auto) 0.9 Neut # (Auto) 8900 H Lymph # (Auto) 1400 [place] # (Auto) 600 Eos # (Auto) 300 Baso # (Auto) 100 PT 11.8 INR 1.0 APTT 55 H Sodium 137 Potassium 4.2 Chloride 102 Carbon Dioxide 26 BUN 15 Creatinine 0.86 Estimated GFR > 60.0 BUN/Creatinine Ratio 17.4 Glucose 107 H Calcium 9.4 Phosphorus Magnesium Total Bilirubin 0.5 AST 23 ALT 12 Alkaline Phosphatase 115 Total Creatine Kinase 52 L CK-MB (CK-2) TNP CK-MB (CK-2) Rel Index TNP Troponin I < 0.012 Total Protein 7.0 Albumin 3.9 Globulin 3.1 Albumin/Globulin Ratio 1.3 Lipase 29 COVID-19 PCR 10/22/19 10/23/19 13:33 05:50 WBC RBC Hgb Hct MCV MCH MCHC RDW Plt Count Neut % (Auto) Lymph % (Auto) [place] % (Auto) Eos % (Auto) Baso % (Auto) Neut # (Auto) Lymph # (Auto) [place] # (Auto) Eos # (Auto) Baso # (Auto) PT INR APTT Sodium 136 L Potassium 4.0 Chloride 108 H Carbon Dioxide 25 BUN 16 Creatinine 0.91 Estimated GFR > 60.0 BUN/Creatinine Ratio 17.6 Glucose 81 Calcium 8.3 L Phosphorus 4.0 Magnesium 2.1 Total Bilirubin AST ALT Alkaline Phosphatase Total Creatine Kinase CK-MB (CK-2) CK-MB (CK-2) Rel Index Troponin I Total Protein Albumin Globulin Albumin/Globulin Ratio Lipase COVID-19 PCR Negative Assessment & Plan Assessment and plan (1) Abdominal distension: Status: Acute (2) History of seizure: Status: Suspected (3) Bipolar affective disorder: Status: Chronic (4) Schizoaffective disorder: Status: Chronic (5) Constipation: Qualifiers: Constipation type: drug induced constipation Qualified Code(s): K59.03 - Drug induced constipation Status: Chronic (6) Status post exploratory laparotomy: Status: Resolved (7) Generalized intestinal dysmotility: Status: Acute Assessment & Plan narrative: This is a 54 yo man with massive intestinal distension and free air on CT. Admitted for observation. SBFT shows no sign of leak, and contrast does go through to the colon. He remains very distended and has not passed any stool since his SBFT. We will start some golytely today, and clear liquid diet. Plan: Clear liquid diet as tolerated DVT PPX Golytely as tolerated ambulate as much as possible home meds minimize narcotics COVID-19 COVID-19 status: Negative Result date/Date tested (Pos, Neg/Pending): 10/22/19 Time Spent With Patient Time with patient: 25 - 35 minutes Quality VTE Deep Vein Thrombosis/Pulmonary Embolism Present on Admission: No
[2019-10-23] MEDS: PEG3350/SOD SULF,BICARB,CL/KCL 4,000 ML SOLUTION 2000 ML PO (10:21)
[2019-10-23] MEDS: BENZTROPINE 1 MG TABLET 2 MG PO ×2 (10:21→20:45)
[2019-10-23] MEDS: ESCITALOPRAM 10 MG TABLET 20 MG PO (10:23)
[2019-10-23] MEDS: HEPARIN 5,000 UNIT/ML VIAL 5000 UNIT SUBCUT ×2 (10:23→20:44)
[2019-10-23] MEDS: CLOZAPINE 250 MG 250 EACH PO (10:23)
[2019-10-23] MEDS: LUBIPROSTONE 24 EACH PO ×2 (10:24→20:47)
[2019-10-23] MEDS: QUETIAPINE 200 MG TABLET 400 MG PO ×2 (10:25→20:46)
[2019-10-23] MEDS: PANTOPRAZOLE 40 MG TABLET PO (10:25)
[2019-10-23] MEDS: levETIRAcetam 250 MG TABLET 750 MG PO ×2 (10:39→20:45)
[2019-10-23] MEDS: TIOTROPIUM BROMIDE 18 MCG INHALER INH ×2 (10:52→11:00)
--- NOTE | 2019-10-23 10:59 | CM.DANOTE ---
Addendum entered by Ange Christian R.N. 10/23/19 11:29: It is noted that patient also has history of bipolar disorder as well as bipolar affective disorder, and is currently on psychotropic medications. Original Note: DCP: Case received, EMR reviewed and met with patient. Introduced self and role. Was able to meet with patient and obtain information regarding patient's baseline activity level, as well as living situation. DCP assessment completed with information currently available. Patient is a 54 year old female who admitted yesterday afternoon to the care of the hospitalist/surgical team. PCP: Dr. Shelley. Payer: confirmed: [facility]. Patient came to the hospital sent over from [facility], his primary provider, secondary to him having abdominal pain and distension. Patient does have a bowel history. He also has history of seizures, and is a current smoker. He is currently getting IV fluids, is NPO. It is uncertain if he will have surgery. Met with patient in his room. He was sitting on the edge of his bed. He is alert and oriented. He resides here in [place] alone in an apartment, but he stated, he has supportive neighbors if he needs anything. He is independent at baseline, but is not driving. He stated that he uses the public transit for transportation. P: DCP to continue to follow and be available for any resources needed. Patient should be able to go home when he is medically stable. Ange Christian RN/[employer]
--- NOTE | 2019-10-23 11:42 | PC.NURSE ---
Pt has been up and ambulated in the halls multiple times. He has been tolerating his golytly mixed with apple juice. He has had a medium soft BM at 1145.
[2019-10-23] MEDS: ATORVASTATIN 20 MG TABLET PO (20:45)
[2019-10-24] MEDS: LACTATED RINGERS 1,000 ML 125 ML IV (00:53)
[2019-10-24] MEDS: PIPERACILLIN-TAZO 3.375 GM/50 ML FROZ.PIGGY IV ×3 (00:54→12:29)
[2019-10-24 03:57] VITALS: BP 116/81; PULSE 80; RESP 16; TEMP 36.4; O2SAT 97
[2019-10-24 06:55] LABS: Blood Urea Nitrogen 9 mg/dL (9-20); Calcium 7.8 mg/dL (8.4-10.2); Carbon Dioxide 26 mmol/L (22-32); Chloride 108 mmol/L (98-107); Estimated Glomerular Filt Rate > 60.0 mL/min (>60); Glucose 89 mg/dL (70-100); HEMOLYSIS < 15 (0-50); Magnesium 2.1 mg/dL (1.6-2.3); Phosphorous 3.4 mg/dL (2.5-4.5); Potassium 3.9 mmol/L (3.4-5.1); Sodium 138 mmol/L (137-145)
--- NOTE | 2019-10-24 07:09 | DI.RAD.S_ITS ---
PROCEDURE: XR KUB INDICATIONS: follow up gas pattern TECHNIQUE: One view of the abdomen acquired. COMPARISON: [facility], , [place] SMALL BOWEL FOLLOW THROUGH, 10/22/2019, 15:39. FINDINGS: Surgical changes and devices: None. Bowel: Bowel gas pattern grossly unchanged since 10/22/19. There is residual oral contrast material seen within the colon and rectal vault. Contrast material no longer visualized within the stomach which is less distended. Soft tissues: No suspicious abdominal calcifications. Visualized solid organ contours appear normal in size. Bones: No suspicious bony lesions. IMPRESSION: Grossly unchanged bowel gas pattern with residual oral contrast material present within the colon and rectal vault Dictated by: Robson Rodriguez M.D. on 10/24/2019 at 9:39 Approved by: Robson Rodriguez M.D. on 10/24/2019 at 9:41
[2019-10-24] MEDS: HEPARIN 5,000 UNIT/ML VIAL 5000 UNIT SUBCUT (08:24)
[2019-10-24] MEDS: PANTOPRAZOLE 40 MG TABLET PO (08:25)
[2019-10-24] MEDS: ESCITALOPRAM 10 MG TABLET 20 MG PO (08:25)
[2019-10-24] MEDS: QUETIAPINE 200 MG TABLET 400 MG PO (08:26)
[2019-10-24] MEDS: LUBIPROSTONE 24 EACH PO (08:26)
[2019-10-24] MEDS: BENZTROPINE 1 MG TABLET 2 MG PO (08:26)
[2019-10-24] MEDS: levETIRAcetam 250 MG TABLET 750 MG PO (08:31)
[2019-10-24 08:43] VITALS: PULSE 77; RESP 14; O2SAT 97
[2019-10-24] MEDS: TIOTROPIUM BROMIDE 18 MCG INHALER INH (08:43)
[2019-10-24 09:13] VITALS: BP 115/79; PULSE 73; RESP 17; TEMP 36.2; O2SAT 100
--- NOTE | 2019-10-24 09:53 | P.DS_ITS ---
History of Present Illness History of Present Illness Chief complaint: chest pain Narrative: This is a 54 yo man with history of antipsychotic treatment and seizure disorder, history of pneumatosis intestinalis, free air, negative ex lap in 2019, ex lap and ESTRELLITA for SBO in 2017, who comes in with a very similar co nstellation of symptoms and findings as he has in the past. He has had several weeks of worsening constipation, followed by his PCP, believed to be secondary to his psych meds. He continues to pass gas and stool, and denies nausea/vomiting. He has a BM every 3-4 days, usually by using an enema. He came in to see his PCP today and complained of chest pain. He was then sent to the ER, and the chest pain was worked up and found to be non-cardiac. He had a CT scan of his abdomen which revealed free air and massively dilated bowel. He denies pain at the time of my exam. He says his abdomen is normally this way. ROS: Dark urine, blood in urine, abdominal distension, constipation, hallucinations, Thirteen system review is otherwise negative other than as mentioned below and in HPI. PE GENERAL: Alert, comfortable. Appears stated age. Answers questions promptly and appropriately. Vital signs noted. HENT: Normocephalic, atraumatic. Hearing intact. EYES: Conjunctiva pink, sclera white, no periorbital swelling. CARDIOVASCULAR: Regular rate. No pedal edema. RESPIRATORY: Non-tachypneic, breathing comfortably on room air. GASTROINTESTINAL: Abdomen tensely distended and tympanic; nontender; well healed lower midline incisional scar GENITALURINARY: No flank tenderness. MUSCULOSKELETAL: Equal tone and mass bilaterally. SKIN: Warm, dry, soft, appropriate color for ethnicity. No other lesions, rashes, or wounds. NEURO: Alert and Oriented X 3. No gross sensory deficits, or cognitive issues. PSYCH: Appropriate affect and mood. Discharge Providers Provider Date of admission: 10/22/19 12:37 Discharge Date: 10/24/19 Primary care physician: Tiffanie Shelley DO Consults: 10/22/19 12:18 Consult to General Surgery Stat Comment: Consulting Provider: Marci Brooks Reason for consultation: Possible obstruction Has provider been notified: Yes Discharge provider: Marci Brooks MD Summary Hospital Course Discharge Diagnosis: Chronic constipation, gastrointestinal dysmotility Hospital Course: This 54-year-old man was admitted with free air and bowel dilation with chronic constipation. He was kept for observation because of the free air. He was not taken the OR because he previously had similar findings on CT scan and negative exploratory laparotomy. He was nontoxic, and in minimal discomfort. We completed a small-bowel follow-through which showed passage of contrast throughout his entire gastrointestinal tract, and extremely dilated bowels. There was no leakage of contrast through the bowel. He then took in several L of GoLYTELY, which flushed out a significant amount of stool. His follow-up x-ray was somewhat improved. His exam was improved, with less distention of his abdomen. He felt better, and wanted to go home. Status at Discharge Cognitive/behavioral status at discharge: oriented Functional status at discharge: independent ambulation Overall status at discharge: patient is back to baseline Time Spent with Patient Time spent: Greater than 30 minutes Exam Vital Signs (past 8 hours): - 10/24/19 03:57 10/24/19 08:43 10/24/19 09:13 Temperature 97.6 F 97.1 F L Pulse Rate 80 77 73 Respiratory Rate 16 14 17 Blood Pressure 116/81 115/79 Pulse Oximetry 97 97 100 Oxygen Delivery Method Room Air Oxygen Flow Rate 0 Narrative Exam Narrative: GENERAL: Well groomed and cooperative. Appears stated age. Answers questions promptly and appropriately. Vital signs noted. HENT: Normocephalic, atraumatic. Hearing intact. Oral mucosa is pink and moist. EYES: Conjunctiva pink, sclera white, no periorbital swelling. CARDIOVASCULAR: Regular rate. No pedal edema. RESPIRATORY: Non-tachypneic, breathing comfortably on room air. GASTROINTESTINAL: Abdomen soft, moderately distended and tympanic, nontender GENITALURINARY: No flank tenderness. MUSCULOSKELETAL: Equal tone and mass bilaterally. SKIN: Warm, dry, soft, appropriate color for ethnicity. No other lesions, rashes, or wounds. NEURO: Alert and Oriented X 3. No gross sensory deficits, or cognitive issues. PSYCH: Appropriate affect and mood. Objective Labs Result Diagrams: 10/22/19 11:04 10/24/19 06:30 Labs: Laboratory Results - last 24 hr 10/24/19 06:30 Sodium 138 Potassium 3.9 Chloride 108 H Carbon Dioxide 26 BUN 9 Creatinine 0.82 Estimated GFR > 60.0 BUN/Creatinine Ratio 11.0 Glucose 89 Calcium 7.8 L Phosphorus 3.4 Magnesium 2.1 Discharge Plan Discharge Plan Discharge Problem: Bowel obstruction Patient Disposition: Home Discharge comment: You were admitted to the hospital because free air was found in the abdomen on your CT scan. A bowel contrast study was performed to rule out bowel perforation. There was no evidence of bowel perforation found on this study. Your bowel distension has improved, but is likely to recur without persistent use of your bowel regimen. 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 Please call today or Sunday to make these appointments. Discharge orders & Medications Prescriptions: Continued mupirocin 2 % ointment 1 applic TOP TID Qty: 30 RF: 0 benztropine 1 mg tablet 2 mg PO BID RF: 0 escitalopram oxalate 20 MG tablet 20 mg PO DAILY Qty: 30 RF: 0 (DME) shower chair for inside the tub Qty: 1 RF: 0 atorvastatin [Lipitor] 20 mg tablet 20 mg PO BEDTIME Qty: 90 RF: 1 lansoprazole 30 mg capsule,delayed release(DR/EC) 30 mg PO DAILY Qty: 30 RF: 1 clozapine 200 mg tablet See Rx Instructions PO BID RF: 0 levetiracetam [Keppra] 500 mg tablet 750 mg PO BID RF: 0 lubiprostone 24 mcg capsule 24 mcg PO BID Qty: 180 RF: 1 lactulose 10 gram/15 mL solution 20 gram PO DAILY Qty: 946 RF: 2 acetaminophen [Tylenol Extra Strength] 500 mg tablet 1,000 mg PO QID PRN (Reason: pain) RF: 0 tiotropium bromide [Spiriva with HandiHaler] 18 mcg capsule, w/inhalation device 1 cap Inhalation DAILY Qty: 30 RF: 11 quetiapine 400 mg tablet 400 mg PO BID RF: 0 Calcium 600 + Minerals 1 tab PO BEDTIME RF: 0 Men's 50 Plus Daily Formula 400-20-370 mcg Tablet 1 tab PO BEDTIME RF: 0 saw palmetto 250 mg tablet 1 tab PO BEDTIME RF: 0 Spacer: Inhaler Spacer Device 1 ea miscellaneous DIRECTED RF: 0 Follow up/Referrals: Tiffanie Shelley DO [Primary Care Provider] - Diet/Activity/Treatments Diet: Diet as Tolerated and Full Liquid Diet comment: Start with liquids. Advance to solids as tolerated. Skin/Wound/Dressing Care Report to your healthcare provider any signs of infection, such as:: chills, fever, night sweats, increased pain, unusual drainage and unusual redness Visit Report/Discharge Packet Instructions: DI for Constipation Visit Report Forms: Patient Portal/API, Stroke Signs & Symptoms Discharge Data Primary Care Provider: Tiffanie Shelley Attending Provider: Marci Brooks Admit Date/Time: 10/22/19 12:37 Discharges patient from system. Discharge Date/Time: 10/24/19 13:32 Quality VTE Deep Vein Thrombosis/Pulmonary Embolism Present on Admission: No
--- NOTE | 2019-10-24 11:49 | PC.NURSE ---
Patient is awake and walking in the halls a lot . He has been advanced to full liquids and is tolerating well. His abdomen is distended and firm. He has been having bowel movements throughout the night and last evening. into see patient and he will most likely discharge home after he eats lunch and tolerates this. He has not had any nausea or emesis. He appears to be comfortable.
== END 2019-10-24 13:32 | disposition home or self-care (01) ==
LOC: ED 11:36 → AC 12:37
PROVIDERS: Admitting Provider Surgery; Emergency Provider Emergency Medicine; PCP Family Medicine; Referring Provider Emergency Medicine; Visit Provider Surgery
DX: K59.09 Other constipation (principal); R07.9 Chest pain, unspecified; R14.0 Abdominal distension (gaseous); K59.8 Other specified functional intestinal disorders; Z87.898 Personal history of other specified conditions; F31.9 Bipolar disorder, unspecified; F25.9 Schizoaffective disorder, unspecified; Z98.890 Other specified postprocedural states; F17.210 Nicotine dependence, cigarettes, uncomplicated; Z11.59 Encounter for screening for other viral diseases
CPT/HCPCS: 36415; 71045; 74018; 74177; 74250; 80048; 80053; 82550; 83690; 83735; 84100; 84484; 85025; 85610; 85730; 87635; 93005; 94640; 96365; 96366; 96372; 99217; 99219; 99222; 99224; 99231; 99238; 99284; G0378; J1644; J2543; Q9967

== ENCOUNTER → 2019-10-29 09:59 | Outpatient (CLI) | payer OTHER, SELFPAY ==
[2019-10-22 14:15] VITALS: BMI 21.1
[2019-10-29 11:36] LABS: Add Manual Diff / Slide Review NO; Basophils Absolute Auto 100 /uL (0-100); Basophils Percent Auto 1.4 % (0-2); Eosinophils Absolute Auto 500 /uL (0-450); Eosinophils Percent Auto 5.1 % (2-4); Hematocrit 40.5 % (41-53); Hemoglobin 14.2 g/dL (13.5-17.5); Lymphocytes Absolute Auto 1500 /uL (1100-4500); Mean Corpuscular Hemoglobin 33.6 PG (26-34); Monocytes Absolute Auto 500 /uL (0-900); Monocytes Percent Auto 5.5 % (3-14); Neutrophils Absolute Auto 6700 /uL (1500-7000); Platelet Count 389 X10^3/uL (150-400); Red Blood Cell Count 4.21 X10^6/uL (4.5-5.9); White Blood Cell Count 9.3 X10^3/uL (4.5-11.0)
== END ==
PROVIDERS: PCP Family Medicine; Referring Provider Clinical Nurse Specialist Psychiatric/Mental Health, Adult; Visit Provider Clinical Nurse Specialist Psychiatric/Mental Health, Adult
DX: Z79.899 Other long term (current) drug therapy (principal)
CPT/HCPCS: 36415; 85025

== ENCOUNTER → 2019-11-20 12:47 | Outpatient (CLI) | payer OTHER, SELFPAY ==
[2019-10-22 14:15] VITALS: BMI 21.1
[2019-11-20 14:37] LABS: Add Manual Diff / Slide Review NO; Basophils Absolute Auto 0 /uL (0-100); Basophils Percent Auto 0.5 % (0-2); Eosinophils Absolute Auto 200 /uL (0-450); Eosinophils Percent Auto 2.7 % (2-4); Hematocrit 40.8 % (41-53); Hemoglobin 13.9 g/dL (13.5-17.5); Lymphocytes Absolute Auto 1500 /uL (1100-4500); Lymphocytes Percent Auto 17.1 % (25-40); Mean Corpuscular HGB Conc 33.9 % (30-36); Mean Corpuscular Hemoglobin 32.4 PG (26-34); Mean Corpuscular Volume 95.5 fL (80-100); Monocytes Absolute Auto 500 /uL (0-900); Monocytes Percent Auto 5.3 % (3-14); Neutrophils Absolute Auto 6400 /uL (1500-7000); Neutrophils Percent Auto 74.4 % (50-75); Platelet Count 277 X10^3/uL (150-400); Red Blood Cell Count 4.28 X10^6/uL (4.5-5.9); White Blood Cell Count 8.7 X10^3/uL (4.5-11.0)
== END ==
PROVIDERS: PCP Family Medicine; Referring Provider Clinical Nurse Specialist Psychiatric/Mental Health, Adult; Visit Provider Clinical Nurse Specialist Psychiatric/Mental Health, Adult
DX: Z79.899 Other long term (current) drug therapy (principal)
CPT/HCPCS: 36415; 85025

== ENCOUNTER 2019-12-10 10:32 | Inpatient (IN) | payer OTHER, SELFPAY ==
[2019-10-22 14:15] VITALS: BMI 21.1
[2019-12-10] VITALS (17 sets, daily range): BP systolic 115–183; BP diastolic 68–106; PULSE 88–922; RESP 11–25; TEMP 36.5–37.3; O2SAT 93–100; BMI 20.9
--- NOTE | 2019-12-10 10:44 | PC.NURSE ---
pt explains doesn't always feel safe at home due to his paranoia.
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
[2019-12-10] MEDS: MORPHINE 4 MG/ML INJ IV (10:56)
[2019-12-10] MEDS: SODIUM CHLORIDE 0.9% 1,000 ML 1000 ML IV (10:56)
[2019-12-10 10:57] LABS: Add Manual Diff / Slide Review NO; Basophils Absolute Auto 100 /uL (0-100); Basophils Percent Auto 0.7 % (0-2); Eosinophils Absolute Auto 100 /uL (0-450); Eosinophils Percent Auto 0.9 % (2-4); Hemoglobin 15.8 g/dL (13.5-17.5); Lymphocytes Absolute Auto 2400 /uL (1100-4500); Lymphocytes Percent Auto 19.8 % (25-40); Mean Corpuscular HGB Conc 34.2 % (30-36); Mean Corpuscular Hemoglobin 32.6 PG (26-34); Mean Corpuscular Volume 95.3 fL (80-100); Monocytes Absolute Auto 600 /uL (0-900); Monocytes Percent Auto 5.3 % (3-14); Neutrophils Absolute Auto 8900 /uL (1500-7000); Neutrophils Percent Auto 73.3 % (50-75); Platelet Count 362 X10^3/uL (150-400); Red Blood Cell Count 4.83 X10^6/uL (4.5-5.9); Red Cell Distribution Width 13.5 % (11.6-14.8); White Blood Cell Count 12.1 X10^3/uL (4.5-11.0)
[2019-12-10 11:03] LABS: Alanine Aminotransferase 13 IU/L (<50); Albumin 4.2 g/dL (3.5-5.0); Albumin Globulin Ratio 1.6 (1.0-2.8); Alkaline Phosphatase 128 U/L (38-126); Aspartate Aminotransferase 26 IU/L (17-59); BUN Creatinine Ratio 18.1 (6-22); Bilirubin Total 0.8 mg/dL (0.2-1.3); Blood Urea Nitrogen 17 mg/dL (9-20); Calcium 9.7 mg/dL (8.4-10.2); Carbon Dioxide 25 mmol/L (22-32); Chloride 101 mmol/L (98-107); Estimated Glomerular Filt Rate > 60.0 mL/min (>60); Globulin 2.7 g/dL (1.7-4.1); Glucose 146 mg/dL (70-100); HEMOLYSIS 27 (0-50); Lipase 42 U/L (23-300); Potassium 3.7 mmol/L (3.4-5.1); Sodium 137 mmol/L (137-145); Total Protein 6.9 g/dL (6.3-8.2)
[2019-12-10] MEDS: HYDROMORPHONE 1 MG INJ IV (11:33)
[2019-12-10] MEDS: LACTATED RINGERS 1,000 ML 1000 ML IV (12:08)
[2019-12-10] MEDS: LIDOCAINE VISCOUS 2% 15 ML SOLUTION PO (12:09)
--- NOTE | 2019-12-10 12:13 | DI.RAD.S_ITS ---
PROCEDURE: XR ABDOMEN 1V INDICATIONS: ngt placement TECHNIQUE: One view of the abdomen acquired. COMPARISON: [facility], CT, CT ABDOMEN PELVIS W CON, 12/10/2019, 10:55. FINDINGS: Surgical changes and devices: There has been interval placement of a nasogastric tube with the tip overlying the fundus of the stomach. Bowel: Numerous distended air-filled bowel loops are seen within the abdomen. Air and stool are identified overlying the expected location of the colon. Scattered areas of pneumoperitoneum are present. These findings are unchanged since the CT from earlier in the day. Soft tissues: No suspicious abdominal calcifications. Visualized solid organ contours appear normal in size. Bones: No suspicious bony lesions. IMPRESSION: Nasogastric tube is position with the tip overlying the stomach. Dictated by: Abhijeet John M.D. on 12/10/2019 at 12:18 Approved by: Abhijeet John M.D. on 12/10/2019 at 12:18
--- NOTE | 2019-12-10 12:15 | PC.NURSE ---
NG [address] Hernandez at 1205. Patient tolerated procedure fairly well. NG tube hooked to intermitant low wall suction. Patient HOB elevated to 50 degrees.
[2019-12-10] MEDS: HYDROMORPHONE 0.5 MG INJ 1 MG IV (12:31)
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
[2019-12-10 12:44] LABS: COVID19 -Nasal RAPID Negative (Negative)
[2019-12-10] MEDS: LACTATED RINGERS 1,000 ML 42 ML IV ×2 (15:02→16:23)
--- NOTE | 2019-12-10 15:23 | PM.PREOP ---
Pre-operative Note COVID-19 COVID-19 status: Negative Result date/Date tested (Pos, Neg/Pending): 12/10/19 Interval Note History & Physical reviewed/Exam performed by Physician: Yes Changes to H&P: No H&P completed within 30 days and has changed as indicated here:: I discussed the risks of bleeding infection uncertainty of the diagnosis there for uncertainty of the exact procedure I would perform and possible hernia with him. He appears to understand wishes to proceed. His pain persists.
[2019-12-10] MEDS: PIPERACILLIN-TAZO 3.375 GM/50 ML FROZ.PIGGY IV (15:25)
--- NOTE | 2019-12-10 15:50 | PC.NURSE ---
1500 change of shift and pt is off of unit.
--- NOTE | 2019-12-10 15:53 | SUR.OPER ---
Supine on padded OR bed, head on pillow, arms secured on padded arm boards at <90 degrees abduction, legs uncrossed, safety belt at thigh, tape over blanket over lower legs.
--- NOTE | 2019-12-10 16:17 | PC.NURSE ---
Patient received from Er to bed 213, oriented to room and call light. NG placed to low intermittent suction as ordered, with spontaneous brownish liquid draining. Patient's abdomen is large, rounded and distended. He states he still has severe pain in abdomen (prn dilaudid just given prior to transfer) with intermittent nausea, states he thinks he last threw up this morning at home. Urinal given to patient at bedside, though he states he does not have urge to go at this time. Patient sitting upright in bed, sleeping on and off. Dr. Hernandez notified patient arrived, and up to review surgery with patient and sign consent. Patient requested to lock up belongings prior to being picked up from surgery.
[2019-12-10] MEDS: BUPIVACAINE 0.5% W/ EPI (PF) 30 ML VIAL INJ (17:23)
[2019-12-10] MEDS: HYDROMORPHONE 2 MG INJ IV ×3 (18:00→18:10)
--- NOTE | 2019-12-10 18:00 | PM.OP.1 ---
Operative Date/Time/Diagnoses Date of procedure: 12/10/19 Time of procedure: 17:41 Pre-op diagnosis: Possible ischemic gut. Possible bowel obstruction. Post-op diagnosis: other (Torsion of the intestine with ischemia of the small bowel.) Procedure & Clinicians Procedure: Exploratory laparotomy with cecopexy Same procedure as scheduled: Yes Indications: Patient with diffuse abdominal pain distended intestine and a world appearance of his mesentery on CT scan Surgeon: Ike Hernandez Click Yes if Unassisted: Yes Anesthesia Type: General Operative Notes Findings: The cecum was twisted around the small bowel tore Herbert the entire small bowel mesentery causing venous compromise to the small bowel without necrosis. Air within the wall the small bowel noted through much of its length. Hard inspissated stool throughout the colon. Closure Type: primary Specimen(s): none sent Prosthetic devices, grafts, tissues, transplants, or devices: None Estimated Blood Loss (mL): 15 Blood products transfused: none Procedure in detail: The patient was placed supine on the operating room table and underwent general endotracheal anesthesia. A Henry catheter was placed. He was prepped usual fashion. Vertical midline incision was made mid abdomen and carried down into the peritoneal cavity. There were no adhesions to the anterior abdominal wall. It was immediately apparent that I had distended small bowel that was somewhat discolored but not necrotic. I be an to deliver it and it was apparent I needed a longer incision which I extended both upward and inferiorly. I delivered the small bowel into the wound and it was quite late in with fluid and the mesentery was markedly edematous. The obstructive process was actually in the right upper quadrant where the cecum lay having twisted along with the small bowel bringing the cecum up into the right upper quadrant. The cecum was on a very long mesentery but it itself was not volvulized. I actually had to de torse the small bowel and bring the cecum down into the right lower quadrant in order to unfurl the mesentery and the bowel immediately pinked up. The small bowel was quite distended and there were air bubbles all along the surface for throughout much of the small bowel consistent with his known diagnosis of pneumatosis intestinalis. Once de-torsed nothing looked ischemic. Small bowel was really too distended to even contemplate putting it back into the peritoneal cavity. Therefore I milked fluid and air from the small bowel back into the stomach. This took a considerable amount of time probably 3/4 of the operation actually. We suctioned out multiple L of fluid and air. Once this was accomplished I was able to examine the mesentery better and there was a very tight space between the ligament of Treitz and the distal small bowel. I suspect this is why the area was able to torse so readily. I cut adhesions along its surface staying out of the vascular portions of the mesentery and widened this base. I then Returned the small bowel to the abdomen being very careful not to torse the mesentery, keeping the cecum in its normal position in the right lower quadrant. Given the length of the mesentery and the mobility of the cecum I decided to PACs the mesentery of the cecum to the right abdominal wall. Using interrupted silk sutures in beginning where the abdominal wall met the mesentery I sutured the mesentery with interrupted 3 0 silk in a series of sutures up to near the edge of the cecal wall. I was very careful not to grasp any vascular structures or the bowel itself. The stitches were placed close enough together that there should be no entrance of small bowel between them. I was satisfied that the cecum at least temporarily was pexed in its normal location and hopefully this would prevent any further rotation of the mesentery. I did note that the entire cecum was full of very hard inspissated stool. The abdomen was then irrigated and suctioned free of fluid. The omentum was pulled down under the incision and a running 1. PDS with occasional interrupted 0 Vicryl [id number] sutures was used to close the fascia. The subcu was closed with interrupted 3 0 Vicryl and the skin was closed with ivy. Dressing was applied and the patient was awakened and extubated and taken the recovery room in good condition. There were no apparent complications. Complications: none Post-operative Condition: stable Disposition: PACU Plan for aftercare: Inpatient
--- NOTE | 2019-12-10 18:13 | SUR.PHASEI ---
Pt arrived to PACU initially needing intermittent chin lift for airway patency, pt then became more wakeful and breathing on own, NGT placed to LIS and brownish fluid out in tube and container. Abdomen soft, but distended. Medicated with Dilaudid for pain, mouth care done, chapstick to lips, no nausea. Dressing remains C/D/I
--- NOTE | 2019-12-10 18:21 | SUR.PHASEI ---
Shakes present soon after arrival and no gone, treated with warming blanket.
--- NOTE | 2019-12-10 18:26 | SUR.PHASEI ---
Report attempted, RN not available.
--- NOTE | 2019-12-10 18:34 | SUR.PHASEI ---
Report called to Guerline ROBLES.
--- NOTE | 2019-12-10 18:54 | SUR.PHASEI ---
Pt transported up to room 213 on room air. Bed low, locked and SCD's on, pt left with MARGARET Cunha in stable condition.
[2019-12-10] MEDS: LACTATED RINGERS 1,000 ML 150 ML IV (20:08)
[2019-12-10] MEDS: KETOROLAC 30 MG/ML VIAL IV (20:11)
[2019-12-11] MEDS: PANTOPRAZOLE 40 MG VIAL IV ×2 (00:11→09:12)
--- NOTE | 2019-12-11 00:29 | PC.NURSE ---
Addendum entered by Risa Montana R.N. 12/11/19 05:14: Earlier when checked on, patient was asked if he was in any pain and he states he couldn't say because he couldn't focus on the pain because of the fucking tube in my nose. Wanting it removed but discussed with him the purpose of the tube and probable effects if tube were to be removed. Now awake and when asked how he is doing he states I'm not going to answer that, you know how I feel and then refused to say anything more. Original Note: Patient is alert and oriented. Breath sounds diminished at bases but CTA with RA sat of 93%. HRR. States NG tube makes him feel queasy but declines antiemetic; was medicated with IV Pantoprazole per MD order. NG to 100mmHg intermittent suction; patent. BT auscultated only in left upper abdominal quadrant; denies flatus. Abdomen appears distended and is soft but tender. Dressing to abdomen is CDI. Indwelling catheter is patent; urine is clear tammy. Is able to move himself in bed. Gait not assessed as has not yet been out of bed. Wearing bilateral calf SCD's. States he does have some tingling of toes bilaterally. States pain is 3/10 at rest and declines offer of pain medication. Fall risk score is moderate; bed alarm is activated.
[2019-12-11] MEDS: LACTATED RINGERS 1,000 ML 150 ML IV ×2 (01:44→07:58)
[2019-12-11 03:18] VITALS: BP 120/76; PULSE 76; RESP 16; TEMP 36.2; O2SAT 94
[2019-12-11 05:51] LABS: Add Manual Diff / Slide Review NO; Basophils Absolute Auto 0 /uL (0-100); Basophils Percent Auto 0.1 % (0-2); Eosinophils Absolute Auto 0 /uL (0-450); Eosinophils Percent Auto 0.2 % (2-4); Hematocrit 41.2 % (41-53); Lymphocytes Absolute Auto 1300 /uL (1100-4500); Lymphocytes Percent Auto 9.5 % (25-40); Mean Corpuscular Hemoglobin 32.2 PG (26-34); Mean Corpuscular Volume 94.8 fL (80-100); Monocytes Absolute Auto 600 /uL (0-900); Monocytes Percent Auto 4.5 % (3-14); Neutrophils Absolute Auto 11800 /uL (1500-7000); Neutrophils Percent Auto 85.7 % (50-75); Platelet Count 301 X10^3/uL (150-400); Red Blood Cell Count 4.34 X10^6/uL (4.5-5.9); Red Cell Distribution Width 13.3 % (11.6-14.8); White Blood Cell Count 13.8 X10^3/uL (4.5-11.0)
[2019-12-11 06:00] LABS: Alanine Aminotransferase 12 IU/L (<50); Albumin 3.1 g/dL (3.5-5.0); Albumin Globulin Ratio 1.3 (1.0-2.8); Alkaline Phosphatase 76 U/L (38-126); Aspartate Aminotransferase 21 IU/L (17-59); BUN Creatinine Ratio 29.6 (6-22); Bilirubin Total 0.7 mg/dL (0.2-1.3); Blood Urea Nitrogen 24 mg/dL (9-20); Calcium 8.4 mg/dL (8.4-10.2); Carbon Dioxide 26 mmol/L (22-32); Chloride 103 mmol/L (98-107); Estimated Glomerular Filt Rate > 60.0 mL/min (>60); Globulin 2.4 g/dL (1.7-4.1); Glucose 109 mg/dL (70-100); HEMOLYSIS < 15 (0-50); Potassium 3.7 mmol/L (3.4-5.1); Sodium 136 mmol/L (137-145); Total Protein 5.5 g/dL (6.3-8.2)
[2019-12-11 08:00] VITALS: BP 128/79; PULSE 77; RESP 18; TEMP 36.8; O2SAT 93
[2019-12-11] MEDS: KETOROLAC 30 MG/ML VIAL IV (09:07)
[2019-12-11] MEDS: ENOXAPARIN 40 MG/0.4 ML SYRINGE SUBCUT (09:12)
[2019-12-11 12:15] VITALS: BP 126/78; PULSE 73; RESP 16; TEMP 36.7; O2SAT 96
--- NOTE | 2019-12-11 12:54 | CM.IDA ---
Initial DCP Assessment Note Patient is a 54 yo male, resident of [place]. Patient presents w/abd pain and POD#1 from surgery w/ Dr Hernandez; Torsion of the intestine with ischemia of the small bowel PCP: Dr Shelley Payer: Phong OROPEZA Reviewed chart. Patient w/significant psychiatric history to include Bipolar disorder, schizoaffective disorder and h/o Suicidal ideation/Suicide attempt. Patient lives alone in [place]. Patient currently has an NG tube and clemons in. According to MARGARET mathew, patient's mood is labile and it is not a good day to assess at bedside. This CLINICAL PARTNER will follow closely and plan to assess needs further when appropriate, likely tomorrow. 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 No History Provided By Patient,Medical Record Prior Living Arrangements Apartment/Condo Household Members none Type of transporation used prior to Drives own vehicle admit Independent with ADL's Yes Is patient alert and oriented? Yes Barriers to Discharge No Discharge Plan Home Transportation Arrangement Friends Referrals Initiated None needed
[2019-12-11] MEDS: LORazepam 2 MG/ML INJ 1 MG IV ×2 (13:07→17:48)
[2019-12-11] MEDS: HYDROMORPHONE 1 MG INJ IV ×3 (15:16→21:00)
[2019-12-11 16:02] VITALS: BP 123/71; PULSE 84; RESP 16; TEMP 36; O2SAT 100
--- NOTE | 2019-12-11 16:18 | PC.NURSE ---
Dr. Hernandez ordered patient's home medication clozapine 200mg po BID, but not available from pharmacy, ordered as NF and OK to take home medication. Patient refused this medication and states he does not want his friend to bring in. Patient refused to take oral seroquel as ordered, but agreed to try one time dose of lorazepam, with good effect. Patient was able to calm down enough to relax and get a bed bath with GARNETT MECHANIC. NG to right nare remains in place, to intermittent 100mg hg wall suction. Henry remains in place and intact draining clear, yellow urine. Call light within reach, bed alarm on for safety.
[2019-12-11] MEDS: DEXTROSE 5%-LACTATED RINGERS 1,000 ML 125 ML IV (17:48)
[2019-12-11 19:53] VITALS: BP 135/85; PULSE 69; RESP 18; TEMP 36.2; O2SAT 94
[2019-12-11] MEDS: QUETIAPINE 200 MG TABLET 400 MG PO (21:00)
[2019-12-12 00:20] VITALS: BP 134/80; PULSE 62; RESP 18; TEMP 36.8; O2SAT 94
[2019-12-12] MEDS: HYDROMORPHONE 1 MG INJ IV ×3 (00:28→11:20)
[2019-12-12] MEDS: levETIRAcetam 750 MG in SODIUM CHLORIDE 0.9% 100 ML 430 ML IV (00:35)
[2019-12-12] MEDS: LORazepam 2 MG/ML INJ 1 MG IV ×3 (02:13→21:19)
[2019-12-12] MEDS: DEXTROSE 5%-LACTATED RINGERS 1,000 ML 125 ML IV ×3 (02:15→18:04)
--- NOTE | 2019-12-12 03:09 | PC.NURSE ---
Addendum entered by Risa Montana R.N. 12/12/19 05:24: Refuses to have waffle cushion placed. Addendum entered by Risa Montana R.N. 12/12/19 03:39: Noted HOOP MAKER MACHINE recorded urine to be red but when seen earlier was tammy and rechecked now and is still tammy in color Addendum entered by Risa Montana R.N. 12/12/19 03:20: Patient medicated with Ativan at 0213 for anxiety/insomnia and now appears to be asleep. Original Note: 0048 Patient is alert and oriented. Pleasant and respectful tonight. Breath sounds diminished but CTA with RA sat of 94%. HRR. Denies nausea. Does complain of discomfort related to NG and would like to have it removed but verbalizes understanding of need to leave it in. NG is to 100mmHg intermittent suction with gastric contents draining into cannister. BT present in all quadrants but denies flatus. Abdomen is distended and tender but soft. Indwelling catheter is patent. Is able to turn himself in bed but wanting to remain on his back; noted to have reddened bottom so lotion applied and will provide waffle cushion. Gait not assessed as not out of bed. Dressing to abdomen is CDI. Had bilateral calf SCD's on at shift change but now requests they be removed. Complains of 7/10 abdominal pain so medicated with IV Dilaudid. Fall risk score is moderate and bed alarm is activated.
[2019-12-12 04:20] VITALS: BP 147/79; PULSE 72; RESP 20; TEMP 36.6; O2SAT 96
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
[2019-12-12 08:27] VITALS: BP 129/76; PULSE 70; RESP 16; TEMP 36.3; O2SAT 96
[2019-12-12] MEDS: ENOXAPARIN 40 MG/0.4 ML SYRINGE SUBCUT (09:14)
[2019-12-12] MEDS: PANTOPRAZOLE 40 MG VIAL IV (09:14)
[2019-12-12 11:10] VITALS: BP 120/71; PULSE 69; RESP 16; TEMP 36.6; O2SAT 97
[2019-12-12] MEDS: levETIRAcetam 750 MG in SODIUM CHLORIDE 0.9% 100 ML 107.5 ML IV (11:20)
--- NOTE | 2019-12-12 15:08 | PT-IP ANOTE ---
PT order received. Checked on pt at 1500pm and pt was sleeping soundly. This PT woke him up and he refused to participate therapy who c/o fatigue and weakness. Defer PT eval tomorrow morning.
--- NOTE | 2019-12-12 15:17 | PM.PN.1 ---
Subjective Subjective Date Patient Seen: 12/12/19 Time Patient Seen: 15:17 Interval history: No acute events overnight. Pt denies flatus. He has not been ambulating very much. He says he is hungry and would like some jello. Exam Vital Signs (past 8 hours): - 12/12/19 08:27 12/12/19 11:10 Temperature 97.3 F L 97.8 F Pulse Rate 70 69 Respiratory Rate 16 16 Blood Pressure 129/76 120/71 Pulse Oximetry 96 97 Oxygen Delivery Method Room Air Oxygen Flow Rate 0 Narrative Exam Narrative: GENERAL: Alert. Appears stated age. Answers questions promptly and appropriately. Vital signs noted. HENT: Normocephalic, atraumatic. Hearing intact. EYES: Conjunctiva pink, sclera white, no periorbital swelling. NGT in place, sumping, with bilious output, about 1000mL /24 hours CARDIOVASCULAR: Regular rate. No pedal edema. RESPIRATORY: Non-tachypneic, breathing comfortably on room air. GASTROINTESTINAL: Abdomen soft and non-distended; dressing c/d/i; appropriate TTP GENITALURINARY: No flank tenderness. MUSCULOSKELETAL: Equal tone and mass bilaterally. SKIN: Warm, dry, soft, appropriate color for ethnicity. No other lesions, rashes, or wounds. NEURO: Alert and Oriented X 3. No gross sensory deficits, or cognitive issues. PSYCH: Appropriate affect and mood. Objective Labs Result Diagrams: 12/11/19 05:19 12/11/19 05:19 Assessment & Plan Assessment and plan (1) Small bowel obstruction: Status: Acute Assessment & Plan narrative: 54 yo man with history of SBO, constipation, and obstruction. He had an ex lap two days ago, which revealed his small bowel was twisted on its mesentery. Dr. Hernandez secured the cecum into normal position to prevent retwisting. The patient has not been ambulating. His NGT output remains moderate. He has not passed any gas or stool. His clemons is still in. Plan: DVT PPX GI PPX remove clemons ambulate frequently ADAT when bowel function returns Recommendations of Dr. Cespedes of psych: 1. Continue existing home regimen during hospital stay as much as possible: - clozapine (confirm dose with [facility] & will need to obtain home supply) - quetiapine 400mg BID (can provide antipsychotic coverage while off clozapine) - escitalopram 20mg daily 2. PRNs: - stop haldol prn order as pt has had AE with it, although TD unlikely with one-time use patient is also aware that it causes him problems - lorazepam 1mg IV q4-8h prn severe anxiety or agitation is probably most effective prn in this scenario, although can be deliriogenic did not appear to cause worsening last night - olanzapine dissolvable 5mg BID prn severe agitation is reasonable alternative if patient is refusing other antipsychotic agents 3. Appreciate help obtaining records or active medication list from [facility] COVID-19 COVID-19 status: Negative Result date/Date tested (Pos, Neg/Pending): 12/10/19 Time Spent With Patient Time with patient: 15-24 minutes Quality VTE Deep Vein Thrombosis/Pulmonary Embolism Present on Admission: No
--- NOTE | 2019-12-12 15:24 | CM.DPNOTE ---
DCP Cont Patient continues to have a difficult time in his recovery from abd surgery. Consult now placed for psychiatry, Dr Cespedes's input re: patient's hallucinations and agitation. Dr Cespedes conducting consult and medication reconciliation; requests this FINANCIAL INVESTMENT MANAGER assist in securing records from patient's outpatient provider [facility]. Placed call to [facility] P# [phone]; rep requested NOE, signed by patient, faxed to F# [phone], then medical record can be released. Attempted to get NOE signed by patient, MARGARET Barcenas suggested this afternoon is not a good time to get patient to sign anything, pt remained NPO, awaiting visit from surgeon, states he is hungry and frustrated. RN hopeful clear liquids can be started today. Dr Cespedes updated on above. This FINANCIAL INVESTMENT MANAGER following closely. YU Jacome
[2019-12-12 16:00] VITALS: BP 129/83; PULSE 61; RESP 16; TEMP 36.4; O2SAT 96
[2019-12-12] MEDS: KETOROLAC 30 MG/ML VIAL IV (16:45)
[2019-12-12 21:00] VITALS: BP 114/67; PULSE 69; RESP 16; TEMP 36.8; O2SAT 95
[2019-12-12] MEDS: QUETIAPINE 200 MG TABLET 400 MG PO (21:19)
[2019-12-13] VITALS (8 sets, daily range): BP systolic 113–140; BP diastolic 65–88; PULSE 48–82; RESP 14–18; TEMP 36.4–37.2; O2SAT 95–99
[2019-12-13] MEDS: levETIRAcetam 750 MG in SODIUM CHLORIDE 0.9% 100 ML 107.5 ML IV (00:43)
[2019-12-13] MEDS: LORazepam 2 MG/ML INJ 1 MG IV ×2 (00:43→21:53)
[2019-12-13] MEDS: DEXTROSE 5%-LACTATED RINGERS 1,000 ML 125 ML IV ×2 (01:14→08:31)
[2019-12-13] MEDS: KETOROLAC 30 MG/ML VIAL IV ×3 (06:33→18:58)
[2019-12-13 06:49] LABS: Add Manual Diff / Slide Review NO; Basophils Absolute Auto 100 /uL (0-100); Basophils Percent Auto 1.2 % (0-2); Eosinophils Absolute Auto 200 /uL (0-450); Hematocrit 38.6 % (41-53); Hemoglobin 13.1 g/dL (13.5-17.5); Lymphocytes Absolute Auto 1600 /uL (1100-4500); Lymphocytes Percent Auto 19.4 % (25-40); Mean Corpuscular Hemoglobin 32.3 PG (26-34); Mean Corpuscular Volume 94.9 fL (80-100); Monocytes Absolute Auto 500 /uL (0-900); Monocytes Percent Auto 5.9 % (3-14); Neutrophils Absolute Auto 6000 /uL (1500-7000); Neutrophils Percent Auto 71.5 % (50-75); Platelet Count 247 X10^3/uL (150-400); Red Blood Cell Count 4.07 X10^6/uL (4.5-5.9); Red Cell Distribution Width 13.3 % (11.6-14.8); White Blood Cell Count 8.5 X10^3/uL (4.5-11.0)
[2019-12-13 07:00] LABS: BUN Creatinine Ratio 16.7 (6-22); Blood Urea Nitrogen 10 mg/dL (9-20); Calcium 8.2 mg/dL (8.4-10.2); Carbon Dioxide 25 mmol/L (22-32); Chloride 110 mmol/L (98-107); Estimated Glomerular Filt Rate > 60.0 mL/min (>60); Glucose 97 mg/dL (70-100); HEMOLYSIS 18 (0-50); Magnesium 2.1 mg/dL (1.6-2.3); Potassium 3.7 mmol/L (3.4-5.1); Sodium 137 mmol/L (137-145)
[2019-12-13] MEDS: SODIUM CHLORIDE 0.9% FLUSH 10 ML IV ×2 (08:26→12:57)
[2019-12-13] MEDS: ENOXAPARIN 40 MG/0.4 ML SYRINGE SUBCUT (08:26)
[2019-12-13] MEDS: PANTOPRAZOLE 40 MG VIAL IV (08:27)
[2019-12-13] MEDS: QUETIAPINE 200 MG TABLET 400 MG PO (08:28)
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
[2019-12-13] MEDS: levETIRAcetam 750 MG in SODIUM CHLORIDE 0.9% 100 ML 430 ML IV ×2 (12:43→23:37)
--- NOTE | 2019-12-13 14:24 | DI.RAD.S_ITS ---
PROCEDURE: XR ACUTE ABDOMEN SERIES INDICATIONS: f/y after xlap for sbo TECHNIQUE: One view chest and two views of the abdomen were acquired. COMPARISON: [facility], CR, XR ABDOMEN 1V, 12/10/2019, 12:26. [facility], CT, CT ABDOMEN PELVIS W CON, 12/10/2019, 10:55. [facility], CR, XR KUB, 10/24/2019, 5:28. [facility], CR, ABDOMEN ACUTE SERIES, 08/10/2017, 12:45. FINDINGS: Surgical changes and devices: A gastric tube is seen, with the tip overlying the mid stomach. Anterior abdominal wall ivy are seen. Chest: Lungs are clear. Heart size is normal. No pleural effusions. Abdomen: Mild pneumoperitoneum is seen. Bowel gas pattern is normal. No dilated loops of small bowel are seen. There is a moderate amount of stool seen within the colon. No suspicious calcifications. Visualized solid organ contours appear normal. Bones: No suspicious bony lesions. Age-appropriate bony degenerative changes are seen. There is an apparent remote right proximal femur greater tuberosity avulsion fracture seen. IMPRESSION: Mild pneumoperitoneum is seen, which is within normal limits for recent surgery. No dilated loops of small bowel are seen. The previously seen prominent gas within the small bowel loops has resolved. There is a moderate amount of stool seen within the colon. Please correlate with an underlying history of constipation. Dictated by: Raúl Ruelas M.D. on 12/13/2019 at 13:53 Approved by: Raúl Ruelas M.D. on 12/13/2019 at 13:56
--- NOTE | 2019-12-13 14:39 | P.PN_ITS ---
Subjective Subjective Date Patient Seen: 12/13/19 Time Patient Seen: 14:39 Interval history: The patient is complaining of abdominal discomfort. He has not passed any flatus or had a bowel movement but this is his routine. He has noted that his abdomen is not as distended as it had been. He does not have a cough and is breathing okay. No bothersome hallucinations at this time. I attempted to see the patient hours ago but he was sound asleep and since he has had such difficulty sleeping I left him sleep and returned at this time. Exam Vital Signs (past 8 hours): - 12/13/19 08:24 12/13/19 11:40 Temperature 97.6 F 98.6 F Pulse Rate 70 65 Respiratory Rate 16 14 Blood Pressure 119/80 119/80 Pulse Oximetry 99 96 Oxygen Delivery Method Room Air Oxygen Flow Rate 0 Narrative Exam Narrative: Lungs are clear. Excellent effort. Heart regular rate and rhythm. Abdomen is mildly distended but markedly less so than preop. It is soft. His incision is intact. No cellulitis. No unusual abdominal tenderness. Does not seem to be agitated. Actually is very calm. Objective Labs Result Diagrams: 12/13/19 06:40 12/13/19 06:40 Labs: Laboratory Results - last 24 hr 12/13/19 12/13/19 06:40 06:40 WBC 8.5 RBC 4.07 L Hgb 13.1 L Hct 38.6 L MCV 94.9 MCH 32.3 MCHC 34.0 RDW 13.3 Plt Count 247 Neut % (Auto) 71.5 Lymph % (Auto) 19.4 L [place] % (Auto) 5.9 Eos % (Auto) 2.0 Baso % (Auto) 1.2 Neut # (Auto) 6000 Lymph # (Auto) 1600 [place] # (Auto) 500 Eos # (Auto) 200 Baso # (Auto) 100 Sodium 137 Potassium 3.7 Chloride 110 H Carbon Dioxide 25 BUN 10 Creatinine 0.60 L Estimated GFR > 60.0 BUN/Creatinine Ratio 16.7 Glucose 97 Calcium 8.2 L Magnesium 2.1 Assessment & Plan Post-op Postoperative Procedures: Procedures Operation Date: 12/10/19 13:45 Actual Procedures Side Surgeon p Exploratory Laparotomy and Cecopexy Ike Hernandez MD Postoperative status: doing well Postoperative status narrative: Patient is ambulating in the velázquez. I will get x-rays at this time to see what is gas pattern is like. I would very much like to remove his NG as soon as possible and start him on his oral meds without restriction. His Henry is out. He continues to make good urine. Postoperative plan narrative: Await x-rays. Fleets enema which is his routine at home to have a bowel movement. Possible removal of NG tube Quality VTE Deep Vein Thrombosis/Pulmonary Embolism Present on Admission: No
--- NOTE | 2019-12-13 15:01 | CM.DPNOTE ---
DCP Cont Patient feeling better today. Met w/patient, he was sitting up in chair, NG tube running, patient in good spirits. Patient explains he plans to DC home when he is medically cleared and anticipates no needs from this DRIVER HELPER. Patient mentions that he does not want to leave prematurely, as he had done that after a prior abd surgery and states this was a big mistake. This DRIVER HELPER commends patient and supports him in hangin in during this hospitalization and recovery. Then discussed NOE form; if signed by patient would release information from [facility] to Dr Cespedes, w/the goal of better coordinating care/medications management while patient is admitted. Patient explains he does not feel the release of this information will be helpful, and will launch a war between Ilda Kim and this hospital. Patient very pleasant during our conversation, appreciative of this DRIVER HELPER's visit and for the time Dr Cespedes has taken to coordinate care w/general surgery while admitted. DC likely home in another day or two; follow closely for needs from patient and staff caring for patient YU Jacome
--- NOTE | 2019-12-13 15:31 | PC.NURSE ---
Addendum entered by Stephanie Pickering R.N. 12/13/19 15:35: Shift summary continued: Lungs CTA, HRR. VSS. IVF per orders, site in [facility] WNL. Able to make needs known and has been calling appropriately for assistance with ambulation. Had abd x-ray just before shift change. Back in chair after x-ray, re-connected to NG and IVF. Call light and belongings within reach, chair alarm on. Offered ice chips which patient declined. Original Note: Shift summary: Alert and oriented X3. Calm and cooperative with care interventions. The only thing he refused was his a.m. dose of Seroquel. NG secured in R nare and connected to LIS. Ambulated in hallway for total of at least 20 minutes of this shift. BT+ all quadrants, hypoactive lower quadrants. Denies flatus, denies N/V. Abdomen tender, distended. Abd dressing C/D/I. Minimal complaints of pain, medicated with Toradol per e-jul. Persistently asking to eat/drink something. Given ice chips as ordered and discussed NPO status with patient and he verbalized understanding.
[2019-12-13] MEDS: DEXTROSE 5%-LACTATED RINGERS 1,000 ML 100 ML IV (15:43)
[2019-12-13] MEDS: FLEETS ENEMA 1 EACH PR (16:28)
--- NOTE | 2019-12-13 19:05 | PC.NURSE ---
Addendum entered by Bere Isaac R.N. 12/13/19 19:24: SERVICE LINE LAYER reported that pt HR was 48. Assessed pt's apical pulse 57, regular. pt is relaxed and sleepy. he had toradol recently. denied any dizziness, lightheadedness or chest pain. Original Note: NG tube removed at 1615, pt tolerated well. He had 250cc out of his NG for steffany shift. Then I gave him his fleet enema, pt had moderate formed bowel movement. Pt ambulated in hallways. no n/v. abdomen distended and tender. BTX4. dressing cdi.
[2019-12-14] MEDS: KETOROLAC 30 MG/ML VIAL IV ×2 (02:40→20:55)
[2019-12-14] MEDS: SODIUM CHLORIDE 0.9% FLUSH 10 ML IV (02:40)
[2019-12-14] MEDS: DEXTROSE 5%-LACTATED RINGERS 1,000 ML 100 ML IV (02:40)
[2019-12-14 04:00] VITALS: BP 114/71; PULSE 54; RESP 18; TEMP 36.6; O2SAT 95
[2019-12-14 05:06] LABS: Add Manual Diff / Slide Review NO; Basophils Absolute Auto 100 /uL (0-100); Basophils Percent Auto 0.7 % (0-2); Eosinophils Absolute Auto 200 /uL (0-450); Eosinophils Percent Auto 2.5 % (2-4); Hematocrit 35.8 % (41-53); Hemoglobin 12.6 g/dL (13.5-17.5); Lymphocytes Absolute Auto 1400 /uL (1100-4500); Mean Corpuscular HGB Conc 35.3 % (30-36); Mean Corpuscular Hemoglobin 33.1 PG (26-34); Mean Corpuscular Volume 93.7 fL (80-100); Monocytes Absolute Auto 500 /uL (0-900); Monocytes Percent Auto 6.7 % (3-14); Neutrophils Absolute Auto 5600 /uL (1500-7000); Neutrophils Percent Auto 72.1 % (50-75); Platelet Count 279 X10^3/uL (150-400); Red Blood Cell Count 3.82 X10^6/uL (4.5-5.9); Red Cell Distribution Width 12.8 % (11.6-14.8); White Blood Cell Count 7.8 X10^3/uL (4.5-11.0)
[2019-12-14 05:17] LABS: Blood Urea Nitrogen 11 mg/dL (9-20); Carbon Dioxide 21 mmol/L (22-32); Chloride 110 mmol/L (98-107); Estimated Glomerular Filt Rate > 60.0 mL/min (>60); Glucose 92 mg/dL (70-100); HEMOLYSIS < 15 (0-50); Potassium 3.5 mmol/L (3.4-5.1); Sodium 135 mmol/L (137-145)
[2019-12-14] MEDS: HYDROMORPHONE 1 MG INJ IV (08:46)
[2019-12-14] MEDS: PANTOPRAZOLE 40 MG VIAL IV (08:47)
[2019-12-14] MEDS: ENOXAPARIN 40 MG/0.4 ML SYRINGE SUBCUT (08:47)
[2019-12-14 09:45] VITALS: BP 126/69; PULSE 50; RESP 18; TEMP 37; O2SAT 97
[2019-12-14 11:58] VITALS: BP 125/69; PULSE 50; RESP 16; TEMP 36.4; O2SAT 97
--- NOTE | 2019-12-14 12:20 | PT.IPTN ---
Current Diagnoses Schizoaffective disorder, unspecified (12/10/19) Unspecified psychosis not due to a substance or known physiological condition (12/10/19) Volvulus (12/10/19) Unspecified intestinal obstruction, unspecified as to partial versus complete obstruction (12/10/19) Surgery Performed Operation Date: 12/10/19 13:45 Actual Procedures p Exploratory Laparotomy and Cecopexy - Ike Hernandez MD Physical Therapy Treatment Note M2 PT-IP Current Condition Start: 12/12/19 14:37 Freq: NEEDED Status: Active Protocol: Document 12/13/19 09:55 HH (Rec: 12/13/19 10:17 [email or web address]) Physical Therapy Current Condition Current Condition Evaluation Date 12/13/19 Treatment Diagnosis SBO, s/p Exploratory laparotomy with cecopexy, weakness Onset Date 4 days ago Precautions Abdominal Surgery Precautions Log Roll,Lifting Restrictions, Gait Belt above Incisional Area Weight Bearing Status Weight Bearing Status Full Weight Bearing M3 PT-IP Subjective Start: 12/12/19 14:37 Freq: NEEDED Status: Active Protocol: Document 12/14/19 12:05 CLB (Rec: 12/14/19 14:13 CLB [id number]) Subjective Physical Therapy Visit Type Type Treatment Note Visit Start Time 12:05 Visit Stop Time 12:20 Total Visit Minutes 15 Number of SULFONATION EQUIPMENT OPERATOR Visits 1 Physical Therapy Visit Comments Patient Comments I feel weak I need to eat. Therapy Pain Assessment Pain When Pain Assessed During Mobility Pain Present Pain Present Pain Reported Location Abdomen Intensity 4 Scale Used Numeric (0 - 10) Pain Management Techniques Timing of Activity with Medications M4 PT-IP Mobility and Gait Start: 12/12/19 14:37 Freq: NEEDED Status: Active Protocol: Document 12/14/19 12:05 CLB (Rec: 12/14/19 14:13 CLB [id number]) PT-Bed Mobility Assessment Rolling Type of Rolling Log Rolling,Roll to Left Level of Assist Standby Assistance Supine to Sit Supine to Sit Standby Assistance Sit to Supine Sit to Supine Standby Assistance Scooting Scooting to Edge of Bed Standby Assistance PT-Transfer Assessment Sit to and From Stand Sit to and from Stand Standby Assistance Equipment Transfer Assistive Device Gait Belt,Front Wheeled Walker Orthotic/Prosthetic Devices or Brace: No Transfers Transfer Destination Bed Transfer Technique Stand Step Pivot Transfer Ability Level of Assist Standby Assistance Comments Mobility Comments Pt in bed upon arrival and was agreeable to ambulate. Pt performed LR to right then sat on EOB SBA. Pt stated he wanted to use FWW to ambulate as he has been using it to walk with nursing staff. Pt stood from bed SBA and ambulated SBA ~150ft with FWW. Pt would benefit from trial w/o FWW if pt is agreeable. Pt then returned to supine requiring cues to use reverse LR. Pt refused LE bed exercises. Pt left in bed with alarm on and all needs within reach. Gait Assessment Gait Gait Assistance Required: Standby Assistance Distance (Feet) 150 Able to Maintain Weight Bearing Status Yes During Gait Assistive Devices Assistive Device Gait Belt,Front Wheeled Walker Gait Deviations General Gait Pattern Decreased Stride Length, Decreased Feet Clearance, Flexed Trunk,Narrow Based Gait Factors Limiting Gait Function Factors Limiting Gait Function Decreased Activity Tolerance, Decreased Strength,Pain,Poor Balance,Poor Safety Awareness Comments Gait Comments see mobility comments Stair Climbing Assessment Comments Stair Climbing Comments pt has not steps to enter M5 PT-IP Objective Assessments Start: 12/12/19 14:37 Freq: NEEDED Status: Active Protocol: Document 12/13/19 09:55 (Rec: 12/13/19 10:17 [email or web address]) Orientation Orientation/Cognition Level of Alertness Alert Orientation Name,Age,Birthday,Month,Date, Year,Day of Week,Place, Situation Safety Awareness Decreased Safety Awareness Memory Description No Deficits Noted Gross Range of Motion Upper Extremity ROM Assessment Within Functional Limits Lower Extremity ROM Assessment Within Functional Limits Strength Upper Extremity Strength Assessment Within Functional Limits Lower Extremity Strength Assessment Within Functional Limits Coordination Assessment Gross Coordination Gross Coordination WNL Sensation Assessment Sensation Gross Sensation WNL Muscle Tone Muscle Tone WNL Yes M6 PT-IP Treatment Start: 12/12/19 14:37 Freq: NEEDED Status: Active Protocol: Document 12/13/19 09:55 HH (Rec: 12/13/19 10:17 [email or web address]) Physical Therapy Treatment Education Education Provided Precautions,Weight Bearing Status,Post-Op Packet,Safety M7 PT-IP Assessment and Plan Start: 12/12/19 14:37 Freq: NEEDED Status: Active Protocol: Document 12/14/19 12:05 CLB (Rec: 12/14/19 14:13 CLB [id number]) PT Summary Assessment and Plan Summary Impairments Pain,ROM,Strength,Balance,Bed Mobility,Transfers,Gait, Activity Tolerance Assessment Summary Pt able to perform all bed mobility and transfers SBA with cues to use LR to get in and out of bed to decrease pain and discomfort. Pt ambulated in velázquez ~150ft w/FWW /SBA, pt ambulates with a slow but steady pace w/o need of rest breaks. Goals Bed Mobility Goal Independent Transfer Goal Independent Gait Goal Independent Gait Distance 500 Days to Meet Goals 5 Frequency of Treatment Frequency Of Treatment Once a Day Treatment Plan Physical Therapy Treatment Plan Bed Mobility Training,Transfer Training,Gait Training, Therapeutic Exercise,Balance Retraining,Post Op Education, Discharge Planning Other Recommendations and Next Treatment review post op precaution Focus mobility as dulce with/ without AD Recommendations To Nursing Amount of Assist Needed 1 Person Assist Discharge Recommendations PT Discharge Recommendations Home Transportation Needs at Discharge Private Vehicle
[2019-12-14] MEDS: levETIRAcetam 750 MG in SODIUM CHLORIDE 0.9% 100 ML 430 ML IV (12:30)
--- NOTE | 2019-12-14 14:16 | PM.PNPO.1 ---
Subjective Subjective Date Patient Seen: 12/14/19 Time Patient Seen: 14:17 Interval history: Patient feeling well. Passing gas. Had 1 bowel movement yesterday. Minimal abdominal pain. Up ambulating. Would like to shower. Exam Vital Signs (past 8 hours): - 12/14/19 09:45 12/14/19 11:58 Temperature 98.6 F 97.5 F L Pulse Rate 50 L 50 L Respiratory Rate 18 16 Blood Pressure 126/69 125/69 Pulse Oximetry 97 97 Oxygen Delivery Method Room Air Oxygen Flow Rate 0 Narrative Exam Narrative: Lungs clear. Wound looks fine. No cellulitis. Little distended but nothing like preop. Active bowel sounds. Objective Labs Result Diagrams: 12/14/19 04:55 12/14/19 04:55 Labs: Laboratory Results - last 24 hr 12/14/19 12/14/19 04:55 04:55 WBC 7.8 RBC 3.82 L Hgb 12.6 L Hct 35.8 L MCV 93.7 MCH 33.1 MCHC 35.3 RDW 12.8 Plt Count 279 Neut % (Auto) 72.1 Lymph % (Auto) 18.0 L [place] % (Auto) 6.7 Eos % (Auto) 2.5 Baso % (Auto) 0.7 Neut # (Auto) 5600 Lymph # (Auto) 1400 [place] # (Auto) 500 Eos # (Auto) 200 Baso # (Auto) 100 Sodium 135 L Potassium 3.5 Chloride 110 H Carbon Dioxide 21 L BUN 11 Creatinine 0.61 L Estimated GFR > 60.0 BUN/Creatinine Ratio 18.0 Glucose 92 Calcium 8.0 L Magnesium 2.0 Assessment & Plan Post-op Postoperative Procedures: Procedures Operation Date: 12/10/19 13:45 Actual Procedures Side Surgeon p Exploratory Laparotomy and Cecopexy Ike Hernandez MD Postoperative status: doing well Postoperative status narrative: Bowel function seems to be returning. Postoperative plan narrative: Decrease IV rate. Shower. Start clear liquids. Repeat fleets enema. Quality VTE Deep Vein Thrombosis/Pulmonary Embolism Present on Admission: No
--- NOTE | 2019-12-14 14:48 | PC.NURSE ---
Patient has been declining his psych medications. He does not want to take them and feels like he can take care of the hallucinations himself. Dr. Hernandez saw pateint today and took off bandage. Patient has midline incision w/ scar and ivy, no sign of infection. Patient was able to be advanced to clear liquids today. Patient also was up w/ PT in the hallways and had a shower.
[2019-12-14] MEDS: DEXTROSE 5%-LACTATED RINGERS 1,000 ML 42 ML IV (15:02)
[2019-12-14 15:40] VITALS: BP 121/78; PULSE 57; RESP 16; TEMP 36.9; O2SAT 93
[2019-12-14] MEDS: FLEETS ENEMA 1 EACH PR (18:15)
[2019-12-14 19:25] VITALS: BP 134/77; PULSE 56; RESP 16; TEMP 36.9; O2SAT 98
[2019-12-14] MEDS: LORazepam 2 MG/ML INJ 1 MG IV (20:55)
--- NOTE | 2019-12-14 22:14 | PC.NURSE ---
Patient continues to refuse psych medications, education provided and patient continues to decline. Patient claims that these medications are the reasons for his recent surgery and states they are making me constipated also states those meds are not supposed to be given to people with traumatic brain injuries, it doesn't do the same thing. Patient not receptive to education and intermittently displays difficulty finishing sentences. New IV started to patient's left AC. IV to right AC removed per facility protocol. Patient given Ketoralac and Ativan at 2054 for pain and per patient request to assist in sleeping. Patient administered enema per JUL and had Large BM, afterwards was assisted in showering. Patient currently resting in bed.
[2019-12-15] VITALS (7 sets, daily range): BP systolic 105–138; BP diastolic 67–81; PULSE 56–67; RESP 16–19; TEMP 36.1–37; O2SAT 96–100
[2019-12-15] MEDS: LORazepam 2 MG/ML INJ 1 MG IV (01:36)
[2019-12-15] MEDS: levETIRAcetam 750 MG in SODIUM CHLORIDE 0.9% 100 ML 430 ML IV (01:49)
[2019-12-15 05:25] LABS: Add Manual Diff / Slide Review NO; Basophils Absolute Auto 0 /uL (0-100); Basophils Percent Auto 0.2 % (0-2); Eosinophils Absolute Auto 200 /uL (0-450); Eosinophils Percent Auto 3.4 % (2-4); Hemoglobin 13.2 g/dL (13.5-17.5); Lymphocytes Absolute Auto 1700 /uL (1100-4500); Lymphocytes Percent Auto 22.8 % (25-40); Mean Corpuscular HGB Conc 33.9 % (30-36); Mean Corpuscular Hemoglobin 31.9 PG (26-34); Monocytes Absolute Auto 600 /uL (0-900); Monocytes Percent Auto 7.8 % (3-14); Neutrophils Absolute Auto 4800 /uL (1500-7000); Neutrophils Percent Auto 65.8 % (50-75); Platelet Count 306 X10^3/uL (150-400); Red Blood Cell Count 4.15 X10^6/uL (4.5-5.9); Red Cell Distribution Width 13.1 % (11.6-14.8); White Blood Cell Count 7.2 X10^3/uL (4.5-11.0)
[2019-12-15 05:30] LABS: BUN Creatinine Ratio 19.3 (6-22); Blood Urea Nitrogen 11 mg/dL (9-20); Calcium 7.8 mg/dL (8.4-10.2); Carbon Dioxide 19 mmol/L (22-32); Chloride 111 mmol/L (98-107); Estimated Glomerular Filt Rate > 60.0 mL/min (>60); Glucose 87 mg/dL (70-100); HEMOLYSIS 18 (0-50); Potassium 3.4 mmol/L (3.4-5.1); Sodium 135 mmol/L (137-145)
--- NOTE | 2019-12-15 07:43 | PM.PNPO.1 ---
Subjective Subjective Date Patient Seen: 12/15/19 Time Patient Seen: 07:44 Interval history: Patient feels well. Had a very large bowel movement but thinks there still may be a lot in there. Requesting an enema for later today. Exam Vital Signs (past 8 hours): - 12/15/19 00:00 12/15/19 05:44 Temperature 97.6 F 98.1 F Pulse Rate 64 67 Respiratory Rate 18 18 Blood Pressure 105/67 113/69 Pulse Oximetry 98 99 Oxygen Delivery Method Room Air Oxygen Flow Rate 0 Narrative Exam Narrative: Wound looks fine. Abdomen is soft. A little distended but nothing like at admission. Objective Labs Result Diagrams: 12/15/19 04:55 12/15/19 04:55 Labs: Laboratory Results - last 24 hr 12/15/19 12/15/19 04:55 04:55 WBC 7.2 RBC 4.15 L Hgb 13.2 L Hct 39.0 L MCV 94.0 MCH 31.9 MCHC 33.9 RDW 13.1 Plt Count 306 Neut % (Auto) 65.8 Lymph % (Auto) 22.8 L [place] % (Auto) 7.8 Eos % (Auto) 3.4 Baso % (Auto) 0.2 Neut # (Auto) 4800 Lymph # (Auto) 1700 [place] # (Auto) 600 Eos # (Auto) 200 Baso # (Auto) 0 Sodium 135 L Potassium 3.4 Chloride 111 H Carbon Dioxide 19 L BUN 11 Creatinine 0.57 L Estimated GFR > 60.0 BUN/Creatinine Ratio 19.3 Glucose 87 Calcium 7.8 L Magnesium 2.0 Assessment & Plan Post-op Postoperative Procedures: Procedures Operation Date: 12/10/19 13:45 Actual Procedures Side Surgeon p Exploratory Laparotomy and Cecopexy Ike Hernandez MD Postoperative status: doing well Postoperative status narrative: Hematocrit is slightly reduced(anemic). This is probably all fluid shift related, as he lost almost no blood during the operation. Postoperative plan narrative: Advance diet. Quality VTE Deep Vein Thrombosis/Pulmonary Embolism Present on Admission: No
[2019-12-15] MEDS: ENOXAPARIN 40 MG/0.4 ML SYRINGE SUBCUT (09:15)
[2019-12-15] MEDS: PANTOPRAZOLE 40 MG VIAL IV (09:16)
--- NOTE | 2019-12-15 10:18 | PT.IPTN ---
reviewed by Cony Donahue PTA Current Diagnoses Schizoaffective disorder, unspecified (12/10/19) Unspecified psychosis not due to a substance or known physiological condition (12/10/19) Volvulus (12/10/19) Unspecified intestinal obstruction, unspecified as to partial versus complete obstruction (12/10/19) Surgery Performed Operation Date: 12/10/19 13:45 Actual Procedures p Exploratory Laparotomy and Cecopexy - Ike Hernandez MD Physical Therapy Treatment Note M2 PT-IP Current Condition Start: 12/12/19 14:37 Freq: NEEDED Status: Active Protocol: Document 12/15/19 10:00 TP (Rec: 12/15/19 10:55 TP [id number]) Physical Therapy Current Condition Current Condition Evaluation Date 12/13/19 Treatment Diagnosis SBO, s/p Exploratory laparotomy with cecopexy, weakness Onset Date 4 days ago Precautions Abdominal Surgery Precautions Log Roll,Lifting Restrictions, Gait Belt above Incisional Area Weight Bearing Status Weight Bearing Status Full Weight Bearing M3 PT-IP Subjective Start: 12/12/19 14:37 Freq: NEEDED Status: Active Protocol: Document 12/15/19 10:00 TP (Rec: 12/15/19 10:55 TP [id number]) Subjective Physical Therapy Visit Type Type Treatment Note Visit Start Time 10:00 Visit Stop Time 10:18 Total Visit Minutes 18 Notes Student GABE Ansari supervised by GABE Sims. Number of HEDIS REGISTERED NURSE RN Visits 2 Physical Therapy Visit Comments Patient Comments I feel better today than last night. I ate today M4 PT-IP Mobility and Gait Start: 12/12/19 14:37 Freq: NEEDED Status: Active Protocol: Document 12/15/19 10:00 TP (Rec: 12/15/19 10:55 TP [id number]) PT-Bed Mobility Assessment Supine to Sit Supine to Sit Standby Assistance Sit to Supine Sit to Supine Standby Assistance Scooting Scooting to Edge of Bed Standby Assistance PT-Transfer Assessment Sit to and From Stand Sit to and from Stand Standby Assistance Equipment Transfer Assistive Device Gait Belt,Front Wheeled Walker Orthotic/Prosthetic Devices or Brace: No Transfers Transfer Destination Bed Transfer Technique Stand Step Pivot Transfer Ability Level of Assist Standby Assistance Comments Mobility Comments Pt reclined in bed with HOB elevated upon PT arrival. Agreeable to participate with PT. Impulsive supine to long sit. No c/o pain when asked. Sat at EOB for donning of gait belt with good sitting balance. Able to remove pants and adjust sock SBA. Sit to stand SBA. Standing balance good during FWW adjustment. Education regarding safe use of FWW for transfers. Ambulation into hallway around nurses' station 2x approximately 425' FWW, CGA- SBA. Minimal verbal cues needed, assist for IV pole management. Scissor gait present with L>R. In room, pt placed FWW against wall and began walking to bed. Pt education to use FWW to the EOB. Pt lifted FWW and carried to EOB. Pt ambulation in room without AD approximately 15', with report of feeling unsteady on his feet. Stand to sit, sit to supine SBA. Pt positioned reclined in bed with HOB elevated. Call light and all needs within reach. Gait Assessment Gait Gait Assistance Required: Standby Assistance,Contact Guard Assist Distance (Feet) 425 Able to Maintain Weight Bearing Status Yes During Gait Assistive Devices Assistive Device Gait Belt,Front Wheeled Walker Orthotic/Prosthetic Devices or Brace: No Gait Deviations General Gait Pattern Decreased Stride Length, Decreased Feet Clearance, Flexed Trunk,Narrow Based Gait Factors Limiting Gait Function Factors Limiting Gait Function Decreased Activity Tolerance, Decreased Strength,Pain,Poor Balance,Poor Safety Awareness Comments Gait Comments see mobility comments. Stair Climbing Assessment Comments Stair Climbing Comments Stairs not assessed. No stairs at home. PT-Balance Assessment Sitting Balance and Reactions Static Sitting Balance Ability Normal Dynamic Sitting Balance Ability Normal Standing Balance and Reactions Static Standing Balance Ability Good Dynamic Standing Balance Ability Good M5 PT-IP Objective Assessments Start: 12/12/19 14:37 Freq: NEEDED Status: Active Protocol: Document 12/13/19 09:55 (Rec: 12/13/19 10:17 [id number]) Orientation Orientation/Cognition Level of Alertness Alert Orientation Name,Age,Birthday,Month,Date, Year,Day of Week,Place, Situation Safety Awareness Decreased Safety Awareness Memory Description No Deficits Noted Gross Range of Motion Upper Extremity ROM Assessment Within Functional Limits Lower Extremity ROM Assessment Within Functional Limits Strength Upper Extremity Strength Assessment Within Functional Limits Lower Extremity Strength Assessment Within Functional Limits Coordination Assessment Gross Coordination Gross Coordination WNL Sensation Assessment Sensation Gross Sensation WNL Muscle Tone Muscle Tone WNL Yes M6 PT-IP Treatment Start: 12/12/19 14:37 Freq: NEEDED Status: Active Protocol: Document 12/15/19 10:00 TP (Rec: 12/15/19 10:55 TP [id number]) Physical Therapy Treatment Education Education Provided Safety M7 PT-IP Assessment and Plan Start: 12/12/19 14:37 Freq: NEEDED Status: Active Protocol: Document 12/15/19 10:00 TP (Rec: 12/15/19 10:55 TP [id number]) PT Summary Assessment and Plan Potential Rehabilitation Potential Good Status of Condition at Evaluation Evolving Summary Impairments Pain,ROM,Strength,Balance,Bed Mobility,Transfers,Gait, Activity Tolerance Assessment Summary Pt activity tolerance improving, ambulating 425' today with FWW CGA-SBA, using BUE for support. Decreased stride length with scissor gait present L>R. Pt able to ambulate in room without AD approximately 15', however pt reports and was observed to be unsteady without AD. Continue PT to increase strength and endurance for improved activity tolerance to return to OF of independent ambulation. Continue education for safe, pain free bed mobility using log roll technique. Goals Bed Mobility Goal Independent Transfer Goal Independent Gait Goal Independent Gait Distance 500 Days to Meet Goals 5 Frequency of Treatment Frequency Of Treatment Once a Day Treatment Plan Physical Therapy Treatment Plan Bed Mobility Training,Transfer Training,Gait Training, Therapeutic Exercise,Balance Retraining,Post Op Education, Discharge Planning Other Recommendations and Next Treatment Review post-op precautions and Focus assess log roll technique carryover. Education for gait with SPC. Gait with SPC, bring FWW in case it's needed. Recommendations To Nursing Amount of Assist Needed Independent Discharge Recommendations PT Discharge Recommendations Home Equipment Needed for Home Before FWW may be needed depending on Discharge pt progress of dynamic balance Transportation Needs at Discharge Private Vehicle R
[2019-12-15] MEDS: HYDROMORPHONE 1 MG INJ IV ×2 (14:34→21:08)
[2019-12-15] MEDS: FLEETS ENEMA 1 EACH PR (19:30)
[2019-12-15] MEDS: levETIRAcetam 250 MG TABLET 750 MG PO (21:09)
[2019-12-15] MEDS: SODIUM CHLORIDE 0.9% FLUSH 10 ML IV (22:23)
[2019-12-16] MEDS: SODIUM CHLORIDE 0.9% FLUSH 10 ML IV ×2 (00:05→09:20)
[2019-12-16] MEDS: LORazepam 2 MG/ML INJ 1 MG IV ×2 (00:05→04:17)
[2019-12-16 08:06] VITALS: BP 124/96; PULSE 71; RESP 14; TEMP 35.9; O2SAT 100
[2019-12-16] MEDS: levETIRAcetam 250 MG TABLET 750 MG PO (09:23)
[2019-12-16] MEDS: HYDROMORPHONE 1 MG INJ IV (09:24)
[2019-12-16] MEDS: PANTOPRAZOLE 40 MG VIAL IV (09:25)
[2019-12-16] MEDS: ENOXAPARIN 40 MG/0.4 ML SYRINGE SUBCUT (09:27)
--- NOTE | 2019-12-16 11:01 | DI.RAD.S_ITS ---
PROCEDURE: XR ABDOMEN MIN 2V INDICATIONS: f/u sbo. evaluate gas pattern TECHNIQUE: 2 views of the abdomen were acquired. COMPARISON: [facility], CR, XR ABDOMEN 1V, 12/10/2019, 12:26. [facility], CR, XR ABDOMEN 1V, 11/27/2018, 14:53. FINDINGS: Surgical changes and devices: None. Bowel: No pneumoperitoneum. The bowel gas pattern is mildly improved, with persistence of gas within the large and small bowel to a lesser degree. Soft tissues: No masses; visualized solid organ contours appear normal in size. No suspicious abdominal calcifications. Bones: No suspicious bony abnormalities. IMPRESSION: Postsurgical clips at the midline of the lower abdomen/pelvis, no free air identified, no pneumatosis found. Improvement in the degree of gas distention of the large and small bowel visualized. Dictated by: Sathya Garcia M.D. on 12/16/2019 at 12:18 Approved by: Sathya Garcia M.D. on 12/16/2019 at 12:49
--- NOTE | 2019-12-16 11:30 | PT.IPTN ---
Current Diagnoses Schizoaffective disorder, unspecified (12/10/19) Unspecified psychosis not due to a substance or known physiological condition (12/10/19) Volvulus (12/10/19) Unspecified intestinal obstruction, unspecified as to partial versus complete obstruction (12/10/19) Surgery Performed Operation Date: 12/10/19 13:45 Actual Procedures p Exploratory Laparotomy and Cecopexy - Ike Hernandez MD Physical Therapy Treatment Note M2 PT-IP Current Condition Start: 12/12/19 14:37 Freq: NEEDED Status: Active Protocol: Document 12/16/19 11:19 TP (Rec: 12/16/19 12:41 TP [id number]) Physical Therapy Current Condition Current Condition Evaluation Date 12/13/19 Treatment Diagnosis SBO, s/p Exploratory laparotomy with cecopexy, weakness Onset Date 4 days ago Precautions Abdominal Surgery Precautions Log Roll,Lifting Restrictions, Gait Belt above Incisional Area Weight Bearing Status Weight Bearing Status Full Weight Bearing M3 PT-IP Subjective Start: 12/12/19 14:37 Freq: NEEDED Status: Active Protocol: Document 12/16/19 11:19 TP (Rec: 12/16/19 12:41 TP [id number]) Subjective Physical Therapy Visit Type Type Treatment Note Visit Start Time 11:19 Visit Stop Time 11:30 Total Visit Minutes 11 Notes Student GABE Ansari supervised by GABE Sims. Number of ANALYTICS DEVELOPER Visits 3 Physical Therapy Visit Comments Patient Comments I'm feeling unsteady from medication. M4 PT-IP Mobility and Gait Start: 12/12/19 14:37 Freq: NEEDED Status: Active Protocol: Document 12/16/19 11:19 TP (Rec: 12/16/19 12:41 TP [id number]) PT-Transfer Assessment Sit to and From Stand Sit to and from Stand Standby Assistance Equipment Transfer Assistive Device Gait Belt,Straight Cane,Front Wheeled Walker Orthotic/Prosthetic Devices or Brace: No Transfers Transfer Destination Bed Transfer Technique Stand Step Pivot Transfer Ability Level of Assist Standby Assistance Comments Mobility Comments Pt sitting up in chair upon arrival. Agreeable to participate with PT. Pt impulsive, standing while explaining how unsteady he feels from medication he took an hour ago. Asked pt to sit down in chair. Gait belt donned. Pt agreeable to ambulation in hallway with SPC . Education for adjustment of SPC at home, and use of SPC with recipriocal gait pattern. Pt initiated ambulation with SPC CGA in right UE with difficulty coordinating placement of SPC with contralateral LE, requiring verbal and tactile cues. Moved SPC to L UE. Pt more steady, requiring verbal and tactile cues. At approximately 75' pt experienced LOB during ambulation with SPC CGA, requiring ModAx1 and pt hand on the wall with R lateral step strategy to correct balance. Change of AD to FWW CGA improved pt's dynamic balance. Pt ambulation for another 85' FWW CGA before returning to room, for a total of approximately 160'. In room, pt sat in chair with difficulty controlling his descent. Pt positioned with call light and all other needs in reach. Alarm activated for pt safety. Gait Assessment Gait Gait Assistance Required: Standby Assistance,Contact Guard Assist Distance (Feet) 160 Able to Maintain Weight Bearing Status Yes During Gait Assistive Devices Assistive Device Gait Belt,Front Wheeled Walker Orthotic/Prosthetic Devices or Brace: No Gait Deviations General Gait Pattern Decreased Stride Length, Decreased Feet Clearance, Flexed Trunk,Narrow Based Gait Factors Limiting Gait Function Factors Limiting Gait Function Decreased Activity Tolerance, Decreased Strength,Pain,Poor Balance,Poor Safety Awareness Comments Gait Comments See mobility comments. Gait unsteady today compared to yesterday, with LOB during ambulation after approximately 75' with SPC CGA, requiring ModAx1 and pt hand on the wall to recorrect balance. Ambulation in hallway with SPC CGA required verbal and tactile cues for reciprocal gait with SPC. Pt verbalized feeling unsteady, with limitation of coordination to move contralateral LE with SPC . Change of AD to FWW CGA improved pt's dynamic balance. Stair Climbing Assessment Comments Stair Climbing Comments Stairs not assessed. No stairs at home. PT-Balance Assessment Sitting Balance and Reactions Static Sitting Balance Ability Good Dynamic Sitting Balance Ability Good Standing Balance and Reactions Static Standing Balance Ability Fair Dynamic Standing Balance Ability Fair M5 PT-IP Objective Assessments Start: 12/12/19 14:37 Freq: NEEDED Status: Active Protocol: Document 12/13/19 09:55 HH (Rec: 12/13/19 10:17 [id number]) Orientation Orientation/Cognition Level of Alertness Alert Orientation Name,Age,Birthday,Month,Date, Year,Day of Week,Place, Situation Safety Awareness Decreased Safety Awareness Memory Description No Deficits Noted Gross Range of Motion Upper Extremity ROM Assessment Within Functional Limits Lower Extremity ROM Assessment Within Functional Limits Strength Upper Extremity Strength Assessment Within Functional Limits Lower Extremity Strength Assessment Within Functional Limits Coordination Assessment Gross Coordination Gross Coordination WNL Sensation Assessment Sensation Gross Sensation WNL Muscle Tone Muscle Tone WNL Yes M6 PT-IP Treatment Start: 12/12/19 14:37 Freq: NEEDED Status: Active Protocol: Document 12/16/19 11:19 TP (Rec: 12/16/19 12:41 TP [id number]) Physical Therapy Treatment Education Education Provided Safety M7 PT-IP Assessment and Plan Start: 12/12/19 14:37 Freq: NEEDED Status: Active Protocol: Document 12/16/19 11:19 TP (Rec: 12/16/19 12:41 TP [id number]) PT Summary Assessment and Plan Potential Rehabilitation Potential Good Status of Condition at Evaluation Evolving Summary Impairments Pain,ROM,Strength,Balance,Bed Mobility,Transfers,Gait, Activity Tolerance Assessment Summary Pt ambulation is unsteady today, due perhaps to medication. Pt has limitations in dynamic balance and eccentric control of hip flexors. Pt's dynamic balance improved with use of FWW. Recommendation for use of FWW at home upon discharge with Home Health for education and strengthening for safe mobility. Goals Bed Mobility Goal Independent Transfer Goal Independent Gait Goal Independent Gait Distance 500 Days to Meet Goals 5 Frequency of Treatment Frequency Of Treatment Once a Day Treatment Plan Physical Therapy Treatment Plan Bed Mobility Training,Transfer Training,Gait Training, Therapeutic Exercise,Balance Retraining,Post Op Education, Discharge Planning Other Recommendations and Next Treatment Review post-op precautions and Focus assess log roll technique carryover. Education for gait with SPC. Gait with SPC, bring FWW in case it's needed. Recommendations To Nursing Amount of Assist Needed Independent Discharge Recommendations PT Discharge Recommendations Home Equipment Needed for Home Before Orders requested for FWW for Discharge use at home. FWW/extensions to be dispensed upon discharge . Transportation Needs at Discharge Private Vehicle
[2019-12-16 11:56] VITALS: BP 132/71; PULSE 54; RESP 15; TEMP 36.1; O2SAT 100
--- NOTE | 2019-12-16 12:45 | CM.DPC ---
Addendum entered by YU Stafford 12/16/19 13:35: ADD: Imaging returned and looks normal with no concerns and pt medically stable to d/c home with no needs. BF Original Note: DCP Cont: Per MD, pt making good progress and pending his imaging today can likely d/c home this evening. Per RN, pt has been ambulating and having bowel movements and no concerns at this time. Per PT, pt still somewhat unsteady with ambulation and recommending home with assist and FWW. SW placed FWW for home use orders and PT will provide to pt prior to d/c. Plan: SW to follow pending imaging to confirm pt stable for d/c home later today. No further SW needs at this time. YU Stafford
--- NOTE | 2019-12-16 14:19 | PC.NURSE ---
Day shift: Pt discharged by foam charger Adrian. Taken to car driven by his friend at approx 1415. Pt has all personal belongings and MD scrips sent to pharmacy [facility].
--- NOTE | 2019-12-25 15:33 | P.DS_ITS ---
History of Present Illness History of Present Illness Chief complaint: Abd pain Narrative: The patient is a gentleman who has a history of spontaneous free air from pneumatosis intestinalis. He was attempting to go to [employer] today but felt like he had to vomit and developed severe abdominal pain. He presented to our emergency room with diffuse abdominal pain. The pain is throughout his abdomen with the out any particular area worse than others. He feels nauseated and has thrown up a small amount. Of significance, the patient did have and he has a lysis for small bowel obstruction 2017. 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 Last year he was explored for free air and was found to have a negative exploratory laparotomy. He again was noted to have ascites. He was in the hospital earlier this year with abdominal pain and free air. At that time there was no pneumatosis seen on x-ray. Patient's last bowel movement was yesterday. He has not had any solid food since last night. Discharge Providers Provider Date of admission: 12/10/19 12:09 Discharge Date: 12/16/19 Primary care physician: Tiffanie Shelley DO Consults: 12/10/19 18:55 Consult to Discharge Planning Routine Comment: 12/11/19 15:34 Consult to Physician Urgent Comment: Consulting Provider: Janie Cespedes Reason for consultation: actively pscychotic patient. NPO Has provider been notified: Yes 12/12/19 11:41 Consult to Physical Therapy Evaluate & Treat Comment: uses cane at home, deconditioned, needs to mobiliz Physician Instructions: Evaluate and Treat 12/16/19 11:41 Consult to Home Health Routine Comment: Exploratory Lap Reason For Exam: Set up FWW for home use at discharge Discharge provider: Ike Hernandez MD Summary Hospital Course Discharge Diagnosis: acuteSmall-bowel obstruction secondary to torsion of the small bowel mesentery. Schizophrenia chronic with acute exacerbation during hospitalization Acute postoperative delirium resolved chronic constipation history of seizure disorder treated with medication chronic chronic pneumatosis intestinalis Hospital Course: the patient had a tender abdomen an elevated white blood cell count. He was taken the operating room where he was found to have dilated small bowel and torsion of the mesentery with some ischemia of the small intestine that was transient. One son twisted it was clear that the colon was on a very long mesentery and eyes performed a colo pexy to prevent twisting from occurring again. His postoperative course was marked by an acute psychotic episode he was seen by our psychiatrists. He declined to take his usual medications. The patient is chronically constipated and was given medication to help stimulate bowel function. Ultimately he began to have bowel movements and eat without nausea. He was ultimately discharged to follow up in the office. Exam Vital Signs (past 8 hours): Oxygen Delivery Method Room Air Oxygen Flow Rate 0 Narrative Exam Narrative: lungs are clear. Heart regular rate and rhythm. Incision is intact. No cellulitis. Abdomen is little distended but soft and nontender. Objective Labs Result Diagrams: 12/15/19 04:55 12/15/19 04:55 Discharge Assessment & Plan Assessment and Plan Assessment: Doing as expected postop. Plan of Treatment: Discharge from the hospital on his pre-admission meds. Discharge Plan Discharge Plan Patient Disposition: Home Discharge orders & Medications Prescriptions: New ibuprofen 600 mg tablet 600 mg PO Q6H PRN (Reason: painful procedure) Qty: 20 RF: 0 Continued escitalopram oxalate 20 MG tablet 20 mg PO DAILY Qty: 30 RF: 0 (DME) shower chair for inside the tub Qty: 1 RF: 0 lansoprazole 30 mg capsule,delayed release(DR/EC) 30 mg PO DAILY Qty: 30 RF: 1 Men's 50 Plus Daily Formula 400-20-370 mcg Tablet 1 tab PO DAILY RF: 0 No Action levetiracetam 750 mg tablet 750 mg PO BID RF: 0 polyethylene glycol 3350 [Miralax] 17 gram/dose Powder 17 g PO DAILY RF: 0 Amitiza 24 mcg capsule 24 mcg PO BID RF: 0 Follow up/Referrals: Ike Hernandez MD [Physician] - 12/25/19 1:00 pm (If you need to reach a doctor please call our office. If it is after hours listen to the entire message and at the end you will be connected with the page multi needle machine operator. They will call the doctor on-call for our practice.) Tiffanie Shelley DO [Primary Care Provider] - Diet/Activity/Treatments Diet: Diet as Tolerated Activity: Do not lift over 10 lb or strain for the next 5 weeks. You may walk. No pool or tub for least 2 weeks. You may shower. Skin/Wound/Dressing Care Report to your healthcare provider any signs of infection, such as:: increased pain, unusual drainage and unusual redness Visit Report/Discharge Packet Instructions: DI for Heart Failure, DI for Colectomy, DI for Prescription Opioid Use, [facility]: Wound Care Stand Alone Forms: Surgery Discharge Visit Report Forms: Congestive Heart Failure, Patient Portal/API, Stroke Signs & Symptoms Discharge Data Primary Care Provider: Tiffanie Shelley Discharges patient from system. Discharge Date/Time: 12/16/19 14:23 Quality VTE Deep Vein Thrombosis/Pulmonary Embolism Present on Admission: No
== END 2019-12-16 14:23 | disposition home or self-care (01) | DRG 329 ==
LOC: ED 10:58 → AC 12:10
PROVIDERS: Surgery; Admitting Provider Specialist; Emergency Provider Emergency Medicine; PCP Family Medicine; Referring Provider Emergency Medicine; Visit Provider Specialist
PROC: 0DSH0ZZ Reposition Cecum, Open Approach (ICD-10-PCS; CPT 44140; principal; 2019-12-10 13:45)
DX: K56.2 Volvulus (principal); K55.011 Focal (segmental) acute (reversible) ischemia of small intestine; K63.89 Other specified diseases of intestine; F29 Unspecified psychosis not due to a substance or known physiological condition; F25.9 Schizoaffective disorder, unspecified; K21.9 Gastro-esophageal reflux disease without esophagitis; E78.5 Hyperlipidemia, unspecified; K59.09 Other constipation; G40.909 Epilepsy, unspecified, not intractable, without status epilepticus; F17.210 Nicotine dependence, cigarettes, uncomplicated; Z11.59 Encounter for screening for other viral diseases
CPT/HCPCS: 36415; 36592; 49000; 74018; 74019; 74022; 74177; 80048; 80053; 83690; 83735; 85025; 87635; 90792; 93005; 96361; 96374; 96375; 96376; 97116; 97161; 99222; 99285; 99406; C9113; J0330; J1100; J1170; J1650; J1885; J1953; J2060; J2250; J2270; J2405; J2543; J2704; J3010; J7121; Q9967

== ENCOUNTER 2019-12-19 23:27 | Emergency (ER) | payer OTHER, SELFPAY ==
[2019-12-16 13:37] VITALS: BMI 20.9
[2019-12-19 23:37] VITALS: BP 156/82; PULSE 62; RESP 18; TEMP 36.4; O2SAT 99
[2019-12-19] MEDS: ARIPiprazole 10 MG TABLET PO (23:55)
[2019-12-20] VITALS (37 sets, daily range): BP systolic 118–165; BP diastolic 64–83; PULSE 47–79; RESP 14–17; O2SAT 93–100
[2019-12-20 00:10] LABS: Add Manual Diff / Slide Review NO; Basophils Absolute Auto 100 /uL (0-100); Basophils Percent Auto 1.4 % (0-2); Eosinophils Absolute Auto 200 /uL (0-450); Eosinophils Percent Auto 2.2 % (2-4); Hemoglobin 15.1 g/dL (13.5-17.5); Lymphocytes Absolute Auto 1800 /uL (1100-4500); Lymphocytes Percent Auto 20.1 % (25-40); Mean Corpuscular HGB Conc 33.6 % (30-36); Mean Corpuscular Hemoglobin 31.7 PG (26-34); Mean Corpuscular Volume 94.3 fL (80-100); Monocytes Absolute Auto 900 /uL (0-900); Monocytes Percent Auto 9.8 % (3-14); Neutrophils Absolute Auto 5900 /uL (1500-7000); Neutrophils Percent Auto 66.5 % (50-75); Platelet Count 393 X10^3/uL (150-400); Red Blood Cell Count 4.77 X10^6/uL (4.5-5.9); Red Cell Distribution Width 13.5 % (11.6-14.8); White Blood Cell Count 8.9 X10^3/uL (4.5-11.0)
[2019-12-20 00:20] LABS: Alanine Aminotransferase 23 IU/L (<50); Albumin 4.2 g/dL (3.5-5.0); Albumin Globulin Ratio 1.5 (1.0-2.8); Alkaline Phosphatase 82 U/L (38-126); Aspartate Aminotransferase 30 IU/L (17-59); Bilirubin Total 1.1 mg/dL (0.2-1.3); Blood Urea Nitrogen 15 mg/dL (9-20); Carbon Dioxide 23 mmol/L (22-32); Chloride 101 mmol/L (98-107); Estimated Glomerular Filt Rate > 60.0 mL/min (>60); Globulin 2.8 g/dL (1.7-4.1); Glucose 90 mg/dL (70-100); HEMOLYSIS < 15 (0-50); Potassium 4.1 mmol/L (3.4-5.1); Sodium 134 mmol/L (137-145)
[2019-12-20 00:27] LABS: Ethanol (ETOH) < 10 mg/dL
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
--- NOTE | 2019-12-20 00:49 | DI.RAD.S_ITS ---
PROCEDURE: XR ACUTE ABDOMEN SERIES INDICATIONS: decreasead oral intake, recent bowel surgery TECHNIQUE: One view chest and two views of the abdomen were acquired. COMPARISON: [facility], , XR ACUTE ABDOMEN SERIES, 12/13/2019, 14:26. FINDINGS: Surgical changes and devices: Interval removal of nasogastric tube. Midline surgical ivy in the low abdomen. Chest: Lungs are clear. Heart size is normal. No pleural effusions. Interval resolution of pneumoperitoneum. Abdomen: There are air-fluid levels present throughout mildly prominent bowel loops. Small amount of gas is present in the colon and rectum. Mildly increased stool in the descending colon. No suspicious calcifications. Visualized solid organ contours appear normal. Bones: No suspicious bony lesions. Degenerative change at the low lumbar spine. IMPRESSION: 1. Ileus or partial/early bowel obstruction. 2. Skin ivy from recent bowel surgery. 3. No acute cardiopulmonary disease. Dictated by: Wendy Ni M.D. on 12/20/2019 at 6:49 Approved by: Wendy Ni M.D. on 12/20/2019 at 6:52
[2019-12-20 00:58] LABS: Thyroid Stimulating Hormone 3.64 uIU/mL (0.47-4.68)
--- NOTE | 2019-12-20 04:00 | PC.NURSE ---
patient resting on stretcher with eyes closed. respirations observed
--- NOTE | 2019-12-20 06:11 | PC.NURSE ---
patient on stretcher with no cloths on, sitting upright. asked if he can urinate and states his hands are stiff. Asked if the medication given last night helped and responded this, two there, no need. Patient did not respond to further questions. Pateint remains calm and appears to be mumbling to unseen things in the room. Provider notified and aware. Warm blanket given. Food and water at bedside.
--- NOTE | 2019-12-20 06:37 | PC.NURSE ---
patient sitting up in bed, reminded of the provider order for urine to be able to get medically cleared. Patient given a fresh glass of water and stated I ate a turkey sandwich last night. provider notified and acknowledged
--- NOTE | 2019-12-20 08:45 | PC.NURSE ---
Assisted Dr Sarkar during patient examination. Patient unable to follow commands to lift legs. Patient reporting back pain and when doctor asking him to move toes or extremities stated I can't because my toes are too sharp. Patient having difficulty stringing coherent sentences but able to vocalize feeling back pain. Provider aware.
[2019-12-20] MEDS: SODIUM CHLORIDE 0.9% 1,000 ML 1000 ML IV ×2 (10:54→14:36)
--- NOTE | 2019-12-20 14:14 | CM.SWNOTE ---
DIRECTOR CORPORATE SECURITY assessment DIRECTOR CORPORATE SECURITY - Juvenile Court Judge Assessment DIRECTOR CORPORATE SECURITY - Juvenile Court Judge Assessment Start: 12/20/19 13:55 Freq: Status: Active Protocol: Document 12/20/19 13:55 ALICIA (Rec: 12/20/19 14:14 ALICIA [id number]) DIRECTOR CORPORATE SECURITY/Juvenile Court Judge Assessment Time Spent with Patient Start date 12/20/19 Visit Start Time 13:25 End date 12/20/19 Visit End Time 13:55 Total time Care Management spent on 30 patient visit-in minutes Mental Health Screening Include Onset, Duration, Intensity Presenting Problem Patient presents to ED voluntarily after police conducted a welfare check. Patient reports that his psychiatrist recommended patient come to hospital to be assessed for inpatient hospitalization for medication stabilization. Patient has not been taking his medication since his surgery in late November, and reports that he is not feeling functional. Patient informs DIRECTOR CORPORATE SECURITY that he agrees that he would benefit from inpatient hospitalization for medication stabilization. Precipitating Event(s) Patient received small bowel surgery at ED in late November,, and reports he has not been taking his psych medication since this time. Current Behavioral Health Provider(s) Margy Kim, [facility] Include Facility, Provider, Ph. # [facility] - Psych. Hx Mental Health and Chemical Patient has previous diagnoses Dependency of psychotic disorders, previous suicide attempt, bipolar, insomnia, and does report hallucinations. Family Hx of Behavioral Abuse none reported. Psychiatric Hospitalizations (date(s)/ none reported. location) Support System(s) Patient does currently live alone, but states that he did have a friend who used to help him around the house. School/Work none reported. Legal Concerns Legal Matters - Outstanding Issues None reported. Mental Status Orientation (Person/Place/Time) Oriented to Person/place. Not oriented to tiem. Affect Blunted, stable Thought Content - Specify/Describe Patient reports hearing Obsessions, Delusions, Hallucinations auditory hallucinations and does report experiencing them during assessment. Patient stopped talking during a conversation and explained that he started hallucinating at this time. Patient declined to discuss or identify any topics that the voices he heard discussed with him. During assessment, patient did appear to respond to internal stimuli briefly. No obsessions/delusions reported or observed during assessment. Thought Processes (Loiubmn-Lttbowhi-Idwi Slightly disorganized Vcrbnejk-Laqkmbwj-Uvhygdacrn- Hktmbxekpstzyp-Lihvdej-Wepcbqjxrctl- Thought Blocking) Speech (Uqvobo-Rjbo-Eeisqla-Rapid-Soft- Slow Loud-Pressured) Motor (Fpzeiu-Exwnzpmrc-Gakx-Other) Slow Insight (Present-Partially Present- Partially present Impaired) Judgment (Intact-Impaired) Partially intact Impulse Control (Adequate-Impaired) Adequate Memory (Ixbyyqfls-Axhqtm-Bavcqo, Not formally tested, mostly Impaired-Intact) intact for interview Concentration (Intact-Impaired) Impaired Attention (Intact-Impaired) Impaired Behavior (Appropriate-Inappropriate) Appropriate Additional Comment Patient very calm and cooperative throughout visit. Risk Assessment Suicidal Ideation (Plan) No Homicidal Ideation (Plan) No Comment Patient denies SI/HI. Intervention Intervention DIRECTOR CORPORATE SECURITY consult requested for patient. Patient is a 54 y/o male who presents to the ED following a welfare check from police. DIRECTOR CORPORATE SECURITY enters room and speaks with patient. Patient explains he has not taken his medication since he had surgery, and states that, while his limbic system feels ok, he is not feeling functional due to discontinuation of his psychiatric medication. Patient reports that his psychiatrist recommended inpatient treatment for medication stabilization, and patient states he is in agreement with this. Plan RA Plan DIRECTOR CORPORATE SECURITY informs MARGARET Alas and will inform provider Dr. Sarkar . DIRECTOR CORPORATE SECURITY will work with patient to secure inpatient behavioral health hospitalization for medication stabilization. YU Madrigal
[2019-12-20 15:03] LABS: UR Morphine/Opiate cutoff 300 Negative (Negative); Ur Creatinine Normal (Normal); Ur Specific Gravity Normal (Normal); Urine Amphetamines Negative (Negative); Urine Barbiturates Negative (Negative); Urine Benzodiazepines Negative (Negative); Urine Cocaine Negative (Negative); Urine MDMA Negative (Negative); Urine Methadone Negative (Negative); Urine Methamphetamines Negative (Negative); Urine Oxycodone Negative (Negative); Urine Phencyclidine Negative (Negative); Urine Tetrahydrocannabinol Negative (Negative); Urine Tricyclic Antidepressant Negative (Negative); Urine pH Normal (Normal)
[2019-12-20] MEDS: IBUPROFEN 400 MG TABLET PO ×2 (16:04→21:57)
--- NOTE | 2019-12-20 16:51 | CM.SWNOTE ---
OIL FIELD EQUIPMENT MECHANIC SUPERVISOR note After assessment, OIL FIELD EQUIPMENT MECHANIC SUPERVISOR calls [facility] and speaks to Wood about a placement for behavioral health at hospital. Wood informs OIL FIELD EQUIPMENT MECHANIC SUPERVISOR that there are currently no beds available. OIL FIELD EQUIPMENT MECHANIC SUPERVISOR calls [facility] in [place]. Staff at [facility] request clinical packet for patient. OIL FIELD EQUIPMENT MECHANIC SUPERVISOR obtains consent from patient and faxes clinical packet to [facility] at 1448. Patient provides consent for OIL FIELD EQUIPMENT MECHANIC SUPERVISOR to contact other local hospitals if needed. OIL FIELD EQUIPMENT MECHANIC SUPERVISOR calls [facility] at [phone] to inquire about status for patient. OIL FIELD EQUIPMENT MECHANIC SUPERVISOR is told that the intake lead in unavailable to speak, and is informed that she will contact OIL FIELD EQUIPMENT MECHANIC SUPERVISOR at [phone] before [phone]. If no contact from [facility] by 1730, OIL FIELD EQUIPMENT MECHANIC SUPERVISOR will seek inpatient placement at other hospitals. YU Madrigal
--- NOTE | 2019-12-20 18:12 | CM.SWNOTE ---
MULTILITH OPERATOR note MULTILITH OPERATOR recieves call from [facility] informing MULTILITH OPERATOR that they are unable to accept patient at their hospital. MULTILITH OPERATOR calls [facility] and speaks to Corrine who informs MULTILITH OPERATOR that they do have open beds. MULTILITH OPERATOR faxes clinical packet to [facility] at [phone]. MULTILITH OPERATOR calls [facility] at [phone] and speaks to Corrine. MULTILITH OPERATOR informs Corrine of upcoming end of shift for MULTILITH OPERATOR and leaves [phone] as call back number for patient. MULTILITH OPERATOR updates MARGARET Suazo and leaves clinical packet in paper chart. MULTILITH OPERATOR will send update to hospice patient care secretary on shift tomorrow for follow up in case patient not accepted for placement tonvan. YU Madrigal
[2019-12-20 19:49] LABS: Bacteria Urine None Seen; WBC Urine None Seen (0-5/HPF)
[2019-12-20 19:51] LABS: Appearance Urine UA CLOUDY; Bilirubin Urine UA NEGATIVE (NEGATIVE); Color Urine UA YELLOW; Glucose Urine UA NEGATIVE (Negative); Ketones Urine UA 1+ (NEGATIVE); Leukocyte Esterase Urine UA NEGATIVE (NEGATIVE); Nitrite Urine UA NEGATIVE (Negative); Occult Blood Urine UA 1+ (Negative); Protein Urine UA NEGATIVE (Negative); Specific Gravity Urine UA 1.015 (1.000-1.035); pH Urine UA 7.5 (4.5-8.0)
[2019-12-20 20:03] LABS: RBC Urine 1-5/HPF (0-5/HPF)
[2019-12-20 20:04] LABS: Amorphous Sediment Urine 3+; Culture Indicated Urine Cult Not Indicated
[2019-12-21] VITALS (34 sets, daily range): BP systolic 121–178; BP diastolic 64–87; PULSE 46–69; RESP 15; O2SAT 65–100
[2019-12-21] MEDS: KETOROLAC 60 MG/2 ML VIAL 15 MG IV (03:48)
--- NOTE | 2019-12-21 06:48 | PC.NURSE ---
pt was refused at [facility] related to recent abdomen surgery.
--- NOTE | 2019-12-21 11:18 | PC.NURSE ---
Patient stated his ivy feel like they are stretching. Informed nurse.
--- NOTE | 2019-12-21 11:51 | CM.SWNOTE ---
Addendum entered by YU Stafford 12/21/19 15:47: SW updated RN and handed off the contact info for reviewing facilities and discussed possible option of d/c home with ongoing [facility] care and [facility] follow up call after d/c. SW will follow in the morning to determine if pt was able to successfully d/c this evening or further planning tomorrow. BF Addendum entered by YU Stafford 12/21/19 15:10: Return call from [facility] who states their physician has following concerns: Urinary retention, cannot manage clemons and will need to confirm pt can void independently. Need to confirm pt can have bowel movement. Would like PT note to confirm pt is independent with ADL's. When is f/u appointment with surgeon. NATALIA updated RN and clemons to be d/c'd and will monitor for voiding and bm and faxed [facility] the above information with f/u scheduled with Dr. Hernandez on 12/25/19 1300. [facility] not reviewing until tomorrow Sunday. [facility] received fax but reviewing a couple other referrals first and then will review pt. BF Addendum entered by YU Stafford 12/21/19 13:17: ADD: TWISTER DOFFER called [facility] to determine if they have access to pt's [facility] records towards getting pt's current med list and recommendations. [facility] does not have access to those records and will need to wait until [facility] opens tomorrow Sunday. BF Addendum entered by YU Stafford 12/21/19 13:13: ADD: TWISTER DOFFER also [facility]: left msg as they only have admissions M-F [facility] P[facility]: have openings and willing to review but no admissions until tomorrow (Sun). Provided pt status via phone and faxed clinicals to review. [facility]: has openings and willing to review. Provided pt status info and faxed clinicals to review. TWISTER DOFFER spoke to PT with pt update and she will eval pt now in the ED to determine if he is still independent with ambulation to see if pt is skillable for SNF through [facility]. Plan: SW to follow for review by Audrey Don, and [facility] to determine if any acceptance for placement and will follow for PT eval. BF Original Note: Placement Planning: Per MD, pt remains stable and may be admitted for observation if pt placement not found for either inpt MH or even back up plan of SNF if pt's medical complexities are a barrier to Inpt MH stabilization. Pt has been calm and cooperative and voluntarily seeking recent recommendation of Inpt MH tx for med management and stabilization as pt has been off prescribed MH medications since at least surgery but likely somewhat prior to surgery and expressing hallucinations and hearing voices. Per RN, pt has been independent with ambulation but not steady gait and has urinary retention and clemons cath placed yesterday and likely to remain for now. No wound care needs besides cream applied to incision site/ivy but concern that pt will not be able to provide his own care. PT has been ordered to eval to determine if pt may benefit from SNF as back up plan although pt's [facility] insurance will likely be a barrier to SNF auth as pt mostly care home care. COVID ordered and pending. TWISTER DOFFER yesterday attempted [facility] (full), [facility] (not an appropriate fit), and [facility] (too medically complex). TWISTER DOFFER attempted these Inpt MH tx facilities: [facility]: still full but took TWISTER DOFFER contact # in case they have discharges [facility]: Full, but may have openings tomorrow (Mon) [facility]: left msg [facility]: Full but took contact # in case they have discharges [facility]: has male voluntary openings. TWISTER DOFFER completed phone screen and faxed requested clinicals including Psych Consult during pt's recent admission for surgery. Plan: TWISTER DOFFER to follow closely for [facility] review to determine if they can accept and calling additional Inpt MH facilities. TWISTER DOFFER to follow for PT eval to determine if pt may meet criteria for SNF auth through [facility] as a back up plan. YU Stafford
[2019-12-21] MEDS: levETIRAcetam 250 MG TABLET 750 MG PO ×2 (12:30→20:12)
[2019-12-21] MEDS: CITALOPRAM 20 MG TABLET PO (12:30)
[2019-12-21] MEDS: BACITRACIN OINT 0.9 GM PCKT 1 APPLIC TOP (12:31)
[2019-12-21] MEDS: ACETAMINOPHEN 325 MG TABLET 650 MG PO (12:31)
[2019-12-21] MEDS: polyethylene glycoL 3350 17 GM POWD.PACK PO ×2 (12:34→18:02)
[2019-12-21] MEDS: PANTOPRAZOLE 20 MG TABLET PO (12:34)
--- NOTE | 2019-12-21 13:53 | PC.NURSE ---
PT a/o x 4. He continues to have flight of ideas and needs to be brought back to conversation. He denies SI/HI and hallucinations. Reviewed medications w/ Dr. Sarkar. Lunesta was new medication for patient. Will not give as may have been contributing factor to changed in mental status. Also holding Amitiza until surgery / PCP clears use. Pt c/o chronic L neck pain, warm blanket placed, encouraged range of motion. No neuro deficit. Moving all extremities equally well. No c spine tenderness. Abd is soft, non tender w/ + bowel sounds. Pt is passing gas. He has not moved his bowels today but did take miralax. Pt is taking po fluids and tolerating a regular diet w/o difficultly. Denies nausea/ vomiting. States he is getting an appetite back. Ordered off regular hospital menu to encourage po fluids. Breath sounds are equally clear. Easy work of breathing. No cough/ shortness of breath. Denies calf pain / tenderness. Encouraged to ambulate at least q 2 hours while awake.
[2019-12-21 14:54] LABS: COVID19 -Nasal RAPID Negative (Negative)
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
[2019-12-21] MEDS: DOCUSATE 100 MG CAPSULE PO (18:02)
--- NOTE | 2019-12-21 18:11 | PC.NURSE ---
Spoke w/ Dr. Cortes. He states Amitiza is ok to continue to take. Added to pt med list.
[2019-12-21] MEDS: MULTIVITAMIN 1 TABLET 1 TAB PO (20:11)
== END 2019-12-21 20:15 | disposition home or self-care (01) ==
PROVIDERS: Emergency Medicine; Emergency Provider Emergency Medicine; PCP Family Medicine
DX: R53.1 Weakness (principal); F32.9 Major depressive disorder, single episode, unspecified; Z98.890 Other specified postprocedural states; K56.609 Unspecified intestinal obstruction, unspecified as to partial versus complete obstruction
CPT/HCPCS: 36415; 51701; 51705; 51798; 74022; 80053; 80305; 80320; 81001; 81003; 84443; 85025; 87635; 96361; 96374; 97162; 99285; J1885

== ENCOUNTER → 2019-12-25 14:11 | Outpatient (CLI) | payer OTHER, SELFPAY ==
[2019-12-16 13:37] VITALS: BMI 20.9
== END ==
PROVIDERS: PCP Family Medicine; Referring Provider Family Medicine; Visit Provider Family Medicine
DX: M81.0 Age-related osteoporosis without current pathological fracture (principal); K92.9 Disease of digestive system, unspecified; Z87.891 Personal history of nicotine dependence; Z79.899 Other long term (current) drug therapy
CPT/HCPCS: 77080

== ENCOUNTER 2019-12-25 23:17 | Emergency (ER) | payer OTHER, SELFPAY ==
[2019-12-16 13:37] VITALS: BMI 20.9
[2019-12-25 23:30] VITALS: BP 135/82; PULSE 82; RESP 12; BMI 17.3
[2019-12-26] VITALS (45 sets, daily range): BP systolic 116–160; BP diastolic 63–80; PULSE 51–68; RESP 12–16; TEMP 36.5; O2SAT 100
[2019-12-26 00:25] LABS: Add Manual Diff / Slide Review NO; Basophils Absolute Auto 100 /uL (0-100); Basophils Percent Auto 1.3 % (0-2); Eosinophils Absolute Auto 300 /uL (0-450); Eosinophils Percent Auto 3.9 % (2-4); Hematocrit 41.2 % (41-53); Hemoglobin 14.4 g/dL (13.5-17.5); Lymphocytes Absolute Auto 2200 /uL (1100-4500); Mean Corpuscular Hemoglobin 32.9 PG (26-34); Monocytes Absolute Auto 600 /uL (0-900); Monocytes Percent Auto 8.3 % (3-14); Neutrophils Absolute Auto 4100 /uL (1500-7000); Neutrophils Percent Auto 56.5 % (50-75); Platelet Count 332 X10^3/uL (150-400); Red Blood Cell Count 4.38 X10^6/uL (4.5-5.9); White Blood Cell Count 7.2 X10^3/uL (4.5-11.0)
[2019-12-26 00:29] LABS: Alanine Aminotransferase 17 IU/L (<50); Albumin 4.1 g/dL (3.5-5.0); Albumin Globulin Ratio 1.5 (1.0-2.8); Alkaline Phosphatase 71 U/L (38-126); Aspartate Aminotransferase 26 IU/L (17-59); Bilirubin Total 0.9 mg/dL (0.2-1.3); Blood Urea Nitrogen 28 mg/dL (9-20); Calcium 9.4 mg/dL (8.4-10.2); Carbon Dioxide 22 mmol/L (22-32); Chloride 102 mmol/L (98-107); Estimated Glomerular Filt Rate > 60.0 mL/min (>60); Ethanol (ETOH) < 10 mg/dL; Globulin 2.7 g/dL (1.7-4.1); Glucose 89 mg/dL (70-100); HEMOLYSIS < 15 (0-50); Potassium 4.1 mmol/L (3.4-5.1); Sodium 135 mmol/L (137-145); Total Protein 6.8 g/dL (6.3-8.2)
[2019-12-26 01:22] LABS: Thyroid Stimulating Hormone 3.32 uIU/mL (0.47-4.68)
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
--- NOTE | 2019-12-26 13:54 | CM.SWNOTE ---
DIRECTOR OF NURSING note DIRECTOR OF NURSING attempted to meet with patient at 1345. Patient was asleep at this time, and did not rouse to loud knocking, or statement of his name. Chest was rising and falling. DIRECTOR OF NURSING will attempt to meet with patient again later in day. YU Madrigal
--- NOTE | 2019-12-26 15:09 | CM.SWNOTE ---
GRAPHICS EDITOR note UPDATE: GRAPHICS EDITOR staffs with Care Managment Fiber Designer Lilly. Lilly reccomends calling [facility] chronic manager to inquire about potential for SNF placement or caregiving while patient heals from his surgery. GRAPHICS EDITOR calls ED case management at , is transferred to SNF coordinator, and leaves . GRAPHICS EDITOR will attempt to meet with patient again this afternoon. YU Madrigal
--- NOTE | 2019-12-26 15:34 | PC.NURSE ---
I went to scan the patients bladder, he was upset with me and called me a pervert for having to stick my hand down their. I assured him I did not enjoy having to perform the scan. He started mumbling and I could not understand him. I asked the pt what he was saying and told me I needed to apologize for the scan. I asked if I could help with anything and he told me to get out of his life. Patient would not help me by trying to use the bathroom since he had a lot of fluid in his bladder.
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
--- NOTE | 2019-12-26 16:02 | CM.SWNOTE ---
LEAD PROJECT MANAGER note LEAD PROJECT MANAGER has Dr. Sarkar sign attestation form and LEAD PROJECT MANAGER faxes form to A. LEAD PROJECT MANAGER calls [facility] and speaks to Delfina. LEAD PROJECT MANAGER provides brief overview to Delfina, and Delfina states she will dispatch DCR. LEAD PROJECT MANAGER will wait for DCR to contact LEAD PROJECT MANAGER. YU Madrigal
--- NOTE | 2019-12-26 17:21 | PC.NURSE ---
Pt requested repeatedly to produce a urine sample. Pt states I havent had any water for days. Bladder scan measures 500 mL in bladder. Pt denies this is urine, states Its not urine, those are your words.
[2019-12-26 17:35] LABS: COVID19 -Nasal RAPID Negative (Negative)
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
[2019-12-26] MEDS: levETIRAcetam 250 MG TABLET 750 MG PO (21:20)
--- NOTE | 2019-12-26 21:31 | PC.NURSE ---
attempted to bladder scan patient. Pt refused stating that he has not drank anything in the past 3 hours and that there isn't anything in his bladder. Pt then went on to say I want to get the hell out of here. I see dragons growing right there. I see them with my own eyes. Pt was looking in the corner of the room when he stated that. RN Grace clemente. Provider notified
[2019-12-27] VITALS (15 sets, daily range): BP systolic 116–134; BP diastolic 82–84; PULSE 61–81; RESP 12–18; TEMP 36.8–37.1; O2SAT 94–100
--- NOTE | 2019-12-27 04:04 | PC.NURSE ---
Pt noted in hallway, asked for help walking to the bathroom. Please help me, I'm afraid of falling, I'm very weak. Pt ambulated to BR with stand-by assist, voided dark yellow urine in toilet. Pt assisted back to bed, stated, I'm not sure if I'm hallucinating, but it looks like there's something in there, indicating laundry hamper. Hamper removed from room for comfort. Pt given snacks and water to drink, oriented to time of day and plan of care.
[2019-12-27] MEDS: levETIRAcetam 250 MG TABLET 750 MG PO ×2 (09:17→22:56)
[2019-12-27] MEDS: polyethylene glycoL 3350 17 GM POWD.PACK PO (09:17)
[2019-12-27] MEDS: ESCITALOPRAM 10 MG TABLET 20 MG PO (09:17)
[2019-12-27] MEDS: PANTOPRAZOLE 20 MG TABLET PO (09:18)
--- NOTE | 2019-12-27 09:31 | PC.NURSE ---
Patient asked me to clean up the broken glass all over the floor. I did not find any evidence of this and I let him know. Pt also states he has been continuing to hallucinate. I helped him get set up for breakfast and updated the nurse.
[2019-12-27 11:01] LABS: UR Morphine/Opiate cutoff 300 Negative (Negative); Ur Creatinine Normal (Normal); Ur Specific Gravity Normal (Normal); Urine Amphetamines Negative (Negative); Urine Barbiturates Negative (Negative); Urine Benzodiazepines Negative (Negative); Urine Cocaine Negative (Negative); Urine MDMA Negative (Negative); Urine Methadone Negative (Negative); Urine Methamphetamines Negative (Negative); Urine Oxycodone Negative (Negative); Urine Phencyclidine Negative (Negative); Urine Tetrahydrocannabinol Negative (Negative); Urine Tricyclic Antidepressant Positive (Negative); Urine pH Normal (Normal)
--- NOTE | 2019-12-27 12:01 | CM.SWNOTE ---
HAT CONE INSPECTOR note Late addition from 12/26/19: LUZ Alex came to ED and met with patient. After conversation with LUZ Alex, patient agreeable to SNF with plan to secure correction or adult family home after. HAT CONE INSPECTOR discusses with Dr. Vigil, and plan for HAT CONE INSPECTOR to work to secure placement for patient following day. 12/27/19 HAT CONE INSPECTOR received voicemail from Jaida at [facility] requesting a call back at [phone]. HAT CONE INSPECTOR returns call. Jaida states that she spoke with REGAN Avila who faxed clinicals to [facility]. Jaida states she will review clinicals and call around for SNF placement for patient. Jaida states she will follow up with HAT CONE INSPECTOR at [phone] with updates. YU Madrigal
[2019-12-27] MEDS: HYDROCODONE/ACET 5/325 TABLET 1 TAB PO (12:52)
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
--- NOTE | 2019-12-27 15:41 | CM.SWNOTE ---
SHAFT REPAIRER note SHAFT REPAIRER receives call from Kimberly at [facility] stating that patient does not meet eligibility for SNF, and Kimberly informs SHAFT REPAIRER that patient's chart indicate that primary concern is based around psychiatric concerns. SHAFT REPAIRER will re-interview patient today, and evaluate need for next after meeting. YU Madrigal
--- NOTE | 2019-12-27 15:43 | CM.SWNOTE ---
ANALYTICS MANAGER note ANALYTICS MANAGER enters room and meets with patient. Patient is awake, sitting in chair next to bed, and states he has recently been crying. Patient is alert and oriented, and both endorses and demonstrates experiencing audio and visual hallucinations during assessment. Patient makes and maintains eye contact throughout assessment. Patient reports feeling as though a certain doctor is after him and states that scary stuff is happening in his home, but is unable to elaborate on this. Patient reports hearing voices throughout assessment and displays disorganized and tangential thinking throughout conversation. ANALYTICS MANAGER discusses inpatient psychiatric hospitalization for patient. Patient states he is agreeable to this, and states he has not been taking his medication as prescribed since last visit to ED for psych concerns (12/18-12/20). ANALYTICS MANAGER staffs with Dr. Gandhi who indicates agreement with plan to seek inpatient hospitalization for behavioral health. ANALYTICS MANAGER will call local facilities to secure inpatient behavioral health stabilization. YU Madrigal
[2019-12-27 15:56] LABS: Bacteria Urine None Seen
[2019-12-27 16:06] LABS: Amorphous Sediment Urine 1+; Calcium Oxalate Crystals Urine Few; Mucus Urine 1+ (Negative); RBC Urine 1-5/HPF (0-5/HPF); Squamous Epithelial Cell Urine 0-1 /HPF (0-5/HPF); WBC Urine 0-1/HPF (0-5/HPF)
[2019-12-27 16:07] LABS: Culture Indicated Urine Cult Not Indicated
--- NOTE | 2019-12-27 20:38 | CM.SWNOTE ---
CAMPUS MANAGER note CAMPUS MANAGER begin search for psych placement for patient. CAMPUS MANAGER contacts [facility] and [facility], neither facility has open beds. CAMPUS MANAGER calls [facility] and speaks to Faizan in intake. Faizan informs CAMPUS MANAGER that there are open beds. CAMPUS MANAGER provides brief overview of patient stay here, and Faizan requests clinicals be faxed to [facility]. CAMPUS MANAGER faxes clinicals at 1605. CAMPUS MANAGER calls [facility] at 1705 for update. CAMPUS MANAGER speaks to Moira, who confirms that packet has been received and is under review, and states that SP will follow up with CAMPUS MANAGER soon. CAMPUS MANAGER calls [facility] at 1805 for update on placement status. CAMPUS MANAGER speaks to Moira who states the packet is under review. CAMPUS MANAGER asks if there is a time in which should expect a decision by and Moira states ?within 20 minutes?. At 1845, CAMPUS MANAGER contacts [facility] to seek placement for patient. CAMPUS MANAGER speaks to Elis in intake. Elis informs CAMPUS MANAGER that [facility] has vacant beds, but that they will not be able to accept before 8 am. CAMPUS MANAGER discusses hx of patient treatment at . Elis expresses concern about voluntary status of patient and informs CAMPUS MANAGER that patient may need to be re-evaluated by DCR prior to acceptance. Elis requests clinicals and CAMPUS MANAGER faxes clinicals to [facility] at 1858. Due to length of patient stay, CAMPUS MANAGER calls [facility] to see if there are any open beds. CAMPUS MANAGER speaks to Ju. Ju informs CAMPUS MANAGER that they do have open beds. CAMPUS MANAGER explains patient stay and reasoning for DCR evaluation, and patient?s current presentation. Ju screens patient and requests clinicals. CAMPUS MANAGER faxes clinicals to [facility] at 1958. CAMPUS MANAGER gives Ju [phone] for call back before 2029 and [phone] for call back after 2029. CAMPUS MANAGER calls [facility] at 2001 and speaks to Rupinder. Rupinder reviews packet and asks a few questions regarding DCR interaction with patient. CAMPUS MANAGER provides history of patient?s current stay in ED to Rupinder and clarifies patient?s current presentation. Ju reports she will review packet and provide a formal response to CAMPUS MANAGER before 2029. CAMPUS MANAGER leaves [phone] for calls before 2030 and [phone] for calls after 2030. At 2030, CAMPUS MANAGER had not heard back from any of the hospitals. Pl: CAMPUS MANAGER sends update to CAMPUS MANAGER on-shift tomorrow, who will work with patient following day to secure placement. YU Madrigal
--- NOTE | 2020-02-29 16:02 | PC.NURSE ---
Pt called from [facility] behavioral. Appeared to be disoriented stating he was just there in your psychiatric unit. Reviewed chart and saw pt has not been seen since December of this year. PT asking why I was not given a copy of my rights and responsibilities under the law. Informed that I could not comment and he would have to call administration / medical records during business hours. Bere Rodrigues RN @ [facility] took phone at that point and reviewed conversation. She states she will assist patient.
== END 2019-12-27 23:35 ==
PROVIDERS: Emergency Medicine; Emergency Provider Emergency Medicine; PCP Family Medicine
DX: F32.9 Major depressive disorder, single episode, unspecified (principal); M54.9 Dorsalgia, unspecified; Z73.6 Limitation of activities due to disability; R44.3 Hallucinations, unspecified; R07.9 Chest pain, unspecified; Z11.59 Encounter for screening for other viral diseases; M81.0 Age-related osteoporosis without current pathological fracture; K92.9 Disease of digestive system, unspecified; Z87.891 Personal history of nicotine dependence; Z79.899 Other long term (current) drug therapy
CPT/HCPCS: 36415; 51798; 77080; 80053; 80305; 80320; 81003; 81015; 82962; 84443; 85025; 87635; 93005; 93010; 99284